=== PATIENT | female | born 1930 | race Caucasian/White ===

== ENCOUNTER → 2018-02-13 07:14 | Day surgery (SDC) | payer MEDICARE, BC ==
[~2018-02-13 07:14] MED LIST: Albuterol 2.5 MG/3 ML NEB.SOL* (0.083%) INH ONE; Clopidogrel TAB* 300 MG ONE; Clopidogrel TAB* 300 MG PO ONE; Heparin 2 UNITS/ML IVPREMIX* 1,000 ML IV ONE; Heparin 2 UNITS/ML IVPREMIX* 2,000 ML IV ONE; Heparin(*) 1000 UNIT/ML 10 ML VIAL CATH LAB IV ONE; Iodixanol* (CONTRAST) 320 MG/ML 100 ML SDV ONE; LORazepam TAB(*) 1 MG ONE; Lidocaine 1%* 5 ML VIAL ONE; Midazolam* 1 MG/ML 5 ML VIAL (5 MG) ONE; VERAPAMIL 2.5 MG/ML 2 ML VIAL ** 5 mg/2 ml ONE; fentaNYL* 50 MCG/ML 2 ML VIAL (100 MCG VIAL) ONE; nitroGLYCERIN DRIP* 25,000 MCG/250 ML BTL ONE
--- NOTE | 2018-02-13 15:49 | PN ---
Progress Note - Progress Note Date of Service: 02/13/18 SOAP: Subjective: No complaints of pain in the left groin, pelvis or either lower extremity. No chest pain or shortness of breath. Eating dinner. Objective: 161/94, 88, 19, 95% (RA) NAD, AAO x 3 Abdomen is soft, nontender Left groin is soft, nontender Dressing is CDI 1+ pulse at bilateral DYE BOX OPERATOR, 1+ right popliteal pulse, right INSPECTOR BALL POINTS Right foot is warm to touch Bilateral LE are grossly NM intact Assessment: 87 YOF status post pelvic & BLE arteriography, revascularization of occluded distal right SFA & popliteal arteries, atherectomy and balloon angioplasty of right popliteal, SFA, DYE BOX OPERATOR and distal right EIA. Irregular calcification at left DYE BOX OPERATOR prevented safe deployment of closure device. Pressure held at left CF arteriotomy x 30 minutes. Bleeding controlled. Plan: 1. Plavix 300 mg PO before d/c then 75 mg daily PO x 6 months. 2. Bedrest and groin/vitals/pulses checks per protocol.. 3. IR follow up will include RN call 02/16/18 and clinic visit and DEANNA in ~1 month.
--- NOTE | 2018-02-13 18:16 | RAD ---
CPT II Codes: G9500 Procedure(s) performed: 1. Diagnostic pelvic and bilateral lower extremity arteriogram. 2. Revascularization of occluded right distal superficial femoral artery and popliteal artery. 3. Atherectomy and balloon angioplasty of the right common femoral, superficial femoral and popliteal arteries. 4. Balloon angioplasty of the distal right external iliac artery. Date of service: February 13, 2018 Indication for procedure: Claudication and rest pain Comparison: CT chest abdomen pelvis dated November 25, 2014 and DEANNA dated January 26, 2014 Contrast: 80 mL of Visipaque 320 Fluoroscopy Time: 41.8 minutes Vessels Accessed: Percutaneous access was obtained with ultrasound guidance in the left common femoral artery in the retrograde direction towards the heart. Catheter arteriography, with the catheter tip located within the lumen of the following arteries, was performed at the left external iliac artery, aorta, right common femoral artery and right superficial femoral artery. Anesthesia: Conscious sedation with IV Fentanyl and Versed as well as local 1% lidocaine injected locally at the arteriotomy site. Conscious sedation time: Timeout: 848 hours Case end: 1225 hours Total conscious sedation time: 3 hours and 37 minutes Additional medications: * 400 mcg IA nitroglycerin injected intermittently throughout the course of the procedure to alleviate arterial spasm. * IV heparin 5000 Units to achieve a goal ACT of 250-300. * The patient received 1 mg of p.o. Ativan prior to the onset of the procedure. PROCEDURE NOTE AND INTRAPROCEDURAL IMAGING FINDINGS: Immediately prior to the procedure the patient signed consent after thoroughly discussing all risks, benefits and alternative therapies. The patient was positioned on the fluoroscopy table in the supine position and the bilateral groins were shaved, prepped and the patient was draped in standard sterile fashion. Using fluoroscopic imaging the location of the left common femoral head was marked externally with a skin marker on the patient's groin. Utilizing sonographic guidance and palpation, the left common femoral artery was cannulated overlying the femoral head with a 21-gauge needle. An ultrasound image was saved. A microwire was slowly and smoothly advanced into the left common femoral artery under fluoroscopic imaging. No buckling of the wire was visualized to indicate dissection. With the wire securing percutaneous arterial access, the needle was removed and a 5-Jamaican access sheath was advanced under fluoroscopic control into the left common femoral artery until the tip terminated at the left external iliac artery. The microwire and stiffener were removed and a 0.035 inch ProPerformason wire was advanced through the sheath and into the aorta under fluoroscopic control. The 5-Jamaican access sheath was removed and exchanged for a 5-Jamaican SideArm access sheath securing access into the arterial system. Diagnostic arteriography is necessary to locate the location and determined severity of the patient's vascular disease and to potentially revascularize disease arteries. An arteriogram was performed through the side arm of the access sheath with the tip at the left external iliac artery demonstrating a patent left external iliac artery leading into the common femoral artery. There is complete occlusion of the proximal left superficial femoral artery beginning at the ostium. The femoral profundus fills adequately. A 5-Jamaican multiside hole flush catheter was advanced into the aorta over the wire and power injection arteriography of the lower abdominal aorta and bilateral iliac arteries was performed. This demonstrated diffuse calcified atherosclerosis of the visualized arteries provide adequate patency is documented in the infrarenal abdominal aorta and bilateral iliac arteries. There is coarse calcification causing mild narrowing at the bilateral external iliac arteries more severely affecting the right than the left. There is atherosclerotic narrowing at the origin of the right superficial femoral artery as well. The flush catheter was removed and replaced with a 5-Jamaican C2 catheter which was used to access the contralateral right common iliac artery. Utilizing this catheter and a hydrophilic 0.035 inch wire the catheter was advanced to the right common femoral artery. Arteriography was performed here showing multifocal stenoses in the proximal right superficial femoral artery. More inferiorly there is abrupt occlusion of the right superficial femoral artery at the level of Bam's canal. The distal most popliteal artery fills by collateralized flow just above the branch point of the anterior tibial artery. The anterior tibial artery, peroneal artery and posterior tibial artery fill adequately in their proximal portions. A 260 cm length stiff hydrophilic wire was inserted into the catheter and advanced to the mid-level superficial femoral artery. The catheter was removed and over the stiff hydrophilic wire the SideArm access sheath was removed and replaced with a 65 cm length, 6-Jamaican access sheath which was then advanced under fluoroscopic control until the tip terminated in the proximal right superficial femoral artery. Utilizing a 4-Jamaican catheter and a hydrophilic wire the occluded distal SFA and popliteal artery was crossed and tail the tip of the catheter was located in the distal most popliteal artery. Arteriography demonstrated a small dissection at the reentry point across the occlusion in the popliteal artery that extends to the tibioperoneal trunk. Contrast injected does fill the proximal infrapopliteal arteries. Repositioning of the catheter and wire securing access in the true lumen of the posterior tibial artery. The wire was exchanged for a 0.014 inch Viper which was advanced to the ankle level right posterior tibial artery. With the wire securing access across the SFA and occluded posterior tibial artery orbital active anatomy was performed across the entire length of the right superficial femoral artery including the occluded distal right SFA and occluded popliteal artery up to the branch point of the right anterior tibial artery. The atherectomy device was removed and over the microwire a 4 mm x 120 mm Nanocross balloon was advanced and balloon angioplasty was performed across the entire length of the right SFA and popliteal artery. The balloon was inflated up to its burst pressure corresponding to a diameter measurement of approximately 4.3 mm anteriorly each inflation the balloon remained inflated for minimum of 2 minutes to address spasm. With the tip of the access sheath now at the junction of the right external iliac and common femoral artery balloon angioplasty was performed showing brisk patent flow through the superficial femoral artery, into the popliteal artery and as far as the infrapopliteal arteries. The microwire was exchanged for a 0.035 inch hydrophilic wire. Over this wire a 5 mm x 150 mm Passeo 35 balloon was advanced and balloon angioplasty was performed from the lower margin of the infrapopliteal artery then proximally across the entire length of the superficial femoral artery, right common femoral artery and the distal most right external iliac artery. At the popliteal artery the balloon was inflated to its nominal pressure corresponding to a 5 mm diameter. At all levels proximal the balloon was inflated to just under burst pressure corresponding to a diameter measurement of 5.3 mm. During each inflation the balloon remained inflated for 2 minutes or more to address spasm. With the tip of the access sheath in the right common femoral artery balloon angioplasty was performed showing brisk flow through the entire superficial femoral artery, into the popliteal artery and continuing into the infrapopliteal arteries. Unfortunately the dissection at the branch point of the right anterior tibial artery remains. Over the wire the long access sheath was exchanged for a 11 cm length 6-Jamaican access sheath which was advanced until the tip was at the left external iliac artery. Through the side arm of the access sheath arteriography was performed of the distal left thigh which shows complete occlusion of the superficial femoral artery. Distally the popliteal artery fills by collateralized flow provided by intramuscular branches of the femoral profundus. More inferiorly there is slow filling of the popliteal artery which fills the proximal portions of the infrapopliteal arteries. In-line flow is documented as far as the mid-level left lower leg through the NICOLE and SECTION BEAMER. Due to irregular calcification at the left common femoral artery a percutaneous closure device was deferred. The patient's elevated ACT prevents safe removal of the sheath and therefore the sheath was sutured in place with the intention to removed the sheath in the CHF holding room after the ACT is <160. The patient tolerated the procedure well and was transferred to angiography holding bay for standard post procedural observation. SUMMARY OF PROCEDURE, IMAGING FINDINGS AND INTERVENTIONS PERFORMED: 1. Diagnostic studies performed: * Arterial access was obtained at the left common femoral artery in the retrograde direction (i.e. towards the heart) with ultrasound guidance. A sonographic image was recorded. * Diagnostic catheter angiography (necessary to perform the appropriate interventions) was performed with the catheter tip in the left external iliac artery, aorta, right external iliac artery, right common femoral artery and right superficial femoral artery. * Catheter arteriography was performed of the lower abdominal aorta and bilateral iliac arterial system, the right lower extremity arteries as far as the mid foot and the left lower extremity arteries as far as the mid-level left lower leg. 2. Interpretation of diagnostic studies performed: * Mild stenoses in the bilateral external iliac arteries, slightly more severe on the right than the left. * There is complete occlusion of the proximal left superficial femoral artery beginning at the ostium with slow reconstituted filling of the left popliteal artery via intramuscular collaterals. * After the left popliteal artery fills by reconstituted flow there is essentially in-line flow in the proximal infrapopliteal arteries as far as the lower left leg (arteriography was not acquired at the left ankle and foot). * Coarse calcification causing multifocal stenoses in the right common femoral and superficial femoral artery culminating and complete occlusion of the distal superficial femoral artery. The occlusion extends into the popliteal artery and only the distal right popliteal artery fills by reconstituted flow. * From the distal popliteal artery on word there is adequate filling of the infrapopliteal arteries with 2 vessel runoff provided by the SECTION BEAMER and NICOLE. 3. Surgical interventions performed: * Catheter and wire revascularization of the distal right superficial femoral and popliteal arteries. * Atherectomy was performed with a Diamondback 1.5 SOLID across the entire length of the right common femoral artery, superficial femoral artery including the previously occluded distal right SFA and popliteal arteries. * Balloon angioplasty of the right popliteal and superficial femoral artery with a 4 mm x 150 mm Nanocross balloon. * Balloon angioplasty of the right popliteal artery, right superficial femoral artery, right common femoral artery and distal right external iliac artery utilizing a 5 mm x 150 mm ECO-SAFEronik 35 balloon the balloon was inflated to nominal pressure at the level of the popliteal artery. Above the popliteal artery the balloon was inflated just below burst pressure corresponding to a diameter measurement of 5.3 mm. 4. Interpretation of interventions performed: * Final arteriography demonstrated brisk flow through the right common femoral artery, superficial femoral artery, across the previously occluded popliteal artery and into the infrapopliteal arteries. * Unfortunately a dissection flap was created reentering the occluded distal right popliteal artery which persisted on the final arteriogram. Although the dissection flap persistent there was brisk flow through the infrapopliteal arteries as far as the right ankle. Plan: 1. Aspirin 81 mg p.o. daily for life. 2. Plavix 75 mg p.o. daily x 6 months. 3. Clinical and imaging follow-up according to standard Interventional Radiology protocol.
[2018-02-13 18:18] VITALS: BP 122/57
== END | disposition home or self-care (01) ==
LOC: CHICATH 07:14
PROVIDERS: ATTEND Radiology Diagnostic Radiology
DX: I70.223 Atherosclerosis of native arteries of extremities with rest pain, bilateral legs (principal); I73.9 Peripheral vascular disease, unspecified; I25.10 Atherosclerotic heart disease of native coronary artery without angina pectoris; I12.9 Hypertensive chronic kidney disease with stage 1 through stage 4 chronic kidney disease, or unspecified chronic kidney disease; N18.3 Chronic kidney disease, stage 3 (moderate); J44.9 Chronic obstructive pulmonary disease, unspecified; Z85.118 Personal history of other malignant neoplasm of bronchus and lung; Z95.5 Presence of coronary angioplasty implant and graft; Z87.891 Personal history of nicotine dependence; E78.00 Pure hypercholesterolemia, unspecified; Z79.899 Other long term (current) drug therapy; M81.0 Age-related osteoporosis without current pathological fracture
CPT/HCPCS: 75736; 76937; 85347; 94640; 99156; 99157; A9270-GY; C1724; C1725; C1769; C1887; J1644; J2250; J3010

== ENCOUNTER 2018-03-17 01:54 | Emergency (ER) | payer MEDICARE, BC ==
[2018-03-17] MEDS ORDERED: Lidocaine 2% JELLY* 6 ML JELLY TOPICAL ONE (02:05)
[2018-03-17] MEDS ORDERED: Nitroglycerin 2% OINT* 1 GM PAK TOPICAL ONE (02:16)
[2018-03-17] MEDS ORDERED: cloNIDine TAB* 0.1 MG PO ONE (02:16)
[2018-03-17] MEDS ORDERED: traMADol TAB* 50 MG PO ONE (02:17)
--- NOTE | 2018-03-17 02:25 | ED ---
Throat Pain/Nasal Congestion - HPI Summary HPI Summary: A 87 y/o female accompanied by family presents to ED c/o constant epistaxis. As per triage, "Pt stated that she has a nose bleed that won't stop". According to the patient, the epistaxis started around midnight on the left side where it has not stopped since. Patient noted that it has never happened to this severity before. Patient took her medications including her blood thinners. - History of Current Complaint Chief Complaint: EDEpistaxis Time Seen by Provider: 03/17/18 02:00 Hx Obtained From: Patient Onset/Duration: Sudden Onset, Still Present Associated Signs And Symptoms: Positive: Nasal Discharge - Epistaxis Cough: None - Allergies/Home Medications Allergies/Adverse Reactions: Allergies Allergy/AdvReac Type Severity Reaction Status Date / Time codeine AdvReac Mild Rash Verified 03/17/18 01:58 PMH/Surg Hx/FS Hx/Imm Hx Cardiovascular History: Reports: Hx Hypertension Respiratory History: Reports: Other Respiratory Problems/Disorders - hx of lung cancer History: Reports: Hx Renal Disease - stage III Musculoskeletal History: Denies: Hx Osteoporosis Sensory History: Reports: Hx Contacts or Glasses - does not have glasses with her Opthamlomology History: Reports: Hx Contacts or Glasses - does not have glasses with her Psychiatric History: Reports: Hx Depression - Cancer History Cancer Type, Location and Year: dx multiple myeloma -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 pt thinks last chemo was in [id number] Hx Chemotherapy: Yes - LUNG Hx Radiation Therapy: Yes - LUNG - Surgical History Surgery Procedure, Year, and Place: cardiac stent - Immunization History Date of Tetanus Vaccine: unk Date of Influenza Vaccine: fall 2016 Infectious Disease History: No Infectious Disease History: Denies: Traveled Outside the [place] in Last 30 Days - Family History Known Family History: Negative: Blood Disorder - Social History Alcohol Use: None Substance Use Type: Reports: None Smoking Status (MU): Former Smoker Review of Systems Negative: Fever Positive: Epistaxis All Other Systems Reviewed And Are Negative: Yes Physical Exam - Summary Physical Exam Summary: VITAL SIGNS: Reviewed. GENERAL: Patient is a well-developed and nourished female who is lying comfortable in the stretcher. Patient is not in any acute respiratory distress. HEAD AND FACE: No signs of trauma. No ecchymosis, hematomas or skull depressions. No sinus tenderness. EYES: PERRLA, EOMI x 2, No injected conjunctiva, no nystagmus. EARS: Hearing grossly intact. Ear canals and tympanic membranes are within normal limits. NOSE: Patient is bleeding from both nostrils (left more than right). Cannot localize the bleeding site. Blood is found in oropharynx. MOUTH: Oropharynx within normal limits. NECK: Supple, trachea is midline, no adenopathy, no JVD, no carotid bruit, no c- spine tenderness, neck with full ROM. CHEST: Symmetric, no tenderness at palpation LUNGS: Clear to auscultation bilaterally. No wheezing or crackles. CVS: Regular rate and rhythm, S1 and S2 present, no murmurs or gallops appreciated. ABDOMEN: Soft, non-tender. No signs of distention. No rebound no guarding, and no masses palpated. Bowel sounds are normal. EXTREMITIES: FROM in all major joints, no edema, no cyanosis or clubbing. NEURO: Alert and oriented x 3. No acute neurological deficits. Speech is normal and follows commands. SKIN: Dry and warm Triage Information Reviewed: Yes Vital Signs On Initial Exam: Initial Vitals Temp Pulse Resp BP Pulse Ox 97.9 F 103 20 181/125 100 03/17/18 01:55 03/17/18 01:55 03/17/18 01:55 03/17/18 01:55 03/17/18 01:55 Vital Signs Reviewed: Yes Procedures - Laceration/Wound Repair 1 Location: Other - NOSE NOSE Location: Other - NOSE Length, Depth and Shape: 4.5 cm rockets put in place in both nostrils. Good hemostasis. Diagnostics - Vital Signs Vital Signs Temp Pulse Resp BP Pulse Ox 03/17/18 01:55 97.9 F 103 20 181/125 100 - Laboratory Lab Statement: Any lab studies that have been ordered have been reviewed, and results considered in the medical decision making process. EENT Course/Dx - Course Course Of Treatment: A 87 y/o female accompanied by family presents to ED c/o constant epistaxis. No blood work was done. In the ED course, the patient recieved Augmentin, Catapres, Lidocaine, NTG and Tramadol. During reevaluation, the patient's bleeding and blood pressure improved. Patient will be discharged with a diagnosis of epistaxis. Patient will be sent home with Ultram and Augmentin. Patient is to follow up with ENT tomorrow. Patient is agreeable with this plan. - Diagnoses Provider Diagnoses: Epistaxis Discharge - Sign-Out/Discharge Documenting (check all that apply): Patient Departure - DISCHARGE - Discharge Plan Condition: Stable Disposition: HOME Prescriptions: Amoxicillin/Clavulanate TAB* [Augmentin TAB 875*] 875 mg PO BID #14 tab traMADol TAB* [Ultram*] 50 mg PO Q6HR PRN #20 tab MDD 4 PRN Reason: Pain Patient Education Materials: Nosebleed (ED) Referrals: Karyna Palomino MD [Primary Care Provider] - Prashant Robert MD [Medical Doctor] - 1 Day Additional Instructions: FOLLOW UP WITH ENT TOMORROW. TAKE MEDICATION PRESCRIBED. RETURN TO ED FOR ANY NEW OR WORSENING SYMPTOMS. - Attestation Statements Document Initiated by Scribe: Yes Documenting Scribe: Caden Jennings Provider For Whom Scribe is Documenting (Include Credential): Maggy Hutchinson MD Scribe Attestation: Caden Taylor, scribed for Maggy Hutchinson MD on 03/17/18 at 0323.
--- OUTSIDE RECORDS SUMMARY | 2018-03-17 02:32 | XMS REPORT ---
:1930 External Reference #:[id number] Author Organization [employer] Address [address] [place] [address] Phone [phone] Care Team Providers Name Role Phone Karyna Palomino MD Primary Care Physician Unavailable Payers Type Date Identification Numbers Payment Provider Subscriber Medicare Primary Policy Number: [id number] Medicare Moncho Myles Demian PayID: [id number] [address] [place] [address] [facility] Policy Number: [id number] [facility] Sujatatung Myles Demian PayID: [id number] [address] [place] [address] Problems Date Description Provider Status Onset: 05/09/2009 Benign essential hypertension Karyna Palomino M.D. Active Onset: 05/09/2009 Hyperlipidemia Karyna Palomino M.D. Active Onset: 05/09/2009 Malignant tumor of bronchus Karyna Palomino M.D. Active Onset: 05/10/2009 Chronic obstructive lung disease Karyna Palomino M.D. Active Onset: 05/10/2009 Chronic kidney disease stage 3 Karyna Palomino M.D. Active Onset: 04/17/2015 Essential hypertension Karyna Palomino M.D. Active Onset: 02/09/2016 Coronary arteriosclerosis Celso Nicholson M.D. 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 Active Onset: 11/05/2017 Atherosclerosis of arteries of the Raji Schmid M.D. Active extremities Family History Date Family Member(s) Problem(s) Comments General Cancer General Heart Disease Father due to Heart () - at age 34 Disease Mother due to () - at cryptococcal meningitis 82 Siblings 3 First Brother due to Heart () - Twin Disease brother. 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 Denae Arciniega and Bonita Arciniega - nieces Allergies, Adverse Reactions, Alerts Date Description Reaction Status Severity Comments 05/09/2009 Codeine Sulfate rash active Medications Medication Date Status Form Strength Qnty SIG Indications Ordering Provider Diclofenac 09/15 Active Gel 1% 100un apply 2-4 M25.512 Karyna Sodium its grams to [place]el[place], the M.D. shoulder 3-4 times a day Calcium 11/19 Active Tablets bid Karyna Magnesium Zinc /2016 Nanette Palomino Alendronate 01/17 Active Tablets 70mg 4tabs Take One M81.0 Karyna Sodium Tablet By Cotton, Mouth M.D. Weekly On An Empty Stomach With 8 Ounce Of Water. DO Not Eat Or Lie Down For 30 Minutes After Taking Metoprolol 11/08 Active Tablets ER 25mg 180ta 1 by mouth I21.4 Karyna Succinate ER /2014 24HR bs two times a Cotton, day M.D. Lipitor 11/04 Active Tablets 80mg 90tab Take One Karyna s Tablet By Cotton, Mouth AT M.D. Bedtime Ramipril 11/04 Active Capsules 2.5mg 90cap Take One s Capsule By Cotton, Mouth Every M.D. Day Aspirin 11/[address] 81mg 90tab Take One s Tablet By Cotton, Mouth Every M.D. Day Aldactone 11/04 Active Tablets 25mg 90tab Take One s Tablet By Cotton, Mouth Every M.D. Day Budesonide 07/16 Active Suspension 0.25mg/2M 180ml 1 vial in J44.9 Karyna /2012 L nebulizer Cotton, twice daily M.D. Albuterol 12/27 Active Nebulizer (2.5mg/3M 300un use 1 vial Karyna L) 0.083% its four times Cotton, a day M.D. Multi-Vitamin/M 05/09 Active Tablets 50tab 1 tablet Karyna iner s daily Cotton, M.D. Omeprazole 05/[address] 20mg 90cap take one Karyna s capsule by Cotton, mouth every M.D. day Spiriva Active Capsules 18mcg 30cap Inhale The Karyna Handihaler s Contents Of Cotton, One Capsule M.D. By Mouth Every Day Clopidogrel Active Tablets 75mg 1 by mouth Unknown Bisulfate / every day Doxycycline 10/03 Hx Tablets 100mg 20tab 1 tab by R05 Karyna Hyclate s mouth twice Cotton, - a day for M.D. 11/04 Spiriva 02/06 Hx Capsules 18mcg 30cap 1 496 Karyna Handihaler s inhalation Cotton, - once daily M.D. 02/06 Brovana 02/06 Hx Nebulizer 15mcg/2ML 180un inhale 496 Karyna /2015 its contents of Cotton, - 1 vial in M.D. 09/18 nebulizer /2015 twice a day Lopressor 11/04 Hx Tablets 25mg 180ta 1 by mouth 410.70 bs twice a day Ordering - Provider 11/08 Brilinta 11/04 Hx Tablets 90mg 60tab 1 tab by Karyna s mouth twice Cotton, - a day M.D. 11/16 Azithromycin 10/27 Hx Tablets 250mg 6tabs two tabs 466.0 Karyna day one, Cotton, - one daily M.D. 11/04 till Prednisone 10/27 Hx Tablets 5mg 28tab 4 tablets 466.0 Karyna s po for 4 Cotton, - days 3 M.D. 02/06 tablets po /2014 for 2 days 2 tablets po for 2 days 1 tablet po for 2 days Felodipine ER 01/25 Hx Tablets ER 2.5mg 30tab Take One 401.1 Karyna 24HR s Tablet By Cotton, - Mouth Every M.D. Alendronate 01/25 Hx Tablets 70mg 4tabs Take 1 733.90 Tablet Cotton, - Weekly On M.D. 09/18 An Stomach With 8Oz Of Water. DO Not Eat Or Lie Down For 30Mins. After Taking Klor-Con M10 01/10 Hx Tablets ER 10Meq 90tab Take Two s Tablets By Cotton, - Mouth Every M.D. 11/04 Morning And Take One Tablet By Evening Triamterene/Hyd 01/04 Hx Tablets 75-50mg 90tab Take 1/2 rochlorothiaz s Tablet By Cotton, e - Mouth Every M.D. Advair Diskus 11/18 Hx Aerosol 250-50mcg 60uni Inhale 1 /Dose ts puff Orally Cotton, - Twice A Day M.D. 07/20 Advair Diskus 11/18 Hx Aerosol 250-50mcg 60uni Inhale One 496 Karyna /Dose ts puff By Cotton, - Mouth Twice M.D. 02/06 A Azithromycin 09/15 Hx Tablets 250mg 6tabs two tabs 466.0 day one, Cotton, - one daily M.D. 09/25 till Prednisone 09/15 Hx Tablets 5mg 40tab as directed 466.0 Karyna s Cotton, - M.D. 09/27 Ventolin HFA 01/14 Hx Aerosol 108(90Bas 1Mont 2 puffs 4 496 e) mcg/ac h times a day Cotton, - as needed M.D. 07/20 Simvastatin 04/02 Hx Tablets 40mg 90tab Take One s Tablet By Cotton, - Mouth AT M.D. 11/04 Bedtime Triamcinolone 12/29 Hx Cream 0.1% 80gm apply thin 782.1 Karyna Acetonide film twice Cotton, - daily M.D. 10/02 Simvastatin 05/09 Hx Tablets 20mg 90tab 1 tablet s once daily Cotton, - at bedtime M.D. 04/02 Calcium-D 05/09 Hx Capsules 600-200mg 30cap 1 tablet -Un s daily Cotton, - M.D. 11/19 Benzonatate 05/09 Hx Capsules 100mg 30cap 1 tablet s three times Cotton, - daily as M.D. 10/02 Xopenex 05/09 Hx Nebulizer 1.25mg/3M 1Mont q6-8h prn L h Cotton, - M.D. 12/27 Advair Diskus 05/09 Hx Aerosol 250-50mcg 60uni Inhale 1 496 /Dose ts puff Orally Cotton, - Twice A Day M.D. 07/16 Spiriva 05/09 Hx Capsules 18mcg 90cap Inhale One Karyna Handihaler s Capsule By Cotton, - Mouth Via M.D. 07/20 Handihaler /2012 Every Morning Triamterene/Hyd 05/09 Hx Tablets 75-50mg 90tab Take One Karyna rochlorothiazid s Tablet By Cotton, e - Mouth Every M.D. 07/26 Day /2013 Klor-Con 05/09 Hx Packet 20Meq 30uni Mix 1 ts Packet With Cotton, - Fluid And M.D. 01/10 Drink Daily /2013 Cilostazol Hx Tablets 100mg 60tab 1 by mouth Unknown /0000 s twice a day - 11/04 Spiriva Hx Capsules 18mcg 1 unit Unknown Handihaler /0000 inhalation - daily 09/18 Spironolactone 00 Hx Tablets 25mg 1 by mouth Unknown /0000 every day - 09/18 Calcium 600 + D Hx Tablets 600-200mg Unknown /0000 -Unit - 07/07 Medications Administered in Office Medication Date Status Form Strength Qnty SIG Indications Ordering Provider Triamcinolone Injection Zaneb (Kenalog) 2015 MD Evangelina Immunizations CPT Code Status Date Vaccine Lot # [id number] Given 07/12/2015 Tdap - Tetanus/Diptheria/Acellular Pertussis 43917 Given 04/17/2015 Influenza Virus Vaccine, Quadrivalent, Split, [id number] Preservative Free 79146 Given 02/06/2015 Pneumococcal Conjugate Vaccine 13 Valent For [id number] Intramuscular Use 74377 Given 01/25/2014 Pneumonia Vaccine [id number] 76753 Given 04/02/2010 Influenza Virus 3Yrs & Over 58305 Given 05/09/2009 Influenza Virus Vaccine, Pandemic Formulation [id number] 20060 Given 05/09/2009 Administration Swine Flu Shot Vital Signs Date Vital Result Comment 03/12/2018 Height 61 inches 5'1" Weight 135.00 lb Heart Rate 88 /min BP Systolic Sitting 117 mmHg BP Diastolic Sitting 62 mmHg O2 % BldC Oximetry 97 % BMI (Body Mass Index) 25.5 kg/m2 03/04/2018 Height 61 inches 5'1" Weight 138.00 lb with shoes Heart Rate 98 /min BP Systolic Sitting 100 mmHg lue reg cuff BP Diastolic Sitting 62 mmHg lue reg cuff BP Systolic Standing 110 mmHg BP Diastolic Standing 64 mmHg Respiratory Rate 22 /min BMI (Body Mass Index) 26.1 kg/m2 Ejection Fraction 40-45% 12/06/14 11/05/2017 Height 61 inches 5'1" Weight 137.00 lb w/shoes Heart Rate 106 /min BP Systolic Sitting 130 mmHg LA reg cuff BP Diastolic Sitting 78 mmHg LA reg cuff BMI (Body Mass Index) 25.9 kg/m2 10/03/2017 Weight 136.00 lb Heart Rate 99 /min BP Systolic 105 mmHg BP Diastolic 65 mmHg Body Temperature 98.1 F O2 % BldC Oximetry 97 % 09/15/2017 Weight 137.00 lb Heart Rate 94 /min BP Systolic Sitting 115 mmHg BP Diastolic Sitting 78 mmHg Body Temperature 97.7 F O2 % BldC Oximetry 97 % 06/16/2017 Height 50 inches 4'2" Weight 137.50 lb Heart Rate 100 /min BP Systolic 120 mmHg BP Diastolic 76 mmHg Body Temperature 97.6 F O2 % BldC Oximetry 98 % BMI (Body Mass Index) 38.7 kg/m2 03/14/2017 Height 50 inches 4'2" Weight 139.00 lb Heart Rate 86 /min BP Systolic 116 mmHg BP Diastolic 64 mmHg Respiratory Rate 17 /min BMI (Body Mass Index) 39.1 kg/m2 01/20/2017 Weight 138.00 lb with shoes Heart Rate 94 /min BP Systolic 90 mmHg BP Diastolic 60 mmHg O2 % BldC Oximetry 96 % 11/19/2016 Weight 138.25 lb Heart Rate 90 /min BP Systolic Sitting 124 mmHg BP Diastolic Sitting 70 mmHg Respiratory Rate 18 /min Body Temperature 97.4 F 06/11/2016 Height 62 inches 5'2" Weight 142.00 lb Heart Rate 76 /min BP Systolic Sitting 108 mmHg BP Diastolic Sitting 62 mmHg Respiratory Rate 16 /min Body Temperature 98.3 F Pain Level 3 BMI (Body Mass Index) 26.0 kg/m2 05/21/2016 Height 60.25 inches 5'0.25" Weight 138.00 lb Heart Rate 82 /min BP Systolic 100 mmHg BP Diastolic 62 mmHg Body Temperature 98.1 F O2 % BldC Oximetry 97 % BMI (Body Mass Index) 26.7 kg/m2 02/09/2016 Height 60.25 inches 5'0.25" Weight 137.00 lb w/ shoes Heart Rate 80 /min irreg BP Systolic Sitting 114 mmHg Lue, reg cuff BP Diastolic Sitting 66 mmHg Lue, reg cuff BP Systolic Standing 110 mmHg Lue BP Diastolic Standing 60 mmHg Lue Respiratory Rate 16 /min BMI (Body Mass Index) 26.5 kg/m2 Ejection Fraction 40-45% as of 12/06/13 echo 01/18/2016 Height 60.25 inches 5'0.25" Weight 136.50 lb Heart Rate 84 /min BP Systolic Sitting 98 mmHg manual and machine BP Diastolic Sitting 50 mmHg manual and machine Body Temperature 95.7 F O2 % BldC Oximetry 98 % BMI (Body Mass Index) 26.4 kg/m2 09/19/2015 Height 60.25 inches 5'0.25" Weight 134.75 lb Heart Rate 86 /min BP Systolic Sitting 102 mmHg BP Diastolic Sitting 67 mmHg Body Temperature 97.3 F Pain Level 0 O2 % BldC Oximetry 97 % BMI (Body Mass Index) 26.1 kg/m2 07/20/2015 Height 60.25 inches 5'0.25" Weight 132.00 lb w/o shoes Heart Rate 86 /min reg BP Systolic Sitting 106 mmHg Rue, reg cuff BP Diastolic Sitting 60 mmHg Rue, reg cuff BP Systolic Standing 102 mmHg Rue BP Diastolic Standing 66 mmHg Rue Respiratory Rate 18 /min BMI (Body Mass Index) 25.6 kg/m2 Ejection Fraction 50-55% as of 05/06/14 echo 07/17/2015 Height 84 inches 7'0" Weight 134.00 lb BP Systolic 118 mmHg BP Diastolic 74 mmHg Body Temperature 97.7 F O2 % BldC Oximetry 96 % BMI (Body Mass Index) 13.4 kg/m2 06/22/2015 Height 61 inches 5'1" Weight 133.00 lb Heart Rate 64 /min BP Systolic Sitting 124 mmHg BP Diastolic Sitting 76 mmHg Respiratory Rate 14 /min Body Temperature 98.2 F O2 % BldC Oximetry 97 % BMI (Body Mass Index) 25.1 kg/m2 04/17/2015 Height 61 inches 5'1" Weight 130.00 lb Heart Rate 96 /min BP Systolic 116 mmHg BP Diastolic 72 mmHg Body Temperature 97.8 F O2 % BldC Oximetry 98 % BMI (Body Mass Index) 24.6 kg/m2 02/06/2015 Height 61 inches 5'1" Weight 129.00 lb Heart Rate 100 /min BP Systolic Sitting 100 mmHg BP Diastolic Sitting 63 mmHg Body Temperature 97.0 F O2 % BldC Oximetry 98 % BMI (Body Mass Index) 24.4 kg/m2 12/09/2014 Weight 130.00 lb Heart Rate 93 /min BP Systolic Sitting 109 mmHg BP Diastolic Sitting 72 mmHg Body Temperature 97.6 F 12/09/2014 Height 61 inches 5'1" Weight 130.00 lb with shoes Heart Rate 94 /min BP Systolic Sitting 104 mmHg LA, reg cuff BP Diastolic Sitting 64 mmHg LA, reg cuff BP Systolic Standing 92 mmHg LA BP Diastolic Standing 64 mmHg LA Respiratory Rate 18 /min BMI (Body Mass Index) 24.6 kg/m2 Ejection Fraction 40-45% 12/06/2014 11/08/2014 Height 61 inches 5'1" Weight 132.00 lb Heart Rate 76 /min BP Systolic Sitting 114 mmHg left arm, reg cuff BP Diastolic Sitting 64 mmHg left arm, reg cuff BP Systolic Standing 100 mmHg left arm, reg cuff BP Diastolic Standing 64 mmHg left arm, reg cuff Respiratory Rate 20 /min BMI (Body Mass Index) 24.9 kg/m2 Ejection Fraction 50-55% 05/06/15 11/07/2014 Height 61 inches 5'1" Weight 132.00 lb Heart Rate 76 /min BP Systolic 113 mmHg BP Diastolic 71 mmHg Body Temperature 98.6 F O2 % BldC Oximetry 97 % BMI (Body Mass Index) 24.9 kg/m2 10/27/2014 Height 61 inches 5'1" Weight 138.00 lb Heart Rate 100 /min BP Systolic 138 mmHg BP Diastolic 80 mmHg Body Temperature 97.9 F O2 % BldC Oximetry 94 % BMI (Body Mass Index) 26.1 kg/m2 07/04/2014 Weight 147.00 lb Heart Rate 110 /min BP Systolic Sitting 142 mmHg BP Diastolic Sitting 70 mmHg Body Temperature 97.7 F O2 % BldC Oximetry 97 % 03/01/2014 Weight 151.75 lb Heart Rate 90 /min BP Systolic Sitting 140 mmHg BP Diastolic Sitting 74 mmHg Body Temperature 97.2 F 01/25/2014 Height 61 inches 5'1" Weight 145.50 lb Heart Rate 100 /min BP Systolic Sitting 142 mmHg BP Diastolic Sitting 78 mmHg Body Temperature 97.4 F O2 % BldC Oximetry 98 % BMI (Body Mass Index) 27.5 kg/m2 07/22/2013 Weight 149.00 lb Heart Rate 88 /min BP Systolic Sitting 132 mmHg BP Diastolic Sitting 82 mmHg O2 % BldC Oximetry 95 % 01/18/2013 Height 61 inches 5'1" Weight 153.00 lb Heart Rate 104 /min BP Systolic Sitting 128 mmHg BP Diastolic Sitting 66 mmHg BMI (Body Mass Index) 28.9 kg/m2 07/20/2012 Height 61.25 inches 5'1.25" Weight 154.00 lb Heart Rate 106 /min BP Systolic Sitting 130 mmHg BP Diastolic Sitting 64 mmHg O2 % BldC Oximetry 96 % BMI (Body Mass Index) 28.9 kg/m2 01/16/2012 Height 61.25 inches 5'1.25" Weight 158.00 lb Heart Rate 96 /min BP Systolic Sitting 132 mmHg BP Diastolic Sitting 66 mmHg BMI (Body Mass Index) 29.6 kg/m2 09/20/2011 Height 61.25 inches 5'1.25" Weight 156.25 lb Heart Rate 104 /min BP Systolic 126 mmHg BP Diastolic 72 mmHg Body Temperature 98.0 F O2 % BldC Oximetry 96.0 % BMI (Body Mass Index) 29.3 kg/m2 09/16/2011 Height 61.25 inches 5'1.25" Weight 157.00 lb Heart Rate 100 /min BP Systolic Sitting 128 mmHg BP Diastolic Sitting 62 mmHg Body Temperature 98.6 F BMI (Body Mass Index) 29.4 kg/m2 07/16/2011 Height 61.25 inches 5'1.25" Weight 159.00 lb Heart Rate 88 /min BP Systolic Sitting 134 mmHg BP Diastolic Sitting 68 mmHg BMI (Body Mass Index) 29.8 kg/m2 01/14/2011 Height 61.25 inches 5'1.25" Weight 155.00 lb Heart Rate 64 /min BP Systolic Sitting 118 mmHg BP Diastolic Sitting 70 mmHg BMI (Body Mass Index) 29.0 kg/m2 10/02/2010 Weight 156.00 lb Heart Rate 104 /min BP Systolic 110 mmHg BP Diastolic 70 mmHg O2 % BldC Oximetry 99 % 04/02/2010 Weight 163.25 lb Heart Rate 104 /min BP Systolic 120 mmHg BP Diastolic 78 mmHg Body Temperature 98.4 F O2 % BldC Oximetry 96 % 12/29/2009 Weight 160.50 lb Heart Rate 88 /min BP Systolic 130 mmHg BP Diastolic 70 mmHg Body Temperature 97.7 F 05/09/2009 Weight 161.25 lb Heart Rate 108 /min BP Systolic Sitting 108 mmHg BP Diastolic Sitting 64 mmHg Respiratory Rate 16 /min Body Temperature 98.6 F O2 % BldC Oximetry 98 % Results Test Date Test Result H/L Range Note Laboratory test finding 02/13/2018 Poc Activated Clotting 156 seconds 1 Time Laboratory test finding 02/13/2018 Poc Activated Clotting 164 seconds 2 Time Laboratory test finding 02/13/2018 Poc Activated Clotting 172 seconds 3 Time Laboratory test finding 02/13/2018 Poc Activated Clotting 192 seconds 4 Time Laboratory test finding 02/13/2018 Poc Activated Clotting 204 seconds 5 Time Laboratory test finding 02/13/2018 Poc Activated Clotting 196 seconds 6 Time Laboratory test finding 02/13/2018 Poc Activated Clotting 217 seconds 7 Time Basic Metabolic Panel 12/22/2017 Sodium 138 mmol/L 135-145 Potassium 4.1 mmol/L 3.5-5.0 Chloride 103 mmol/L 101-111 Co2 Carbon Dioxide 25 mmol/L 22-32 Anion Gap 10 mmol/L 2-11 Glucose 99 mg/dL 70-100 Blood Urea Nitrogen 28 mg/dL High 6-24 Creatinine 1.26 mg/dL High 0.51-0.95 BUN/Creatinine Ratio 22.2 High 8-20 Calcium 10.2 mg/dL 8.6-10.3 Egfr Non- 40.4 >60 Egfr 51.9 >60 8 Creatinine Clearance 09/09/2017 Urine Collection Time 24 Urine Total Volume 1100 mL Urine Random Creatinine 73.00 mg/dL Creatinine TNP mg/dL 0.51-0.95 Creatinine Clearance TNP mL/min 88-128 9 Basic Metabolic Panel 06/11/2017 Sodium 139 mmol/L 133-145 Potassium 4.7 mmol/L 3.5-5.0 Chloride 106 mmol/L 101-111 Co2 Carbon Dioxide 25 mmol/L 22-32 Anion Gap 8 mmol/L 2-11 Glucose 68 mg/dL Low 70-100 Blood Urea Nitrogen 33 mg/dL High 6-24 Creatinine 1.36 mg/dL High 0.51-0.95 BUN/Creatinine Ratio 24.3 High 8-20 Calcium 10.2 mg/dL 8.6-10.3 Egfr Non- 37.0 >60 Egfr 47.5 >60 10 Order 01/08/2017 6 Minute Walk <pending> Lipid Profile (Trig/Chol/HDL) 11/11/2016 Triglycerides 136 mg/dL 11, 12 Cholesterol 143 mg/dL 11, 13 HDL Cholesterol 44.6 mg/dL 11, 14 LDL Cholesterol 71 mg/dL 11, 15 Comp Metabolic Panel 11/11/2016 Sodium 137 mmol/L 133-145 11 Potassium 4.3 mmol/L 3.5-5.0 11 Chloride 101 mmol/L 101-111 11 Co2 Carbon Dioxide 27 mmol/L 22-32 11 Anion Gap 9 mmol/L 2-11 11 Glucose 84 mg/dL 70-100 11 Blood Urea Nitrogen 30 mg/dL High 6-24 11 Creatinine 1.24 mg/dL High 0.51-0.95 11 BUN/Creatinine Ratio 24.2 High 8-20 11 Calcium 9.9 mg/dL 8.6-10.3 11 Total Protein 7.0 g/dL 6.4-8.9 11 Albumin 4.0 g/dL 3.2-5.2 11 Globulin 3.0 g/dL 2-4 11 Albumin/Globulin Ratio 1.3 1-3 11 Total Bilirubin 0.90 mg/dL 0.2-1.0 11 Alkaline Phosphatase 68 U/L 34-104 11 Alt 20 U/L 7-52 11 Ast 24 U/L 13-39 11 Egfr Non- 41.2 >60 11 Egfr 53.0 >60 11, 16 Laboratory test finding 11/11/2016 Magnesium 1.8 mg/dL Low 1.9-2.7 11, 17 Lipid Profile (Trig/Chol/HDL) 01/09/2016 Triglycerides 79 mg/dL 18 Cholesterol 121 mg/dL 19 HDL Cholesterol 46.3 mg/dL 20 LDL Cholesterol 59 mg/dL 21 Comp Metabolic Panel 01/09/2016 Sodium 138 mmol/L 133-145 Potassium 4.5 mmol/L 3.5-5.0 Chloride 104 mmol/L 101-111 Co2 Carbon Dioxide 26 mmol/L 22-32 Anion Gap 8 mmol/L 2-11 Glucose 84 mg/dL 70-100 Blood Urea Nitrogen 27 mg/dL High 6-24 Creatinine 1.16 mg/dL High 0.51-0.95 BUN/Creatinine Ratio 23.3 High 8-20 Calcium 10.0 mg/dL 8.6-10.3 Total Protein 6.7 g/dL 6.4-8.9 Albumin 4.0 g/dL 3.2-5.2 Globulin 2.7 g/dL 2-4 Albumin/Globulin Ratio 1.5 1-3 Total Bilirubin 0.70 mg/dL 0.2-1.0 Alkaline Phosphatase 80 U/L 34-104 Alt 20 U/L 7-52 Ast 23 U/L 13-39 Egfr Non- 44.6 >60 Egfr 57.4 >60 22 Laboratory test finding 01/09/2016 Magnesium 1.7 mg/dL Low 1.9-2.7 CBC Auto Diff 09/06/2015 White Blood Count 10.7 10^3/uL 3.5-10.8 Red Blood Count 4.97 10^6/uL 4.0-5.4 Hemoglobin 14.8 g/dL 12.0-16.0 Hematocrit 45 % 35-47 Mean Corpuscular Volume 90 fL 80-97 Mean Corpuscular Hemoglobin 30 pg 27-31 Mean Corpuscular HGB Conc 33 g/dL 31-36 Red Cell Distribution Width 14 % 10.5-15 Platelet Count 233 10^3/uL 150-450 Mean Platelet Volume 10 um3 7.4-10.4 Abs Neutrophils 8.4 10^3/uL High 1.5-7.7 Abs Lymphocytes 1.1 10^3/uL 1.0-4.8 Abs Monocytes 0.8 10^3/uL 0-0.8 Abs Eosinophils 0.3 10^3/uL 0-0.6 Abs Basophils 0.1 10^3/uL 0-0.2 Abs Nucleated RBC 0 10^3/uL Granulocyte % 78.9 % 38-83 Lymphocyte % 10.3 % Low 25-47 Monocyte % 7.1 % 1-9 Eosinophil % 3.1 % 0-6 Basophil % 0.6 % 0-2 Nucleated Red Blood Cells % 0 Comp Metabolic Panel 09/06/2015 Sodium 139 mmol/L 133-145 Potassium 3.9 mmol/L 3.5-5.0 Chloride 105 mmol/L 101-111 Co2 Carbon Dioxide 26 mmol/L 22-32 Anion Gap 8 mmol/L 2-11 Glucose 81 mg/dL 70-100 Blood Urea Nitrogen 35 mg/dL High 6-24 Creatinine 1.27 mg/dL High 0.51-0.95 BUN/Creatinine Ratio 27.6 High 8-20 Calcium 10.0 mg/dL 8.6-10.3 Total Protein 6.8 g/dL 6.4-8.9 Albumin 4.3 g/dL 3.2-5.2 Globulin 2.5 g/dL 2-4 Albumin/Globulin Ratio 1.7 1-3 Total Bilirubin 1.00 mg/dL 0.2-1.0 Alkaline Phosphatase 60 U/L 34-104 Alt 18 U/L 7-52 Ast 21 U/L 13-39 Egfr Non- 40.2 >60 Egfr 51.7 >60 23 Laboratory test finding 04/17/2015 Vitamin B12 776 pg/mL 180-914 24 Magnesium 1.7 mg/dL Low 1.9-2.7 Basic Metabolic Panel 04/17/2015 Sodium 136 mmol/L 133-145 Potassium 3.9 mmol/L 3.5-5.0 Chloride 103 mmol/L 101-111 Co2 Carbon Dioxide 23 mmol/L 22-32 Anion Gap 10 mmol/L 2-11 Glucose 103 mg/dL High 70-100 Blood Urea Nitrogen 27 mg/dL High 6-24 Creatinine 1.23 mg/dL High 0.51-0.95 BUN/Creatinine Ratio 22.0 High 8-20 Calcium 9.7 mg/dL 8.6-10.3 Egfr Non- 41.8 >60 Egfr 53.8 >60 25 Lipid Profile (Trig/Chol/HDL) 02/02/2015 Triglycerides 98 mg/dL 26 Cholesterol 126 mg/dL 27 HDL Cholesterol 48.7 mg/dL 28 LDL Cholesterol 58 mg/dL 29 Comp Metabolic Panel 02/02/2015 Sodium 135 mmol/L 133-145 Potassium 4.2 mmol/L 3.5-5.0 Chloride 101 mmol/L 101-111 Co2 Carbon Dioxide 26 mmol/L 22-32 Anion Gap 8 mmol/L 2-11 Glucose 74 mg/dL 70-100 Blood Urea Nitrogen 31 mg/dL High 6-24 Creatinine 1.29 mg/dL High 0.51-0.95 BUN/Creatinine Ratio 24.0 High 8-20 Calcium 9.9 mg/dL 8.6-10.3 Total Protein 6.6 g/dL 6.4-8.9 Albumin 4.2 g/dL 3.2-5.2 Globulin 2.4 g/dL 2-4 Albumin/Globulin Ratio 1.8 1-3 Total Bilirubin 1.00 mg/dL 0.2-1.0 Alkaline Phosphatase 57 U/L 34-104 Alt 21 U/L 7-52 Ast 24 U/L 13-39 Egfr Non- 39.6 >60 Egfr 50.9 >60 30 Basic Metabolic Panel 11/07/2014 Sodium 137 mmol/L 133-145 Potassium 3.8 mmol/L 3.5-5.0 Chloride 102 mmol/L 101-111 Co2 Carbon Dioxide 27 mmol/L 22-32 Anion Gap 8 mmol/L 2-11 Glucose 102 mg/dL High 70-100 Blood Urea Nitrogen 44 mg/dL High 6-24 Creatinine 1.27 mg/dL High 0.51-0.95 BUN/Creatinine Ratio 34.6 High 8-20 Calcium 10.1 mg/dL 8.6-10.3 Egfr Non- 40.3 >60 Egfr 51.8 >60 31 CBC Auto Diff 10/29/2014 White Blood Count 14.5 10^3/uL High 4.8-10.8 Red Blood Count 5.46 10^6/uL High 4.0-5.4 Hemoglobin 15.7 g/dL 12.0-16.0 Hematocrit 48 % High 35-47 Mean Corpuscular Volume 89 fL 80-97 Mean Corpuscular Hemoglobin 29 pg 27-31 Mean Corpuscular HGB Conc 32 g/dL 31-36 Red Cell Distribution Width 16 % High 10.5-15 Platelet Count 292 10^3/uL 150-450 Mean Platelet Volume 10 um3 7.4-10.4 Abs Neutrophils 9.7 10^3/uL High 1.5-7.7 Abs Lymphocytes 3.6 10^3/uL 1.0-4.8 Abs Monocytes 0.8 10^3/uL 0-0.8 Abs Eosinophils 0.3 10^3/uL 0-0.6 Abs Basophils 0.1 10^3/uL 0-0.2 Abs Nucleated RBC 0.01 10^3/uL Granulocyte % 67.0 % 38-83 Lymphocyte % 24.7 % Low 25-47 Monocyte % 5.4 % 1-9 Eosinophil % 2.0 % 0-6 Basophil % 0.9 % 0-2 Nucleated Red Blood Cells % 0.1 Inr/Protime 10/29/2014 Inr 0.91 0.78-1.07 Comp Metabolic Panel 10/29/2014 Sodium 138 mmol/L 133-145 Potassium 3.2 mmol/L Low 3.5-5.0 Chloride 107 mmol/L 101-111 Co2 Carbon Dioxide 22 mmol/L 22-32 Anion Gap 9 mmol/L 2-11 Glucose 208 mg/dL High 70-100 Blood Urea Nitrogen 26 mg/dL High 6-24 Creatinine 1.25 mg/dL High 0.51-0.95 BUN/Creatinine Ratio 20.8 High 8-20 Calcium 9.9 mg/dL 8.6-10.3 Total Protein 7.7 g/dL 6.4-8.9 Albumin 4.6 g/dL 3.2-5.2 Globulin 3.1 g/dL 2-4 Albumin/Globulin Ratio 1.5 1-3 Total Bilirubin 0.70 mg/dL 0.2-1.0 Alkaline Phosphatase 55 U/L 34-104 Alt 30 U/L 7-52 Ast 42 U/L High 13-39 Egfr Non- 41.0 >60 Egfr 52.8 >60 32 Laboratory test finding 10/29/2014 Troponin I 0.49 ng/mL High <0.03 33 B Type Natriuretic Peptide 757 pg/mL 34 Lactic Acid 2.9 mmol/L High 0.5-2.2 35 Lipid Profile (Trig/Chol/HDL) 02/23/2014 Triglycerides 155 mg/dL 11, 36 Cholesterol 163 mg/dL 11, 37 HDL Cholesterol 59.5 mg/dL 11, 38 LDL Cholesterol 73 mg/dL 11, 39 Comp Metabolic Panel 02/23/2014 Sodium 139 mmol/L 133-145 11 Potassium 3.5 mmol/L Low 3.7-5.6 11 Chloride 105 mmol/L 101-111 11 Co2 Carbon Dioxide 25 mmol/L 22-32 11 Anion Gap 9 mmol/L 2-11 11 Glucose 99 mg/dL 70-100 11 Blood Urea Nitrogen 24 mg/dL 6-24 11 Creatinine 1.07 mg/dL High 0.51-0.95 11 BUN/Creatinine Ratio 22.4 High 8-20 11 Calcium 9.8 mg/dL 8.6-10.3 11 Total Protein 7.3 g/dL 6.4-8.9 11 Albumin 4.3 g/dL 3.2-5.2 11 Globulin 3.0 g/dL 2-4 11 Albumin/Globulin Ratio 1.4 1-3 11 Total Bilirubin 0.80 mg/dL 0.2-1.0 11 Alkaline Phosphatase 64 U/L 34-104 11 Alt 22 U/L 7-52 11 Ast 26 U/L 13-39 11 Egfr Non- 49.2 >60 11 Egfr 63.3 >60 11, 40 Vitamin D, 25 Hydroxy 02/23/2014 25-Hydroxy Vitamin D2 <4.0 ng/mL 11 25-Hydroxy Vitamin D3 50 ng/mL 11 25-Hydroxy Vitamin D Total 50 ng/mL 11, 41 Laboratory test 02/23/2014 TSH (Thyroid 3.58 IU/mL 0.34-5.60 11, 42 finding Stimulating Horm) Vitamin B12 652 pg/mL 180-914 11, 43 CBC Auto Diff 02/23/2014 White Blood Count 9.3 10^3/uL 4.8-10.8 44 Red Blood Count 4.97 10^6/uL 4.0-5.4 44 Hemoglobin 14.8 g/dL 12.0-16.0 44 Hematocrit 43 % 35-47 44 Mean Corpuscular Volume 86 fL 80-97 44 Mean Corpuscular Hemoglobin 30 pg 27-31 44 Mean Corpuscular HGB Conc 35 g/dL 31-36 44 Red Cell Distribution Width 14 % 10.5-15 44 Platelet Count 205 10^3/uL 150-450 44 Mean Platelet Volume 9 um3 7.4-10.4 44 Abs Neutrophils 6.5 10^3/uL 1.5-7.7 44 Abs Lymphocytes 1.5 10^3/uL 1.0-4.8 44 Abs Monocytes 0.9 10^3/uL High 0-0.8 44 Abs Eosinophils 0.3 10^3/uL 0-0.6 44 Abs Basophils 0.1 10^3/uL 0-0.2 44 Abs Nucleated RBC 0 10^3/uL 44 Granulocyte % 69.9 % 38-83 44 Lymphocyte % 16.0 % Low 25-47 44 Monocyte % 10.1 % High 1-9 44 Eosinophil % 3.2 % 0-6 44 Basophil % 0.8 % 0-2 44 Nucleated Red Blood Cells % 0.1 44 Laboratory test 02/23/2014 Carcinoembryonic Antigen 0.7 ng/mL 0.1-5.0 44 , 45 finding Basic Metabolic Panel 01/06/2014 Sodium 136 mmol/L 133-145 Potassium 3.5 mmol/L Low 3.7-5.6 Chloride 103 mmol/L 101-111 Co2 Carbon Dioxide 22 mmol/L 22-32 Anion Gap 11 mmol/L 2-11 Glucose 99 mg/dL 70-100 Blood Urea Nitrogen 26 mg/dL High 6-24 Creatinine 1.32 mg/dL High 0.51-0.95 BUN/Creatinine Ratio 19.7 8-20 Calcium 9.5 mg/dL 8.6-10.3 Egfr Non- 38.6 >60 Egfr 49.7 >60 46 Comp Metabolic Panel 07/22/2013 Sodium 138 mmol/L 133-145 Potassium 4.0 mmol/L 3.5-5.0 Chloride 103 mmol/L 101-111 Co2 Carbon Dioxide 25.0 mmol/L 22-32 Anion Gap 10.0 mmol/L 2-11 Glucose 88 mg/dL 70-100 Blood Urea Nitrogen 23 mg/dL 6-24 Creatinine 1.10 mg/dL 0.50-1.40 BUN/Creatinine Ratio 20.9 High 8-20 Calcium 10.5 mg/dL High 8.1-9.9 Total Protein 6.5 g/dL 6.2-8.1 Albumin 4.3 g/dL 3.2-5.2 Globulin 2.2 g/dL 2-4 Albumin/Globulin Ratio 2.0 1-3 Total Bilirubin 1.0 mg/dL 0.4-1.5 Alkaline Phosphatase 61 U/L 30-110 Alt 24 U/L 14-54 Ast 29 U/L 12-42 Egfr Non- 47.7 >60 Egfr 61.3 >60 47 Pthi 03/10/2013 PTH Intact 3.9 pmol/L 1.3-9.0 Calcium (PTH Intact) 10.2 mg/dL High 8.1-9.9 Basic Metabolic Panel 03/10/2013 Sodium 142 mmol/L 133-145 Potassium 3.9 mmol/L 3.5-5.0 Chloride 106 mmol/L 101-111 Co2 Carbon Dioxide 26.0 mmol/L 22-32 Anion Gap 10.0 mmol/L 2-11 Glucose 99 mg/dL 70-100 Blood Urea Nitrogen 27 mg/dL High 6-24 Creatinine 1.10 mg/dL 0.50-1.40 BUN/Creatinine Ratio 24.5 High 8-20 Calcium 10.3 mg/dL High 8.1-9.9 Egfr Non- 47.8 >60 Egfr 61.5 >60 48 Lipid Profile (Trig/Chol/HDL) 03/02/2013 Triglycerides 116 mg/dL 40-200 Cholesterol 192 mg/dL Less than 200 HDL Cholesterol 64 mg/dL High 40-60 49 Cholesterol/HDL Ratio 3.0 Average 1-4.44 LDL Cholesterol 104.8 High Less Than 100 50 Comp Metabolic Panel 03/02/2013 Sodium 137 mmol/L 133-145 Potassium 3.4 mmol/L Low 3.5-5.0 Chloride 101 mmol/L 101-111 Co2 Carbon Dioxide 26.0 mmol/L 22-32 Anion Gap 10.0 mmol/L 2-11 Glucose 107 mg/dL High 70-100 Blood Urea Nitrogen 26 mg/dL High 6-24 Creatinine 1.20 mg/dL 0.50-1.40 BUN/Creatinine Ratio 21.7 High 8-20 Calcium 10.4 mg/dL High 8.1-9.9 Total Protein 6.1 g/dL Low 6.2-8.1 Albumin 3.8 g/dL 3.2-5.2 Globulin 2.3 g/dL 2-4 Albumin/Globulin Ratio 1.7 1-3 Total Bilirubin 0.9 mg/dL 0.4-1.5 Alkaline Phosphatase 49 U/L 30-110 Alt 24 U/L 14-54 Ast 31 U/L 12-42 Egfr Non- 43.2 >60 Egfr 55.6 >60 51 CBC Auto Diff 03/02/2013 White Blood Count 7.7 10^3/uL 4.8-10.8 Red Blood Count 4.85 10^6/uL 4.0-5.4 Hemoglobin 14.5 g/dL 12.0-16.0 Hematocrit 43 % 35-47 Mean Corpuscular Volume 88 fL 80-97 Mean Corpuscular Hemoglobin 30 pg 27-31 Mean Corpuscular HGB Conc 34 g/dL 31-36 Red Cell Distribution Width 13 % 10.5-15 Platelet Count 205 10^3/uL 150-450 Mean Platelet Volume 10 um3 7.4-10.4 Abs Neutrophils 5.2 10^3/uL 1.5-7.7 Abs Lymphocytes 1.2 10^3/uL 1.0-4.8 Abs Monocytes 0.9 10^3/uL High 0-0.8 Abs Eosinophils 0.3 10^3/uL 0-0.6 Abs Basophils 0 10^3/uL 0-0.2 Abs Nucleated RBC 0 10^3/uL Granulocyte % 68.1 % 38-83 Lymphocyte % 15.9 % Low 25-47 Monocyte % 11.6 % High 1-9 Eosinophil % 4.1 % 0-6 Basophil % 0.3 % 0-2 Nucleated Red Blood Cells % 0 Vitamin D, 25 Hydroxy 03/02/2013 25-Hydroxy Vitamin D2 <4.0 ng/mL 25-Hydroxy Vitamin D3 45 ng/mL 25-Hydroxy Vitamin D Total 45 ng/mL 52 Laboratory test finding 03/02/2013 Vitamin D 1,25-Dihydroxy 34 pg/mL 18- 78 53 Basic Metabolic Panel 07/21/2012 Sodium 140 mmol/L 133-145 Potassium 3.6 mmol/L 3.5-5.0 Chloride 102 mmol/L 101-111 Co2 Carbon Dioxide 28.0 mmol/L 22-32 Anion Gap 10.0 mmol/L 2-11 Glucose 98 mg/dL 70-100 Blood Urea Nitrogen 23 mg/dL 6-24 Creatinine 1.40 mg/dL 0.50-1.40 BUN/Creatinine Ratio 16.4 8-20 Calcium 9.7 mg/dL 8.1-9.9 Egfr Non- 36.2 >60 Egfr 46.5 >60 54 Lipid Profile (Trig/Chol/HDL) 03/05/2012 Triglyceride 133 mg/dL 40-200 Cholesterol 178 mg/dL Less Than 200 55 High Density Lipoprotein 58 mg/dL 40-60 56 Cholesterol/HDL Ratio 3.07 AVERAGE 1-4.44 Low Density Lipoprotein 93 mg/dL Less Than 100 57 CBC Auto Diff 03/05/2012 White Blood Count 7.5 CUMM 4.8-10.8 Red Cell Count 4.62 CUMM 4.2-5.4 Hemoglobin 14.3 g/dL 12.0-16.0 Hematocrit 41 % 35-47 Mean Corpuscular Volume 88 um3 79-97 Mean Corpuscular Hemoglob 31 pg 27-31 Mean Corpuscular HGB Cone 35 g/dL 32-36 Redcell Distribution WDTH 14 % 10.5-15 Platelet Count 200 CUMM 150-450 Mean Platelet Volume 9.7 um3 7.4-10.4 Gran % 69.5 % 38-83 Lymph % 15.0 % Low 20-45 Mononuclear % 11.1 % High 1-9 Eosinophil % 4.1 % 0-6 Basophil % 0.3 % 0-2 Abs Lymphs 1.1 1.0-4.8 Abs Mononuclear 0.8 0-0.8 Absolute Neutrophil Count 5.2 1.5-7.7 Abs Eosinophils 0.3 0-0.6 Abs Basophils 0 0-0.2 Comp Metabolic Panel 03/05/2012 Sodium 140 mmol/L 135-145 Potassium 3.8 mmol/L 3.5-5.0 Chloride 103 mmol/L 101-111 Co2 (Carbon Dioxide) 30.0 mmol/L 22-32 Anion Gap 7.0 mmol/L 2-11 58 Glucose 101 mg/dL High 70-100 BUN 25 mg/dL High 6-24 Creatinine 1.5 mg/dL High 0.50-1.40 One Over Creatinine 0.66 BUN/Creatinine Ratio 16.7 8-20 Calcium 9.7 mg/dL 8.1-9.9 Total Protein 5.9 GM/DL Low 6.2-8.1 Albumin 3.9 GM/DL 3.2-5.2 Globulin 2.0 GM/DL 2-4 Albumin/Globulin Ratio 2.0 1-3 Bilirubin Total 0.7 mg/dL 0.4-1.5 59 Alkaline Phosphatase 48 U/L 30-110 Alt (SGPT) 23 U/L 14-54 Ast (Sgot) 28 U/L 12-42 eGFR Non- 33.5 > 60 eGFR 43.1 > 60 60 Basic Metabolic Panel 07/22/2011 Sodium 139 mmol/L 135-145 Potassium 3.8 mmol/L 3.5-5.0 Chloride 101 mmol/L 101-111 Co2 (Carbon Dioxide) 27.0 mmol/L 22-32 Anion Gap 11.0 mmol/L 2-11 61 Glucose 82 mg/dL 70-100 BUN 20 mg/dL 6-24 Creatinine 1.4 mg/dL 0.50-1.40 One Over Creatinine 0.71 BUN/Creatinine Ratio 14.3 8-20 Calcium 10.1 mg/dL High 8.1-9.9 eGFR Non- 36.3 > 60 eGFR 46.6 > 60 62 Comp Metabolic Panel 01/01/2011 Sodium 139 mmol/L 135-145 Potassium 3.7 mmol/L 3.5-5.0 Chloride 103 mmol/L 101-111 Co2 (Carbon Dioxide) 27.0 mmol/L 22-32 Anion Gap 9.0 mmol/L 2-11 63 Glucose 102 mg/dL High 70-100 BUN 23 mg/dL 6-24 Creatinine 1.50 mg/dL High 0.50-1.40 One Over Creatinine 0.60 BUN/Creatinine Ratio 15.3 8-20 Calcium 9.8 mg/dL 8.1-9.9 Total Protein 6.7 GM/DL 6.2-8.1 Albumin 4.0 GM/DL 3.2-5.2 Globulin 2.7 GM/DL 2-4 Albumin/Globulin Ratio 1.5 1-3 Bilirubin Total 1.1 mg/dL 0.4-1.5 64 Alkaline Phosphatase 54 U/L 30-110 Alt (SGPT) 23 U/L 14-54 Ast (Sgot) 29 U/L 12-42 eGFR Non- 33.6 > 60 eGFR 43.2 > 60 65 Lipid Profile (Trig/Chol/HDL) 01/01/2011 Triglyceride 170 mg/dL 40-200 Cholesterol 191 mg/dL Less Than 200 66 High Density Lipoprotein 62 mg/dL High 40-60 67 Cholesterol/HDL Ratio 3.08 AVERAGE 1-4.44 Low Density Lipoprotein 95 mg/dL Less Than 100 68 Laboratory test finding 01/01/2011 Vitamin B12 599 pg/mL 180-914 TSH 4.09 MIU/ML 0.34-5.60 Protein Electrophoresis Serum 01/01/2011 Albumin 3.18 GM/DL 3.0-4.35 Alpha 1 0.24 GM/DL 0.09-0.33 Alpha 2 1.05 GM/DL 0.59-1.18 Beta 0.91 GM/DL 0.68-1.02 Gamma 0.92 GM/DL 0.76-1.60 Albumin % 50.5 % 46-63 Alpha 1 % 3.8 % 1.2-5.3 Alpha 2 % 16.7 % 9-17 Beta % 14.4 % 10-16 Gamma % 14.6 % 12-22 A/G Ratio 1.0 0.9-2 Total Protein 6.3 GM/DL 6.2-8.1 Spep Comments (SEE NOTE) 69 Basic Metabolic Panel 08/15/2010 Sodium 141 mmol/L 135-145 Potassium 4.2 mmol/L 3.5-5.0 Chloride 103 mmol/L 101-111 Co2 (Carbon Dioxide) 29.0 mmol/L 22-32 Anion Gap 9.0 mmol/L 2-11 70 Glucose 74 mg/dL 70-100 BUN 25 mg/dL High 6-24 Creatinine 1.40 mg/dL 0.50-1.40 One Over Creatinine 0.70 BUN/Creatinine Ratio 17.9 8-20 Calcium 9.9 mg/dL 8.1-9.9 eGFR Non- 36.4 > 60 eGFR 46.8 > 60 71 CBC With Manual Diff 02/27/2010 White Blood Count 6.8 CUMM 4.8-10.8 Red Cell Count 4.46 CUMM 4.2-5.4 Hemoglobin 14.0 g/dL 12.0-16.0 Hematocrit 39 % 35-47 Mean Corpuscular Volume 88 um3 79-97 Mean Corpuscular Hemoglob 31 pg 27-31 Mean Corpuscular HGB Cone 36 g/dL 32-36 Redcell Distribution WDTH 14 % 10.5-15 Platelet Count 190 CUMM 150-450 Mean Platelet Volume 8.4 um3 7.4-10.4 Polysegmented Neutrophil 69 % 38-83 Lymphocyte 20 % Low 25-47 Monocyte 9 % 0-13 Eosinophil 2 % 0-6 Absolute Neutrophil Count 4.6 Anisocytosis SLIGHT Laboratory test finding 02/27/2010 LDH 158 U/L 95-185 Comp Metabolic Panel 02/27/2010 Sodium 141 mmol/L 135-145 Potassium 4.3 mmol/L 3.5-5.0 Chloride 102 mmol/L 101-111 Co2 (Carbon Dioxide) 30.0 mmol/L 22-32 Anion Gap 9.0 mmol/L 2-11 72 Glucose 96 mg/dL 70-100 73 BUN 24 mg/dL 6-24 Creatinine 1.60 mg/dL High 0.50-1.40 One Over Creatinine 0.60 BUN/Creatinine Ratio 15.0 8-20 Calcium 9.8 mg/dL 8.1-9.9 74 Total Protein 6.4 GM/DL 6.2-8.1 Albumin 4.1 GM/DL 3.2-5.2 Globulin 2.3 GM/DL 2-4 Albumin/Globulin Ratio 1.8 1-3 Bilirubin Total 1.1 mg/dL 0.4-1.5 75 Alkaline Phosphatase 49 U/L 30-110 Alt (SGPT) 21 U/L 14-54 Ast (Sgot) 27 U/L 12-42 eGFR Non- 33.2 > 60 eGFR 40.2 > 60 76 Laboratory test finding 01/10/2010 Calcium Ionized 4.89 mg/dL 4.65-5.28 PTH Intact, Inc Total Calcium 01/10/2010 PTH Intact 5.3 PMOL/L 1.3-9.3 77 Calcium For Pthi 9.5 mg/dL 8.1-9.9 78 Comp Metabolic Panel 12/29/2009 Sodium 142 mmol/L 135-145 Potassium 3.6 mmol/L 3.5-5.0 Chloride 101 mmol/L 101-111 Co2 (Carbon Dioxide) 31.0 mmol/L 22-32 Anion Gap 10.0 mmol/L 2-11 79 Glucose 121 mg/dL High 70-100 80 BUN 29 mg/dL High 6-24 Creatinine 1.60 mg/dL High 0.50-1.40 One Over Creatinine 0.60 BUN/Creatinine Ratio 18.1 8-20 Calcium 11.1 mg/dL High 8.1-9.9 81 Total Protein 6.4 GM/DL 6.2-8.1 Albumin 4.1 GM/DL 3.2-5.2 Globulin 2.3 GM/DL 2-4 Albumin/Globulin Ratio 1.8 1-3 Bilirubin Total 1.2 mg/dL 0.4-1.5 82 Alkaline Phosphatase 50 U/L 30-110 Alt (SGPT) 28 U/L 14-54 Ast (Sgot) 35 U/L 12-42 eGFR Non- 33.2 > 60 eGFR 40.2 > 60 83 CBC With Manual Diff 11/06/2009 White Blood Count 7.3 CUMM 4.8-10.8 Red Cell Count 4.89 CUMM 4.2-5.4 Hemoglobin 14.1 g/dL 12.0-16.0 Hematocrit 43 % 35-47 Mean Corpuscular Volume 87 um3 79-97 Mean Corpuscular Hemoglob 29 pg 27-31 Mean Corpuscular HGB Cone 33 g/dL 32-36 Redcell Distribution WDTH 14 % 10.5-15 Platelet Count 215 CUMM 150-450 Mean Platelet Volume 8.9 um3 7.4-10.4 Polysegmented Neutrophil 73 % 38-83 Lymphocyte 19 % Low 25-47 Monocyte 5 % 0-13 Eosenophil 1 % 0-6 Basophil 1 % 0-2 Atypical Lymph 1 % 0-6 Absolute Neutrophil Count 5.3 RBC Morphology NORMAL Comp Metabolic Panel 11/06/2009 Sodium 143 mmol/L 135-145 Potassium 4.1 mmol/L 3.5-5.0 Chloride 105 mmol/L 101-111 Co2 (Carbon Dioxide) 29.0 mmol/L 22-32 Anion Gap 9.0 mmol/L 2-11 84 Glucose 114 mg/dL High 70-100 85 BUN 26 mg/dL High 6-24 Creatinine 1.50 mg/dL High 0.50-1.40 One Over Creatinine 0.60 BUN/Creatinine Ratio 17.3 8-20 Calcium 10.1 mg/dL High 8.1-9.9 86 Total Protein 6.0 GM/DL Low 6.2-8.1 Albumin 4.0 GM/DL 3.2-5.2 Globulin 2.0 GM/DL 2-4 Albumin/Globulin Ratio 2.0 1-3 Bilirubin Total 0.9 mg/dL 0.4-1.5 87 Alkaline Phosphatase 52 U/L 30-110 Alt (SGPT) 23 U/L 14-54 Ast (Sgot) 29 U/L 12-42 eGFR Non- 35.8 > 60 eGFR 43.3 > 60 88 CBC With Manual Diff 07/04/2009 White Blood Count 9.4 CUMM 4.8-10.8 Red Cell Count 4.92 CUMM 4.2-5.4 Hemoglobin 14.9 g/dL 12.0-16.0 Hematocrit 44 % 35-47 Mean Corpuscular Volume 89 um3 79-97 Mean Corpuscular Hemoglob 30 pg 27-31 Mean Corpuscular HGB Cone 34 g/dL 32-36 Redcell Distribution WDTH 14 % 10.5-15 Platelet Count 221 CUMM 150-450 Mean Platelet Volume 8.9 um3 7.4-10.4 Polysegmented Neutrophil 77 % 38-83 Lymphocyte 13 % Low 25-47 Monocyte 7 % 0-13 Eosenophil 3 % 0-6 Absolute Neutrophil Count 7.2 Anisocytosis SLIGHT Comp Metabolic Panel 07/04/2009 Sodium 138 mmol/L 135-145 Potassium 4.0 mmol/L 3.5-5.0 Chloride 101 mmol/L 101-111 Co2 (Carbon Dioxide) 28.0 mmol/L 22-32 Anion Gap 9.0 mmol/L 2-11 89 Glucose 94 mg/dL 70-100 90 BUN 24 mg/dL 6-24 Creatinine 1.30 mg/dL 0.50-1.40 One Over Creatinine 0.70 BUN/Creatinine Ratio 18.5 8-20 Calcium 9.9 mg/dL 8.1-9.9 91 Total Protein 6.5 GM/DL 6.2-8.1 Albumin 4.1 GM/DL 3.2-5.2 Globulin 2.4 GM/DL 2-4 Albumin/Globulin Ratio 1.7 1-3 Bilirubin Total 0.9 mg/dL 0.4-1.5 92 Alkaline Phosphatase 50 U/L 30-110 Alt (SGPT) 30 U/L 14-54 Ast (Sgot) 32 U/L 12-42 eGFR Non- 42.2 > 60 eGFR 51.1 > 60 93 Laboratory test finding 07/04/2009 LDH 180 U/L 95-185 Lipid Profile (Trig/Chol/HDL) 07/04/2009 Triglyceride 166 mg/dL 40-200 Cholesterol 193 mg/dL Less Than 200 94 High Density Lipoprotein 58 mg/dL 40-60 95 Cholesterol/HDL Ratio 3.33 AVERAGE 1-4.44 Low Density Lipoprotein 102 mg/dL High Less Than 100 96 1 [employer] Coin Collector: [id number] Reference Range: 74-125 seconds 2 [employer] Coin Collector: [id number] Reference Range: 74-125 seconds 3 [employer] Coin Collector: [id number] Reference Range: 74-125 seconds 4 [employer] Coin Collector: [id number] Reference Range: 74-125 seconds 5 [employer] Coin Collector: [id number] Reference Range: 74-125 seconds 6 [employer] Coin Collector: [id number] Reference Range: 74-125 seconds 7 [employer] Coin Collector: [id number] Reference Range: 74-125 seconds 8 Because ethnic data is not always readily available, this report includes an eGFR for both -Americans and non- Americans. The National Kidney Disease Education Program (NKDEP) does not endorse the use of the MDRD equation for patients that are not between the ages of 18 and 70, are , have extremes of body size, muscle mass, or nutritional status, or are non- or non-. According to the National Kidney Foundation, irrespective of diagnosis, the stage of the disease is based on the level of kidney function: Stage Description GFR(mL/min/1.73 m(2)) 1 Kidney damage with normal or decreased GFR 90 2 Kidney damage with mild decrease in GFR 60-89 3 Moderate decrease in GFR 30-59 4 Severe decrease in GFR 15-29 5 Kidney failure <15 (or dialysis) 9 Unable to calculate due to no serum collected. 10 Because ethnic data is not always readily available, this report includes an eGFR for both -Americans and non- Americans. The National Kidney Disease Education Program (NKDEP) does not endorse the use of the MDRD equation for patients that are not between the ages of 18 and 70, are , have extremes of body size, muscle mass, or nutritional status, or are non- or non-. According to the National Kidney Foundation, irrespective of diagnosis, the stage of the disease is based on the level of kidney function: Stage Description GFR(mL/min/1.73 m(2)) 1 Kidney damage with normal or decreased GFR 90 2 Kidney damage with mild decrease in GFR 60-89 3 Moderate decrease in GFR 30-59 4 Severe decrease in GFR 15-29 5 Kidney failure <15 (or dialysis) 11 FASTING 12 Desirable <150 Borderline high 150-199 High 200-499 Very High >500 13 Desirable <200 Borderline high 200-239 High >239 14 Low <40 Desirable: 40-60 High: >60 15 Desirable: <100 mg/dL Near Optimal: 100-129 mg/dL Borderline High: 130-159 mg/dL High: 160-189 mg/dL Very High: >189 mg/dL 16 Because ethnic data is not always readily available, this report includes an eGFR for both -Americans and non- Americans. The National Kidney Disease Education Program (NKDEP) does not endorse the use of the MDRD equation for patients that are not between the ages of 18 and 70, are , have extremes of body size, muscle mass, or nutritional status, or are non- or non-. According to the National Kidney Foundation, irrespective of diagnosis, the stage of the disease is based on the level of kidney function: Stage Description GFR(mL/min/1.73 m(2)) 1 Kidney damage with normal or decreased GFR 90 2 Kidney damage with mild decrease in GFR 60-89 3 Moderate decrease in GFR 30-59 4 Severe decrease in GFR 15-29 5 Kidney failure <15 (or dialysis) 17 FASTING 18 Desirable <150 Borderline high 150-199 High 200-499 Very High >500 19 Desirable <200 Borderline high 200-239 High >239 20 Low <40 Desirable: 40-60 High: >60 21 Desirable: <100 mg/dL Near Optimal: 100-129 mg/dL Borderline High: 130-159 mg/dL High: 160-189 mg/dL Very High: >189 mg/dL 22 Because ethnic data is not always readily available, this report includes an eGFR for both -Americans and non- Americans. The National Kidney Disease Education Program (NKDEP) does not endorse the use of the MDRD equation for patients that are not between the ages of 18 and 70, are , have extremes of body size, muscle mass, or nutritional status, or are non- or non-. According to the National Kidney Foundation, irrespective of diagnosis, the stage of the disease is based on the level of kidney function: Stage Description GFR(mL/min/1.73 m(2)) 1 Kidney damage with normal or decreased GFR 90 2 Kidney damage with mild decrease in GFR 60-89 3 Moderate decrease in GFR 30-59 4 Severe decrease in GFR 15-29 5 Kidney failure <15 (or dialysis) 23 Because ethnic data is not always readily available, this report includes an eGFR for both -Americans and non- Americans. The National Kidney Disease Education Program (NKDEP) does not endorse the use of the MDRD equation for patients that are not between the ages of 18 and 70, are , have extremes of body size, muscle mass, or nutritional status, or are non- or non-. According to the National Kidney Foundation, irrespective of diagnosis, the stage of the disease is based on the level of kidney function: Stage Description GFR(mL/min/1.73 m(2)) 1 Kidney damage with normal or decreased GFR 90 2 Kidney damage with mild decrease in GFR 60-89 3 Moderate decrease in GFR 30-59 4 Severe decrease in GFR 15-29 5 Kidney failure <15 (or dialysis) 24 Normal Range 180 to 914 Indeterminate Range 145 to 180 Deficient Range <145 25 Because ethnic data is not always readily available, this report includes an eGFR for both -Americans and non- Americans. The National Kidney Disease Education Program (NKDEP) does not endorse the use of the MDRD equation for patients that are not between the ages of 18 and 70, are , have extremes of body size, muscle mass, or nutritional status, or are non- or non-. According to the National Kidney Foundation, irrespective of diagnosis, the stage of the disease is based on the level of kidney function: Stage Description GFR(mL/min/1.73 m(2)) 1 Kidney damage with normal or decreased GFR 90 2 Kidney damage with mild decrease in GFR 60-89 3 Moderate decrease in GFR 30-59 4 Severe decrease in GFR 15-29 5 Kidney failure <15 (or dialysis) 26 Desirable <150 Borderline high 150-199 High 200-499 Very High >500 27 Desirable <200 Borderline high 200-239 High >239 28 Low <40 Desirable: 40-60 High: >60 29 Desirable: <100 mg/dL Near Optimal: 100-129 mg/dL Borderline High: 130-159 mg/dL High: 160-189 mg/dL Very High: >189 mg/dL 30 Because ethnic data is not always readily available, this report includes an eGFR for both -Americans and non- Americans. The National Kidney Disease Education Program (NKDEP) does not endorse the use of the MDRD equation for patients that are not between the ages of 18 and 70, are , have extremes of body size, muscle mass, or nutritional status, or are non- or non-. According to the National Kidney Foundation, irrespective of diagnosis, the stage of the disease is based on the level of kidney function: Stage Description GFR(mL/min/1.73 m(2)) 1 Kidney damage with normal or decreased GFR 90 2 Kidney damage with mild decrease in GFR 60-89 3 Moderate decrease in GFR 30-59 4 Severe decrease in GFR 15-29 5 Kidney failure <15 (or dialysis) 31 Because ethnic data is not always readily available, this report includes an eGFR for both -Americans and non- Americans. The National Kidney Disease Education Program (NKDEP) does not endorse the use of the MDRD equation for patients that are not between the ages of 18 and 70, are , have extremes of body size, muscle mass, or nutritional status, or are non- or non-. According to the National Kidney Foundation, irrespective of diagnosis, the stage of the disease is based on the level of kidney function: Stage Description GFR(mL/min/1.73 m(2)) 1 Kidney damage with normal or decreased GFR 90 2 Kidney damage with mild decrease in GFR 60-89 3 Moderate decrease in GFR 30-59 4 Severe decrease in GFR 15-29 5 Kidney failure <15 (or dialysis) 32 Because ethnic data is not always readily available, this report includes an eGFR for both -Americans and non- Americans. The National Kidney Disease Education Program (NKDEP) does not endorse the use of the MDRD equation for patients that are not between the ages of 18 and 70, are , have extremes of body size, muscle mass, or nutritional status, or are non- or non-. According to the National Kidney Foundation, irrespective of diagnosis, the stage of the disease is based on the level of kidney function: Stage Description GFR(mL/min/1.73 m(2)) 1 Kidney damage with normal or decreased GFR 90 2 Kidney damage with mild decrease in GFR 60-89 3 Moderate decrease in GFR 30-59 4 Severe decrease in GFR 15-29 5 Kidney failure <15 (or dialysis) 33 Reference Range and Interpretation: TnI (ng/mL) Interpretation Less Than 0.03 ng/mL Not supportive of diagnosis of [place] 0.03 - 0.50 ng/mL Indeterminate: suggest serial studies if clinically indicated. Greater than 0.5 ng/mL Consistent with diagnosis of [place] 34 >100 to <200 pg/mL: likely compensated congestive heart failure (CHF) 200 to 400 pg/mL: likely moderate CHF >400 pg/mL: likely moderate to severe CHF [place] [facility] 35 Critical Result LACT:2.[address] RESENDIZ at: 08:25:43 by:[id number] Read back by:DR RESENDIZ 36 Desirable <150 Borderline high 150-199 High 200-499 Very High >500 37 Desirable <200 Borderline high 200-239 High >239 38 Low <40 Desirable: 40-60 High: >60 39 Desirable <100 Near Optimal 100-129 Borderline high 130-159 High 160-189 Very High >189 40 Because ethnic data is not always readily available, this report includes an eGFR for both -Americans and non- Americans. The National Kidney Disease Education Program (NKDEP) does not endorse the use of the MDRD equation for patients that are not between the ages of 18 and 70, are , have extremes of body size, muscle mass, or nutritional status, or are non- or non-. According to the National Kidney Foundation, irrespective of diagnosis, the stage of the disease is based on the level of kidney function: Stage Description GFR(mL/min/1.73 m(2)) 1 Kidney damage with normal or decreased GFR 90 2 Kidney damage with mild decrease in GFR 60-89 3 Moderate decrease in GFR 30-59 4 Severe decrease in GFR 15-29 5 Kidney failure <15 (or dialysis) 41 -- REFERENCE VALUE -- 25-HYDROXY D TOTAL (D2+D3) Optimum levels in the healthy population are 20-50, patients with bone disease may benefit from higher levels within this range. Test Performed by: [address] [id number] Marketing Program Manager: Chidi Jolly III, M.D. 42 FASTING 43 Normal Range 180 to 914 Indeterminate Range 145 to 180 Deficient Range <145 44 CMP ORDERED 02/23/[address] To PALOMINO RESULTS TO BE SENT TO~DR. Rosalva ROBLERO 45 Nonsmokers: < 2.9 ng/mL Some smokers may have elevated CEA, usually <5.0 ng/mL. Serum markers are not specific for malignancy, and values may vary by method. The testing method is an immunoenzymatic assay tooth inspector by Own[employer] it performed on Richard ViSSee DXI 600. Do not interpret serum CEA levels as absolute evidence of the presence or the absence of malignant disease. Use serum CEA in conjunction with information from the clinical evaluation of the patient and other diagnostic procedures. 46 Because ethnic data is not always readily available, this report includes an eGFR for both -Americans and non- Americans. The National Kidney Disease Education Program (NKDEP) does not endorse the use of the MDRD equation for patients that are not between the ages of 18 and 70, are , have extremes of body size, muscle mass, or nutritional status, or are non- or non-. According to the National Kidney Foundation, irrespective of diagnosis, the stage of the disease is based on the level of kidney function: Stage Description GFR(mL/min/1.73 m(2)) 1 Kidney damage with normal or decreased GFR 90 2 Kidney damage with mild decrease in GFR 60-89 3 Moderate decrease in GFR 30-59 4 Severe decrease in GFR 15-29 5 Kidney failure <15 (or dialysis) 47 Because ethnic data is not always readily available, this report includes an eGFR for both -Americans and non- Americans. The National Kidney Disease Education Program (NKDEP) does not endorse the use of the MDRD equation for patients that are not between the ages of 18 and 70, are , have extremes of body size, muscle mass, or nutritional status, or are non- or non-. According to the National Kidney Foundation, irrespective of diagnosis, the stage of the disease is based on the level of kidney function: Stage Description GFR(mL/min/1.73 m(2)) 1 Kidney damage with normal or decreased GFR 90 2 Kidney damage with mild decrease in GFR 60-89 3 Moderate decrease in GFR 30-59 4 Severe decrease in GFR 15-29 5 Kidney failure <15 (or dialysis) 48 Because ethnic data is not always readily available, this report includes an eGFR for both -Americans and non- Americans. The National Kidney Disease Education Program (NKDEP) does not endorse the use of the MDRD equation for patients that are not between the ages of 18 and 70, are , have extremes of body size, muscle mass, or nutritional status, or are non- or non-. According to the National Kidney Foundation, irrespective of diagnosis, the stage of the disease is based on the level of kidney function: Stage Description GFR(mL/min/1.73 m(2)) 1 Kidney damage with normal or decreased GFR 90 2 Kidney damage with mild decrease in GFR 60-89 3 Moderate decrease in GFR 30-59 4 Severe decrease in GFR 15-29 5 Kidney failure <15 (or dialysis) 49 HDL Interpretation: Undesirable: High Risk: Less than 40 mg/dL Desirable: Low Risk: Greater than 60 mg/dL 50 LDL Interpretation: Low Risk Optimal Level: LDL Less than 100 mg/dL Near or Above Optimal: LDL 100-129 mg/dL Borderline High Risk: LDL 130-159 mg/dL High Risk: LDL 160-189 mg/dL Very High Risk: LDL Greater than 189 mg/dL 51 Because ethnic data is not always readily available, this report includes an eGFR for both -Americans and non- Americans. The National Kidney Disease Education Program (NKDEP) does not endorse the use of the MDRD equation for patients that are not between the ages of 18 and 70, are , have extremes of body size, muscle mass, or nutritional status, or are non- or non-. According to the National Kidney Foundation, irrespective of diagnosis, the stage of the disease is based on the level of kidney function: Stage Description GFR(mL/min/1.73 m(2)) 1 Kidney damage with normal or decreased GFR 90 2 Kidney damage with mild decrease in GFR 60-89 3 Moderate decrease in GFR 30-59 4 Severe decrease in GFR 15-29 5 Kidney failure <15 (or dialysis) 52 -- REFERENCE VALUE -- 25-HYDROXY D TOTAL (D2+D3) Optimum levels in the normal population are 25-80 Test Performed by: [place] [address] Marketing Program Manager: Chidi Jolly III, M.D. 53 Test Performed by: [place] [address] Marketing Program Manager: Chidi Jolly III, M.D. 54 Because ethnic data is not always readily available, this report includes an eGFR for both -Americans and non- Americans. The National Kidney Disease Education Program (NKDEP) does not endorse the use of the MDRD equation for patients that are not between the ages of 18 and 70, are , have extremes of body size, muscle mass, or nutritional status, or are non- or non-. According to the National Kidney Foundation, irrespective of diagnosis, the stage of the disease is based on the level of kidney function: Stage Description GFR(mL/min/1.73 m(2)) 1 Kidney damage with normal or decreased GFR 90 2 Kidney damage with mild decrease in GFR 60-89 3 Moderate decrease in GFR 30-59 4 Severe decrease in GFR 15-29 5 Kidney failure <15 (or dialysis) 55 CHOLESTEROL INTERPRETATION: Desirable: Less than 200 MG/DL Borderline-High Risk: 200-239 MG/DL High-Risk: 240 MG/DL and over 56 HDL INTERPRETATION: Undesirable: High Risk: Less than 40 MG/DL Desirable: Low Risk: Greater than 60 MG/DL 57 LDL INTERPRETATION: Low Risk Optimal Level: LDL Less than 100 MG/DL Near or Above Optimal: LDL 100-129 MG/DL Borderline High Risk: LDL 130-159 MG/DL High Risk: LDL 160-189 MG/DL Very High Risk: LDL Greater than 189 MG/DL 58 Anion gap measurement may be of limited value in the presence of any alkalosis, especially in a combined acid base disorder. . 59 A metabolite of Naproxen, O-desmethylnaproxen, has been shown to interfere with the Jendrassik-Myah method for measuring total bilirubin. Samples from patients who have taken Naproxen have shown spurious elevation in total bilirubin levels. 60 Because ethnic data is not always readily available, this report includes an eGFR for both -Americans and non- Americans. The National Kidney Disease Education Program (NKDEP) does not endorse the use of the MDRD equation for patients that are not between the ages of 18 and 70, are , have extremes of body size, muscle mass, or nutritional status, or are non- or non-. According to the National Kidney Foundation, irrespective of diagnosis, the stage of the disease is based on the level of kidney function: Stage Description GFR(mL/min/1.73 m(2)) 1 Kidney damage with normal or decreased GFR 90 2 Kidney damage with mild decrease in GFR 60-89 3 Moderate decrease in GFR 30-59 4 Severe decrease in GFR 15-29 5 Kidney failure <15 (or dialysis) 61 Anion gap measurement may be of limited value in the presence of any alkalosis, especially in a combined acid base disorder. . 62 Because ethnic data is not always readily available, this report includes an eGFR for both -Americans and non- Americans. The National Kidney Disease Education Program (NKDEP) does not endorse the use of the MDRD equation for patients that are not between the ages of 18 and 70, are , have extremes of body size, muscle mass, or nutritional status, or are non- or non-. According to the National Kidney Foundation, irrespective of diagnosis, the stage of the disease is based on the level of kidney function: Stage Description GFR(mL/min/1.73 m(2)) 1 Kidney damage with normal or decreased GFR 90 2 Kidney damage with mild decrease in GFR 60-89 3 Moderate decrease in GFR 30-59 4 Severe decrease in GFR 15-29 5 Kidney failure <15 (or dialysis) 63 Anion gap measurement may be of limited value in the presence of any alkalosis, especially in a combined acid base disorder. . 64 A metabolite of Naproxen, O-desmethylnaproxen, has been shown to interfere with the Jendrassik-[place]amo[place] method for measuring total bilirubin. Samples from patients who have taken Naproxen have shown spurious elevation in total bilirubin levels. 65 Because ethnic data is not always readily available, this report includes an eGFR for both -Americans and non- Americans. The National Kidney Disease Education Program (NKDEP) does not endorse the use of the MDRD equation for patients that are not between the ages of 18 and 70, are , have extremes of body size, muscle mass, or nutritional status, or are non- or non-. According to the National Kidney Foundation, irrespective of diagnosis, the stage of the disease is based on the level of kidney function: Stage Description GFR(mL/min/1.73 m(2)) 1 Kidney damage with normal or decreased GFR 90 2 Kidney damage with mild decrease in GFR 60-89 3 Moderate decrease in GFR 30-59 4 Severe decrease in GFR 15-29 5 Kidney failure <15 (or dialysis) 66 CHOLESTEROL INTERPRETATION: Desirable: Less than 200 MG/DL Borderline-High Risk: 200-239 MG/DL High-Risk: 240 MG/DL and over 67 HDL INTERPRETATION: Undesirable: High Risk: Less than 40 MG/DL Desirable: Low Risk: Greater than 60 MG/DL 68 LDL INTERPRETATION: Low Risk Optimal Level: LDL Less than 100 MG/DL Near or Above Optimal: LDL 100-129 MG/DL Borderline High Risk: LDL 130-159 MG/DL High Risk: LDL 160-189 MG/DL Very High Risk: LDL Greater than 189 MG/DL 69 NORMAL ELECTROPHORETIC PATTERN. 70 Anion gap measurement may be of limited value in the presence of any alkalosis, especially in a combined acid base disorder. . 71 Because ethnic data is not always readily available, this report includes an eGFR for both -Americans and non- Americans. The National Kidney Disease Education Program (NKDEP) does not endorse the use of the MDRD equation for patients that are not between the ages of 18 and 70, are , have extremes of body size, muscle mass, or nutritional status, or are non- or non-. According to the National Kidney Foundation, irrespective of diagnosis, the stage of the disease is based on the level of kidney function: Stage Description GFR(mL/min/1.73 m(2)) 1 Kidney damage with normal or decreased GFR 90 2 Kidney damage with mild decrease in GFR 60-89 3 Moderate decrease in GFR 30-59 4 Severe decrease in GFR 15-29 5 Kidney failure <15 (or dialysis) 72 Anion gap measurement may be of limited value in the presence of any alkalosis, especially in a combined acid base disorder. . 73 Note change in reference range as of 02/25/08. The change was based on recommendations from the [employer] [place] [employer]. 74 Please note change in reference range effective 07 . 75 A metabolite of Naproxen, O-desmethylnaproxen, has been shown to interfere with the Jendrassik-Myah method for measuring total bilirubin. Samples from patients who have taken Naproxen have shown spurious elevation in total bilirubin levels. 76 Because ethnic data is not always readily available, this report includes an eGFR for both -Americans and non- Americans. The National Kidney Disease Education Program (NKDEP) does not endorse the use of the MDRD equation for patients that are not between the ages of 18 and 70, are , have extremes of body size, muscle mass, or nutritional status, or are non- or non-. According to the National Kidney Foundation, irrespective of diagnosis, the stage of the disease is based on the level of kidney function: Stage Description GFR(mL/min/1.73 m(2)) 1 Kidney damage with normal or decreased GFR 90 2 Kidney damage with mild decrease in GFR 60-89 3 Moderate decrease in GFR 30-59 4 Severe decrease in GFR 15-29 5 Kidney failure <15 (or dialysis) 77 PLEASE NOTE CHANGE IN REFERENCE RANGE OF 07/14/06. 78 Please note change in reference range effective 08 . 79 Anion gap measurement may be of limited value in the presence of any alkalosis, especially in a combined acid base disorder. . 80 Note change in reference range as of 02/25/08. The change was based on recommendations from the [employer] [place] [employer]. 81 Please note change in reference range effective 07 . 82 A metabolite of Naproxen, O-desmethylnaproxen, has been shown to interfere with the Jendrassik-Myah method for measuring total bilirubin. Samples from patients who have taken Naproxen have shown spurious elevation in total bilirubin levels. 83 Because ethnic data is not always readily available, this report includes an eGFR for both -Americans and non- Americans. The National Kidney Disease Education Program (NKDEP) does not endorse the use of the MDRD equation for patients that are not between the ages of 18 and 70, are , have extremes of body size, muscle mass, or nutritional status, or are non- or non-. According to the National Kidney Foundation, irrespective of diagnosis, the stage of the disease is based on the level of kidney function: Stage Description GFR(mL/min/1.73 m(2)) 1 Kidney damage with normal or decreased GFR 90 2 Kidney damage with mild decrease in GFR 60-89 3 Moderate decrease in GFR 30-59 4 Severe decrease in GFR 15-29 5 Kidney failure <15 (or dialysis) 84 Anion gap measurement may be of limited value in the presence of any alkalosis, especially in a combined acid base disorder. . 85 Note change in reference range as of 02/25/08. The change was based on recommendations from the [employer] [place] [employer]. 86 Please note change in reference range effective 07 . 87 A metabolite of Naproxen, O-desmethylnaproxen, has been shown to interfere with the Jendrassik-Myah method for measuring total bilirubin. Samples from patients who have taken Naproxen have shown spurious elevation in total bilirubin levels. 88 Because ethnic data is not always readily available, this report includes an eGFR for both -Americans and non- Americans. The National Kidney Disease Education Program (NKDEP) does not endorse the use of the MDRD equation for patients that are not between the ages of 18 and 70, are , have extremes of body size, muscle mass, or nutritional status, or are non- or non-. According to the National Kidney Foundation, irrespective of diagnosis, the stage of the disease is based on the level of kidney function: Stage Description GFR(mL/min/1.73 m(2)) 1 Kidney damage with normal or decreased GFR 90 2 Kidney damage with mild decrease in GFR 60-89 3 Moderate decrease in GFR 30-59 4 Severe decrease in GFR 15-29 5 Kidney failure <15 (or dialysis) 89 Anion gap measurement may be of limited value in the presence of any alkalosis, especially in a combined acid base disorder. . 90 Note change in reference range as of 02/25/08. The change was based on recommendations from the [employer] [place] [employer]. 91 Please note change in reference range effective 07 . 92 A metabolite of Naproxen, O-desmethylnaproxen, has been shown to interfere with the Jendrassik-Lamoille method for measuring total bilirubin. Samples from patients who have taken Naproxen have shown spurious elevation in total bilirubin levels. 93 Because ethnic data is not always readily available, this report includes an eGFR for both -Americans and non- Americans. The National Kidney Disease Education Program (NKDEP) does not endorse the use of the MDRD equation for patients that are not between the ages of 18 and 70, are , have extremes of body size, muscle mass, or nutritional status, or are non- or non-. According to the National Kidney Foundation, irrespective of diagnosis, the stage of the disease is based on the level of kidney function: Stage Description GFR(mL/min/1.73 m(2)) 1 Kidney damage with normal or decreased GFR 90 2 Kidney damage with mild decrease in GFR 60-89 3 Moderate decrease in GFR 30-59 4 Severe decrease in GFR 15-29 5 Kidney failure <15 (or dialysis) 94 CHOLESTEROL INTERPRETATION: Desirable: Less than 200 MG/DL Borderline-High Risk: 200-239 MG/DL High-Risk: 240 MG/DL and over 95 HDL INTERPRETATION: Undesirable: High Risk: Less than 40 MG/DL Desirable: Low Risk: Greater than 60 MG/DL 96 LDL INTERPRETATION: Low Risk Optimal Level: LDL Less than 100 MG/DL Near or Above Optimal: LDL 100-129 MG/DL Borderline High Risk: LDL 130-159 MG/DL High Risk: LDL 160-189 MG/DL Very High Risk: LDL Greater than 189 MG/DL Procedures Date CPT Code Description Status 03/04/2018 74760 EKG Tracing & Interpretation Completed 03/14/2017 19615 EKG Tracing & Interpretation Completed 01/02/2017 01384 Diffusing Capacity Completed 01/02/2017 76480 Plethysmography Determination Lung Volumes & Per Airway Completed Resist 01/02/2017 40099 Pulmonary Stress Test Simple Completed 01/02/2017 20168 Pulmonary Function><Bronchodil Completed 06/11/2016 45325 Inject/Drain Joint/Bursa Major W/O US Completed 06/03/2016 Bone Mineral Density Test Completed 02/09/2016 61447 EKG Tracing & Interpretation Completed 02/20/2015 71706 Diffusing Capacity Completed 02/20/2015 34096 Plethysmography Determination Lung Volumes & Per Airway Completed Resist 02/20/2015 15570 Pulmonary Function><Bronchodil Completed 02/13/2015 Mammogram Completed 12/06/2014 60474 ECHO Transthoracic, Real-Time 2D With Doppler And Color Completed Flow 11/08/2014 38636 EKG Tracing & Interpretation Completed 10/29/2014 12865 EKG, Interpretation Only Completed 10/29/2014 16129 Left Heart Cath. Incl S/I Coronaries, Angio S/I V Gram Completed If Done 05/06/2014 03303 ECHO Transthoracic, Real-Time 2D With Doppler And Color Completed Flow 03/19/2013 Mammogram Completed 01/26/2013 Bone Mineral Density Test Completed 01/21/2012 Mammogram Completed 01/16/2012 83233 EKG Tracing & Interpretation Completed 09/20/2011 07005 Noninvasive Ear Or Pulse Oximetry For Oxygen Saturation Completed 10/09/2010 Bone Mineral Density Test Completed 05/09/2009 09772 Noninvasive Ear Or Pulse Oximetry For Oxygen Saturation Completed 08/14/2007 Colonoscopy Completed Encounters Type Date Location Provider CPT E/M Dx Office Visit [facility]04[facility]2018 [facility] [address] I70.223 1:30p Diana Fitzpatrick I73.9 I10 I25.10 Office Visit 11/05/2017 3:45p [facility] Raji Schmid 91746 I70.223 Of Diana Fitzpatrick I73.9 Office Visit 10/03/2017 9:40a [facility] Karyna Palomino M.D. 29792 R05 - Jessica I73.9 Office Visit 09/15/2017 10:00a [facility] Karyna Palomino M.D. 95273 I10 - [place] N18.3 M25.512 Z85.118 Office Visit 03/14/2017 9:45a [facility] Celso Nicholson 86221 I10 M.DAicha I25.10 Office Visit 01/20/2017 9:00a [facility] Karyna Palomino 54687 J44.9 - Jessica Fitzpatrick M81.0 I73.9 Z85.118 Office Visit 11/19/2016 9:00a [facility] Karyna Palomino M.D. 53779 I10 - [place] E78.5 M79.1 J44.9 Office Visit 06/11/2016 2:30p [facility] [place] [address] M19.012 C.M.A. M75.122 Office Visit 05/21/2016 1:20p [facility] Karyna Palomino 68292 Z00.00 - Jessica Fitzpatrick I10 I73.9 I25.10 M81.0 M25.512 Office Visit 02/09/2016 2:15p [facility] Celso Nicholson 16029 I10 MJian I25.10 I50.9 Office Visit 01/18/2016 9:00a [facility] Medicine Karyna Palomino M.D. 04812 I10 - [place] J44.9 M81.0 M25.512 Office Visit 09/19/2015 9:00a [facility] Medicine Karyna Palomino 46363 M81.0 - Jessica Fitzpatrick I10 J44.9 Office Visit 07/20/2015 12:45p [facility] Celso Nicholson 80718 I25.10 Diana Fitzpatrick I50.9 I25.5 Office Visit 07/17/2015 11:50a [facility] Medicine Susanna Kaba 58372 S51.012D - Jessica Fitzpatrick Z79.82 Office Visit 06/22/2015 9:40a [facility] Medicine Karyna Palomino M.D. 26432 R58 - [place] N18.3 Office Visit 04/17/2015 9:40a [facility] Karyna Palomino M.D. 54075 I10 - [place] K21.9 Z23 Office Visit 02/06/2015 10:00a [facility] Medicine Karyna Palomino, 79276 V70.0 - [place] M.DAicha 585.3 401.1 530.81 496 V76.19 v03.82 Office Visit 12/09/2014 9:00a [facility] Tena Nicholson, 26954 410.70 [employer] M.D. 414.01 Office Visit 12/09/2014 11:40a [facility] Medicine Karyna Candelario, 03184 401.1 - [place] M.D. 428.0 Office Visit 11/08/2014 1:00p [facility] Tena Nicholson, 81193 410.[address] [employer] [employer] [facility] M.DAicha 428.9 414.01 Office Visit 11/07/2014 11:20a [facility] Medicine Karyna Palomino, 67477 410.70 - [place] M.D. 428.9 Office Visit 10/29/2014 7:21a [facility], Efren Lara, 12148 428.9 Hospitalists M.DAicha 410.70 443.9 786.09 Office Visit 10/29/2014 9:29a [facility] Tena Nicholson, 95297 411.1 [employer] M.D. 428.0 790.99 793.2 Office Visit 10/27/2014 11:00a [facility] Internal Medicine Shireen Ledesma, N.P. 52922 466.0 - [place] 491.22 Office Visit 07/04/2014 10:00a [facility] Medicine Karyna Palomino 41070 401.1 - [place] M.DAicha 496 Office Visit 03/01/2014 9:40a [facility] Internal Medicine Karyna Palomino 77099 401.1 - [place] M.D. 276.8 272.2 Office Visit 01/25/2014 10:20a [facility] Medicine Karyna Palomino 52631 V70.0 - [place] M.D. 496 733.90 401.1 443.9 356.4 V03.82 Office Visit 07/22/2013 10:00a [facility] Medicine Karyna Palomino 82610 401.1 - [place] M.DAicha 275.42 496 Office Visit 01/18/2013 9:00a [facility] Internal Medicine Karyna Palomino 53047 V70.0 - [place] Leigh Ann.Tena 401.1 496 V10.11 733.90 Office Visit 07/20/2012 9:00a [facility] Internal Medicine Karyna Palomino M.D. 34872 496 - [place] 401.1 Office Visit 01/16/2012 9:20a [facility] Medicine Karyna Palomino 61508 V70.0 - [place] Leigh Ann.Tena V76.10 401.1 496 272.4 Office Visit 09/20/2011 1:00p [facility] Internal Medicine Shireen Ledesma, N.P. 20559 466.0 - [place] Office Visit 09/16/2011 1:40p [facility] Internal Medicine Shireen Ledesma, N.P. 78227 466.0 - [place] Office Visit 07/16/2011 9:20a [facility] Medicine Karyna Palomino, 35254 401.1 - [place] Leigh Ann.Tena 585.3 496 Office Visit 01/14/2011 1:00p DO Not Use Karyna Cotton, 14724 401.1 [employer]-[place] M.DAicha 585.3 272.4 496 Office Visit 10/02/2010 1:45p DO Not Use [employer] Karyna Cotton, 20435 496 M.D. 782.0 Office Visit 04/02/2010 1:15p DO Not Use [employer] Karyna Cotton, 67922 496 M.D. V04.81 Office Visit 12/29/2009 1:15p DO Not Use Karyna Cotton, 45934 782.1 [employer] M.D. 496 585.3 787.03 Office Visit 05/09/2009 9:00a DO Not Use [employer] AT Karyna Palomino, 31893 401.1 [place] M.D. 496 272.4 V04.81 Plan of Care Future Appointment(s):04/22/2018 2:30 pm - Raji Schmid M.D. at [facility]06/22/2018 11:00 am - Karyna Palomino M.D. at [facility] Internal [facility]28/06/2018 - Karyna Palomino M.D.M54.2 CervicalgiaComments:Try gentle range of motion exercises with your neckCall me if you want to do PT for the neckS51.811D Laceration w/o foreign body of right forearm, subs encntrComments:Keep the arm covered until wound is healed
--- OUTSIDE RECORDS SUMMARY | 2018-03-17 02:33 | XMS REPORT ---
:1930 External Reference #:[id number] Author Organization [employer] Address [address] [place] [address] [place] [address] Phone [phone] Care Team Providers Name Role Phone Karyna Palomino MD Primary Care Physician Unavailable Payers Type Date Identification Numbers Payment Provider Subscriber Medicare Primary Policy Number: [id number] Medicare Moncho Myles Demian PayID: [id number] [address] [place] [address] [facility] Policy Number: [id number] [facility] Moncho Shameka Demian PayID: [id number] [address] [place] [address] Problems Date Description Provider Status Onset: 05/09/2009 Benign essential hypertension Karyna Palomino M.D. Active Onset: 05/09/2009 Hyperlipidemia Karyna Palomino M.D. Active Onset: 05/09/2009 Malignant tumor of bronchus Karyan Palomino M.D. 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 - 09/18 Calcium 600 + D 00 Hx Tablets 600-200mg Unknown /0000 -Unit - 07/07 Medications Administered in Office Medication Date Status Form Strength Qnty SIG Indications Ordering Provider Triamcinolone Injection Zaneb (Kenalog) 2015 MD Evangelina Immunizations CPT Code Status Date Vaccine Lot # [id number] Given 07/12/2015 Tdap - Tetanus/Diptheria/Acellular Pertussis 84272 Given 04/17/2015 Influenza Virus Vaccine, Quadrivalent, Split, [id number] Preservative Free 26937 Given 02/06/2015 Pneumococcal Conjugate Vaccine 13 Valent For [id number] Intramuscular Use 06578 Given 01/25/2014 Pneumonia Vaccine [id number] 41675 Given 04/02/2010 Influenza Virus 3Yrs & Over 88784 Given 05/09/2009 Influenza Virus Vaccine, Pandemic Formulation [id number] 45657 Given 05/09/2009 Administration Swine Flu Shot Vital Signs Date Vital Result Comment 03/04/2018 Height 61 inches 5'1" Weight 138.00 [...] mg/dL High Less Than 100 96 1 Weigher And Charger: [id number] Reference Range: 74-125 seconds 2 Weigher [employer] Charger: [id number] Reference Range: 74-125 seconds 3 Weigher And Charger: [id number] Reference Range: 74-125 seconds 4 Weigher And Charger: [id number] Reference Range: 74-125 seconds 5 Weigher And Charger: [id number] Reference Range: 74-125 seconds 6 Weigher And Charger: [id number] Reference Range: 74-125 seconds 7 Weigher And Charger: [id number] Reference Range: 74-125 seconds 8 Because ethnic [...] 0.03 ng/mL Not supportive of diagnosis of GA 0.03 - 0.50 ng/mL Indeterminate: suggest serial studies if clinically indicated. Greater than 0.5 ng/mL Consistent with diagnosis of GA 34 >100 to <200 pg/mL: likely compensated congestive heart failure (CHF) 200 to 400 pg/mL: likely moderate CHF >400 pg/mL: likely moderate to severe CHF [place] [facility] 35 Critical Result LACT:2.[address] RESENDIZ at: 08:25:43 by:[id number] Read back by:DR RESENDIZ 36 Desirable <150 [...] levels within this range. Test Performed by: [facility] - [address] [address] Network Operations Manager: Chidi Jolly III, M.D. 42 FASTING [...] The testing method is an immunoenzymatic assay lead mason tender by Canines performed on Canines DXI 600. Do not interpret serum CEA [...] normal population are 25-80 Test Performed by: [address] [address] Network Operations Manager: Chidi Jolly III, M.D. 53 Test Performed by: [address] [address] Network Operations Manager: Chidi Jolly III, M.D. 54 Because [...] has been shown to interfere with the [place] method for measuring total bilirubin. Samples from [...] has been shown to interfere with the [place] method for measuring total bilirubin. Samples from [...] based on recommendations from the [place] [employer]. 74 Please note change in reference range effective 07 . 75 A metabolite of Naproxen, O-desmethylnaproxen, has been shown to interfere with the [place] method for measuring total bilirubin. Samples from [...] based on recommendations from the Citizen Of [place] Diabetes Association. 81 Please note change in reference range effective 07 . 82 A metabolite of Naproxen, O-desmethylnaproxen, has been shown to interfere with the [place] method for measuring total bilirubin. Samples from [...] based on recommendations from the Citizen [place] Diabetes Association. 86 Please note change in [...] based on recommendations from the Citizen [place] Diabetes Association. 91 Please note change in reference range effective 07 . 92 A metabolite of Naproxen, O-desmethylnaproxen, has been shown to interfere with the [place] method for measuring total bilirubin. Samples from [...] Procedures Date CPT Code Description Status 03/04/2018 71704 EKG Tracing & Interpretation Completed 03/14/2017 96004 EKG Tracing & Interpretation Completed 01/02/2017 38218 Diffusing Capacity Completed 01/02/2017 27963 Plethysmography Determination Lung Volumes & Per Airway Completed Resist 01/02/2017 97652 Pulmonary Stress Test Simple Completed 01/02/2017 10454 Pulmonary Function><Bronchodil Completed 06/11/2016 73873 Inject/Drain Joint/Bursa Major W/O US Completed 06/03/2016 Bone Mineral Density Test Completed 02/09/2016 13247 EKG Tracing & Interpretation Completed 02/20/2015 67676 Diffusing Capacity Completed 02/20/2015 70992 Plethysmography Determination Lung Volumes & Per Airway Completed Resist 02/20/2015 49019 Pulmonary Function><Bronchodil Completed 02/13/2015 Mammogram Completed 12/06/2014 52674 ECHO Transthoracic, Real-Time 2D With Doppler And Color Completed Flow 11/08/2014 89979 EKG Tracing & Interpretation Completed 10/29/2014 11301 EKG, Interpretation Only Completed 10/29/2014 24494 Left Heart Cath. Incl S/I Coronaries, Angio S/I V Gram Completed If Done 05/06/2014 99584 ECHO Transthoracic, Real-Time 2D With Doppler And Color Completed Flow 03/19/2013 Mammogram Completed 01/26/2013 Bone Mineral Density Test Completed 01/21/2012 Mammogram Completed 01/16/2012 28987 EKG Tracing & Interpretation Completed 09/20/2011 06587 Noninvasive Ear Or Pulse Oximetry For Oxygen Saturation Completed 10/09/2010 Bone Mineral Density Test Completed 05/09/2009 95045 Noninvasive Ear Or Pulse Oximetry For Oxygen Saturation Completed 08/14/2007 Colonoscopy Completed Encounters Type Date Location Provider CPT E/M Dx Office Visit 03/04/2018 [facility] Celso Nicholson, 36174 I70.223 1:30p Diana Fitzpatrick I73.9 I10 Office Visit 11/05/2017 3:45p [facility] Raji Schmid, 05440 I70.223 Of [facility] Nanette I73.9 Office Visit 10/03/2017 9:40a [facility] Internal Medicine Karyna Palomino M.D. 13993 R05 - Jessica I73.9 Office Visit 09/15/2017 10:00a [facility] Internal Medicine Karyna Palomino M.D. 80580 I10 - Jessica N18.3 M25.512 Z85.118 Office Visit 03/14/2017 9:45a [facility] Celso Nicholson 87599 I10 Nanette I25.10 Office Visit 01/20/2017 9:00a [facility] Internal Crista Palomino 48907 J44.9 - Jessica Fitzpatrick M81.0 I73.9 Z85.118 Office Visit 11/19/2016 9:00a [facility] Internal Medicine Karyna Palomino M.D. 43667 I10 - Jessica E78.5 M79.1 J44.9 Office Visit 06/11/2016 2:30p [facility] [place] [address] M19.012 C.M.AAicha M75.122 Office Visit 05/21/2016 1:20p [facility] Internal Medicine Karyna Palomino 52326 Z00.00 - Jessica Fitzpatrick I10 I73.9 I25.10 M81.0 M25.512 Office Visit 02/09/2016 2:15p [facility] Celso Nicholson 45929 I10 MJian I25.10 I50.9 Office Visit 01/18/2016 9:00a [facility] Internal Medicine Karyna Palomino M.D. 02202 I10 - Jessica J44.9 M81.0 M25.512 Office Visit 09/19/2015 9:00a [facility] Internal Medicine Karyna Palomino 11050 M81.0 - Jessica Fitzpatrick I10 J44.9 Office Visit 07/20/2015 12:45p [facility] Nicholson 64905 I25.10 Diana Fitzpatrick I50.9 I25.5 Office Visit 07/17/2015 11:50a [facility] Internal Medicine Susanna Kaba 42514 S51.012D - Jessica Fitzpatrick Z79.82 Office Visit 06/22/2015 9:40a [facility] Internal Medicine Karyna Palomino M.D. 10452 R58 - [place] N18.3 Office Visit 04/17/2015 9:40a [facility] Internal Medicine Karyna Palomino M.D. 90298 I10 - Jessica K21.9 Z23 Office Visit 02/06/2015 10:00a [facility] Internal Medicine Karyna Palomino 48067 V70.0 - Jessica Fitzpatrick 585.3 401.1 530.81 496 V76.19 v03.82 Office Visit 12/09/2014 9:00a [facility] Celso Nicholson, 25006 410.70 Information Technology Assistant M.DAciha 414.01 Office Visit 12/09/2014 11:40a [facility] Internal Medicine Karyna Palomino, 04234 401.1 - [place] M.DAicha 428.0 Office Visit 11/08/2014 1:00p [facility] Celso Nicholson, 87511 410.70 [address] Technology Assistant [facility] M.DAicha 428.9 414.01 Office Visit 11/07/2014 11:20a [facility] Internal Medicine Karyna Palomino, 18103 410.70 - [place] M.DAicha 428.9 Office Visit 10/29/2014 7:21a [facility], Efren Lara, 51389 428.9 Hospitalists M.DAicha 410.70 443.9 786.09 Office Visit 10/29/2014 9:29a [facility] Celso Nicholson, 45185 411.1 Information Technology Assistant M.DAicha 428.0 790.99 793.2 Office Visit 10/27/2014 11:00a [facility] Internal Medicine Shireen Ledesma, N.P. 86556 466.0 - [place] 491.22 Office Visit 07/04/2014 10:00a [facility] Internal Medicine Karyna Palomino 03220 401.1 - [place] MJian 496 Office Visit 03/01/2014 9:40a [facility] Internal Medicine Karyna Palomino 72184 401.1 - [place] Nanette 276.8 272.2 Office Visit 01/25/2014 10:20a [facility] Internal Medicine Karyna Palomino 68067 V70.0 - [place] M.Tena 496 733.90 401.1 443.9 356.4 V03.82 Office Visit 07/22/2013 10:00a [facility] Internal Medicine Karyna Palomino 78636 401.1 - [place] MJian 275.42 496 Office Visit 01/18/2013 9:00a [facility] Internal Medicine Karyna Palomino 27063 V70.0 - [place] Nanette 401.1 496 V10.11 733.90 Office Visit 07/20/2012 9:00a [facility] Internal Medicine Karyna Palomino M.D. 02366 496 - [place] 401.1 Office Visit 01/16/2012 9:20a [facility] Internal Medicine Karyna Palomino, 97720 V70.0 - [place] M.D. V76.10 401.1 496 272.4 Office Visit 09/20/2011 1:00p [facility] Internal Medicine Shireen Ledesma, N.P. 01537 466.0 - [place] Office Visit 09/16/2011 1:40p [facility] Internal Medicine Shireen Ledesma, N.P. 86526 466.0 - [place] Office Visit 07/16/2011 9:20a [facility] Internal Medicine Karyna Palomino, 94747 401.1 - [place] M.D. 585.3 496 Office Visit 01/14/2011 1:00p DO Not Use Karynaholly Palomino, 09124 401.1 Information Technology Assistant-[place] M.D. 585.3 272.4 496 Office Visit 10/02/2010 1:45p DO Not Use Information Technology Assistant-[place] Karyna Cotton, 00152 496 M.D. 782.0 Office Visit 04/02/2010 1:15p DO Not Use Information Technology Assistant-[place] Karyna Cotton, 31109 496 M.D. V04.81 Office Visit 12/29/2009 1:15p DO Not Use Karyna Cotton, 43709 782.1 Information Technology Assistant-[place] M.D. 496 585.3 787.03 Office Visit 05/09/2009 9:00a DO Not Use Information Technology Assistant AT Karyna Palomino, 15817 401.1 [place] M.D. 496 272.4 V04.81 Plan of Care Future Appointment(s):04/22/2018 2:30 pm - Raji Schmid M.D. at [facility] Vascular Medicine [facility]06/22/2018 11:00 am - Karyna Palomino M.D. at [facility] Internal Medicine [facility]03/04/2018 - Celso Nicholson M.D.I70.223 [place] arteries of extrm w rest pain, bilateral legsFollow up:1 yearI73.9 Peripheral vascular disease, balpradgavpI75 Essential (primary) hypertension
[2018-03-17] MEDS ORDERED: Amoxicillin/Clavulanate TAB* 875 MG PO ONE (03:11)
[2018-03-17 03:40] VITALS: BP 141/96
== END 2018-03-17 03:50 | disposition home or self-care (01) ==
LOC: ED 01:54
DX: R04.0 Epistaxis (principal); I10 Essential (primary) hypertension; Z87.891 Personal history of nicotine dependence
CPT/HCPCS: 99282; A9270-GY

== ENCOUNTER → 2018-05-01 07:09 | Day surgery (SDC) | payer MEDICARE, BC ==
[~2018-05-01 07:09] MED LIST changes: -Albuterol 2.5 MG/3 ML NEB.SOL* (0.083%) INH ONE; -Clopidogrel TAB* 300 MG ONE; -Clopidogrel TAB* 300 MG PO ONE; +Flumazenil* 0.1 MG/ML 5 ML MDV ONE; -Heparin 2 UNITS/ML IVPREMIX* 1,000 ML IV ONE; -LORazepam TAB(*) 1 MG ONE; +Lidocaine 1% INJ* 10 MG/ML 30 ML SDV ONE; -Lidocaine 1%* 5 ML VIAL ONE; +Naloxone* 0.4 MG/ML 1 ML VIAL ONE; +nitroGLYCERIN DRIP* 0 MCG/0 ML BTL ONE; -nitroGLYCERIN DRIP* 25,000 MCG/250 ML BTL ONE
--- NOTE | 2018-05-01 14:14 | PN ---
Progress Note - Progress Note Date of Service: 05/01/18 SOAP: Subjective: No pain. No nausea. Objective: Selected Entries 05/01/18 13:30 Pulse Rate 83 Heart Rate 82 Respiratory 17 Rate Blood Pressure 132/81 (mmHg) Blood Pressure 106 Mean O2 Sat by Pulse 99 Oximetry NAD, AAO x 3 Abdominopelvic tenderness Right groin is soft, nontender Dressing is CDI LLE is grossly neuromuscular intact Assessment: 88 YOF status post LLE arteriogram and attempted left SFA revascularization ( unsuccessful). Plan: 1. D/C to home. 2. Continue all meds including ASA and Plavix. 3. Referral will be submitted to Dr. Li at [facility] Surgery.
[2018-05-01 14:18] VITALS: BP 131/69
--- NOTE | 2018-05-01 22:21 | RAD ---
CPT II Codes: G9500 Procedure(s) performed: 1. Diagnostic left lower extremity arteriogram. 2. Attempted revascularization of the 100% occluded left superficial femoral artery. 3. Percutaneous Minx closure device to the right common femoral arteriotomy. Date of service: May 01, 2018 Indication for procedure: Left lower extremity claudication and rest pain in a patient with calcified atherosclerosis Comparison: Ankle-brachial index dated April 22, 2018 Contrast: 65 mL of Visipaque 320 Fluoroscopy Time: 13.5 minutes Vessels Accessed: Percutaneous access was obtained with ultrasound guidance in the right common femoral artery in the retrograde direction towards the heart. Catheter arteriography, with the catheter tip located within the lumen of the following arteries, was performed at the right external iliac artery left external iliac artery and left superficial femoral artery. Anesthesia: Conscious sedation with IV Fentanyl and Versed as well as local 1%lidocaine injected locally at the arteriotomy site. Conscious sedation time: Timeout: 923 hours Case end: 1122 hours Total conscious sedation time: 1 hour and 59 minutes Additional medications: * IV heparin 5000 Units to achieve a goal ACT of 250-300. * The patient received 1 mg of p.o. Ativan prior to the onset of the procedure. PROCEDURE NOTE AND INTRAPROCEDURAL IMAGING FINDINGS: Immediately prior to the procedure the patient signed consent after thoroughly discussing all risks, benefits and alternative therapies. The patient was positioned on the fluoroscopy table in the supine position and the bilateral groins were shaved, prepped and the patient was draped in standard sterile fashion. Using fluoroscopic imaging the location of the right common femoral head was marked externally with a skin marker on the patient's groin. Utilizing sonographic guidance and palpation, the right common femoral artery was cannulated overlying the femoral head with 21-gauge needle. An ultrasound image was saved. A microwire was slowly and smoothly advanced into the common femoral artery under fluoroscopic imaging. No buckling of the wire was visualized to indicate dissection. With the wire securing percutaneous arterial access, the needle was removed and a 5-Georgian access sheath was advanced under fluoroscopic control into the right common femoral and external iliac artery. The stiffener and microwire were removed and a 0.035 inch Bentson wire was advanced under fluoroscopic control into the infrarenal abdominal aorta. The 5-Georgian access sheath was removed and replaced with a 5-Georgian SideArm access sheath. Utilizing a 5-Georgian RIM catheter access was obtained across the iliac bifurcation into the left iliac arterial system and the wire was advanced into the left femoral profundus. The reverse curve catheter was removed and replaced with a 4-Georgian curved tip catheter and the tip was advanced into the left external iliac artery. The wire was removed and contrast arteriography was performed with the tip of the catheter in the left external iliac artery. Arteriography demonstrates multifocal mild stenoses in the left external iliac artery with in-line flow in the femoral profundus. As was seen on prior imaging, the left superficial femoral artery is occluded at the ostium. With the catheter tip still in the left external iliac artery imaging was acquired more inferiorly demonstrating essentially complete occlusion of the superficial femoral artery up to its junction with the popliteal artery. There is hypertrophy of the muscular branches of the femoral profundus to compensate for the occluded superficial femoral artery. More inferiorly the diminutive popliteal artery fills by collateralized flow and there is in-line flow through the tibioperoneal trunk and the proximal infrapopliteal arteries. Arteriography at the level of the foot and ankle demonstrates in-line flow provided by the NICOLE and DRAGLINE MECHANIC supplemented by the peroneal artery which terminates at the level of the ankle. Through the 4-Georgian catheter a hydrophilic stiff wire was advanced into the femoral profundus. The short 5-Georgian access sheath was removed and replaced with a 55 cm 5-Georgian access sheath. Under fluoroscopic control the access sheath was advanced until the tip terminated in the common femoral artery. The wire and stiffener were removed and additional arteriograms were performed in multiple obliquities to best image the ostium of the occluded left superficial femoral artery. Utilizing a combination of the 4-Georgian catheter and a soft hydrophilic 0.035 inch wire the proximal portion of the occluded superficial femoral artery was cannulated and the wire was advanced approximately one third to the length of the thigh. The catheter was able to be advanced over the wire into the proximal superficial femoral artery. Eventually progression of the catheter and wire became tortuous. Large looping of the wire indicated a dissection plane and the wire took on a spiral configuration indicating the tract was forming around the true lumen of the superficial femoral artery. Additional attempts with different wires and catheter combinations were made to cannulate the left superficial femoral artery from an antegrade approach unsuccessfully and the decision was made to access the pedal arteries. Utilizing fluoroscopic control the left posterior tibial artery was imaged. Attempt was made to access the artery with a 21-gauge needle. This proved unsuccessful as contrast injected subsequently was seen in the perivascular sheath as opposed to the lumen. After multiple attempts at several levels this access was abandoned. Direct manual pressure was held at the percutaneous sites at the medial left ankle for approximately 15 minutes and bleeding was controlled. Over the wire the access sheath was exchanged for a new 5-Georgian, 11 cm length access sheath intended specifically for percutaneous arterial closure. Through the side arm of the access sheath arteriography of the right common femoral artery demonstrated an appropriate puncture of the common femoral artery above the bifurcation and below the inferior epigastric artery. After an appropriate resterilization of the arteriotomy and exchange for new sterile gloves, a Minx closure device was deployed at the common femoral arteriotomy and pressure held for approximately 15 minutes. There were no signs of bleeding at the percutaneous arterial access site and the site was dressed with sterile gauze and Tegaderm. The patient tolerated the procedure well and was transferred to angiography holding bay for standard post procedural observation. SUMMARY OF PROCEDURE, IMAGING FINDINGS AND INTERVENTIONS PERFORMED: 1. Diagnostic studies performed: * Arterial access was obtained at the right common femoral artery in the retrograde direction (i.e. towards the heart) with ultrasound guidance. A sonographic image was recorded. * Diagnostic catheter angiography (necessary to perform the appropriate interventions) was performed with the catheter tip in the right external iliac artery, left external iliac artery, left superficial femoral artery and left common femoral artery. * Catheter arteriography was performed of the entire left lower extremity arterial system from the left external iliac artery through to the arteries of the left forefoot. * At the conclusion of the procedure arteriography was performed through the side arm of the access sheath to image the distal right external iliac artery, right common femoral artery and proximal superficial femoral artery and femoral profundus. 2. Interpretation of diagnostic studies performed: * Multifocal mild stenoses of the left external iliac artery and common femoral artery but in-line flow is maintained into the left femoral profundus. * Long segment flush ostial occlusion of the left superficial femoral artery extending to the junction with the popliteal artery where the popliteal artery fills by collateralized flow. * Patent in-line flow is documented from the popliteal artery through to the arteries of the forefoot with 2 vessel runoff provided by the NICOLE and DRAGLINE MECHANIC. * Arteriography performed for the purpose of deploying a percutaneous arterial closure device demonstrates adequately patent right external iliac artery, common femoral artery and proximal superficial femoral artery and femoral profundus. 3. Surgical interventions performed: * Attempted revascularization of the occluded left superficial femoral artery (unsuccessful) with catheter and wire technique. * Attempted retrograde cannulation of the left posterior tibial artery. * Closure of the right common femoral artery was achieved with a Minx closure device followed by 15 minutes of gentle manual pressure. Plan: 1. Aspirin 81 mg p.o. daily for life. 2. Plavix 75 mg p.o. daily x 6 months. 3. Clinical and imaging follow-up according to standard Interventional Radiology protocol.
== END | disposition home or self-care (01) ==
LOC: CHICATH 07:09
PROVIDERS: ATTEND Radiology Diagnostic Radiology
DX: I70.223 Atherosclerosis of native arteries of extremities with rest pain, bilateral legs (principal); Z79.899 Other long term (current) drug therapy; Z85.118 Personal history of other malignant neoplasm of bronchus and lung; I25.2 Old myocardial infarction; Z87.891 Personal history of nicotine dependence; K21.9 Gastro-esophageal reflux disease without esophagitis; M81.0 Age-related osteoporosis without current pathological fracture
CPT/HCPCS: 76937; 85347; 99156; 99157; C1769; C1887; C1894; J1644; J2250; J2310; J3010

== ENCOUNTER 2018-10-04 09:18 | Emergency (ER) | payer MEDICARE, BC ==
--- OUTSIDE RECORDS SUMMARY | 2018-10-04 09:48 | XMS REPORT | Continuity of Care Document ---
:1930 External Reference #:[id number] Author Name WesleyAmaya ayers Care Team Providers Name Role Phone Karyna Palomino MD Primary Care Physician Unavailable Payers Date Identification Numbers Payment Provider Subscriber Policy Number: [id number] Medicare Moncho Arciniega PayID: [id number] [address] [place] [address] Policy Number: [id number] [facility] Sujatatung Shameka Demian PayID: [id number] [address] [place] [address] Advance Directives Description No Information Available Problems Date Description Provider Status Onset: 05/09/2009 Benign essential hypertension Karyna Palomnio M.D. Active Onset: 05/09/2009 Hyperlipidemia Karyna Palomino [...] tear Bailey Hutchinson MD Active Onset: 11/05/2017 Atherosclerosis of arteries of the Raji Schmid M.D. Active extremities Onset: 11/05/2017 Peripheral vascular disease Raji Schmid M.D. 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 1) Denae Arcniiega, 2) Bonita Arciniega - copy on file Tobacco Use Start: Unknown End: Former Cigarette Smoker 50 pack years, quit Unknown in 2006 ETOH Use Denies alcohol use Tobacco Use Start: Unknown End: Patient is a former Unknown smoker Smoking Status Reviewed: 09/22/18 Patient is a former smoker Exercise Exercises sporadically Type/Frequency Allergies, Adverse Reactions, Alerts Date Description Reaction Status Severity Comments 05/09/2009 Codeine Sulfate rash Active Medications Medication Date Status Form Strength Qnty SIG Indications Ordering Provider Pantoprazole 08/[address] 20mg 90tab 1 by Karyna Sodium s mouth Cotton, every day M.D. Gentamicin 06/23 Active Solution 0.3% 5unit Instill 2 H10.9 Tabatha Sulfate s Drops In MD Jay Jay Both Eyes Three Times A Day Ferrous Sulfate 06/09 Active Tablets 325(65Fe) 30tab take one Karyna /2018 mg s tablet by Cotton, mouth M.D. once daily 3 times a week or as directed Calcium Magnesium 11/19 Active Tablets bid Karyna Zinc /2016 Nanette Palomino Metoprolol 11/08 Active Tablets ER 25mg 180ta Take One I21.4 Karyna Succinate ER /2014 24HR bs Tablet By Cotton, Mouth M.D. Twice A Day Aldactone 11/04 Active Tablets 25mg 90tab Take One Karyna s Tablet By Cotton, Mouth M.D. Every Day Lipitor 11/04 Active Tablets 80mg 90tab Take One Karyna /2015 s Tablet By Cotton, Mouth AT M.D. Bedtime Ramipril 11/04 Active Capsules 2.5mg 90cap Take One s Capsule Cotton, By Mouth M.D. Every Day Budesonide 07/16 Active Suspension 0.25mg/2M 180ml 1 vial in J44.9 L nebulizer Cotton, twice M.D. daily Albuterol Sulfate 12/27 Active Nebulizer (2.5mg/3M 300un use 1 L) 0.083% its vial four Cotton, times a M.D. day Multi-Vitamin/Min 05/09 Active Tablets 50tab 1 tablet Karyna erals s daily Cotton, M.D. Spiriva Active Capsules 18mcg 30cap Inhale Karyna Handihaler s The Cotton, Contents M.D. Of One Capsule By Mouth Every Day Clopidogrel Active Tablets 75mg 90tab 1 by Celso Madsen Bisulfate s mouth Brand, every day M.D. Xarelto Active Tablets 20mg 1 by Unknown /0000 mouth every day Acetaminophen ER Active Tablets ER 650mg every 6 Unknown /0000 hours for 10 days Pantoprazole 08/[address] 40mg 90tab 1 by Karyna Sodium s mouth Cotton, - every day M.D. 08/31 Methylprednisolon 06/26 Hx TBPK 4mg 21uni take as J44.1 Tabatha ts jose Goyal MD - d on the 07/29 Azithromycin 06/23 Hx Tablets 250mg 6tabs take 2 J44.1 tablets MD Jay Jay - today; 07/29 then tablet daily SM Aspirin Adult 06/[address] 81mg 90tab Take One Karyna Low Strength s Tablet By Cotton, - Mouth M.D. 07/29 Doxycycline 10/03 Hx Tablets 100mg 20tab 1 tab by R05 Karyna Hyclate s mouth Cotton, - twice a M.D. 11/04 day 10 days Diclofenac Sodium 09/15 Hx Gel 1% 100un apply 2-4 M25.512 its grams to Cotton, - the M.D. 07/29 3-4 times a day Alendronate 01/17 Hx Tablets 70mg 4tabs Take One M81.0 Tablet By Cotton, - Mouth M.D. 09/22 Weekly An Empty Stomach With 8 Ounce Of Water. DO Not Eat Or Lie Down For 30 Minutes After Taking Spiriva 02/06 Hx Capsules 18mcg 30cap 1 496 Karyna Handihale s inhalatio Cotton, - n once M.D. 02/06 Brovana 02/06 Hx Nebulizer 15mcg/2ML 180un inhale 496 Karyna its contents Cotton, - of 1 vial M.D. 09/18 in nebulizer twice a day Lopressor 11/04 Hx Tablets 25mg 180ta 1 by 410.70 bs mouth Ordering - twice a Provider Brilinta 11/04 Hx Tablets 90mg 60tab 1 tab by s mouth Cotton, - twice a M.D. Aspirin 11/[address] 81mg 90tab Take One s Tablet By Cotton, - Mouth M.D. 06/23 Azithromycin 10/27 Hx Tablets 250mg 6tabs two tabs 466.0 day one, Cotton, - one daily M.D. 11/04 till Prednisone 10/27 Hx Tablets 5mg 28tab 4 tablets 466.0 Karyna s po for 4 Cotton, - days 3 M.D. 02/06 tablets po for 2 days 2 tablets po for 2 days 1 tablet po for 2 days Felodipine ER 01/25 Hx Tablets ER 2.5mg 30tab Take One 401.1 Karyna 24HR s Tablet By Cotton, - Mouth M.D. 11/04 Alendronate 01/25 Hx Tablets 70mg 4tabs Take 1 733.90 Karyna Tablet Cotton, - Weekly On M.D. 09/18 An Empty Stomach With 8Oz Of Water. DO Not Eat Or Lie Down For 30Mins. After Taking Klor-Con M10 01/10 Hx Tablets ER 10Meq 90tab Take Two s Tablets Cotton, - By Mouth M.D. 11/04 Every Morning And Take One Tablet By Evening Triamterene/[place] 01/04 Hx Tablets 75-50mg 90tab Take 1/2 Karyna chlorothiazide s Tablet By Cotton, - Mouth M.D. 01/25 Every Advair Diskus 11/18 Hx Aerosol 250-50mcg 60uni Inhale 1 Karyna /Dose ts puff Cotton, - Orally M.D. 07/20 Twice A Day Advair Diskus 11/18 Hx Aerosol 250-50mcg 60uni Inhale 496 Karyna /2012 /Dose ts One puff Cotton, - By Mouth M.D. 02/06 Twice A Day Azithromycin 09/15 Hx Tablets 250mg 6tabs two tabs 466.0 Karyna day one, Cotton, - one daily M.D. 09/25 till Prednisone 09/15 Hx Tablets 5mg 40tab as 466.0 s directed Cotton, - M.D. 09/27 Ventolin HFA 01/14 Hx Aerosol 108(90Bas 1Mont 2 puffs 4 496 e) mcg/ac h times a Cotton, - day as M.D. 07/20 needed Simvastatin 04/02 Hx Tablets 40mg 90tab Take One s Tablet By Cotton, - Mouth AT M.D. 11/04 Bedtime Triamcinolone 12/29 Hx Cream 0.1% 80gm apply 782.1 Karyna Acetonide thin film Cotton, - twice M.D. 10/02 daily Simvastatin 05/09 Hx Tablets 20mg 90tab 1 tablet s once Cotton, - daily at M.D. 04/02 bedtime Calcium-D 05/09 Hx Capsules 600-200mg 30cap 1 tablet -Un s daily Cotton, - M.D. 11/19 Benzonatate 05/09 Hx Capsules 100mg 30cap 1 tablet Karyna s three Cotton, - times M.D. 10/02 daily needed Xopenex 05/09 Hx Nebulizer 1.25mg/3M 1Mont q6-8h prn L h Cotton, - M.D. 12/27 Advair Diskus 05/09 Hx Aerosol 250-50mcg 60uni Inhale 1 496 /Dose ts puff Cotton, - Orally M.D. 07/16 Twice A Day Spiriva 05/09 Hx Capsules 18mcg 90cap Inhale Karyna Handihaler s One Cotton, - Capsule M.D. 07/20 By Mouth /2012 Via Handihale r Every Morning Triamterene/[place] 05/09 Hx Tablets 75-50mg 90tab Take One Karyna chlorothiazide s Tablet By Cotton, - Mouth M.D. 07/26 Every Klor-Con 05/09 Hx Packet 20Meq 30uni Mix 1 ts Packet Cotton, - With M.D. 01/10 Fluid And Drink Daily Omeprazole 05/[address] 20mg 90cap take one s capsule Cotton, - by mouth M.D. 08/31 Cilostazol Hx Tablets 100mg 60tab 1 by Unknown /0000 s mouth - twice a /2014 Spiriva Hx Capsules 18mcg 1 unit Unknown Handihaler /0000 inhalatio - n daily 09/18 Spironolactone 00 Hx Tablets 25mg 1 by Unknown /0000 mouth - every day 09/18 Calcium 600 + D Hx Tablets 600-200mg Unknown /0000 -Unit - 07/07 Medications Administered in Office Medication Date Status Form Strength Qnty SIG Indications Ordering Provider Triamcinolone 06/11/ Administered Injection Zaneb (Kenalog) 2015 MD Evangelina Immunizations CPT Code Status Date Vaccine Lot # [id number] Given 05/06/2018 Fluzone High Dose [id number] Given 07/12/2015 Tdap - Tetanus/Diptheria/Acellular Pertussis 51711 Given 04/17/2015 Influenza Virus Vaccine, Quadrivalent, Split, [id number] Preservative Free 18942 Given 02/06/2015 Pneumococcal Conjugate Vaccine 13 Valent For [id number] Intramuscular Use 08007 Given 01/25/2014 Pneumonia Vaccine [id number] 27881 Given 04/02/2010 Influenza Virus 3Yrs & Over 11094 Given 05/09/2009 Influenza Virus Vaccine, Pandemic Formulation [id number] 67652 Given 05/09/2009 Administration Swine Flu Shot Vital Signs Date Vital Result Comment 09/22/2018 1:31pm Height 61 inches 5'1" Weight 120.00 lb Heart Rate 90 /min BP Systolic Sitting 110 mmHg BP Diastolic Sitting 65 mmHg O2 % BldC Oximetry 98 % BMI (Body Mass Index) 22.7 kg/m2 08/03/2018 12:00pm Height 61 inches 5'1" Weight 133.00 lb Heart Rate 106 /min BP Systolic Sitting 132 mmHg BP Diastolic Sitting 82 mmHg O2 % BldC Oximetry 98 % BMI (Body Mass Index) 25.1 kg/m2 06/26/2018 2:17pm Height 61 inches 5'1" Weight 131.75 lb Heart Rate 82 /min BP Systolic 136 mmHg BP Diastolic 63 mmHg Body Temperature 99.1 F O2 % BldC Oximetry 92 % BMI (Body Mass Index) 24.9 kg/m2 06/23/2018 8:55am Height 61 inches 5'1" Weight 122.00 lb Heart Rate 91 /min BP Systolic Sitting 123 mmHg BP Diastolic Sitting 66 mmHg Respiratory Rate 20 /min Body Temperature 98.5 F BMI (Body Mass Index) 23.0 kg/m2 04/22/2018 2:38pm Height 61 inches 5'1" Weight 133.00 lb Heart Rate 78 /min BP Systolic Sitting 116 mmHg BP Diastolic Sitting 76 mmHg Respiratory Rate 16 /min BMI (Body Mass Index) 25.1 kg/m2 03/12/2018 9:15am Height 61 inches 5'1" Weight 135.00 lb Heart Rate 88 /min BP Systolic Sitting 117 mmHg BP Diastolic Sitting 62 mmHg O2 % BldC Oximetry 97 % BMI (Body Mass Index) 25.5 kg/m2 03/04/2018 1:15pm Height 61 inches 5'1" Weight 138.00 lb with shoes Heart Rate 98 /min BP Systolic Sitting 100 mmHg lue reg cuff BP Diastolic Sitting 62 mmHg lue reg cuff BP Systolic Standing 110 mmHg BP Diastolic Standing 64 mmHg Respiratory Rate 22 /min BMI (Body Mass Index) 26.1 kg/m2 Ejection Fraction 40-45% 12/06/14 11/05/2017 2:49pm Height 61 inches 5'1" Weight 137.00 lb w/shoes Heart Rate 106 /min BP Systolic Sitting 130 mmHg LA reg cuff BP Diastolic Sitting 78 mmHg LA reg cuff BMI (Body Mass Index) 25.9 kg/m2 10/03/2017 9:36am Weight 136.00 lb Heart Rate 99 /min BP Systolic 105 mmHg BP Diastolic 65 mmHg Body Temperature 98.1 F O2 % BldC Oximetry 97 % 09/15/2017 9:54am Weight 137.00 lb Heart Rate 94 /min BP Systolic Sitting 115 mmHg BP Diastolic Sitting 78 mmHg Body Temperature 97.7 F O2 % BldC Oximetry 97 % 06/16/2017 2:48pm Height 50 inches 4'2" Weight 137.50 lb Heart Rate 100 /min BP Systolic 120 mmHg BP Diastolic 76 mmHg Body Temperature 97.6 F O2 % BldC Oximetry 98 % BMI (Body Mass Index) 38.7 kg/m2 03/14/2017 9:58am Height 50 inches 4'2" Weight 139.00 lb Heart Rate 86 /min BP Systolic 116 mmHg BP Diastolic 64 mmHg Respiratory Rate 17 /min BMI (Body Mass Index) 39.1 kg/m2 01/20/2017 8:48am Weight 138.00 lb with shoes Heart Rate 94 /min BP Systolic 90 mmHg BP Diastolic 60 mmHg O2 % BldC Oximetry 96 % 11/19/2016 8:47am Weight 138.25 lb Heart Rate 90 /min BP Systolic Sitting 124 mmHg BP Diastolic Sitting 70 mmHg Respiratory Rate 18 /min Body Temperature 97.4 F 06/11/2016 2:25pm Height 62 inches 5'2" Weight 142.00 lb Heart Rate 76 /min BP Systolic Sitting 108 mmHg BP Diastolic Sitting 62 mmHg Respiratory Rate 16 /min Body Temperature 98.3 F Pain Level 3 BMI (Body Mass Index) 26.0 kg/m2 05/21/2016 1:12pm Height 60.25 inches 5'0.25" Weight 138.00 lb Heart Rate 82 /min BP Systolic 100 mmHg BP Diastolic 62 mmHg Body Temperature 98.1 F O2 % BldC Oximetry 97 % BMI (Body Mass Index) 26.7 kg/m2 02/09/2016 2:33pm Height 60.25 inches 5'0.25" Weight 137.00 lb w/ shoes Heart Rate 80 /min irreg BP Systolic Sitting 114 mmHg Lue, reg cuff BP Diastolic Sitting 66 mmHg Lue, reg cuff BP Systolic Standing 110 mmHg Lue BP Diastolic Standing 60 mmHg Lue Respiratory Rate 16 /min BMI (Body Mass Index) 26.5 kg/m2 Ejection Fraction 40-45% as of 12/06/13 echo 01/18/2016 9:05am Height 60.25 inches 5'0.25" Weight 136.50 lb Heart Rate 84 /min BP Systolic Sitting 98 mmHg manual and machine BP Diastolic Sitting 50 mmHg manual and machine Body Temperature 95.7 F O2 % BldC Oximetry 98 % BMI (Body Mass Index) 26.4 kg/m2 09/19/2015 8:48am Height 60.25 inches 5'0.25" Weight 134.75 lb Heart Rate 86 /min BP Systolic Sitting 102 mmHg BP Diastolic Sitting 67 mmHg Body Temperature 97.3 F Pain Level 0 O2 % BldC Oximetry 97 % BMI (Body Mass Index) 26.1 kg/m2 07/20/2015 12:24pm Height 60.25 inches 5'0.25" Weight 132.00 lb w/o shoes Heart Rate 86 /min reg BP Systolic Sitting 106 mmHg Rue, reg cuff BP Diastolic Sitting 60 mmHg Rue, reg cuff BP Systolic Standing 102 mmHg Rue BP Diastolic Standing 66 mmHg Rue Respiratory Rate 18 /min BMI (Body Mass Index) 25.6 kg/m2 Ejection Fraction 50-55% as of 05/06/14 echo 07/17/2015 12:09pm Height 84 inches 7'0" Weight 134.00 lb BP Systolic 118 mmHg BP Diastolic 74 mmHg Body Temperature 97.7 F O2 % BldC Oximetry 96 % BMI (Body Mass Index) 13.4 kg/m2 06/22/2015 9:47am Height 61 inches 5'1" Weight 133.00 lb Heart Rate 64 /min BP Systolic Sitting 124 mmHg BP Diastolic Sitting 76 mmHg Respiratory Rate 14 /min Body Temperature 98.2 F O2 % BldC Oximetry 97 % BMI (Body Mass Index) 25.1 kg/m2 04/17/2015 9:18am Height 61 inches 5'1" Weight 130.00 lb Heart Rate 96 /min BP Systolic 116 mmHg BP Diastolic 72 mmHg Body Temperature 97.8 F O2 % BldC Oximetry 98 % BMI (Body Mass Index) 24.6 kg/m2 02/06/2015 10:02am Height 61 inches 5'1" Weight 129.00 lb Heart Rate 100 /min BP Systolic Sitting 100 mmHg BP Diastolic Sitting 63 mmHg Body Temperature 97.0 F O2 % BldC Oximetry 98 % BMI (Body Mass Index) 24.4 kg/m2 12/09/2014 11:36am Weight 130.00 lb Heart Rate 93 /min BP Systolic Sitting 109 mmHg BP Diastolic Sitting 72 mmHg Body Temperature 97.6 F 12/09/2014 8:44am Height 61 inches 5'1" Weight 130.00 lb with shoes Heart Rate 94 /min BP Systolic Sitting 104 mmHg LA, reg cuff BP Diastolic Sitting 64 mmHg LA, reg cuff BP Systolic Standing 92 mmHg LA BP Diastolic Standing 64 mmHg LA Respiratory Rate 18 /min BMI (Body Mass Index) 24.6 kg/m2 Ejection Fraction 40-45% 12/06/2014 11/08/2014 1:02pm Height 61 inches 5'1" Weight 132.00 lb Heart Rate 76 /min BP Systolic Sitting 114 mmHg left arm, reg cuff BP Diastolic Sitting 64 mmHg left arm, reg cuff BP Systolic Standing 100 mmHg left arm, reg cuff BP Diastolic Standing 64 mmHg left arm, reg cuff Respiratory Rate 20 /min BMI (Body Mass Index) 24.9 kg/m2 Ejection Fraction 50-55% 05/06/15 11/07/2014 11:48am Height 61 inches 5'1" Weight 132.00 lb Heart Rate 76 /min BP Systolic 113 mmHg BP Diastolic 71 mmHg Body Temperature 98.6 F O2 % BldC Oximetry 97 % BMI (Body Mass Index) 24.9 kg/m2 10/27/2014 10:56am Height 61 inches 5'1" Weight 138.00 lb Heart Rate 100 /min BP Systolic 138 mmHg BP Diastolic 80 mmHg Body Temperature 97.9 F O2 % BldC Oximetry 94 % BMI (Body Mass Index) 26.1 kg/m2 07/04/2014 10:14am Weight 147.00 lb Heart Rate 110 /min BP Systolic Sitting 142 mmHg BP Diastolic Sitting 70 mmHg Body Temperature 97.7 F O2 % BldC Oximetry 97 % 03/01/2014 9:24am Weight 151.75 lb Heart Rate 90 /min BP Systolic Sitting 140 mmHg BP Diastolic Sitting 74 mmHg Body Temperature 97.2 F 01/25/2014 10:30am Height 61 inches 5'1" Weight 145.50 lb Heart Rate 100 /min BP Systolic Sitting 142 mmHg BP Diastolic Sitting 78 mmHg Body Temperature 97.4 F O2 % BldC Oximetry 98 % BMI (Body Mass Index) 27.5 kg/m2 07/22/2013 10:07am Weight 149.00 lb Heart Rate 88 /min BP Systolic Sitting 132 mmHg BP Diastolic Sitting 82 mmHg O2 % BldC Oximetry 95 % 01/18/2013 9:09am Height 61 inches 5'1" Weight 153.00 lb Heart Rate 104 /min BP Systolic Sitting 128 mmHg BP Diastolic Sitting 66 mmHg BMI (Body Mass Index) 28.9 kg/m2 07/20/2012 8:54am Height 61.25 inches 5'1.25" Weight 154.00 lb Heart Rate 106 /min BP Systolic Sitting 130 mmHg BP Diastolic Sitting 64 mmHg O2 % BldC Oximetry 96 % BMI (Body Mass Index) 28.9 kg/m2 01/16/2012 9:18am Height 61.25 inches 5'1.25" Weight 158.00 lb Heart Rate 96 /min BP Systolic Sitting 132 mmHg BP Diastolic Sitting 66 mmHg BMI (Body Mass Index) 29.6 kg/m2 09/20/2011 12:51pm Height 61.25 inches 5'1.25" Weight 156.25 lb Heart Rate 104 /min BP Systolic 126 mmHg BP Diastolic 72 mmHg Body Temperature 98.0 F O2 % BldC Oximetry 96.0 % BMI (Body Mass Index) 29.3 kg/m2 09/16/2011 1:30pm Height 61.25 inches 5'1.25" Weight 157.00 lb Heart Rate 100 /min BP Systolic Sitting 128 mmHg BP Diastolic Sitting 62 mmHg Body Temperature 98.6 F BMI (Body Mass Index) 29.4 kg/m2 07/16/2011 9:30am Height 61.25 inches 5'1.25" Weight 159.00 lb Heart Rate 88 /min BP Systolic Sitting 134 mmHg BP Diastolic Sitting 68 mmHg BMI (Body Mass Index) 29.8 kg/m2 01/14/2011 12:53pm Height 61.25 inches 5'1.25" Weight 155.00 lb Heart Rate 64 /min BP Systolic Sitting 118 mmHg BP Diastolic Sitting 70 mmHg BMI (Body Mass Index) 29.0 kg/m2 10/02/2010 1:30pm Weight 156.00 lb Heart Rate 104 /min BP Systolic 110 mmHg BP Diastolic 70 mmHg O2 % BldC Oximetry 99 % 04/02/2010 1:28pm Weight 163.25 lb Heart Rate 104 /min BP Systolic 120 mmHg BP Diastolic 78 mmHg Body Temperature 98.4 F O2 % BldC Oximetry 96 % 12/29/2009 6:56pm Weight 160.50 lb Heart Rate 88 /min BP Systolic 130 mmHg BP Diastolic 70 mmHg Body Temperature 97.7 F 05/09/2009 8:39am Weight 161.25 lb Heart Rate 108 /min BP Systolic Sitting 108 mmHg BP Diastolic Sitting 64 mmHg Respiratory Rate 16 /min Body Temperature 98.6 F O2 % BldC Oximetry 98 % Results Test Date Facility Test Result H/L Range Note CBC Auto Diff 08/18/2018 [facility] White Blood 10.9 10^3/uL High 3.5-10.[address] [place] [address] [phone] Red Blood Count 4.18 10^6/uL N 4.00-5.40 Hemoglobin 11.6 g/dL Low 12.0-16.0 Hematocrit 36 % N 35-47 Mean Corpuscular Volume 87 fL N 80-97 Mean Corpuscular Hemoglobin 28 pg N 27-31 Mean Corpuscular HGB Conc 32 g/dL N 31-36 Red Cell Distribution Width 16 % High 10.5-15 Platelet Count 345 10^3/uL N 150-450 Mean Platelet Volume 9.3 fL N 7.4-10.4 Abs Neutrophils 7.4 10^3/uL N 1.5-7.7 Abs Lymphocytes 2.0 10^3/uL N 1.0-4.8 Abs Monocytes 1.0 10^3/uL High 0-0.8 Abs Eosinophils 0.4 10^3/uL N 0-0.6 Abs Basophils 0.1 10^3/uL N 0-0.2 Abs Nucleated RBC 0 10^3/uL Granulocyte % 67.7 % Lymphocyte % 18.4 % Monocyte % 9.3 % Eosinophil % 3.7 % Basophil % 0.9 % Nucleated Red Blood Cells % 0 Basic Metabolic Panel 08/18/2018 [facility] Sodium 140 mmol/L N 135-[address] [place] [address] [phone] Chloride 104 mmol/L N 101-111 Co2 Carbon Dioxide 27 mmol/L N 22-32 Glucose 94 mg/dL N 70-100 Blood Urea Nitrogen 24 mg/dL N 6-24 Creatinine 1.14 mg/dL High 0.51-0.95 BUN/Creatinine Ratio 21.1 High 8-20 Calcium 10.2 mg/dL N 8.6-10.3 Egfr Non- 45.2 >60 Egfr 54.7 >60 2 Potassium 5.1 mmol/L High 3.5-5.0 Anion Gap 9 mmol/L N 2-11 CBC Auto Diff 06/01/2018 [facility] White Blood 9.3 10^3/uL N 3.5-10.[address] [place] [address] [phone] Red Blood Count 4.39 10^6/uL N 4.00-5.40 Hemoglobin 11.1 g/dL Low 12.0-16.0 Hematocrit 35 % N 35-47 Mean Corpuscular Volume 79 fL Low 80-97 Mean Corpuscular Hemoglobin 25 pg Low 27-31 Mean Corpuscular HGB Conc 32 g/dL N 31-36 Red Cell Distribution Width 16 % High 10.5-15 Platelet Count 277 10^3/uL N 150-450 Mean Platelet Volume 9.0 fL N 7.4-10.4 Abs Neutrophils 6.5 10^3/uL N 1.5-7.7 Abs Lymphocytes 1.5 10^3/uL N 1.0-4.8 Abs Monocytes 1.1 10^3/uL High 0-0.8 Abs Eosinophils 0.2 10^3/uL N 0-0.6 Abs Basophils 0.1 10^3/uL N 0-0.2 Abs Nucleated RBC 0 10^3/uL Granulocyte % 69.6 % N 38-83 Lymphocyte % 15.9 % Low 25-47 Monocyte % 11.4 % High 0-7 Eosinophil % 2.6 % N 0-6 Basophil % 0.5 % N 0-2 Nucleated Red Blood Cells % 0 Basic Metabolic Panel 06/01/2018 [facility] Sodium 138 mmol/L N 135-[address] [place] [address] [phone] Potassium 4.3 mmol/L N 3.5-5.0 Chloride 103 mmol/L N 101-111 Co2 Carbon Dioxide 25 mmol/L N 22-32 Anion Gap 10 mmol/L N 2-11 Glucose 89 mg/dL N 70-100 Blood Urea Nitrogen 30 mg/dL High 6-24 Creatinine 1.40 mg/dL High 0.51-0.95 BUN/Creatinine Ratio 21.4 High 8-20 Calcium 9.8 mg/dL N 8.6-10.3 Egfr Non- 35.7 >60 Egfr 43.1 >60 3 Iron & Iron Binding 06/01/2018 [facility] Iron 34 g/dL Low 50-[address] [place] [address] [phone] Unsaturated Iron Binding < 486 g/dL Total Iron Binding Capacity 501 g/dL High 250-450 Transferrin 358 mg/dL N 203-362 % Iron Saturation 7 % Low 15-55 Laboratory test 05/01/2018 [facility] Poc Activated 225 seconds 4 finding [address] [place] [address] [phone] Xray 05/01/2018 [facility] Angio Extremity <pending> [place] [address] [phone] Angio Pelvic Selective Supraselect <pending> Basic Metabolic Panel 04/29/2018 [facility] Sodium 139 mmol/L N 135-[address] [place] [address] [phone] Potassium 4.5 mmol/L N 3.5-5.0 Chloride 107 mmol/L N 101-111 Co2 Carbon Dioxide 24 mmol/L N 22-32 Anion Gap 8 mmol/L N 2-11 Glucose 81 mg/dL N 70-100 Blood Urea Nitrogen 34 mg/dL High 6-24 Creatinine 1.40 mg/dL High 0.51-0.95 BUN/Creatinine Ratio 24.3 High 8-20 Calcium 9.8 mg/dL N 8.6-10.3 Egfr Non- 35.7 >60 Egfr 43.1 >60 5 CBC Auto Diff 04/29/2018 [facility] White Blood 8.6 10^3/uL N 3.5-10.[address] [place] [address] [phone] Red Blood Count 4.03 10^6/uL N 4.00-5.40 Hemoglobin 10.7 g/dL Low 12.0-16.0 Hematocrit 33 % Low 35-47 Mean Corpuscular Volume 82 fL N 80-97 Mean Corpuscular Hemoglobin 27 pg N 27-31 Mean Corpuscular HGB Conc 33 g/dL N 31-36 Red Cell Distribution Width 15 % N 10.5-15 Platelet Count 284 10^3/uL N 150-450 Mean Platelet Volume 9.5 um3 N 7.4-10.4 Abs Neutrophils 6.1 10^3/uL N 1.5-7.7 Abs Lymphocytes 1.4 10^3/uL N 1.0-4.8 Abs Monocytes 0.9 10^3/uL High 0-0.8 Abs Eosinophils 0.2 10^3/uL N 0-0.6 Abs Basophils 0 10^3/uL N 0-0.2 Abs Nucleated RBC 0 10^3/uL Granulocyte % 71.1 % N 38-83 Lymphocyte % 15.9 % Low 25-47 Monocyte % 10.5 % High 0-7 Eosinophil % 2.1 % N 0-6 Basophil % 0.4 % N 0-2 Nucleated Red Blood Cells % 0 Xray 04/23/2018 [facility] VL Ank/Brachial <pending> [address] [place] [address] [phone] Laboratory test 02/13/2018 [facility] Poc Activated 156 seconds [address] [place] [address] [phone] Laboratory test 02/13/2018 [facility] Poc Activated 164 seconds [address] [place] [address] [phone] Laboratory test 02/13/2018 [facility] Poc Activated 172 seconds [address] [place] [address] [phone] Laboratory test 02/13/2018 [facility] Poc Activated 192 seconds [address] [place] [address] [phone] Laboratory test 02/13/2018 [facility] Poc Activated 204 seconds [address] [place] [address] [phone] Laboratory test 02/13/2018 [facility] Poc Activated 196 seconds [address] [place] [address] [phone] Laboratory test 02/13/2018 [facility] Poc Activated 217 seconds [address] [place] [address] [phone] Basic Metabolic 12/22/2017 [facility] Sodium 138 mmol/L N 135- [address] [place] [address] [phone] Potassium 4.1 mmol/L N 3.5-5.0 Chloride 103 mmol/L N 101-111 Co2 Carbon Dioxide 25 mmol/L N 22-32 Anion Gap 10 mmol/L N 2-11 Glucose 99 mg/dL N 70-100 Blood Urea Nitrogen 28 mg/dL High 6-24 Creatinine 1.26 mg/dL High 0.51-0.95 BUN/Creatinine Ratio 22.2 High 8-20 Calcium 10.2 mg/dL N 8.6-10.3 Egfr Non- 40.4 >60 Egfr 51.9 >60 13 Creatinine Clearance 09/09/2017 [facility] Urine Collection Time [address] [place] [address] [phone] Urine Total Volume 1100 mL Urine Random Creatinine 73.00 mg/dL Creatinine TNP mg/dL 0.51-0.95 Creatinine Clearance TNP mL/min 88-128 14 Basic Metabolic Panel 06/11/2017 [facility] Sodium 139 mmol/L N 133-[address] [place] [address] [phone] Potassium 4.7 mmol/L N 3.5-5.0 Chloride 106 mmol/L N 101-111 Co2 Carbon Dioxide 25 mmol/L N 22-32 Anion Gap 8 mmol/L N 2-11 Glucose 68 mg/dL Low 70-100 Blood Urea Nitrogen 33 mg/dL High 6-24 Creatinine 1.36 mg/dL High 0.51-0.95 BUN/Creatinine Ratio 24.3 High 8-20 Calcium 10.2 mg/dL N 8.6-10.3 Egfr Non- 37.0 >60 Egfr 47.5 >60 15 Order 01/08/2017 [facility] 6 Minute Walk <pending> [address] [place] [address] [phone] Laboratory test 11/11/2016 [facility] Magnesium 1.8 mg/dL Low 1.9-2 16, [address] [place] [address] [phone] Comp Metabolic 11/11/2016 [facility] Sodium 137 mmol/L N 133- 1 Panel [address] [address] [phone] Potassium 4.3 mmol/L N 3.5-5.0 Chloride 101 mmol/L N 101-111 Co2 Carbon Dioxide 27 mmol/L N 22-32 Anion Gap 9 mmol/L N 2-11 Glucose 84 mg/dL N 70-100 Blood Urea Nitrogen 30 mg/dL High 6-24 Creatinine 1.24 mg/dL High 0.51-0.95 BUN/Creatinine Ratio 24.2 High 8-20 Calcium 9.9 mg/dL N 8.6-10.3 Total Protein 7.0 g/dL N 6.4-8.9 Albumin 4.0 g/dL N 3.2-5.2 Globulin 3.0 g/dL N 2-4 Albumin/Globulin Ratio 1.3 N 1-3 Total Bilirubin 0.90 mg/dL N 0.2-1.0 Alkaline Phosphatase 68 U/L N 34-104 Alt 20 U/L N 7-52 Ast 24 U/L N 13-39 Egfr Non- 41.2 N >60 Egfr 53.0 N >60 18 Lipid Profile 11/11/2016 [facility] Triglycerides 136 mg/dL N 19 (Trig/Chol/HDL) [address] [place] [address] [phone] Cholesterol 143 mg/dL N 20 HDL Cholesterol 44.6 mg/dL N 21 LDL Cholesterol 71 mg/dL N 22 Laboratory test 01/09/2016 [facility] Magnesium 1.7 mg/dL Low 1.9-2.7 finding [address] [place] [address] [phone] Comp Metabolic 01/09/2016 [facility] Sodium 138 mmol/L N 133- 145 Panel [address] [place] [address] [phone] Potassium 4.5 mmol/L N 3.5-5.0 Chloride 104 mmol/L N 101-111 Co2 Carbon Dioxide 26 mmol/L N 22-32 Anion Gap 8 mmol/L N 2-11 Glucose 84 mg/dL N 70-100 Blood Urea Nitrogen 27 mg/dL High 6-24 Creatinine 1.16 mg/dL High 0.51-0.95 BUN/Creatinine Ratio 23.3 High 8-20 Calcium 10.0 mg/dL N 8.6-10.3 Total Protein 6.7 g/dL N 6.4-8.9 Albumin 4.0 g/dL N 3.2-5.2 Globulin 2.7 g/dL N 2-4 Albumin/Globulin Ratio 1.5 N 1-3 Total Bilirubin 0.70 mg/dL N 0.2-1.0 Alkaline Phosphatase 80 U/L N 34-104 Alt 20 U/L N 7-52 Ast 23 U/L N 13-39 Egfr Non- 44.6 N >60 Egfr 57.4 N >60 23 Lipid Profile 01/09/2016 [facility] Triglycerides 79 mg/dL N 24 (Trig/Chol/HDL) [address] [place] [address] [phone] Cholesterol 121 mg/dL N 25 HDL Cholesterol 46.3 mg/dL N 26 LDL Cholesterol 59 mg/dL N 27 CBC Auto Diff 09/06/2015 [facility] White Blood 10.7 10^3/uL N 3.5-10.[address] [place] [address] [phone] Red Blood Count 4.97 10^6/uL N 4.0-5.4 Hemoglobin 14.8 g/dL N 12.0-16.0 Hematocrit 45 % N 35-47 Mean Corpuscular Volume 90 fL N 80-97 Mean Corpuscular Hemoglobin 30 pg N 27-31 Mean Corpuscular HGB Conc 33 g/dL N 31-36 Red Cell Distribution Width 14 % N 10.5-15 Platelet Count 233 10^3/uL N 150-450 Mean Platelet Volume 10 um3 N 7.4-10.4 Abs Neutrophils 8.4 10^3/uL High 1.5-7.7 Abs Lymphocytes 1.1 10^3/uL N 1.0-4.8 Abs Monocytes 0.8 10^3/uL N 0-0.8 Abs Eosinophils 0.3 10^3/uL N 0-0.6 Abs Basophils 0.1 10^3/uL N 0-0.2 Abs Nucleated RBC 0 10^3/uL N Granulocyte % 78.9 % N 38-83 Lymphocyte % 10.3 % Low 25-47 Monocyte % 7.1 % N 1-9 Eosinophil % 3.1 % N 0-6 Basophil % 0.6 % N 0-2 Nucleated Red Blood Cells % 0 N Comp Metabolic Panel 09/06/2015 [facility] Sodium 139 mmol/L N 133-145 [address] [place] [address] [phone] Potassium 3.9 mmol/L N 3.5-5.0 Chloride 105 mmol/L N 101-111 Co2 Carbon Dioxide 26 mmol/L N 22-32 Anion Gap 8 mmol/L N 2-11 Glucose 81 mg/dL N 70-100 Blood Urea Nitrogen 35 mg/dL High 6-24 Creatinine 1.27 mg/dL High 0.51-0.95 BUN/Creatinine Ratio 27.6 High 8-20 Calcium 10.0 mg/dL N 8.6-10.3 Total Protein 6.8 g/dL N 6.4-8.9 Albumin 4.3 g/dL N 3.2-5.2 Globulin 2.5 g/dL N 2-4 Albumin/Globulin Ratio 1.7 N 1-3 Total Bilirubin 1.00 mg/dL N 0.2-1.0 Alkaline Phosphatase 60 U/L N 34-104 Alt 18 U/L N 7-52 Ast 21 U/L N 13-39 Egfr Non- 40.2 N >60 Egfr 51.7 N >60 28 Laboratory test 04/17/2015 [facility] Vitamin B12 776 pg/mL N 180-914 29 finding [address] [place] [address] [phone] Magnesium 1.7 mg/dL Low 1.9-2.7 Basic Metabolic Panel 04/17/2015 [facility] Sodium 136 mmol/L N 133-145 [address] [place] [address] [phone] Potassium 3.9 mmol/L N 3.5-5.0 Chloride 103 mmol/L N 101-111 Co2 Carbon Dioxide 23 mmol/L N 22-32 Anion Gap 10 mmol/L N 2-11 Glucose 103 mg/dL High 70-100 Blood Urea Nitrogen 27 mg/dL High 6-24 Creatinine 1.23 mg/dL High 0.51-0.95 BUN/Creatinine Ratio 22.0 High 8-20 Calcium 9.7 mg/dL N 8.6-10.3 Egfr Non- 41.8 N >60 Egfr 53.8 N >60 30 Lipid Profile 02/02/2015 [facility] Triglycerides 98 mg/dL N 31 (Trig/Chol/HDL) [address] [place] [address] [phone] Cholesterol 126 mg/dL N 32 HDL Cholesterol 48.7 mg/dL N 33 LDL Cholesterol 58 mg/dL N 34 Comp Metabolic Panel 02/02/2015 [facility] Sodium 135 mmol/L N 133-145 [address] [place] [address] [phone] Potassium 4.2 mmol/L N 3.5-5.0 Chloride 101 mmol/L N 101-111 Co2 Carbon Dioxide 26 mmol/L N 22-32 Anion Gap 8 mmol/L N 2-11 Glucose 74 mg/dL N 70-100 Blood Urea Nitrogen 31 mg/dL High 6-24 Creatinine 1.29 mg/dL High 0.51-0.95 BUN/Creatinine Ratio 24.0 High 8-20 Calcium 9.9 mg/dL N 8.6-10.3 Total Protein 6.6 g/dL N 6.4-8.9 Albumin 4.2 g/dL N 3.2-5.2 Globulin 2.4 g/dL N 2-4 Albumin/Globulin Ratio 1.8 N 1-3 Total Bilirubin 1.00 mg/dL N 0.2-1.0 Alkaline Phosphatase 57 U/L N 34-104 Alt 21 U/L N 7-52 Ast 24 U/L N 13-39 Egfr Non- 39.6 N >60 Egfr 50.9 N >60 35 Basic Metabolic Panel 11/07/2014 [facility] Sodium 137 mmol/L N 133-145 [address] [place] [address] [phone] Potassium 3.8 mmol/L N 3.5-5.0 Chloride 102 mmol/L N 101-111 Co2 Carbon Dioxide 27 mmol/L N 22-32 Anion Gap 8 mmol/L N 2-11 Glucose 102 mg/dL High 70-100 Blood Urea Nitrogen 44 mg/dL High 6-24 Creatinine 1.27 mg/dL High 0.51-0.95 BUN/Creatinine Ratio 34.6 High 8-20 Calcium 10.1 mg/dL N 8.6-10.3 Egfr Non- 40.3 N >60 Egfr 51.8 N >60 36 CBC Auto 10/29/2014 [facility] White Blood 14.5 10^3/uL High 4.8-10.[address] [place] [address] [phone] Red Blood Count 5.46 10^6/uL High 4.0-5.4 Hemoglobin 15.7 g/dL N 12.0-16.0 Hematocrit 48 % High 35-47 Mean Corpuscular Volume 89 fL N 80-97 Mean Corpuscular Hemoglobin 29 pg N 27-31 Mean Corpuscular HGB Conc 32 g/dL N 31-36 Red Cell Distribution Width 16 % High 10.5-15 Platelet Count 292 10^3/uL N 150-450 Mean Platelet Volume 10 um3 N 7.4-10.4 Abs Neutrophils 9.7 10^3/uL High 1.5-7.7 Abs Lymphocytes 3.6 10^3/uL N 1.0-4.8 Abs Monocytes 0.8 10^3/uL N 0-0.8 Abs Eosinophils 0.3 10^3/uL N 0-0.6 Abs Basophils 0.1 10^3/uL N 0-0.2 Abs Nucleated RBC 0.01 10^3/uL N Granulocyte % 67.0 % N 38-83 Lymphocyte % 24.7 % Low 25-47 Monocyte % 5.4 % N 1-9 Eosinophil % 2.0 % N 0-6 Basophil % 0.9 % N 0-2 Nucleated Red Blood Cells % 0.1 N Inr/Protime 10/29/2014 [facility] Inr 0.91 N 0.78-1.[address] [place] [address] [phone] Comp Metabolic Panel 10/29/2014 [facility] Sodium 138 mmol/L N 133-145 [address] [place] [address] [phone] Potassium 3.2 mmol/L Low 3.5-5.0 Chloride 107 mmol/L N 101-111 Co2 Carbon Dioxide 22 mmol/L N 22-32 Anion Gap 9 mmol/L N 2-11 Glucose 208 mg/dL High 70-100 Blood Urea Nitrogen 26 mg/dL High 6-24 Creatinine 1.25 mg/dL High 0.51-0.95 BUN/Creatinine Ratio 20.8 High 8-20 Calcium 9.9 mg/dL N 8.6-10.3 Total Protein 7.7 g/dL N 6.4-8.9 Albumin 4.6 g/dL N 3.2-5.2 Globulin 3.1 g/dL N 2-4 Albumin/Globulin Ratio 1.5 N 1-3 Total Bilirubin 0.70 mg/dL N 0.2-1.0 Alkaline Phosphatase 55 U/L N 34-104 Alt 30 U/L N 7-52 Ast 42 U/L High 13-39 Egfr Non- 41.0 N >60 Egfr 52.8 N >60 37 Laboratory test 10/29/2014 [facility] Troponin I 0.49 ng/mL High <0.03 38 finding [address] [place] [address] [phone] B Type Natriuretic Peptide 757 pg/mL N 39 Lactic Acid 2.9 mmol/L High 0.5-2.2 40 Lipid Profile 02/23/2014 [facility] Triglycerides 155 mg/dL N 41 (Trig/Chol/HDL) [address] [place] [address] [phone] Cholesterol 163 mg/dL N 42 HDL Cholesterol 59.5 mg/dL N 43 LDL Cholesterol 73 mg/dL N 44 Comp Metabolic Panel 02/23/2014 [facility] Sodium 139 mmol/L N 133-145 [address] [place] [address] [phone] Potassium 3.5 mmol/L Low 3.7-5.6 Chloride 105 mmol/L N 101-111 Co2 Carbon Dioxide 25 mmol/L N 22-32 Anion Gap 9 mmol/L N 2-11 Glucose 99 mg/dL N 70-100 Blood Urea Nitrogen 24 mg/dL N 6-24 Creatinine 1.07 mg/dL High 0.51-0.95 BUN/Creatinine Ratio 22.4 High 8-20 Calcium 9.8 mg/dL N 8.6-10.3 Total Protein 7.3 g/dL N 6.4-8.9 Albumin 4.3 g/dL N 3.2-5.2 Globulin 3.0 g/dL N 2-4 Albumin/Globulin Ratio 1.4 N 1-3 Total Bilirubin 0.80 mg/dL N 0.2-1.0 Alkaline Phosphatase 64 U/L N 34-104 Alt 22 U/L N 7-52 Ast 26 U/L N 13-39 Egfr Non- 49.2 N >60 Egfr 63.3 N >60 45 Vitamin D, 25 02/23/2014 [facility] 25-Hydroxy Vitamin <4.0 ng/ mL N Hydroxy [address] D[address] [place], [place] [id number] [phone] 25-Hydroxy Vitamin D3 50 ng/mL N 25-Hydroxy Vitamin D Total 50 ng/mL N 46 Laboratory test 02/23/2014 [facility] TSH (Thyroid 3.58 N 0.34 -5.60 [address] Stimulating IU/[place] [address] Horm) [phone] Vitamin B12 652 pg/mL N 180-914 48 CBC Auto Diff 02/23/2014 [facility] White Blood 9.3 10^3/uL N 4.8-10.[address] [place] [address] [phone] Red Blood Count 4.97 10^6/uL N 4.0-5.4 Hemoglobin 14.8 g/dL N 12.0-16.0 Hematocrit 43 % N 35-47 Mean Corpuscular Volume 86 fL N 80-97 Mean Corpuscular Hemoglobin 30 pg N 27-31 Mean Corpuscular HGB Conc 35 g/dL N 31-36 Red Cell Distribution Width 14 % N 10.5-15 Platelet Count 205 10^3/uL N 150-450 Mean Platelet Volume 9 um3 N 7.4-10.4 Abs Neutrophils 6.5 10^3/uL N 1.5-7.7 Abs Lymphocytes 1.5 10^3/uL N 1.0-4.8 Abs Monocytes 0.9 10^3/uL High 0-0.8 Abs Eosinophils 0.3 10^3/uL N 0-0.6 Abs Basophils 0.1 10^3/uL N 0-0.2 Abs Nucleated RBC 0 10^3/uL N Granulocyte % 69.9 % N 38-83 Lymphocyte % 16.0 % Low 25-47 Monocyte % 10.1 % High 1-9 Eosinophil % 3.2 % N 0-6 Basophil % 0.8 % N 0-2 Nucleated Red Blood Cells % 0.1 N Laboratory 02/23/2014 [facility] Carcinoembryonic 0.7 ng/mL N 0.1-5.0 [address] [place] [address] [phone] Basic 01/06/2014 [facility] Sodium 136 N 133-145 Metabolic 101 mmol/[place] [address] [phone] Potassium 3.5 mmol/L Low 3.7-5.6 Chloride 103 mmol/L N 101-111 Co2 Carbon Dioxide 22 mmol/L N 22-32 Anion Gap 11 mmol/L N 2-11 Glucose 99 mg/dL N 70-100 Blood Urea Nitrogen 26 mg/dL High 6-24 Creatinine 1.32 mg/dL High 0.51-0.95 BUN/Creatinine Ratio 19.7 N 8-20 Calcium 9.5 mg/dL N 8.6-10.3 Egfr Non- 38.6 N >60 Egfr 49.7 N >60 51 Comp Metabolic Panel 07/22/2013 [facility] Sodium 138 mmol/L 133-[address] [place] [address] [phone] Potassium 4.0 mmol/L 3.5-5.0 Chloride 103 mmol/L [...] Egfr Non- 47.7 >60 Egfr 61.3 >60 52 Basic Metabolic Panel 03/10/2013 [facility] Sodium 142 mmol/L 133-[address] [place] [address] [phone] Potassium 3.9 mmol/L 3.5-5.0 Chloride 106 mmol/L 101-111 Co2 Carbon Dioxide 26.0 mmol/L 22-32 Anion Gap 10.0 mmol/L 2-11 Glucose 99 mg/dL 70-100 Blood Urea Nitrogen 27 mg/dL High 6-24 Creatinine 1.10 mg/dL 0.50-1.40 BUN/Creatinine Ratio 24.5 High 8-20 Calcium 10.3 mg/dL High 8.1-9.9 Egfr Non- 47.8 >60 Egfr 61.5 >60 53 Pthi 03/10/2013 [facility] PTH Intact 3.9 pmol/L 1.3-9.[address] [place] [address] [phone] Calcium (PTH Intact) 10.2 mg/dL High 8.1-9.9 Laboratory test 03/02/2013 [facility] Vitamin D 34 pg/mL 18- 78 [address] 1,[place] [address] [phone] Vitamin D, 25 03/02/2013 [facility] 25-Hydroxy Vitamin <4.0 ng/ mL Hydroxy [address] [place] [address] [phone] 25-Hydroxy Vitamin D3 45 ng/mL 25-Hydroxy Vitamin D Total 45 ng/mL 55 CBC Auto Diff 03/02/2013 [facility] White Blood 7.7 10^3/uL 4.8-10.[address] [place] [address] [phone] Red Blood Count 4.85 10^6/uL 4.0-5.4 Hemoglobin [...] Blood Cells % 0 Comp Metabolic Panel 03/02/2013 [facility] Sodium 137 mmol/L 133-145 [address] [place] [address] [phone] Potassium 3.4 mmol/L Low 3.5-5.0 Chloride 101 [...] Egfr Non- 43.2 >60 Egfr 55.6 >60 56 Lipid Profile 03/02/2013 [facility] Triglycerides 116 mg/dL 40-200 (Trig/Chol/HDL) [address] [place] [address] [phone] Cholesterol 192 mg/dL Less than 200 HDL Cholesterol 64 mg/dL High 40-60 57 Cholesterol/HDL Ratio 3.0 Average 1-4.44 LDL Cholesterol 104.8 High Less Than 100 58 Basic Metabolic Panel 07/21/2012 [facility] Sodium 140 mmol/L 133-145 [address] [place] [address] [phone] Potassium 3.6 mmol/L 3.5-5.0 Chloride 102 mmol/L 101-111 Co2 Carbon Dioxide 28.0 mmol/L 22-32 Anion Gap 10.0 mmol/L 2-11 Glucose 98 mg/dL 70-100 Blood Urea Nitrogen 23 mg/dL 6-24 Creatinine 1.40 mg/dL 0.50-1.40 BUN/Creatinine Ratio 16.4 8-20 Calcium 9.7 mg/dL 8.1-9.9 Egfr Non- 36.2 >60 Egfr 46.5 >60 59 Lipid Profile 03/05/2012 [facility] Triglyceride 133 mg/dL 40 -200 (Trig/Chol/HDL) [address] [place] [address] [phone] Cholesterol 178 mg/dL Less Than 200 60 High Density Lipoprotein 58 mg/dL 40-60 61 Cholesterol/HDL Ratio 3.07 AVERAGE 1-4.44 Low Density Lipoprotein 93 mg/dL Less Than 100 62 CBC Auto Diff 03/05/2012 [facility] White Blood 7.5 CUMM 4.8- 10.[address] [place] [address] [phone] Red Cell Count 4.62 CUMM 4.2-5.4 Hemoglobin [...] Basophils 0 0-0.2 Comp Metabolic Panel 03/05/2012 [facility] Sodium 140 mmol/L 135-[address] [place] [address] [phone] Potassium 3.8 mmol/L 3.5-5.0 Chloride 103 mmol/L 101-111 Co2 (Carbon Dioxide) 30.0 mmol/L 22-32 Anion Gap 7.0 mmol/L 2-11 63 Glucose 101 mg/dL High 70-100 BUN 25 mg/dL High 6-24 Creatinine 1.5 mg/dL High 0.50-1.40 One Over Creatinine 0.66 BUN/Creatinine Ratio 16.7 8-20 Calcium 9.7 mg/dL 8.1-9.9 Total Protein 5.9 GM/DL Low 6.2-8.1 Albumin 3.9 GM/DL 3.2-5.2 Globulin 2.0 GM/DL 2-4 Albumin/Globulin Ratio 2.0 1-3 Bilirubin Total 0.7 mg/dL 0.4-1.5 64 Alkaline Phosphatase 48 U/L 30-110 Alt (SGPT) 23 U/L 14-54 Ast (Sgot) 28 U/L 12-42 eGFR Non- 33.5 > 60 eGFR 43.1 > 60 65 Basic Metabolic Panel 07/22/2011 [facility] Sodium 139 mmol/L 135-145 [address] [place] [address] [phone] Potassium 3.8 mmol/L 3.5-5.0 Chloride 101 mmol/L 101-111 Co2 (Carbon Dioxide) 27.0 mmol/L 22-32 Anion Gap 11.0 mmol/L 2-11 66 Glucose 82 mg/dL 70-100 BUN 20 mg/dL 6-24 Creatinine 1.4 mg/dL 0.50-1.40 One Over Creatinine 0.71 BUN/Creatinine Ratio 14.3 8-20 Calcium 10.1 mg/dL High 8.1-9.9 eGFR Non- 36.3 > 60 eGFR 46.6 > 60 67 Comp Metabolic Panel 01/01/2011 [facility] Sodium 139 mmol/L 135-[address] [place] [address] [phone] Potassium 3.7 mmol/L 3.5-5.0 Chloride 103 mmol/L 101-111 Co2 (Carbon Dioxide) 27.0 mmol/L 22-32 Anion Gap 9.0 mmol/L 2-11 68 Glucose 102 mg/dL High 70-100 BUN 23 mg/dL 6-24 Creatinine 1.50 mg/dL High 0.50-1.40 One Over Creatinine 0.60 BUN/Creatinine Ratio 15.3 8-20 Calcium 9.8 mg/dL 8.1-9.9 Total Protein 6.7 GM/DL 6.2-8.1 Albumin 4.0 GM/DL 3.2-5.2 Globulin 2.7 GM/DL 2-4 Albumin/Globulin Ratio 1.5 1-3 Bilirubin Total 1.1 mg/dL 0.4-1.5 69 Alkaline Phosphatase 54 U/L 30-110 Alt (SGPT) 23 U/L 14-54 Ast (Sgot) 29 U/L 12-42 eGFR Non- 33.6 > 60 eGFR 43.2 > 60 70 Lipid Profile 01/01/2011 [facility] Triglyceride 170 mg/dL 40 -200 (Trig/Chol/HDL) [address] [place] [address] [phone] Cholesterol 191 mg/dL Less Than 200 71 High Density Lipoprotein 62 mg/dL High 40-60 72 Cholesterol/HDL Ratio 3.08 AVERAGE 1-4.44 Low Density Lipoprotein 95 mg/dL Less Than 100 73 Laboratory test 01/01/2011 [facility] Vitamin B12 599 pg/mL 180-914 finding [address] [place] [address] [phone] TSH 4.09 MIU/ML 0.34-5.60 Protein 01/01/2011 [facility] Albumin 3.18 GM/DL 3.0-4.35 Electrophoresis Serum [address] [place] [address] [phone] Alpha 1 0.24 GM/DL 0.09-0.33 Alpha 2 1.05 GM/DL 0.59-1.18 Beta 0.91 GM/DL 0.68-1.02 Gamma 0.92 GM/DL 0.76-1.60 Albumin % 50.5 % 46-63 Alpha 1 % 3.8 % 1.2-5.3 Alpha 2 % 16.7 % 9-17 Beta % 14.4 % 10-16 Gamma % 14.6 % 12-22 A/G Ratio 1.0 0.9-2 Total Protein 6.3 GM/DL 6.2-8.1 Spep Comments (SEE NOTE) 74 Basic Metabolic Panel 08/15/2010 [facility] Sodium 141 mmol/L 135-145 [address] [place] [address] [phone] Potassium 4.2 mmol/L 3.5-5.0 Chloride 103 mmol/L 101-111 Co2 (Carbon Dioxide) 29.0 mmol/L 22-32 Anion Gap 9.0 mmol/L 2-11 75 Glucose 74 mg/dL 70-100 BUN 25 mg/dL High 6-24 Creatinine 1.40 mg/dL 0.50-1.40 One Over Creatinine 0.70 BUN/Creatinine Ratio 17.9 8-20 Calcium 9.9 mg/dL 8.1-9.9 eGFR Non- 36.4 > 60 eGFR 46.8 > 60 76 Comp Metabolic Panel 02/27/2010 [facility] Sodium 141 mmol/L 135-[address] [place] [address] [phone] Potassium 4.3 mmol/L 3.5-5.0 Chloride 102 mmol/L 101-111 Co2 (Carbon Dioxide) 30.0 mmol/L 22-32 Anion Gap 9.0 mmol/L 2-11 77 Glucose 96 mg/dL 70-100 78 BUN 24 mg/dL 6-24 Creatinine 1.60 mg/dL High 0.50-1.40 One Over Creatinine 0.60 BUN/Creatinine Ratio 15.0 8-20 Calcium 9.8 mg/dL 8.1-9.9 79 Total Protein 6.4 GM/DL 6.2-8.1 Albumin 4.1 GM/DL 3.2-5.2 Globulin 2.3 GM/DL 2-4 Albumin/Globulin Ratio 1.8 1-3 Bilirubin Total 1.1 mg/dL 0.4-1.5 80 Alkaline Phosphatase 49 U/L 30-110 Alt (SGPT) 21 U/L 14-54 Ast (Sgot) 27 U/L 12-42 eGFR Non- 33.2 > 60 eGFR 40.2 > 60 81 Laboratory test 02/27/2010 [facility] LDH 158 U/L 95-[address] [place] [address] [phone] CBC With Manual 02/27/2010 [facility] White Blood 6.8 CUMM 4.8-10.[address] [place] [address] [phone] Red Cell Count 4.46 CUMM 4.2-5.4 Hemoglobin [...] 0-6 Absolute Neutrophil Count 4.6 Anisocytosis SLIGHT PTH Intact, Inc 01/10/2010 [facility] PTH Intact 5.3 PMOL/L 1.3-9.3 82 Total Calcium [address] [place] [address] [phone] Calcium For Pthi 9.5 mg/dL 8.1-9.9 83 Laboratory test 01/10/2010 [facility] Calcium 4.89 mg/dL 4.65 -5.[address] [place] [address] [phone] Comp Metabolic 12/29/2009 [facility] Sodium 142 mmol/L 135- [address] [place] [address] [phone] Potassium 3.6 mmol/L 3.5-5.0 Chloride 101 mmol/L 101-111 Co2 (Carbon Dioxide) 31.0 mmol/L 22-32 Anion Gap 10.0 mmol/L 2-11 84 Glucose 121 mg/dL High 70-100 85 BUN 29 mg/dL High 6-24 Creatinine 1.60 mg/dL High 0.50-1.40 One Over Creatinine 0.60 BUN/Creatinine Ratio 18.1 8-20 Calcium 11.1 mg/dL High 8.1-9.9 86 Total Protein 6.4 GM/DL 6.2-8.1 Albumin 4.1 GM/DL 3.2-5.2 Globulin 2.3 GM/DL 2-4 Albumin/Globulin Ratio 1.8 1-3 Bilirubin Total 1.2 mg/dL 0.4-1.5 87 Alkaline Phosphatase 50 U/L 30-110 Alt (SGPT) 28 U/L 14-54 Ast (Sgot) 35 U/L 12-42 eGFR Non- 33.2 > 60 eGFR 40.2 > 60 88 Comp Metabolic Panel 11/06/2009 [facility] Sodium 143 mmol/L 135-[address] [place] [address] [phone] Potassium 4.1 mmol/L 3.5-5.0 Chloride 105 mmol/L 101-111 Co2 (Carbon Dioxide) 29.0 mmol/L 22-32 Anion Gap 9.0 mmol/L 2-11 89 Glucose 114 mg/dL High 70-100 90 BUN 26 mg/dL High 6-24 Creatinine 1.50 mg/dL High 0.50-1.40 One Over Creatinine 0.60 BUN/Creatinine Ratio 17.3 8-20 Calcium 10.1 mg/dL High 8.1-9.9 91 Total Protein 6.0 GM/DL Low 6.2-8.1 Albumin 4.0 GM/DL 3.2-5.2 Globulin 2.0 GM/DL 2-4 Albumin/Globulin Ratio 2.0 1-3 Bilirubin Total 0.9 mg/dL 0.4-1.5 92 Alkaline Phosphatase 52 U/L 30-110 Alt (SGPT) 23 U/L 14-54 Ast (Sgot) 29 U/L 12-42 eGFR Non- 35.8 > 60 eGFR 43.3 > 60 93 CBC With Manual 11/06/2009 [facility] White Blood 7.3 CUMM 4.8-10.[address] [place] [address] [phone] Red Cell Count 4.89 CUMM 4.2-5.4 Hemoglobin [...] Absolute Neutrophil Count 5.3 RBC Morphology NORMAL CBC With Manual 07/04/2009 [facility] White Blood 9.4 CUMM 4.8-10.[address] [place] [address] [phone] Red Cell Count 4.92 CUMM 4.2-5.4 Hemoglobin [...] 0-6 Absolute Neutrophil Count 7.2 Anisocytosis SLIGHT Lipid Profile 07/04/2009 [facility] Triglyceride 166 mg/dL 40 -200 (Trig/Chol/HDL) [address] [place] [address] [phone] Cholesterol 193 mg/dL Less Than 200 94 High Density Lipoprotein 58 mg/dL 40-60 95 Cholesterol/HDL Ratio 3.33 AVERAGE 1-4.44 Low Density Lipoprotein 102 mg/dL High Less Than 100 96 Laboratory test 07/04/2009 [facility] LDH 180 U/L 95-185 finding [address] [place] [address] [phone] Comp Metabolic Panel 07/04/2009 [facility] Sodium 138 mmol/L 135-145 [address] [place] [address] [phone] Potassium 4.0 mmol/L 3.5-5.0 Chloride 101 mmol/L 101-111 Co2 (Carbon Dioxide) 28.0 mmol/L 22-32 Anion Gap 9.0 mmol/L 2-11 97 Glucose 94 mg/dL 70-100 98 BUN 24 mg/dL 6-24 Creatinine 1.30 mg/dL 0.50-1.40 One Over Creatinine 0.70 BUN/Creatinine Ratio 18.5 8-20 Calcium 9.9 mg/dL 8.1-9.9 99 Total Protein 6.5 GM/DL 6.2-8.1 Albumin 4.1 GM/DL 3.2-5.2 Globulin 2.4 GM/DL 2-4 Albumin/Globulin Ratio 1.7 1-3 Bilirubin Total 0.9 mg/dL 0.4-1.5 100 Alkaline Phosphatase 50 U/L 30-110 Alt (SGPT) 30 U/L 14-54 Ast (Sgot) 32 U/L 12-42 eGFR Non- 42.2 > 60 eGFR 51.1 > 60 101 1 [id number] 2 Because ethnic data is not always readily [...] 15-29 5 Kidney failure <15 (or dialysis) 3 Because ethnic data is not always readily [...] 15-29 5 Kidney failure <15 (or dialysis) 4 Mutton Puncher: [id number] Reference Range: 74-125 seconds 5 Because ethnic data is not always readily [...] 15-29 5 Kidney failure <15 (or dialysis) 6 Mutton Puncher: [id number] Reference Range: 74-125 seconds 7 Mutton Puncher: [id number] Reference Range: 74-125 seconds 8 Mutton Puncher: [id number] Reference Range: 74-125 seconds 9 Mutton Puncher: [id number] Reference Range: 74-125 seconds 10 Mutton Puncher: [id number] Reference Range: 74-125 seconds 11 Mutton Puncher: [id number] Reference Range: 74-125 seconds 12 Mutton Puncher: [id number] Reference Range: 74-125 seconds 13 Because ethnic data is not always readily [...] 15-29 5 Kidney failure <15 (or dialysis) 14 Unable to calculate due to no serum collected. 15 Because ethnic data is not always readily [...] 15-29 5 Kidney failure <15 (or dialysis) 16 FASTING 17 FASTING 18 Because ethnic data is not always readily [...] 15-29 5 Kidney failure <15 (or dialysis) 19 Desirable <150 Borderline high 150-199 High 200-499 Very High >500 20 Desirable <200 Borderline high 200-239 High >239 21 Low <40 Desirable: 40-60 High: >60 22 Desirable: <100 mg/dL Near Optimal: 100-129 mg/dL Borderline High: 130-159 mg/dL High: 160-189 mg/dL Very High: >189 mg/dL 23 Because ethnic data is not always [...] 5 Kidney failure <15 (or dialysis) 24 Desirable <150 Borderline high 150-199 High 200-499 Very High >500 25 Desirable <200 Borderline high 200-239 High >239 26 Low <40 Desirable: 40-60 High: >60 27 Desirable: <100 mg/dL Near Optimal: 100-129 mg/dL Borderline High: 130-159 mg/dL High: 160-189 mg/dL Very High: >189 mg/dL 28 Because ethnic data is not always readily [...] 15-29 5 Kidney failure <15 (or dialysis) 29 Normal Range 180 to 914 Indeterminate Range 145 to 180 Deficient Range <145 30 Because ethnic data is not always [...] 5 Kidney failure <15 (or dialysis) 31 Desirable <150 Borderline high 150-199 High 200-499 Very High >500 32 Desirable <200 Borderline high 200-239 High >239 33 Low <40 Desirable: 40-60 High: >60 34 Desirable: <100 mg/dL Near Optimal: 100-129 mg/dL Borderline High: 130-159 mg/dL High: 160-189 mg/dL Very High: >189 mg/dL 35 Because ethnic data is not always readily [...] 15-29 5 Kidney failure <15 (or dialysis) 36 Because ethnic data is not always readily [...] 15-29 5 Kidney failure <15 (or dialysis) 37 Because ethnic data is not always readily [...] 15-29 5 Kidney failure <15 (or dialysis) 38 Reference Range and Interpretation: TnI (ng/mL) Interpretation Less Than 0.03 ng/mL Not supportive of diagnosis of NC 0.03 - 0.50 ng/mL Indeterminate: suggest serial studies if clinically indicated. Greater than 0.5 ng/mL Consistent with diagnosis of NC 39 >100 to <200 pg/mL: likely compensated congestive heart failure (CHF) 200 to 400 pg/mL: likely moderate CHF >400 pg/mL: likely moderate to severe CHF [facility] 40 Critical Result LACT:2.[address] RESENDIZ at: 08:25:43 by:[id number] Read back by:DR RESENDIZ 41 Desirable <150 Borderline high 150-199 High 200-499 Very High >500 42 Desirable <200 Borderline high 200-239 High >239 43 Low <40 Desirable: 40-60 High: >60 44 Desirable <100 Near Optimal 100-129 Borderline high 130-159 High 160-189 Very High >189 45 Because ethnic data is not always readily [...] 15-29 5 Kidney failure <15 (or dialysis) 46 -- REFERENCE VALUE -- 25-HYDROXY D TOTAL (D2+D3) Optimum levels in the healthy population are 20-50, patients with bone disease may benefit from higher levels within this range. Test Performed by: [facility] [address] [address] [employer] [employer] Operator: Chidi Jolly III, M.D. 47 FASTING 48 Normal Range 180 to 914 Indeterminate Range 145 to 180 Deficient Range <145 49 CMP ORDERED 02/23/[address] To PALOMINO RESULTS TO BE SENT TO~DR. Rosalva DUTTON 50 Nonsmokers: < 2.9 ng/mL Some smokers may have elevated CEA, usually <5.0 ng/mL. Serum markers are not specific for malignancy, and values may vary by method. The testing method is an immunoenzymatic assay care navigator by [employer] performed on [employer] DXI 600. Do not interpret serum CEA levels as absolute evidence of the presence or the absence of malignant disease. Use serum CEA in conjunction with information from the clinical evaluation of the patient and other diagnostic procedures. 51 Because ethnic data is not always [...] 5 Kidney failure <15 (or dialysis) 52 Because ethnic data is not always readily [...] 15-29 5 Kidney failure <15 (or dialysis) 53 Because ethnic data is not always readily [...] 15-29 5 Kidney failure <15 (or dialysis) 54 Test Performed by: [place] [address] [employer] Operator: Chidi Jolly III, M.D. 55 -- REFERENCE VALUE -- 25-HYDROXY D TOTAL (D2+D3) Optimum levels in the normal population are 25-80 Test Performed by: [place] [address] [employer] Operator: Chidi Jolly III, M.D. 56 Because ethnic data is not always readily [...] 15-29 5 Kidney failure <15 (or dialysis) 57 HDL Interpretation: Undesirable: High Risk: Less than 40 mg/dL Desirable: Low Risk: Greater than 60 mg/dL 58 LDL Interpretation: Low Risk Optimal Level: LDL Less than 100 mg/dL Near or Above Optimal: LDL 100-129 mg/dL Borderline High Risk: LDL 130-159 mg/dL High Risk: LDL 160-189 mg/dL Very High Risk: LDL Greater than 189 mg/dL 59 Because ethnic data is not always readily [...] 15-29 5 Kidney failure <15 (or dialysis) 60 CHOLESTEROL INTERPRETATION: Desirable: Less than 200 MG/DL Borderline-High Risk: 200-239 MG/DL High-Risk: 240 MG/DL and over 61 HDL INTERPRETATION: Undesirable: High Risk: Less than 40 MG/DL Desirable: Low Risk: Greater than 60 MG/DL 62 LDL INTERPRETATION: Low Risk Optimal Level: LDL Less than 100 MG/DL Near or Above Optimal: LDL 100-129 MG/DL Borderline High Risk: LDL 130-159 MG/DL High Risk: LDL 160-189 MG/DL Very High Risk: LDL Greater than 189 MG/DL 63 Anion gap measurement may be of [...] 5 Kidney failure <15 (or dialysis) 66 Anion gap measurement may be of limited value in the presence of any alkalosis, especially in a combined acid base disorder. . 67 Because ethnic data is not always readily [...] 15-29 5 Kidney failure <15 (or dialysis) 68 Anion gap measurement may be of limited value in the presence of any alkalosis, especially in a combined acid base disorder. . 69 A metabolite of Naproxen, O-desmethylnaproxen, has been shown to interfere with the Jendrassik-[place] Dara method for measuring total bilirubin. Samples from patients who have taken Naproxen have shown spurious elevation in total bilirubin levels. 70 Because ethnic data is not always readily [...] 15-29 5 Kidney failure <15 (or dialysis) 71 CHOLESTEROL INTERPRETATION: Desirable: Less than 200 MG/DL Borderline-High Risk: 200-239 MG/DL High-Risk: 240 MG/DL and over 72 HDL INTERPRETATION: Undesirable: High Risk: Less than 40 MG/DL Desirable: Low Risk: Greater than 60 MG/DL 73 LDL INTERPRETATION: Low Risk Optimal Level: LDL Less than 100 MG/DL Near or Above Optimal: LDL 100-129 MG/DL Borderline High Risk: LDL 130-159 MG/DL High Risk: LDL 160-189 MG/DL Very High Risk: LDL Greater than 189 MG/DL 74 NORMAL ELECTROPHORETIC PATTERN. 75 Anion gap measurement may be of limited value in the presence of any alkalosis, especially in a combined acid base disorder. . 76 Because ethnic data is not always [...] 5 Kidney failure <15 (or dialysis) 77 Anion gap measurement may be of limited value in the presence of any alkalosis, especially in a combined acid base disorder. . 78 Note change in reference range as of 02/25/08. The change was based on recommendations from the [place] [employer]. 79 Please note change in reference range effective 07 . 80 A metabolite of Naproxen, O-desmethylnaproxen, has been shown to interfere with the Jendrassik-[place] Dara method for measuring total bilirubin. Samples from patients who have taken Naproxen have shown spurious elevation in total bilirubin levels. 81 Because ethnic data is not always readily [...] 15-29 5 Kidney failure <15 (or dialysis) 82 PLEASE NOTE CHANGE IN REFERENCE RANGE OF 07/14/06. 83 Please note change in reference range effective 08 . 84 Anion gap measurement may be of limited value in the presence of any alkalosis, especially in a combined acid base disorder. . 85 Note change in reference range as of 02/25/08. The change was based on recommendations from the [place] [employer]. 86 Please note change in reference range effective 07 . 87 A metabolite of Naproxen, O-desmethylnaproxen, has been shown to interfere with the Jendrassik-El Dara method for measuring total bilirubin. Samples from [...] change was based on recommendations from the [place] [employer]. 91 Please note change in [...] High Risk: LDL Greater than 189 MG/DL 97 Anion gap measurement may be of limited value in the presence of any alkalosis, especially in a combined acid base disorder. . 98 Note change in reference range as of 02/25/08. The change was based on recommendations from the [place] [employer]. 99 Please note change in reference range effective 07 . 100 A metabolite of Naproxen, O-desmethylnaproxen, has been shown to interfere with the Jendrassik-[place] Dara method for measuring total bilirubin. Samples from patients who have taken Naproxen have shown spurious elevation in total bilirubin levels. 101 Because ethnic data is not always readily [...] 15-29 5 Kidney failure <15 (or dialysis) Procedures Date Code Description Status 05/01/2018 48292 Moderate Sedation Services; Same Phys Intl 15 Mins; PT Completed >=5 Years 05/01/2018 34140 Ultrasound Guidance For Vascular Access Completed 05/01/2018 07462 [id number] Completed 05/01/2018 87957 Catheter Placement Arterial System Init 3RD Order Completed Abdom/Pelv/Low 05/01/2018 62132 Introduce Needle/Intracatheter Extremity Artery Completed 03/04/2018 34028 EKG Tracing & Interpretation Completed 02/13/2018 20578 Revascularization,Endovascular,Open/Percutaneous,Iliac Completed Artery 02/13/2018 27348 Revascularization,Endovascular W/Atherectomy, Inc Completed Angioplasty 02/13/2018 02236 Angio Extremity, Bilateral Completed 02/13/2018 08344 Ultrasound Guidance For Vascular Access Completed 02/13/2018 69298 Moderate Sedation Services; Same Phys Intl 15 Mins; PT Completed >=5 Years 03/14/2017 12032 EKG Tracing & Interpretation Completed 01/02/2017 93587 Diffusing Capacity Completed 01/02/2017 57230 Plethysmography Determination Lung Volumes & Per Completed Airway Resist 01/02/2017 42243 Pulmonary Stress Test Simple Completed 01/02/2017 83275 Pulmonary Function><Bronchodil Completed 06/11/2016 31043 Inject/Drain Joint/Bursa Major W/O US Completed 06/03/2016 [id number] Bone Mineral Density Test Completed 02/09/2016 41295 EKG Tracing & Interpretation Completed 02/20/2015 17205 Pulmonary Function><Bronchodil Completed 02/20/2015 94983 Plethysmography Determination Lung Volumes & Per Completed Airway Resist 02/20/2015 54790 Diffusing Capacity Completed 02/13/2015 [id number] Mammogram Completed 12/06/2014 65664 ECHO Transthoracic, Real-Time 2D With Doppler And Completed Color Flow 11/08/2014 70044 EKG Tracing & Interpretation Completed 10/29/2014 67160 Left Heart Cath. Incl S/I Coronaries, Angio S/I V Gram Completed If Done 10/29/2014 55136 EKG, Interpretation Only Completed 05/06/2014 57027 ECHO Transthoracic, Real-Time 2D With Doppler And Completed Color Flow 03/19/2013 [id number] Mammogram Completed 01/26/2013 919950122 Bone Mineral Density Test Completed 01/21/2012 [id number] Mammogram Completed 01/16/2012 41225 EKG Tracing & Interpretation Completed 09/20/2011 27080 Noninvasive Ear Or Pulse Oximetry For Oxygen Completed Saturation 10/09/2010 [id number] Bone Mineral Density Test Completed 05/09/2009 04716 Noninvasive Ear Or Pulse Oximetry For Oxygen Completed Saturation 08/14/2007 [id number] Colonoscopy Completed Encounters Type Date Location Provider Dx Diagnosis Office Visit 08/03/2018 [facility] Sonia Palomino I73.9 Peripheral vascular 11:40a Medicine - [place] disease, [place] unspecified D64.9 Anemia, unspecified Office Visit 06/26/2018 2:30p [facility] Internal Tabatha Goyal J44.1 Chronic obstructive Medicine - pulmonary disease w [place] (acute) exacerbation Office Visit 06/23/2018 9:00a [facility] Internal Tabatha Goyal H10.9 Unspecified Medicine - conjunctivitis [place] J44.1 Chronic obstructive pulmonary disease w (acute) exacerbation Office Visit 05/01/2018 11:37a Alexei Tabor I73.9 Peripheral Medicine Of Diana Schmid M.D. vascular disease, unspecified Office Visit 04/22/2018 2:30p Alexei Tabor I70.223 [facility] [place] [facility] Of Diana Schmid M.D. arteries of extrm w rest pain, bilateral legs Office Visit 03/12/2018 9:20a [facility] Sonia Troncoso M54.2 Cervicalgia [place] Ellis S51.811D Laceration w/o foreign body of right forearm, subs encntr Office Visit 03/04/2018 1:30p [facility] Celso Madsen I70.223 [place] Of Diana Nicholson M.D. 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 arteries of extrm w rest pain, bilateral legs I73.9 Peripheral vascular disease, unspecified Office Visit 10/03/2017 9:40a [facility] Internal Medicine Karyna Palomino M.D. R05 Cough - Jessica I73.9 Peripheral vascular disease, unspecified Office Visit 09/15/2017 10:00a [facility] Internal Karyna I10 Essential ( primary) Crista Palomino M.D. hypertension [place] N18.3 Chronic kidney disease, stage 3 (moderate) M25.512 Pain in left shoulder 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 Office Visit 03/14/2017 9:45a [facility] Celso Madsen I10 Essential (primary) Of Diana Nicholson M.D. 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 obstructive [place] pulmonary disease, unspecified M81.0 Age-related osteoporosis w/o current pathological fracture I73.9 Peripheral vascular disease, unspecified 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 Office Visit 11/19/2016 9:00a [facility] Internal Karyna I10 Essential ( primary) Crista Palomino M.D. hypertension [place] E78.5 Hyperlipidemia, unspecified M79.1 Myalgia J44.9 Chronic obstructive pulmonary disease, unspecified Office Visit 06/11/2016 [facility] Bailey Hutchinson, M19.012 Primary 2:30p Services Of osteoarthritis, left C.M.A. shoulder M75.122 Complete rotatr-cuff tear/ruptr of left shoulder, not trauma Office Visit 05/21/2016 1:20p [facility] Internal Karyna Z00.00 Encntr for Crista Palomino M.D. 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 hypertension I25.10 Athscl heart disease of [place] coronary artery w/o ang pctrs I50.9 Heart failure, unspecified Office Visit 01/18/2016 9:00a [facility] Internal Karyna I10 Essential ( primary) Crista Palomino M.D. hypertension [place] J44.9 Chronic obstructive pulmonary disease, unspecified M81.0 Age-related osteoporosis w/o current pathological fracture M25.512 Pain in left shoulder Office Visit 09/19/2015 9:00a [facility] Internal Karyna M81.0 Age-related Crista Palomino M.D. osteoporosis w/o [place] current pathological fracture I10 Essential (primary) hypertension J44.9 Chronic obstructive pulmonary disease, unspecified Office Visit 07/20/2015 12:45p [facility] Celso Madsen I25.10 [place] heart Of Diana Nicholson M.D. disease of [place] coronary artery w/o ang pctrs I50.9 Heart failure, unspecified I25.5 Ischemic cardiomyopathy Office Visit 07/17/2015 11:50a [facility] Internal Susanna S51.012D Laceration Crista Kaba M.D. 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 elsewhere [place] classified N18.3 Chronic kidney disease, stage 3 (moderate) Office Visit 04/17/2015 9:40a [facility] Internal Karyna I10 Essential ( primary) Crista Palomino M.D. hypertension [place] K21.9 Gastro-esophageal reflux disease without esophagitis Z23 Encounter for immunization Office Visit 02/06/2015 10:00a [facility] Internal Karyna V70.0 Examination Crista Palomino M.D. General Medical [place] Routine AT [facility] 585.3 Chronic Kidney Disease Stage III Moderate 401.1 Hypertension Benign 530.81 Esophageal Reflux 496 COPD Airway Obstruction Chronic Not Class Elsewhere V76.19 Screening Breast Exam Malignant Neoplasms Other v03.82 Streptococcus Pneumoniae Vaccination Spec Other Office Visit 12/09/2014 11:40a [facility] Internal Karyna 401.1 Hypertension Crista Palomino M.D. Benign [place] 428.0 Congestive Heart Failure Unspecified Office Visit 12/09/2014 Mustapha Madsen 410.70 Myocardial Infarc 9:00a Cardiology Beatriz Nicholson M.D. Acute Subendocardial [facility] Episode Care Unspec 414.01 Coronary Atherosclerosis [place] Office Visit 11/08/2014 Mustapha Madsen 410.70 Myocardial Infarc 1:00p Cardiology Of Nanette Nicholson Acute Subendocardial [facility] AT [facility] Episode Care Unspec 428.9 Heart Failure Unspec 414.01 Coronary Atherosclerosis [place] Office Visit 11/07/2014 [facility] Internal Karyna 410.70 Myocardial Infarc 11:20a Crista Palomino M.D. Acute Subendocardial [place] Episode Care Unspec 428.9 Heart Failure Unspec Office Visit 10/29/2014 9:29a [facility] Celso Madsen 411.1 Coronary Syndrome Of Diana Nicholson M.D. Intermediate 428.0 Congestive Heart Failure Unspecified 790.99 Blood Examination Other Nonspecific Findings 793.2 Nonspecific(Abnormal)Findings On Radiological,Intrathoracic Office Visit 10/29/2014 7:21a [facility] 428.9 Heart Failure Assoc,luigi Fitzpatrick Unspec Hospitalists 410.70 Myocardial Infarc Acute Subendocardial Episode Care Unspec 443.9 Peripheral Vascular Disease Unspec 786.09 Dyspnea & Respiratory Abnormalities Other Office Visit 10/27/2014 11:00a [facility] Internal Shireen Varana, 466.0 Bronchitis Acute Medicine - N.P. Jessica 491.22 Obstructive Chronic Bronchitis W/Acute Bronchitis Office Visit 07/04/2014 10:00a [facility] Internal Karyna 401.1 Hypertension Crista Palomino M.D. [facility] Jessica 496 COPD Airway Obstruction Chronic Not Class Elsewhere Office Visit 03/01/2014 9:40a [facility] Internal Karyna 401.1 Hypertension Crista Palomino M.D. Benign [place] 276.8 Hypopotassemia 272.2 Hyperlipidemia Mixed Office Visit 01/25/2014 10:20a [facility] Internal Karyna V70.0 Examination 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 Benign [place] 275.42 Hypercalcemia 496 COPD Airway Obstruction Chronic Not Class Elsewhere Office Visit 01/18/2013 9:00a [facility] Internal Karyna V70.0 Examination Crista Palomino M.D. [facility] Routine AT Health Care Facility 401.1 Hypertension Benign 496 COPD Airway Obstruction Chronic Not Class Elsewhere V10.11 History Personal Malignant Neoplasm Bronchus & Lung 733.90 Bone & Cartilage Disorder Unspec Office Visit 07/20/2012 9:00a [facility] Internal Karyna 496 COPD Airway Cirsta Palomino M.D. Obstruction [place] Chronic Not Class Elsewhere 401.1 Hypertension Benign Office Visit 01/16/2012 9:20a [facility] Internal Karyna V70.0 Examination Crista Palomino M.D. [facility] Routine AT Health Care Facility V76.10 Screening For Malignant Neoplasm Breast 401.1 Hypertension Benign 496 COPD Airway Obstruction Chronic Not Class Elsewhere 272.4 Hyperlipidemia Other Unspec Office Visit 09/20/2011 1:00p [facility] Internal Shireen Ledesma, 466.0 Bronchitis Acute Medicine - N.P. [place] Office Visit 09/16/2011 1:40p [facility] Internal Shireen Ledesma, 466.0 Bronchitis Acute Medicine - N.P. [place] Office Visit 07/16/2011 9:20a [facility] Internal Karyna 401.1 Hypertension Crista Palomino M.D. Benign [place] 585.3 Chronic Kidney Disease Stage III Moderate 496 COPD Airway Obstruction Chronic Not Class Elsewhere Office Visit 01/14/2011 DO Not Use Karyna 401.1 Hypertension 1:00p Denzel Palomino M.D. Benign 585.3 Chronic Kidney Disease Stage III Moderate 272.4 Hyperlipidemia Other Unspec 496 COPD Airway Obstruction Chronic Not Class Elsewhere Office Visit 10/02/2010 1:45p DO Not Use Karyna 496 COPD Airway Denzel Palomino M.D. Obstruction Chronic Not Class Elsewhere 782.0 Skin Sensation Disturbance Office Visit 04/02/2010 1:15p DO Not Use [place]ary[place] 496 COPD Airway Denzel Palomino M.D. Obstruction Chronic Not Class Elsewhere V04.81 Need For Prophylactic Vaccination & Inoculation/Influenza Office Visit 12/29/2009 1:15p DO Not Use [place]ary[place] 782.1 Rash & Other Denzel Palomino M.D. Nonspec Skin Eruption 496 COPD Airway Obstruction Chronic Not Class Elsewhere 585.3 Chronic Kidney Disease Stage III Moderate 787.03 Vomiting Alone Office Visit 05/09/2009 9:00a DO Not Use [facility] Karyna 401.1 Hypertension AT Duc Palomino M.D. Benign 496 COPD Airway Obstruction Chronic Not Class Elsewhere 272.4 Hyperlipidemia Other Unspec V04.81 Need For Prophylactic Vaccination & Inoculation/Influenza Plan of Treatment Future Appointment(s):01/22/2019 10:00 am - Karyna Palomino M.D. at [facility] Internal Medicine - Jambtnwpp51/19/2019 - Karyna Palomino M.D.Z00.00 Encounter for general adult medical examination without abnoComments:VACCINES: Flu shot every year in the fall. Done in us: last one done 2015Pneumonia vaccines: you had the Pneumovax in 2013 and the Prevnar in 2014Shingles vaccine: There is a new shingles vaccine - Shingrix. This is available at pharmacies. Series of 2 shots, given 2-6 months apart. Most people get a flu-like reaction. Cost is about $400 - call your insurance about coverage. SCREENING:Lungcancer monitoring: with Dr. Dutton for 10 years, consider annual CT. Last checked 11/25/17Colonoscopy: last one done in 2007. Screening usually stops after age 77Mammogram: last done 02/13/15, benefit unclear at age 88Pap smear: not needed after age 67Bone density (DEXA): last done in 2015Screening for glaucoma: every 2 years unless otherwise instructed by Dr. Barber up:4 OJZUGHW66.5 Hyperlipidemia, unspecifiedComments:Please do fasting blood qdjexW77.118 Personal history of other malignant neoplasm of bronchus andNew Xrays:CT Chest W/O, Ordered: 09/22/18M54.31 Sciatica, right sideComments:I think the problem is not sciatica, it's arthritis in the hip.I will send a prescription to the pharmacy for crysurvmN54.9 Anemia, unspecifiedComments:Go off the ironBlood tests in about a month - around Day
--- NOTE | 2018-10-04 10:07 | ED ---
Skin Complaint - HPI Summary HPI Summary: Patient is an 88-year-old female who presents emergency department for a bleeding wound to her left hand that started yesterday morning. Patient states she is on several to and Plavix. She states that she noticed her hand was bleeding yesterday and has been intermittently bleeding since. She states bleeding stops with a dressing that starts again wound dressing is removed. Patient denies any injuries to her hand. Symptoms are mild in severity. No current modifying factors. - History of Current Complaint Chief Complaint: EDLacSutureRecheck Time Seen by Provider: 10/04/18 09:51 Stated Complaint: LEFT HAND CUT PER PT Hx Obtained From: Patient Pain Intensity: 0 - Allergy/Home Medications Allergies/Adverse Reactions: Allergies Allergy/AdvReac Type Severity Reaction Status Date / Time codeine AdvReac Mild Rash Verified 10/04/18 09:24 PMH/Surg Hx/FS Hx/Imm Hx Previously Healthy: Yes Cardiovascular History: Reports: Hx Hypertension Respiratory History: Reports: Other Respiratory Problems/Disorders - hx of lung cancer History: Reports: Hx Renal Disease - stage III Musculoskeletal History: Denies: Hx Osteoporosis Sensory History: Reports: Hx Contacts or Glasses - does not have glasses with her Opthamlomology History: Reports: Hx Contacts or Glasses - does not have glasses with her Psychiatric History: Reports: Hx Depression - Cancer History Cancer Type, Location and Year: dx multiple myeloma -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 pt thinks last chemo was in 4025-1756 Hx Chemotherapy: Yes - LUNG Hx Radiation Therapy: Yes - LUNG - Surgical History Surgery Procedure, Year, and Place: cardiac stent - Immunization History Date of Tetanus Vaccine: unk Date of Influenza Vaccine: fall 2016 Infectious Disease History: No Infectious Disease History: Denies: Traveled Outside the [place] in Last 30 Days - Family History Known Family History: Negative: Blood Disorder - Social History Occupation: Retired Alcohol Use: None Substance Use Type: Reports: None Smoking Status (MU): Former Smoker Review of Systems Cardiovascular: Negative Respiratory: Negative Musculoskeletal: Negative Positive: Other - wound to left hand Neurological: Negative All Other Systems Reviewed And Are Negative: Yes Physical Exam Triage Information Reviewed: Yes Vital Signs On Initial Exam: Initial Vitals Temp Pulse Resp BP Pulse Ox 98.5 F 80 14 148/95 98 10/04/18 09:24 10/04/18 09:24 10/04/18 09:24 10/04/18 09:24 10/04/18 09:24 Vital Signs Reviewed: Yes Appearance: Positive: Well-Appearing - Pt. sitting on bed in NAD. Pleasant and answers questions appropriately. Friend present. Skin: Positive: Warm, Dry, Other - Very small break in the skin over the 5th MCP joint with a small ooze of blood. No bony tenderness. Full ROM of hand. Head/Face: Positive: Normal Head/Face Inspection Eyes: Positive: Normal, EOMI Neck: Positive: Supple - Is Neurological: Positive: Normal, CN Intact II-III Psychiatric: Positive: Affect/Mood Appropriate - Above Procedures - Procedure Summary Procedure Summary: Wound care: Small wound to left hand was cleansed with saline. Surgicel placed and pressure dressing applied. Bleeding controlled. Diagnostics - Vital Signs Vital Signs Temp Pulse Resp BP Pulse Ox 10/04/18 09:24 98.5 F 80 14 148/95 98 - Laboratory Lab Statement: Any lab studies that have been ordered have been reviewed, and results considered in the medical decision making process. Course/Dx - Course Course Of Treatment: Pt. presenting with small ongoing bleeding skin tear to left. Wound was cared for as above. Advised pt. to leave dressing in place until tomorrow. To elevate and apply ice. To apply pressure if bleeding returns. To return to ER if needed. Pt. understands and agrees with plan. - Diagnoses Provider Diagnoses: Skin tear Discharge - Sign-Out/Discharge Documenting (check all that apply): Patient Departure Patient Received Moderate/Deep Sedation with Procedure: No - Discharge Plan Condition: Improved Disposition: HOME Patient Education Materials: Acute Wound Care (ED) Referrals: Karyna Palomino MD [Primary Care Provider] - Additional Instructions: Keep dressing in place until tomorrow--if dressing feels too tight, loosen dressing Elevate and apply ice Hold pressure if bleeding returns Return to ER if symptoms change or worsen - Billing Disposition and Condition Condition: IMPROVED Disposition: Home
[2018-10-04 10:41] VITALS: BP 00/00
== END 2018-10-04 10:40 | disposition home or self-care (01) ==
LOC: ED 09:18
DX: S61.412A Laceration without foreign body of left hand, initial encounter (principal); X58.XXXA Exposure to other specified factors, initial encounter; I12.9 Hypertensive chronic kidney disease with stage 1 through stage 4 chronic kidney disease, or unspecified chronic kidney disease; N18.3 Chronic kidney disease, stage 3 (moderate); Z85.118 Personal history of other malignant neoplasm of bronchus and lung; F32.9 Major depressive disorder, single episode, unspecified; Z85.89 Personal history of malignant neoplasm of other organs and systems; Z95.5 Presence of coronary angioplasty implant and graft; Z87.891 Personal history of nicotine dependence
CPT/HCPCS: 99281

== ENCOUNTER → 2018-10-15 20:02 | Emergency (ER) | payer MEDICARE, OTHER, BC ==
[~2018-10-15 20:02] MED LIST changes: +Amoxicillin/Clavulanate TAB* 500 MG PO ONE; -Flumazenil* 0.1 MG/ML 5 ML MDV ONE; -Heparin 2 UNITS/ML IVPREMIX* 2,000 ML IV ONE; -Heparin(*) 1000 UNIT/ML 10 ML VIAL CATH LAB IV ONE; -Iodixanol* (CONTRAST) 320 MG/ML 100 ML SDV ONE; -Lidocaine 1% INJ* 10 MG/ML 30 ML SDV ONE; -Midazolam* 1 MG/ML 5 ML VIAL (5 MG) ONE; -Naloxone* 0.4 MG/ML 1 ML VIAL ONE; -VERAPAMIL 2.5 MG/ML 2 ML VIAL ** 5 mg/2 ml ONE; -fentaNYL* 50 MCG/ML 2 ML VIAL (100 MCG VIAL) ONE; -nitroGLYCERIN DRIP* 0 MCG/0 ML BTL ONE
[2018-10-15 21:31] LABS: Hematocrit 27 % (33-41); Hemoglobin 8.7 g/dL (12.0-16.0); Mean Corpuscular HGB Conc 32 g/dL (31-36); Mean Corpuscular Hemoglobin 26 pg (27-31); Mean Corpuscular Volume 82 fL (80-97); Mean Platelet Volume 8.6 fL (7.4-10.4); Platelet Count 360 10^3/uL (150-450); Red Blood Count 3.33 10^6 /uL (3.70-4.87); Red Cell Distribution Width 15 % (10.5-15); White Blood Count 10.3 10^3/uL (3.5-10.8)
[2018-10-15 21:34] LABS: ABS Basophils 0.1 10^3/ul (0-0.2); ABS Eosinophils 0.1 10^3/ul (0-0.6); ABS Lymphocytes 1.7 10^3/ul (1.0-4.8); ABS Monocytes 1.1 10^3/ul (0-0.8); ABS Neutrophils 7.4 10^3/ul (1.5-7.7); ABS Nucleated RBC 0 10^3/ul; Eosinophil % 0.9 %; Lymphocyte % 16.8 %; Nucleated Red Blood Cells % 0
[2018-10-15 21:43] LABS: Activated Partial Thrombo Time 42.3 seconds (26.0-36.3); INR 2.62 (0.77-1.02)
--- NOTE | 2018-10-15 22:52 | ED ---
Throat Pain/Nasal Congestion - HPI Summary HPI Summary: Patient complains of episode of epistaxis starting at 7 AM this morning. Patient was seen by ENT Dr. Teague in clinic with subsequent cauterization at 1400. Patient states bleed started again at 1630. Patient currently taking Plavix and Xarelto. Denies any other symptoms, pain or injury. - History of Current Complaint Chief Complaint: EDEpistaxis Time Seen by Provider: 10/15/18 20:58 Hx Obtained From: Patient Onset/Duration: Sudden Onset Severity: Moderate Associated Signs And Symptoms: Positive: Negative Cough: None - Allergies/Home Medications Allergies/Adverse Reactions: Allergies Allergy/AdvReac Type Severity Reaction Status Date / Time codeine AdvReac Mild Rash Verified 10/15/18 20:16 PMH/Surg Hx/FS Hx/Imm Hx Endocrine/Hematology History: Reports: Hx Anticoagulant Therapy Cardiovascular History: Reports: Hx Hypertension Respiratory History: Reports: Other Respiratory Problems/Disorders - hx of lung cancer History: Reports: Hx Renal Disease - stage III Musculoskeletal History: Denies: Hx Osteoporosis Sensory History: Reports: Hx Contacts or Glasses - does not have glasses with her Opthamlomology History: Reports: Hx Contacts or Glasses - does not have glasses with her EENT History: Denies: Hx Deafness Neurological History: Denies: Hx Developmental Delay Psychiatric History: Reports: Hx Depression - Cancer History Cancer Type, Location and Year: dx multiple myeloma -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 pt thinks last chemo was in 8856-5779 Hx Chemotherapy: Yes - LUNG Hx Radiation Therapy: Yes - LUNG - Surgical History Surgery Procedure, Year, and Place: cardiac stent - Immunization History Date of Tetanus Vaccine: unk Date of Influenza Vaccine: fall 2016 Infectious Disease History: No Infectious Disease History: Denies: Traveled Outside the [place] in Last 30 Days - Family History Known Family History: Negative: Blood Disorder - Social History Alcohol Use: None Substance Use Type: Reports: None Smoking Status (MU): Former Smoker Review of Systems Constitutional: Negative Eyes: Negative Positive: Epistaxis Cardiovascular: Negative Respiratory: Negative Gastrointestinal: Negative Genitourinary: Negative Musculoskeletal: Negative Skin: Negative Neurological: Negative Psychological: Normal All Other Systems Reviewed And Are Negative: Yes Physical Exam - Summary Physical Exam Summary: Patient has large blood clot in left nostril. Blood clot removed with subsequent bleeding. Rhino Rocket 4.5 was placed into left nostril. Left nostril continues to have very minimal bleeding. Triage Information Reviewed: Yes Vital Signs On Initial Exam: Initial Vitals Temp Pulse Resp BP Pulse Ox 98.2 F 98 16 116/64 99 10/15/18 20:05 10/15/18 20:05 10/15/18 20:05 10/15/18 20:05 10/15/18 20:05 Vital Signs Reviewed: Yes Appearance: Positive: Well-Appearing Skin: Positive: Warm Head/Face: Positive: Normal Head/Face Inspection Eyes: Positive: Normal ENT: Positive: Normal ENT inspection Neck: Positive: Supple Respiratory/Lung Sounds: Positive: Clear to Auscultation Cardiovascular: Positive: Normal Abdomen Description: Positive: Nontender Musculoskeletal: Positive: Normal Neurological: Positive: Normal Psychiatric: Positive: Normal AVPU Assessment: Alert - Truman Coma Scale Best Eye Response: 4 - Spontaneous Best Motor Response: 6 - Obeys Commands Best Verbal Response: 5 - Oriented Coma Scale Total: 15 Diagnostics - Vital Signs Vital Signs Temp Pulse Resp BP Pulse Ox 10/15/18 20:05 98.2 F 98 16 116/64 99 - Laboratory Lab Results: Lab Results 10/15/18 10/15/18 10/15/18 Range/Units 21:22 21:22 21:22 WBC 10.3 (3.5-10.8) 10^3/uL RBC 3.33 L (3.70-4.87) 10^6 /uL Hgb 8.7 L (12.0-16.0) g/dL Hct 27 L (33-41) % MCV 82 (80-97) fL MCH 26 L (27-31) pg MCHC 32 (31-36) g/dL RDW 15 (10.5-15) % Plt Count 360 (150-450) 10^3/uL MPV 8.6 (7.4-10.4) fL Neut % (Auto) 71.2 % Lymph % (Auto) 16.8 % Walsh % (Auto) 10.5 % Eos % (Auto) 0.9 % Baso % (Auto) 0.6 % Absolute Neuts (auto) 7.4 (1.5-7.7) 10^3/ul Absolute Lymphs (auto) 1.7 (1.0-4.8) 10^3/ul Absolute Monos (auto) 1.1 H (0-0.8) 10^3/ul Absolute Eos (auto) 0.1 (0-0.6) 10^3/ul Absolute Basos (auto) 0.1 (0-0.2) 10^3/ul Absolute Nucleated RBC 0 10^3/ul Nucleated RBC % 0 INR (Anticoag Therapy) 2.62 H (0.77-1.02) APTT 42.3 H (26.0-36.3) seconds Blood Type A Positive Antibody Screen Negative Result Diagrams: 10/15/18 21:22 Lab Statement: Any lab studies that have been ordered have been reviewed, and results considered in the medical decision making process. EENT Course/Dx - Course Course Of Treatment: Patient complains of episode of epistaxis starting at 7 AM this morning. Patient was seen by ENT Dr. Teague in clinic with subsequent cauterization at 1400. Patient states bleed started again at 1630. Patient currently taking Plavix and Xarelto. Denies any other symptoms, pain or injury. Physical exam: Patient has large blood clot in left nostril. Blood clot removed with subsequent bleeding. Rhino Rocket 4.5 was placed into left nostril. Left nostril continues to have very minimal bleeding. Vital signs within normal limits. Hemoglobin 8.7. Pulse 9.7 on 10/06/18. History of anemia. INR is 2.6 today. Discussed patient with ENT content editor Dr. Alvarado who recommended packing with Rhino Rocket of left nostril, Augmentin 500 mg twice a day, and follow-up in clinic tomorrow. Rhino Rocket was placed with minimal residual bleeding. Minimal residual bleeding would not stop. Patient denies swallowing any blood after Rhino Rocket placed. Insertion of second Rhino Rocket was attempted into right nostril to provide counterpressure, however 4.5 Mckay would not insert into right nostril. Patient states she just wants to go home. Patient was discharged with minimal bleeding from left nostril advised to follow-up in clinic tomorrow morning, and to return to the ED for any new or worsening symptoms. Patient started on Augmentin 500 here in the ED. Rx for same. Patient understands and approves the plan. - Diagnoses Provider Diagnoses: Epistaxis Discharge - Sign-Out/Discharge Documenting (check all that apply): Patient Departure Patient Received Moderate/Deep Sedation with Procedure: No - Discharge Plan Condition: Stable Disposition: HOME Prescriptions: Amoxicillin/Clavulanate TAB* [Augmentin TAB 500 mg*] 500 mg PO BID 10 Days #20 tab Patient Education Materials: Nosebleed (ED) Referrals: Karyna Palomino MD [Primary Care Provider] - Julien Teague MD [Medical Doctor] - Additional Instructions: Follow-up with your ENT Doctor Ho tomorrow morning for further evaluation. Return to the ED for any new or worsening symptoms. - Billing Disposition and Condition Condition: STABLE Disposition: Home
[2018-10-15 23:09] VITALS: BP 158/84
== END | disposition home or self-care (01) ==
LOC: ED 20:02
DX: R04.0 Epistaxis (principal); I12.9 Hypertensive chronic kidney disease with stage 1 through stage 4 chronic kidney disease, or unspecified chronic kidney disease; N18.3 Chronic kidney disease, stage 3 (moderate); Z79.01 Long term (current) use of anticoagulants; Z85.118 Personal history of other malignant neoplasm of bronchus and lung; F32.9 Major depressive disorder, single episode, unspecified; D64.9 Anemia, unspecified
CPT/HCPCS: 30901; 36415; 85025; 85610; 85730; 86850; 86900; 86901; 99283; A9270-GY

== ENCOUNTER → 2019-07-28 10:52 | Day surgery (SDC) | payer MEDICARE, BC ==
--- NOTE | 2019-07-28 12:44 | BRIEFOPN ---
Brief Operative/Procedure Note - Operation Details Pre-Op Diagnosis: Rt pl effusion, possible endobronchial lesion Post-Op Diagnosis: Large rt effusion Procedures: U/S guided thoracentesis on right side Surgeon(s)/Proceduralists: elmer Matias Anesthesia: Local with 1% lidocaine 5cc Estimated Blood Loss: None Findings: Serosanguinous fluid- 850cc Specimen(s)/Culture(s) Description: Cytology, biochem, hematology, microbiology Complications: None
[2019-07-28 13:21] LABS: Body Fluid Source Pleural Fluid
[2019-07-28 14:18] LABS: Body Fluid Mono 25 %; Body Fluid Other Cells 21
--- NOTE | 2019-07-29 01:04 | PRO ---
THORACENTESIS REPORT: DATE OF PROCEDURE: 07/28/19 PROCEDURE PERFORMED: Ultrasound-guided thoracentesis on the right side. PREPROCEDURAL DIAGNOSIS: Moderate right pleural effusion. POSTPROCEDURAL DIAGNOSIS: Moderate to large right pleural effusion. ANESTHESIA: Local anesthesia. DESCRIPTION OF PROCEDURE: Informed consent was obtained from the patient prior to the procedure after all the risks and benefits were thoroughly explained. Appropriate time-out was agreed on by attending staff. The patient was sitting up and leaning forward during the procedure. Strict aseptic precautions and barrier techniques utilized. Portable ultrasound was utilized at bedside to localize large amounts of right pleural effusion. Area was disinfected with chlorhexidine. Sterile drape was applied. CareFusion 8-Pakistani thoracentesis catheter was utilized for the procedure. 1% lidocaine was instilled intradermally subcutaneously down into the pleural space taking precautions. A #11 scalpel blade was used to make a stab incision. CareFusion 8-Pakistani thoracentesis catheter was subsequently inserted under manual suction taking precautions. Catheter was left in place and needle was removed. 850 mL of serosanguineous fluid was removed under manual suction. Catheter was then removed and sterile Band-Aid was applied. Fluid was sent to the lab for cytological and biochemical examination. [id number]/[facility] #: [id number] [facility] HOSPITALAbril
[2019-07-29 12:51] LABS: Fluid Type, Glucose PLEURAL
[2019-07-29 12:54] LABS: Fluid Type, Protein, Total PLEURAL
[2019-07-29 14:03] LABS: Lactate Dehydrogenase, BF 134 U/L
== END | disposition home or self-care (01) ==
LOC: OR 10:52
PROVIDERS: ATTEND Internal Medicine
DX: J90 Pleural effusion, not elsewhere classified (principal); C34.01 Malignant neoplasm of right main bronchus; Z87.891 Personal history of nicotine dependence; I25.10 Atherosclerotic heart disease of native coronary artery without angina pectoris; I12.9 Hypertensive chronic kidney disease with stage 1 through stage 4 chronic kidney disease, or unspecified chronic kidney disease; N18.3 Chronic kidney disease, stage 3 (moderate); J44.9 Chronic obstructive pulmonary disease, unspecified; E78.5 Hyperlipidemia, unspecified; I73.9 Peripheral vascular disease, unspecified; M81.0 Age-related osteoporosis without current pathological fracture
CPT/HCPCS: 32554; 36415; 76604; 82945; 83615; 83986; 84157; 87070; 87205; 88112; 88305; 88341; 88342; 89051

== ENCOUNTER 2019-09-01 11:16 | Day surgery (SDC) | payer MEDICARE, BC ==
[~2019-09-01 11:16] MED LIST changes: -Amoxicillin/Clavulanate TAB* 500 MG PO ONE; +Buffered Lidocaine 1% SYRIN* 1 ML/SYRINGE INTRADERM ONE; +Lactated Ringers 1000 ML Bag* 1,000 ML IV SCH
[2019-09-01] MEDS ORDERED: Benzocaine/Butamben/Tetracain (CETACAINE - SINGLE USE) 5 gm TOPICAL ONE (12:37)
[2019-09-01] MEDS ORDERED: Naloxone* 0.4 MG/ML 1 ML VIAL IV PRN (13:07)
[2019-09-01 13:18] LABS: Hematocrit 34 % (35-47); Hemoglobin 11.2 g/dL (12.0-16.0); Mean Corpuscular HGB Conc 33 g/dL (31-36); Mean Corpuscular Hemoglobin 28 pg (27-31); Mean Corpuscular Volume 85 fL (80-97); Mean Platelet Volume 8.9 fL (7.4-10.4); Platelet Count 239 10^3/uL (150-450); Red Blood Count 3.96 10^6 /uL (3.70-4.87); Red Cell Distribution Width 16 % (10-15); White Blood Count 6.7 10^3/uL (3.5-10.8)
[2019-09-01] MEDS ORDERED: fentaNYL* 50 MCG/ML 2 ML VIAL (100 MCG VIAL) ONE (13:26)
[2019-09-01] MEDS ORDERED: Rocuronium* 10 MG/ML VIAL ONE (13:26)
[2019-09-01] MEDS ORDERED: DiMENhydriNATE IV* 50 MG/ML VIAL ONE (13:35)
[2019-09-01] MEDS ORDERED: Lidocaine 2% PF * 5 ML VIAL ONE (13:35)
[2019-09-01] MEDS ORDERED: Dexamethasone IV* 4 MG/ML 1 ML (4 MG) ONE (13:35)
[2019-09-01] MEDS ORDERED: Propofol* 10 MG/ML 20 ML BTL ONE (13:35)
[2019-09-01] MEDS ORDERED: Etomidate* 2 MG/ML 10 ML VIAL ONE (13:35)
[2019-09-01] MEDS ORDERED: Sugammadex * 200 MG/2 ML VIAL IV PUSH ONE (14:22)
[2019-09-01] MEDS ORDERED: Levalbuterol 0.63MG/3ML NEB* UNIT OF USE INH ONE ×2 (14:52→14:55)
--- NOTE | 2019-09-01 14:55 | BRIEFOPN ---
Brief Operative/Procedure Note - Operation Details Pre-Op Diagnosis: Lung mass with atelectasis Post-Op Diagnosis: Endobronchial lesion Procedures: Bronchoscopy with EBUS, EBBX, BAL from rt side Surgeon(s)/Proceduralists: elmer Matias Anesthesia: GA Estimated Blood Loss: Negligable Findings: Endobronchial irregularity with narrowing of RML and RLL Specimen(s)/Culture(s) Description: FNA, EBBx, BAL Complications: None
[2019-09-01 16:28] VITALS: BP 179/93
--- NOTE | 2019-09-02 01:47 | PRO ---
BRONCHOSCOPY REPORT: DATE OF PROCEDURE: 09/01/19 - [facility] PROCEDURE PERFORMED: Endobronchial ultrasound bronchoscopy with endobronchial ultrasound guided fine needle aspiration of mediastinal and hilar nodes and endobronchial lesion, endobronchial biopsies and bronchial washings. ANESTHESIA: General anesthesia. DESCRIPTION OF PROCEDURE: Informed consent was obtained from the patient prior to the procedure after all the risks and benefits were thoroughly explained. Anesthesiologist also discussed possible complications of the general anesthesia and the fact that she might need prolonged intubation or might have a cardiac arrest on the table. The patient agreeable to undergoing the procedure after she thoroughly understood the risks. The patient was intubated with size 8.5 endotracheal tube for the procedure. A flexible Olympus bronchoscope was inserted through ET tube for airways inspection. The patient noted to have narrowing and mucus plugging into the right lower lobe area. There is evidence of extrinsic compression and there is some mucosal irregularity in that area. No endobronchial lesions were noted on the left side and all airways were patent. The patient noted to have minimal bleeding with minimal suctioning on that right side. Bronchoscope was withdrawn and EBUS bronchoscope was inserted. R4 was minimally enlarged and was sampled with 3 passes. Rapid onsite evaluation revealed blood without much lymphatic tissue. Station 7 was sampled with 2 passes. Rapid onsite evaluation revealed lymphatic tissue with no malignant cells. R10 was sampled with 1 pass. Rapid onsite evaluation revealed lymphatic tissue. No malignant cells were seen on rapid-onset evaluation. Endo-bronchial area was also sampled with 2 passes with no obvious malignant cells in the area. Endobronchial biopsies were then obtained from the mucosal irregularity noted in the right lower lobe. Bronchial washings were also obtained from that area. The patient tolerated the procedure well. The patient was extubated and seen in the Recovery in optimal condition. [id number]/[facility] #: [id number] [facility]
== END 2019-09-01 16:53 | disposition home or self-care (01) ==
LOC: OR 11:16
PROVIDERS: ATTEND Internal Medicine
DX: R91.8 Other nonspecific abnormal finding of lung field (principal); Z85.118 Personal history of other malignant neoplasm of bronchus and lung; R06.02 Shortness of breath; R05 Cough; Z87.891 Personal history of nicotine dependence; I25.10 Atherosclerotic heart disease of native coronary artery without angina pectoris; I25.2 Old myocardial infarction; Z95.5 Presence of coronary angioplasty implant and graft; E78.5 Hyperlipidemia, unspecified; J44.9 Chronic obstructive pulmonary disease, unspecified; K21.9 Gastro-esophageal reflux disease without esophagitis; I73.9 Peripheral vascular disease, unspecified; M81.0 Age-related osteoporosis without current pathological fracture; N18.3 Chronic kidney disease, stage 3 (moderate); I12.9 Hypertensive chronic kidney disease with stage 1 through stage 4 chronic kidney disease, or unspecified chronic kidney disease
CPT/HCPCS: 36415; 85027; 88112; 88172; 88173; 88177; 88305; J1100; J1240; J2704; J3010

== ENCOUNTER 2019-09-15 10:08 | Inpatient (IN) | payer MEDICARE, BC ==
--- NOTE | 2019-09-15 10:20 | ED ---
Shortness of Breath - HPI Summary HPI Summary: The patient is an 89-year-old female arriving via ambulance [place] [facility] with a chief complaint of shortness of breath onset approximately two hours prior to arrival. Since June, she has been suffering from a persistent productive cough. On 07/28/2019, she had an appointment with Dr. Matias from pulmonology for right pleural effusion with possible endobronchial lesion warranting ultrasound-guided thoracentesis on the right, no blood loss or complications. On 09/01/2019, the patient had another appointment with Dr. Matias for lung mass with atelectasis with bronchoscopy with endobronchial ultrasound, endobronchial biopsy, and bronchoalveolar lavage from right side, negligible blood loss, findings of endobronchial irregularity with narrowing of right middle and lower lobes. She was recently diagnosed with pneumonia with placement on a course of steroids and antibiotics finished yesterday. This morning she woke up with shortness of breath. She attempted to alleviate her symptoms with a breathing treatment to no relief. She denies any fevers, chest pain, diarrhea, dysuria, or burning with urination. Her symptoms are improved since initial onset. She notes a history of lung cancer of the right upper lobe in 2006. Currently on blood thinners for clots. Past medical history significant for anemia, coronary artery disease, hypertension, hyperlipidemia, femoral popliteal bypass with fasciotomy for compartment syndrome, cardiac stent , GERD, stage III renal disease. Former smoker, no alcohol use, no substance use. Medications reviewed. Allergies noted. - History of Current Complaint Time Seen by Provider: 09/15/19 10:09 Hx Obtained From: Patient Onset/Duration: Still Present Current Severity: Mild Dyspnea At: Rest - woke up with symptoms Aggravating Factors: Nothing Alleviating Factors: Nothing - breathing treatment to no relief Associated Signs & Symptoms: Cough (Productive) - Allergy/Home Medications Allergies/Adverse Reactions: Allergies Allergy/AdvReac Type Severity Reaction Status Date / Time codeine Allergy Mild Rash Verified 09/01/19 11:53 Home Medications: Home Medications Albuterol 2.5MG/3ML (0.083%)* [Ventolin 2.5 MG/3 ML NEB.ABBIE*] 2.5 mg INH QID [History Confirmed 09/15/19] Atorvastatin* [Lipitor 80 MG*] 80 mg PO BEDTIME 11/25/14 [History Confirmed 05/26] Budesonide NEB* [Pulmicort Neb*] 0.25 mg INH BID 11/25/14 [History Confirmed 05/26] Calcium Carb/Mag Oxide/Cu/Zinc [Ra Qdpnakt-Fps-Oeqn Tablet] 1 each PO BID [History Confirmed 09/15/19] Metoprolol Succinate XL TAB* [Toprol XL TAB*] 25 mg PO BID 11/25/14 [History Confirmed 09/15/19] Multivitamin [Multiple Vitamins] 1 each PO DAILY 11/25/14 [History Confirmed 05/26] Ramipril CAP* [Altace CAP*] 2.5 mg PO DAILY 11/25/14 [History Confirmed 09/15/19 ] Tiotropium CAPSULE (NF) [Spiriva CAPSULE (NF)] 1 cap.inh INH DAILY 11/25/14 [ History Confirmed 09/15/19] Omeprazole CAP (NF) [Prilosec CAP* 20 MG] 20 mg PO DAILY 09/15/19 [History Confirmed 09/15/19] Spironolactone [Aldactone 25 MG-] 25 mg PO DAILY 09/15/19 [History Confirmed 05/26] Azithromycin TAB* [Zithromax TAB (Z-GREGORIO) 250 mg #6 tabs] 250 mg PO DAILY 3 Days #3 tab 09/17/19 [Rx] Cefdinir cap* [Cefdinir 300 MG cap (NF)] 300 mg PO BID 3 Days #6 cap 09/17/19 [ Rx] PMH/Surg Hx/FS Hx/Imm Hx Endocrine/Hematology History: Reports: Hx Anticoagulant Therapy, Hx Anemia - Ferrous sulfate Denies: Hx Diabetes, Hx Thyroid Disease Cardiovascular History: Reports: Hx Coronary Artery Disease - Ischemic heart disease-Angioplasty 2017-PCI, Hx Hypercholesterolemia, Hx Hypertension, Hx Peripheral Vascular Disease - Fem pop bypass 07/25-with complications-fasciotomy left lower leg, Hx Valvular Heart Disease - Thickened aortic valve, Other Cardiovascular Problems/Disorders - Hyperlipidemia Respiratory History: Reports: Other Respiratory Problems/Disorders - hx of lung cancer 2007 right upper lung GI History: Reports: Hx Gastroesophageal Reflux Disease - Pantoprazole Denies: Other GI Disorders History: Reports: Hx Renal Disease - stage III Musculoskeletal History: Reports: Hx Arthritis - left shoulder, Other Musculoskeletal History - Osteoporosis Denies: Hx Osteoporosis Sensory History: Reports: Hx Cataracts - Bilateral extractions, Hx Contacts or Glasses - wears glasses to drive Denies: Hx Deafness, Hx Hearing Aid Opthamlomology History: Reports: Hx Cataracts - Bilateral extractions, Hx Contacts or Glasses - wears glasses to drive Neurological History: Denies: Hx Developmental Delay, Other Neuro Impairments/Disorders Psychiatric History: Reports: Hx Depression - Cancer History Cancer Type, Location and Year: dx ? multiple myeloma -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 pt thinks last chemo was in [id number] Hx Chemotherapy: No - Chemo and radiation Hx Radiation Therapy: Yes - LUNG - Surgical History Surgical History: Yes Surgery Procedure, Year, and Place: Cardiac stent 2014. D&C. Angioplasty femoral artery 2017. Femoral Politeal Revascularization 07/2018. Fasciotomy, left lower leg-for compartment syndrome Hx Anesthesia Reactions: No - Immunization History Date of Tetanus Vaccine: unk Date of Influenza Vaccine: fall 2016 - Family History Known Family History: Negative: Blood Disorder - Social History Alcohol Use: None Hx Substance Use: No Substance Use Type: Reports: None Hx Tobacco Use: Yes Smoking Status (MU): Former Smoker Amount Used/How Often: 50 pack years Review of Systems Negative: Fever Positive: Shortness Of Breath, Cough - productive Negative: Diarrhea Negative: burning, dysuria All Other Systems Reviewed And Are Negative: Yes Physical Exam - Summary Physical Exam Summary: VITAL SIGNS: Reviewed. GENERAL: Patient is a well-developed and nourished female who is lying comfortable in the stretcher. Patient is not in any acute respiratory distress. HEAD AND FACE: No signs of trauma. No ecchymosis, hematomas or skull depressions. No sinus tenderness. EYES: PERRLA, EOMI x 2, No injected conjunctiva, no nystagmus. EARS: Hearing grossly intact. Ear canals and tympanic membranes are within normal limits. MOUTH: Oropharynx within normal limits. NECK: Supple, trachea is midline, no adenopathy, no JVD, no carotid bruit, no c- spine tenderness, neck with full ROM. CHEST: Symmetric, no tenderness at palpation. LUNGS: Clear to auscultation bilaterally. No wheezing or crackles. CVS: Regular rate and rhythm, S1 and S2 present, no murmurs or gallops appreciated. ABDOMEN: Soft, non-tender. No signs of distention. No rebound, no guarding, and no masses palpated. Bowel sounds are normal. EXTREMITIES: FROM in all major joints, no edema, no cyanosis or clubbing. NEURO: Alert and oriented x 3. No acute neurological deficits. Speech is normal and follows commands. SKIN: Dry and warm. RECTAL: Gross melena. Triage Information Reviewed: Yes Vital Signs Reviewed: Yes Procedures - Sedation Patient Received Moderate/Deep Sedation with Procedure: No Diagnostics - Laboratory Result Diagrams: 09/18/19 05:35 09/18/19 05:35 Lab Statement: Any lab studies that have been ordered have been reviewed, and results considered in the medical decision making process. - Radiology Chest XR Radiology Interpretation Completed By: Radiologist Summary of Radiographic Findings: Impression: Stable postsurgical change to the lung. Dr. Rodgers physician has reviewed this report. - EKG 1020 Cardiac Rate: NL - 86 BPM EKG Rhythm: Sinus Rhythm Summary of EKG Findings: An EKG at 1020 reveals normal sinus rhythm at 86 BPM. Occasional PVCs. No ST elevations. Dr. Rodgers has reviewed and interpreted this EKG. Re-Evaluation - Re-Evaluation First Eval Re-Evaluation Time: 10:15 Comment: Patient's O2 initially unobtainable. Forehead O2 reads 96%. Second Eval Re-Evaluation Time: 10:26 Comment: Patient's hemoglobin is 4.7. RBCs ordered. Third Eval Re-Evaluation Time: 11:15 Comment: Rectal exam reveals gross melena. Her last colonscopy was more than 10 years ago; she refused the most recent one scheduled for her. Course/Dx - Course Assessment/Plan: The patient is an 89-year-old female arriving via ambulance to [facility] with a chief complaint of shortness of breath onset approximately two hours prior to arrival. Since June, she has been suffering from a persistent productive cough. On 07/28/2019, she had an appointment with Dr. Matias from pulmonology for right pleural effusion with possible endobronchial lesion warranting ultrasound-guided thoracentesis on the right, no blood loss or complications. On 09/01/2019, the patient had another appointment with Dr. Matias for lung mass with atelectasis with bronchoscopy with endobronchial ultrasound, endobronchial biopsy, and bronchoalveolar lavage from right side, negligible blood loss, findings of endobronchial irregularity with narrowing of right middle and lower lobes. She was recently diagnosed with pneumonia with placement on a course of steroids and antibiotics finished yesterday. This morning she woke up with shortness of breath. She attempted to alleviate her symptoms with a breathing treatment to no relief. She denies any fevers, chest pain, diarrhea, dysuria, or burning with urination. Her symptoms are improved since initial onset. She notes a history of lung cancer of the right upper lobe in 2006. Currently on blood thinners for clots. Past medical history significant for anemia, coronary artery disease, hypertension, hyperlipidemia, femoral popliteal bypass with fasciotomy for compartment syndrome, cardiac stent, GERD, stage III renal disease. Former smoker, no EtOH, no substance use. Medications reviewed. Allergies noted. In the ED course the patient was placed on a it network architect, IV access was obtained, IV fluids started. I did not score for SIRS. Past medical records reviewed. Blood test w/ o a significant abnormality except for the WBCs of 22.7, RBCs of 1.68, hemoglobin of 4.7, hematocrit of 14, absolute neutrophils of 19, absolute monos of 1.8, INR of 2.18, anion gap of 12, BUN of 84, creatinine of 1.72, glucose of 139, lactic acid of 4.1, troponin of 0.16, CRP of 128, BNP of 438, and total protein of 5.8. Influenza A and B are negative. Since the patient is severely anemic, I performed a rectal exam, and the patient has melena. I ordered 2 units of PRBC. I discussed the benefits and risks with the patient, and she agrees to take the blood. Chest x-ray impression: Stable postsurgical changes. EKG: Sinus rhythm at [address] elevation. She was given Rocephin since she has increased WBCs and increased lactic acid. Last colonoscopy for this patient was more than 10 years ago. The patient was taking Xarelto for DVTs. I discussed the case with Dr. Piña from GI, and she will consult for the patient. At 12:15 PM I discussed my physical exam and test results with Dr. Edmonds from the hospitalist services, and she agrees to admit the patient to his services. The patient is hemodynamically stable alert and oriented x 3. Repeat hemoglobin of 4.5 and hematocrit of 14 following first unit of PRBCs. - Diagnoses Provider Diagnoses: Symptomatic anemia, Elevated troponin, Acute renal insufficiency - Physician Notifications Discussed Care of Patient With: Marisa Piña - gastroenterology Time Discussed With Above Provider: 12:18 Instructed by Provider To: Other - I discussed the patients case with Dr. Bud Proctor, and she will consult for the patient. Dr. Edmonds accepts the patient for admission to the hospitalist services [[id number]]. Discharge ED - Sign-Out/Discharge Documenting (check all that apply): Patient Departure - Patient accepted for admission by Dr. Edmonds. - Discharge Plan Condition: Stable Disposition: ADMITTED TO [facility] - Billing Disposition and Condition Condition: STABLE Disposition: Admitted to [facility] - Attestation Statements Document Initiated by Chevy: Yes Documenting Scribe: Wanda Palafox Provider For Whom Chevy is Documenting (Include Credential): Dr. Waldemar Rodgers MD Scribe Attestation: Wanda Taylor, scribed for Dr. Waldemar Rodgers MD on 09/18/19 at 1730. Scribe Documentation Reviewed: Yes Provider Attestation: The documentation as recorded by the Wanda galan accurately reflects the service I personally performed and the decisions made by me, Dr. Waldemar Rodgers MD Status of Scribkaren Document: Viewed
[2019-09-15 10:46] LABS: Hematocrit 14 % (35-47); Hemoglobin 4.7 g/dL (12.0-16.0); Mean Corpuscular HGB Conc 33 g/dL (31-36); Mean Corpuscular Hemoglobin 28 pg (27-31); Mean Corpuscular Volume 86 fL (80-97); Mean Platelet Volume 8.6 fL (7.4-10.4); Platelet Count 302 10^3/uL (150-450); Red Blood Count 1.68 10^6 /uL (3.70-4.87); Red Cell Distribution Width 16 % (10-15); White Blood Count 22.7 10^3/uL (3.5-10.8)
--- OUTSIDE RECORDS SUMMARY | 2019-09-15 10:48 | XMS REPORT | Continuity of Care Document ---
:1930 External Reference #:[id number] Author Name Daisy Matias MD (transmitted by agent of provider Olesya Chapa) Address [address], [address] [place] [address] Care Team Providers Name Role Phone Angel Dutton MD - Hematology Care Team Information Garage Helper [phone] Diego Downing MD - Urology Care Team Information Garage Helper [phone] Daisy Matias MD - Pulmonary Care Team Information Garage Helper [phone] Disease Problems Active Problems Provider Date Benign essential hypertension Karyna Palomino M.D. Onset: 05/09/2009 Hyperlipidemia Karyna Palomino M.D. Onset: 05/09/2009 Malignant tumor of bronchus Karyna Palomino M.D. Onset: 05/09/2009 Chronic obstructive lung disease Karyna Palomino M.D. Onset: 05/10/2009 Chronic kidney disease stage 3 Karyna Palomino M.D. Onset: 05/10/2009 Essential hypertension Karyna Palomino M.D. Onset: 04/17/2015 Coronary arteriosclerosis Celso Nicholson M.D. Onset: 02/09/2016 Localized, primary osteoarthritis of the Bailey Hutchinson MD Onset: 06/11/2016 shoulder region Full thickness rotator cuff tear Bailey Hutchinson MD Onset: 06/11/2016 Atherosclerosis of arteries of the Raji Schmid M.D. Onset: 11/05/2017 extremities Peripheral vascular disease Raji Schmid M.D. Onset: 11/05/2017 Social History Type Date Description Comments Sex Unknown Tobacco Use Start: Unknown End: Former Cigarette Smoker 50 pack years, quit Unknown in 2006 ETOH Use Denies alcohol use Tobacco Use Start: Unknown End: Patient is a former Unknown smoker Recreational Drug Use Denies Drug Use Smoking Status Reviewed: 09/08/19 Patient is a former smoker Exercise Type/Frequency Exercises sporadically Allergies, Adverse Reactions, Alerts Active Allergies Reaction Severity Comments Date Codeine Sulfate rash 05/09/2009 Medications Active Medications SIG Qnty Indications Ordering Date Provider Prednisone 1 by mouth every 14tabs J44.9 Daisy Matias, 09/08/2019 10mg day Tablets Milk Of Magnesia 30 milliliters by 355ml Karyna 05/20/2019 mouth daily as Nanette Palomino 400mg/5ML needed Suspension Nebulizer for use four times 1units J44.1 [facility] 05/20/2019 Kit/Tubing/Mouthpie a day Nanette Palomino ce Kit Proair HFA inhale 2 puffs 8.5units J44.1 [facility] 05/20/2019 four times a day Nanette Palomino 108(90Base) mcg/Act if needed Aerosol KP Ferrous Sulfate 325 mg by mouth Celso Madsen 04/09/2019 every day Nanette Nicholson 325(65Fe) mg Tablets Tylenol PM prn at night Karyna 03/26/2019 Tablets Nanette Palomino Furosemide Take 1 Tablet By 14tabs Karyna 01/25/2019 20mg Mouth Mondays, Nanette Palomino Tablets Wednesdays, And Fridays Lipitor 1 by mouth every 90tabs Karyna 12/28/2018 80mg day at bed time Nanette Palomino Tablets Pantoprazole Sodium Take One Tablet By 90tabs Karyna 08/31/2018 Mouth Every Day Nanette Palomino 20mg Tablets DR Calcium Magnesium bid Karyna 11/19/2016 Zinc Nanette Palomino Tablets Metoprolol Take One Tablet By 180tabs I21.4 Karyna 11/08/2014 Succinate ER Mouth Twice A Day Nanette Palomino 25mg Tablets ER 24HR Ramipril take one capsule 90caps Karyna 11/04/2014 2.5mg by mouth every day Nanette Palomino Capsules Budesonide 1 vial in 180ml J44.9 Karyna 07/16/2011 nebulizer twice Nanette Palomino 0.25mg/2ML daily Suspension Albuterol Sulfate use 1 vial four 300units Karyna 12/27/2009 times a day Nanette Palomino (2.5mg/3ML) 0.083% Nebulizer Multi-Vitamin/Mcculloch 1 tablet daily 50tabs Karyna 05/09/2009 als Nanette Palomino Tablets Spiriva Handihaler inhale the 30caps Karyna contents of one Nanetet Palomino 18mcg Capsules capsule by mouth every day Clopidogrel 1 by mouth every 90tabs Celso DAicha Bisulfate other day Nanette Nicholson 75mg Tablets Xarelto 1 by mouth every [place], Yosvany 10mg day MD Jorge Tablets History Medications Azithromycin 2 tabs by mouth 6tabs J44.1 Roverto Andrade NP 07/12/2019 - 250mg every day x1 day, 07/17/2019 Tablets 1 tab by mouth every day x 4 days Benzonatate take one or two 20caps R05 Roverto Andrade NP 07/12/2019 - 100mg capsules every 8 07/20/2019 Capsules hours as needed for cough. Medications Administered in Office Medication SIG Qnty Indications Ordering Provider Date Triamcinolone (Kenalog) Bailey Hutchinson MD 06/11/2016 Injection Immunizations CPT Code Status Date Vaccine Lot # [id number] Given 05/06/2018 Fluzone High Dose 47554 Given 07/12/2015 Tdap - Tetanus/Diptheria/Acellular Pertussis 23807 Given 04/17/2015 Influenza Virus Vaccine, Quadrivalent, Split, [id number] Preservative Free 52792 Given 02/06/2015 Pneumococcal Conjugate Vaccine 13 Valent For [id number] Intramuscular Use 73947 Given 01/25/2014 Pneumonia Vaccine [id number] 34464 Given 04/02/2010 Influenza Virus 3Yrs & Over 99884 Given 05/09/2009 Influenza Virus Vaccine, Pandemic Formulation [id number] 78159 Given 05/09/2009 Administration Swine Flu Shot Vital Signs Date Vital Result Comment 09/08/2019 9:13am Height 61 inches 5'1" Weight 114.00 lb Heart Rate 86 /min BP Systolic Sitting 120 mmHg BP Diastolic Sitting 70 mmHg O2 % BldC Oximetry 97 % BMI (Body Mass Index) 21.5 kg/m2 09/07/2019 11:04am Height 61 inches 5'1" Weight 113.00 lb Heart Rate 86 /min BP Systolic 137 mmHg BP Diastolic 77 mmHg O2 % BldC Oximetry 98 % BMI (Body Mass Index) 21.3 kg/m2 Results Test Acquired Date Facility Test Result H/L Range Note Cytology 09/01/2019 [facility] Cytology SEE RESULT 1 Non-Fashion Patternmaker [address] [place], [place] [id number] [phone] PDFReport SEE IMAGE Surgical 09/01/2019 [facility] Surgical SEE RESULT [address] [place] [address] [phone] [facility]FReport SEE IMAGE Cytology Non-Fashion Patternmaker 09/01/2019 [facility] Cytology [place] SEE RESULT [address] [place] [address] [phone] PDFReport SEE IMAGE CBC No Diff 09/01/2019 [facility] White Blood 6.7 10^3/uL Normal 3.5-10.[address] Count [place], [place] [address] [phone] Red Blood Count 3.96 10^6/uL Normal 3.70-4.87 Hemoglobin 11.2 g/dL Low 12.0-16.0 Hematocrit 34 % Low 35-47 Mean Corpuscular Volume 85 fL Normal 80-97 Mean Corpuscular Hemoglobin 28 pg Normal 27-31 Mean Corpuscular HGB Conc 33 g/dL Normal 31-36 Red Cell Distribution Width 16 % High 10-15 Platelet Count 239 10^3/uL Normal 150-450 Mean Platelet Volume 8.9 fL Normal 7.4-10.4 Cytology Non-Fashion Patternmaker 07/28/2019 [facility] Cytology [place] SEE RESULT [address] [place] [address] [phone] PDFReport SEE IMAGE Body Fluid C&S 07/28/2019 [facility] Body Fluid Cult SEE RESULT BELOW [address] [place] [address] [phone] Body Fluid Cell 07/28/2019 [facility] Body Fluid Pleural Fluid Count [address] [place] [address] [phone] Body Fluid Appearance Cloudy Body Fluid Color Aleshia Body Fluid Volume 8 mL Body Fluid WBC 873 /mcL Normal 6 Body Fluid RBC 46236 /mcL Body Fluid Neutrophils 11 % Body Fluid Lymph 64 % Body Fluid [place] 25 % Body Fluid Other Cells 21 Body Fluid Total Cells Counted 100 Fluid Reviewed By MD (SEE NOTE) 7 Body Fluid Total 07/28/2019 [facility] Total Protein, BF 4.3 g/ dL [address] [place], [place] [address] [phone] Fluid Type, Protein, Total PLEURAL 9 Body Fluid Glucose 07/28/2019 [facility] Glucose, BF 98 mg/dL [address] [place] [address] [phone] Fluid Type, Glucose PLEURAL 11 Lactate 07/28/2019 [facility] Lactate 134 U/L 12 Dehydrogenase,BF [address] Dehydrogenase, [place] [address] [phone] Fluid Source PLEURAL 13 Laboratory test 07/28/2019 [facility] Miscellaneous 7.7 [address] [place] [address] [phone] Laboratory test 07/13/2019 [facility] B-Type 400 High <=10 15 , [address] Natriuretic pg/mL 0 [place] [address] Peptide BNP [phone] Basic Metabolic 07/13/2019 [facility] Sodium 139 Normal 135- Panel [address] mmol/L 145 [place] [address] [phone] Potassium 4.4 mmol/L Normal 3.5-5.0 Chloride 102 mmol/L Normal 101-111 Co2 Carbon Dioxide 27 mmol/L Normal 22-32 Anion Gap 10 mmol/L Normal 2-11 Glucose 92 mg/dL Normal 70-100 Blood Urea Nitrogen 53 mg/dL High 6-24 Creatinine 1.92 mg/dL High 0.51-0.95 BUN/Creatinine Ratio 27.6 High 8-20 Calcium 8.7 mg/dL Normal 8.6-10.3 Egfr Non- 24.7 >60 Egfr 29.9 >60 17 Protein 07/13/2019 [facility] Total 6.2 Abnormal 6.3 - Electrophoresis [address] Protein(Pep) g/dL 7.9 [place], [place] [id number] [phone] Albumin 2.5 g/dL Abnormal 3.4-4.7 Alpha-1 Globulin 0.6 g/dL Abnormal 0.1-0.3 Alpha-2 Globulin 1.2 g/dL Abnormal 0.6-1.0 Beta Globulin 0.9 g/dL 0.7-1.2 Gamma Globulin 1.1 g/dL 0.6-1.6 Albumin/Globulin Ratio 0.65 Impression See Comment 18 Iron & Iron 07/13/2019 [facility] Total Iron 259 g/dL 250- [address] [place] [address] Capacity [phone] Transferrin 185 mg/dL Low 203-362 Iron < 20 g/dL Low 50-212 Unsaturated Iron Binding < 244 g/dL % Iron Saturation 8 % Low 15-55 CBC Auto 07/13/2019 [facility] White Blood 15.1 10^3/uL High 3.5-10.[address] [place] [address] [phone] Red Blood Count 3.55 10^6/uL Low 3.70-4.87 Hemoglobin 9.8 g/dL Low 12.0-16.0 Hematocrit 30 % Low 35-47 Mean Corpuscular Volume 86 fL Normal 80-97 Mean Corpuscular Hemoglobin 28 pg Normal 27-31 Mean Corpuscular HGB Conc 32 g/dL Normal 31-36 Red Cell Distribution Width 16 % High 10-15 Platelet Count 371 10^3/uL Normal 150-450 Mean Platelet Volume 8.9 fL Normal 7.4-10.4 Abs Neutrophils 12.0 10^3/uL High 1.5-7.7 Abs Lymphocytes 1.0 10^3/uL Normal 1.0-4.8 Abs Monocytes 2.0 10^3/uL High 0-0.8 Abs Eosinophils 0.1 10^3/uL Normal 0-0.6 Abs Basophils 0.0 10^3/uL Normal 0-0.2 Abs Nucleated RBC 0.0 10^3/uL Granulocyte % 79.0 % Lymphocyte % 6.7 % Monocyte % 13.1 % Eosinophil % 0.9 % Basophil % 0.3 % Nucleated Red Blood Cells % 0.0 CBC Auto 06/15/2019 [facility] White Blood 7.5 10^3/uL Normal 3.5-10.8 [address] [place] [address] [phone] Red Blood Count 3.63 10^6/uL Low 3.70-4.87 Hemoglobin 10.2 g/dL Low 12.0-16.0 Hematocrit 32 % Low 35-47 Mean Corpuscular Volume 89 fL Normal 80-97 Mean Corpuscular Hemoglobin 28 pg Normal 27-31 Mean Corpuscular HGB Conc 32 g/dL Normal 31-36 Red Cell Distribution Width 17 % High 10-15 Platelet Count 246 10^3/uL Normal 150-450 Mean Platelet Volume 9.2 fL Normal 7.4-10.4 Abs Neutrophils 4.8 10^3/uL Normal 1.5-7.7 Abs Lymphocytes 1.5 10^3/uL Normal 1.0-4.8 Abs Monocytes 0.9 10^3/uL High 0-0.8 Abs Eosinophils 0.3 10^3/uL Normal 0-0.6 Abs Basophils 0.1 10^3/uL Normal 0-0.2 Abs Nucleated RBC 0.0 10^3/uL Granulocyte % 64.6 % Lymphocyte % 19.5 % Monocyte % 11.5 % Eosinophil % 3.5 % Basophil % 0.9 % Nucleated Red Blood Cells % 0.0 Iron & Iron Binding 06/15/2019 [facility] Iron 26 g/dL Low 50-[address] [place] [address] [phone] Unsaturated Iron Binding < 363 g/dL Total Iron Binding Capacity 378 g/dL Normal 250-450 Transferrin 270 mg/dL Normal 203-362 % Iron Saturation 7 % Low 15-55 Laboratory test 05/25/2019 [facility] House Occult Blood NEG x3 20 finding Stool Diagnostic cards CBC Auto Diff 05/11/2019 [facility] White Blood 8.9 10^3/uL Normal 3.5-[address] Count .8 [place] [address] [phone] Red Blood Count 3.12 10^6/uL Low 3.70-4.87 Hemoglobin 8.8 g/dL Low 12.0-16.0 Hematocrit 27 % Low 35-47 Mean Corpuscular Volume 87 fL Normal 80-97 Mean Corpuscular Hemoglobin 28 pg Normal 27-31 Mean Corpuscular HGB Conc 33 g/dL Normal 31-36 Red Cell Distribution Width 16 % High 10-15 Platelet Count 237 10^3/uL Normal 150-450 Mean Platelet Volume 9.1 fL Normal 7.4-10.4 Abs Neutrophils 6.5 10^3/uL Normal 1.5-7.7 Abs Lymphocytes 1.2 10^3/uL Normal 1.0-4.8 Abs Monocytes 1.0 10^3/uL High 0-0.8 Abs Eosinophils 0.2 10^3/uL Normal 0-0.6 Abs Basophils 0.0 10^3/uL Normal 0-0.2 Abs Nucleated RBC 0.0 10^3/uL Granulocyte % 72.9 % Lymphocyte % 13.4 % Monocyte % 10.8 % Eosinophil % 2.4 % Basophil % 0.5 % Nucleated Red Blood Cells % 0.0 Iron & Iron Binding 05/11/2019 [facility] Iron 39 g/dL Low 50-212 Capacity [address] [place] [address] [phone] Unsaturated Iron Binding < 359 g/dL Total Iron Binding Capacity 374 g/dL Normal 250-450 Transferrin 267 mg/dL Normal 203-362 % Iron Saturation 10 % Low 15-55 Basic Metabolic 05/11/2019 [facility] Sodium 140 mmol/L Normal 135-145 Panel [address] [place] [address] [phone] Chloride 107 mmol/L Normal 101-111 Co2 Carbon Dioxide 27 mmol/L Normal 22-32 Calcium 9.5 mg/dL Normal 8.6-10.3 Potassium TNP mmol/L 3.5-5.0 21 Anion Gap 6 mmol/L Normal 2-11 Glucose 71 mg/dL Normal 70-100 Blood Urea Nitrogen 31 mg/dL High 6-24 Creatinine 1.54 mg/dL High 0.51-0.95 BUN/Creatinine Ratio 20.1 High 8-20 Egfr Non- 31.9 >60 Egfr 38.6 >60 22 1 SEE RESULT BELOW Name: MONCHO ARCINIEGA : [address]: Daisy Matias MD Acct: [id number] Unit: [id number] AGE: 89 Location: OR Re09/01/19 SEX: F Status: [facility] SPEC: [id number] TAMMI: 09/01/19-[address] [facility] [facility] [address]: Daisy Matias MD REQ: [id number] RECD: 09/01/19150 STATUS: SOUT _ ORDERED: LEVEL 4, NG THIN LAYER FINAL DIAGNOSIS Bronchoalveolar lavage, right: --Negative for malignant cells. --Inflammation. A cell block was prepared in the evaluation of this specimen. Smears and cell block reveal similar findings. SPECIMEN(S) RECEIVED BRONCHIAL LAVAGE RIGHT - RIGHT UPPER LOBE BRONCHIAL LAVAGE CLINICAL HISTORY Lung mass, squamous cell cancer, right upper lobe bronchial lavage. CONTINUED ON NEXT PAGE DEPARTMENT OF PATHOLOGY, [address] [place] [address] Suman Vivar M.D. Director [facility] # [id number] GROSS DESCRIPTION 6 ml of cloudy red fluid. Signed by and Reported on: Kaci Bell MD 09/03/19 1321 END OF REPORT DEPARTMENT OF PATHOLOGY, [address] [place] [address] Suman Vivar M.D. Director [facility] # [id number] 2 SEE RESULT BELOW Name: MONCHO ARCINIEGA : [address]: Daisy Matias MD Acct: [id number] Unit: [id number] AGE: 89 Location: OR Re09/01/19 SEX: F Status: [facility] SPEC: [id number] TAMMI: 09/01/19-[address] [facility] [address]: Daisy Matias MD REQ: [id number] RECD: 09/01/19-150 STATUS: SOUT _ ORDERED: LEVEL 4 FINAL DIAGNOSIS Lung, right, endobronchial biopsy: -- Benign bronchial mucosa with chronic inflammation. -- No evidence of neoplasia. PRE-OPERATIVE DIAGNOSIS Other non-specific abnormal finding of lung field GROSS DESCRIPTION The specimen is received in formalin labeled, Endobronchial Biopsy, Right Side, and consists of a 0.5 x 0.4 x 0.1 cm aggregate of altamirano-red irregular soft tissue fragments which is submitted entirely in one cassette. Signed by and Reported on: Kaci Bell MD 09/02/19 1120 END OF REPORT DEPARTMENT OF PATHOLOGY, [address] [place] [address] Suman Vivar M.D. Director [facility] # [id number] 3 SEE RESULT BELOW Name: MONCHO ARCNIIEGA Shameka : [address]: Daisy Matias MD Acct: [id number] Unit: [id number] AGE: 89 Location: OR Re09/01/19 SEX: F Status: [facility] SPEC: [id number] TAMMI: 09/01/19-[address]: Daisy Matias MD REQ: [id number] RECD: 09/01/19-7602 STATUS: SOUT _ ORDERED: FNA-IMG GUID BX/4, CY ADEQ-ADDL P/4, LEVEL 4/4, CYTO ADEQ-1ST P/4 FINAL DIAGNOSIS 1) Lymph node, R-4, endobronchial Ultrasound guided, fine needle aspiration: -- Scant benign bronchial epithelium. No lymphoid tissue present. 2) Lymph node, station-7, endobronchial Ultrasound guided, fine needle aspiration: -- Benign lymph node. 3) Lymph node, R-10, endobronchial Ultrasound guided, fine needle aspiration: -- Benign lymph node. 4) Right lung lesion, endobronchial Ultrasound guided, fine needle aspiration: -- Benign bronchial epithelium and blood. A cell block was prepared in the evaluation of each specimen. CONTINUED ON NEXT PAGE DEPARTMENT OF PATHOLOGY, [facility] [employer] [place], [place] [address] Suman Vivra M.D. Director [facility] # [id number] SPECIMEN(S) RECEIVED 1. LYMPH NODE - R-4 LYMPH NODE ENDOBRONCHIAL FINE NEEDLE ASPIRATION, 2. LYMPH NODE - STATION-7 ENDOBRONCHIAL FINE NEEDLE ASPIRATION, 3. LYMPH NODE - R-10 LYMPH NODE ENDOBRONCHIAL FINE NEEDLE ASPIRATION, 4. LUNG RIGHT - ENDOBRONCHIAL RIGHT LUNG LESION FINE NEEDLE ASPIRATION CLINICAL HISTORY Lung cancer, squamous cell carcinoma. IMMEDIATE INTERPRETATION 1) Pass 1, and 2-inadequate. Pass 3-assessed 2) Pass 1-inadequate. Pass 2-adequate. 3) Pass 1-adequate. 4) Pass 1-inadequate. Pass 2-adequate. GROSS DESCRIPTION 1) 5- alcohol fixed slides(s) 3 - passes Needle rinse in formalin solution for cell block. 2) 5- alcohol fixed slides(s) 2 - passes Needle rinse in formalin solution for cell block. 3) 2- alcohol fixed slides(s) 1 - passes Needle rinse in formalin solution for cell block. 4) 4- alcohol fixed slides(s) 2 - passes Needle rinse in formalin solution for cell block. Signed by and Reported on: Kaci Bell MD 09/02/19 1427 END OF REPORT DEPARTMENT OF PATHOLOGY, [facility] [employer] [place], [place] [address] Suman Vivar M.D. Director [facility] # [id number] 4 SEE RESULT BELOW Name: MONCHO ARCINIEGA : [address]: Daisy Matias MD Acct: [id number] Unit: [id number] AGE: 89 Location: OR Re07/28/19 SEX: F Status: [facility] SPEC: [id number] TAMMI: 07/28/19-[address] [facility] [address]: Daisy Matias MD REQ: [id number] RECD: 07/28/19-1254 STATUS: JOSE MENDOZA DR: Aaron Palomino MD _ ORDERED: LEVEL 4, NG THIN LAYER, IMMUNO-FIRST, IMMUNO-ADDL/6 FINAL DIAGNOSIS Pleural effusion, right, thoracentesis: --Reactive mesothelium and inflammation. COMMENT: A cell block was prepared in the evaluation of this specimen. Smears and cell block reveal similar findings. Immunohistochemical stains, with appropriately reacting controls, were performed with the following results: Tag 72 negative TTF-1 negative CEA positive WT-1 negative Vimentin positive Baltazar EP-4 negative Calretinin focally positive The immunoprofile support the diagnosis. There is no evidence of malignancy. Dr. Vivar reviewed this case in intradepartmental consultation and agrees with the diagnosis. CONTINUED ON NEXT PAGE DEPARTMENT OF PATHOLOGY, [address] [place] [address] Suman Vivar M.D. Director [facility] # [id number] SPECIMEN(S) RECEIVED 1. PLEURAL - RIGHT PLEURAL EFFUSION CLINICAL HISTORY Right pleural effusion. GROSS DESCRIPTION 800 ml of cloudy red fluid. Signed by and Reported on: Kaci Bell MD 08/02/19 1636 END OF REPORT DEPARTMENT OF PATHOLOGY, [address] [place] [address] Suman Vivar M.D. Director [facility] # [id number] 5 SEE RESULT BELOW Name: MONCHO ARCINIEGA : [address]: Daisy Matias MD Acct: [id number] Unit: [id number] AGE: 89 Location: OR Re07/28/19 SEX: F Status: REG [facility] SPEC: [id number] TAMMI: 07/28/19-[address] [facility] [address]: Daisy Matias MD REQ: [id number] RECD: 07/28/19-1319 STATUS: COMP MIGUEL ANGEL DR: Karyna Palomino MD _ SOURCE: PLEURAL FL SPDESC: ORDERED: BF Peña/GS Procedure Result Reported Site Body Fluid Gram Stain Final 07/28/19- 1525 ML 4+ Nucleated Cells 2+ Neutrophils No Organisms Seen Preparation By Cytospin Smear Body Fluid Culture Final 08/01/19- 1007 ML No Growth Day 4 * ML - Main Lab . END OF REPORT DEPARTMENT OF PATHOLOGY, [address] [place] [address] Suman Vivar M.D. Director [facility] # [id number] 6 -- REFERENCE VALUE -- Synovial: <150/mcL Peritoneal: <500/mcL Pleural: <500/mcL Pericardial: <500/mcL 7 No evidence of an acute inflammatory response. No evidence of malignancy. Reviewed by Kaci Bell MD 8 REFERENCE VALUE See Comment ADDITIONAL INFORMATION A pleural fluid total protein to serum total protein ratio >0.5 is most consistent with exudative effusion. A peritoneal fluid total protein > 2.5 g/dL in patients with a high serum ascites albumin gradient can be caused by heart failure. A peritoneal fluid total protein > 1.0 g/dL helps to differentiate secondary from spontaneous bacterial peritonitis in conjunction with other laboratory, imaging, and clinical findings. All other fluids refer to www.[email or web address] for further interpretive information. This test has been modified from the ditching machine operating engineer's instructions. Its performance characteristics were determined by [facility] in a manner consistent with CLIA requirements. This test has not been cleared or approved by the U.S. Food and Drug Administration. 9 Test Performed by: [address] [address] Youth Manager: Red Hagan M.D. Ph.D.; CLIA# [id number] 10 REFERENCE VALUE See Comment ADDITIONAL INFORMATION Body fluid glucose concentrations may be decreased due to increased cellular metabolism and should be interpreted in the context of blood glucose concentrations and in conjunction with other laboratory and clinical findings. Pleural, Peritoneal, and Pericardial fluid and serum glucose concentrations are similar in the absence of infection. Synovial fluid glucose concentrations are similar to fasting blood glucose concentrations or approximately 50% of the non-fasting serum glucose concentration under normal conditions. Values below this can be seen with infection. Amniotic fluid glucose <16 mg/dL is suggestive of infection. All other fluids refer to www[email or web address] for further interpretive information. This test has been modified from the ditching machine operating engineer's instructions. Its performance characteristics were determined by [facility] in a manner consistent with CLIA requirements. This test has not been cleared or approved by the U.S. Food and Drug Administration. 11 Test Performed by: [address] [address] Youth Manager: Red Hagan M.D. Ph.D.; CLIA# [id number] 12 REFERENCE VALUE See Comment ADDITIONAL INFORMATION Pleural fluid lactate dehydrogenase (LDH) to serum LDH ratio >0.6 are most consistent with exudative effusions. Peritoneal fluid LDH > 220 U/L suggest secondary rather than spontaneous bacterial peritonitis in conjunction with other laboratory, imaging, and clinical findings. Synovial fluid lactate dehydrogenase (LDH) may be elevated greater than plasma or serum LDH due to inflammatory causes. Values should be interpreted in conjunction with other clinical findings. All other fluids refer to www[email or web address] for further interpretive information. This test has been modified from the ditching machine operating engineer's instructions. Its performance characteristics were determined by [facility] in a manner consistent with CLIA requirements. This test has not been cleared or approved by the U.S. Food and Drug Administration. 13 Test Performed by: [place] [id number] Youth Manager: Red Hagan M.D. Ph.D.; CLIA# [id number] 14 Test Name Result Test Reported Date/Time: 07/30/2019 1805 ET pH, Body Fluid 7.7 Ref Range Not Established This reference interval(s) and other method performance specifications have not been established for this body fluid. The test must be integrated into the clinical context for interpretation. Comments; This test was developed and its performance characteristics determined by [employer]. It has not been cleared or approved by the Food and Drug Administration. Test Performed: [address] [id number] Dir: Melia López MD 15 [id number] 16 [id number] 17 Because ethnic data is not always readily [...] 15-29 5 Kidney failure <15 (or dialysis) 18 RESULT: No apparent monoclonal protein on serum electrophoresis. Test Performed by: [place] [address] Youth Manager: Red Hagan M.D. Ph.D.; CLIA# [id number] 19 [id number] 20 Negative x 3 cards 21 Specimen Hemolyzed. Result may not be valid. Unable to report test result due to hemolysis. 22 Because ethnic data is not always [...] (or dialysis) Procedures Date Code Description Status 09/01/2019 66779 Endobronchial Ultrasound =>3 Completed 09/01/2019 37802 bronchoscopy w/bx(s) (hosp) Completed 09/01/2019 47217 Bronchoscopy With Bronchial Alveolar Lavage Completed 07/28/2019 67508 Thoracentesis W/ Img Guidance Completed 04/09/2019 36287 EKG Tracing & Interpretation Completed 06/03/2016 [id number] Bone Mineral Density Test Completed 02/13/2015 [id number] Mammogram Completed 03/19/2013 [id number] Mammogram Completed 01/26/2013 [id number] Bone Mineral Density Test Completed 01/21/2012 [id number] Mammogram Completed 10/09/2010 [id number] Bone Mineral Density Test Completed 08/14/2007 [id number] Colonoscopy Completed Medical Devices Description No Information Available Encounters Type Date Location Provider Dx Diagnosis Office Visit 09/08/2019 Pulmonology And Daisy Matias, R91.8 Other nonspecific 9:15a [facility] Of abnormal finding of [facility] lung field J44.9 Chronic obstructive pulmonary disease, unspecified Office Visit 09/07/2019 10:40a [facility] Internal Karyna D64.9 Anemia, Medicine - Francesca Palomino M.D. unspecified Office Visit 08/06/2019 10:30a Pul[facility]ology And Daisy Matias, R91.8 Other nonspecific [facility] Of abnormal finding Delivery Driver/Supervisor of lung field 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 Office Visit 07/27/2019 8:30a Pulmonology And Daisy J90 Pleural effusion, [facility] Of MD [place] not elsewhere Delivery Driver/Supervisor classified R91.8 Other nonspecific abnormal finding of lung field Office Visit 07/26/2019 11:40a [facility] Internal Angela Pollack Pleural effusion, Medicine - Francesca Fitzpatrick not elsewhere classified D64.9 Anemia, unspecified Office Visit 07/12/2019 2:00p [facility] Internal Roverto Raymond, J44.1 Chronic obstructive Medicine - [facility] [employer] ESCORT pulmonary disease w (acute) exacerbation R05 Cough Office Visit 05/20/2019 11:40a [facility] Internal Karyna D64.9 AnemiaCrista M.D. 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 09/01/2019 R91.8 Other nonspecific abnormal finding of lung Daisy Matias MD [facility] 08/17/2019 R91.8 Other nonspecific abnormal finding of lung Daisy Matias MD [facility] 08/09/2019 R91.8 Other nonspecific abnormal finding of lung Daisy Matias MD [facility] 08/06/2019 R91.8 Other nonspecific abnormal finding of lung Daisy Matias MD [facility] 08/06/2019 Z85.118 Personal history of other malignant Daisy Matias MD neoplasm of bronchus and lung 07/28/2019 J90 Pleural effusion, not elsewhere classified Daisy Matias MD 07/27/2019 J90 Pleural effusion, not elsewhere classified Daisy Matias MD 07/27/2019 R91.8 Other nonspecific abnormal finding of lung Daisy Matias MD [facility] 07/26/2019 J90 Pleural effusion, not elsewhere classified Karyna Palomino M.D. 07/26/2019 D64.9 Anemia, unspecified Karyna Palomino M.D. 07/12/2019 J44.1 Chronic obstructive pulmonary disease with Roverto RIDGE Andrade (acute) exacerbat 07/12/2019 R05 Cough Roverto Raymond, [employer] 05/25/2019 D64.9 Anemia, unspecified Nurse Visit A 05/20/2019 D64.9 Anemia, unspecified Karyna Palomino M.D. 05/20/2019 J44.1 Chronic obstructive pulmonary disease with Karyna Palomino M.D. 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 (acute) exacerbat 03/26/2019 M79.605 Pain in left leg Karyna Palomino M.D. 03/26/2019 D64.9 Anemia, unspecified Karyna Palomino M.D. 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 Plan of Treatment Future Appointment(s):11/10/2019 10:45 am - Daisy Matias MD at [facility]03/14/2020 11:00 am - Karyna Palomino M.D. at [facility] Daisy [facility]ias, MDR91.8 Other nonspecific abnormal finding of lung fieldFollow up:2 months , CT kjnybT88.9 Chronic obstructive pulmonary disease, unspecifiedNew Medication:Prednisone 10 mg - 1 by mouth every day Functional Status Description No Information Available Mental Status Description No Information Available Referrals Refer to Reason for Referral Status Appt Date Daisy Matias MD Sent 07/27/[address] [place] [id number] [phone]
--- OUTSIDE RECORDS SUMMARY | 2019-09-15 10:48 | XMS REPORT | Continuity of Care Document ---
:1930 External Reference #:[id number] Author Name Karyna Palomino M.D. (transmitted by agent of provider Viola Farley) Address [address] [facility], [place] [address] Care Team Providers Name Role Phone Angel Dutton MD - Hematology Care Team Information Pattern Layout Worker Diego Downing MD - Urology Care Team Information Pattern Layout Worker [phone] Daisy Matias MD - Pulmonary Care Team Information Pattern Layout Worker Disease Problems Active Problems Provider Date Benign [...] Use Denies Drug Use Smoking Status Reviewed: 09/07/19 Patient is a former smoker Exercise Type/Frequency Exercises sporadically Allergies, Adverse Reactions, Alerts Active Allergies Reaction Severity Comments Date Codeine Sulfate rash 05/09/2009 Medications Active Medications SIG Qnty Indications Ordering Date Provider Milk Of Magnesia 30 milliliters by 355ml [facility] 05/20/2019 mouth daily as Nanette Palomino 400mg/5ML needed Suspension Nebulizer for use four times 1units J44.1 [facility] 05/20/2019 Kit/Tubing/Mouthpie a day Nanette Palomino ce Kit Proair HFA inhale 2 puffs 8.5units J44.1 [facility] 05/20/2019 four times a day Nanette Palomino 108(90Base) mcg/Act if needed Aerosol KP Ferrous Sulfate 325 mg by mouth Celso Madsen 04/09/2019 every day Nanette Nicholson 325(65Fe) mg Tablets Tylenol PM prn at night Krayna 03/26/2019 Tablets Nanette Palomino Furosemide Take 1 [...] a day Nanette Palomino (2.5mg/3ML) 0.083% Nebulizer Multi-Vitamin/[place] 1 tablet daily 50tabs Karyna 05/09/2009 als Nanette Palomino Tablets Spiriva Handihaler inhale the 30caps Karyna contents of one Nanette Palomino 18mcg Capsules capsule by mouth every [...] CPT Code Status Date Vaccine Lot # [id number] Given 05/06/2018 Fluzone High Dose 88023 Given 07/12/2015 Tdap - Tetanus/Diptheria/Acellular Pertussis 47749 Given 04/17/2015 Influenza Virus Vaccine, Quadrivalent, Split, [id number] Preservative Free 50751 Given 02/06/2015 Pneumococcal Conjugate Vaccine 13 Valent For [id number] Intramuscular Use 51733 Given 01/25/2014 Pneumonia Vaccine [id number] 44060 Given 04/02/2010 Influenza Virus 3Yrs & Over 39883 Given 05/09/2009 Influenza Virus Vaccine, Pandemic Formulation [id number] 26580 Given 05/09/2009 Administration Swine Flu Shot Vital Signs Date Vital Result Comment 09/07/2019 11:04am Height 61 inches 5'1" Weight 113.00 lb Heart Rate 86 /min BP Systolic 137 mmHg BP Diastolic 77 mmHg O2 % BldC Oximetry 98 % BMI (Body Mass Index) 21.3 kg/m2 08/06/2019 10:22am Height 61 inches 5'1" Weight 114.00 lb Heart Rate 91 /min BP Systolic Sitting 130 mmHg BP Diastolic Sitting 78 mmHg O2 % BldC Oximetry 96 % BMI (Body Mass Index) 21.5 kg/m2 Results Test Acquired Date Facility Test Result H/L Range Note Cytology 09/01/2019 [facility] Cytology SEE RESULT 1 Non-Secretary Bookkeeper [address] [place] [address] [phone] PDFReport SEE IMAGE Surgical 09/01/2019 [facility] Surgical SEE RESULT [address] Pathology BELOW [place], [place] [address] [phone] PDFReport SEE IMAGE Cytology Non-Secretary Bookkeeper 09/01/2019 [facility] Cytology Nongyn SEE RESULT [address] [place] [address] [phone] PDFReport SEE IMAGE CBC No Diff 09/01/2019 [facility] White Blood 6.7 10^3/uL Normal 3.5-10.[address] [place] [address] [phone] Red Blood Count 3.96 10^6/uL Normal 3.70-4.87 Hemoglobin 11.2 g/dL Low 12.0-16.0 Hematocrit 34 % Low 35-47 Mean Corpuscular Volume 85 fL Normal 80-97 Mean Corpuscular Hemoglobin 28 pg Normal 27-31 Mean Corpuscular HGB Conc 33 g/dL Normal 31-36 Red Cell Distribution Width 16 % High 10-15 Platelet Count 239 10^3/uL Normal 150-450 Mean Platelet Volume 8.9 fL Normal 7.4-10.4 Cytology Non-Secretary Bookkeeper 07/28/2019 [facility] Cytology Nongyn SEE RESULT [address] [place] [address] [phone] PDFReport SEE IMAGE Body Fluid C&S 07/28/2019 [facility] Body Fluid Cult SEE RESULT BELOW [address] [place] [address] [phone] Body Fluid Cell 07/28/2019 [facility] Body Fluid Pleural Fluid Count [address] [place] [address] [phone] Body Fluid Appearance Cloudy Body Fluid Color Aleshia Body Fluid Volume 8 mL Body Fluid WBC 873 /mcL Normal 6 Body Fluid RBC 60646 /mcL Body Fluid Neutrophils 11 % Body Fluid Lymph 64 % Body Fluid [place] 25 % Body Fluid Other Cells 21 Body Fluid Total Cells Counted 100 Fluid Reviewed By MD (SEE NOTE) 7 Body Fluid Total 07/28/2019 [facility] Total Protein, BF 4.3 g/ dL [address] [place] [address] [phone] Fluid Type, Protein, Total PLEURAL 9 Body Fluid Glucose 07/28/2019 [facility] Glucose, BF 98 mg/dL [address] [place] [address] [phone] Fluid Type, Glucose PLEURAL 11 Lactate 07/28/2019 [facility] Lactate 134 U/L 12 Dehydrogenase,BF [address] Dehydrogenase, [place] [address] [phone] Fluid Source PLEURAL 13 Laboratory test 07/28/2019 [facility] Miscellaneous 7.7 [address] [place] [address] [phone] Laboratory test 07/13/2019 [facility] B-Type 400 High <=10 15 , [address] Natriuretic pg/mL 0 [place] [address] Peptide BNP [phone] Basic Metabolic 07/13/2019 [facility] Sodium 139 Normal 135- Panel [address] mmol/L 145 [place] [address] [phone] Potassium 4.4 mmol/L Normal 3.5-5.0 Chloride 102 mmol/L Normal 101-111 Co2 Carbon Dioxide 27 mmol/L Normal 22-32 Anion Gap 10 mmol/L Normal 2-11 Glucose 92 mg/dL Normal 70-100 Blood Urea Nitrogen 53 mg/dL High 6-24 Creatinine 1.92 mg/dL High 0.51-0.95 BUN/Creatinine Ratio 27.6 High 8-20 Calcium 8.7 mg/dL Normal 8.6-10.3 Egfr Non- 24.7 >60 Egfr 29.9 >60 17 Protein 07/13/2019 [facility] Total 6.2 Abnormal 6.3 - Electrophoresis [address] Protein(Pep) g/dL 7.9 [place] [address] [phone] Albumin 2.5 g/dL Abnormal 3.4-4.7 Alpha-1 Globulin 0.6 g/dL Abnormal 0.1-0.3 Alpha-2 Globulin 1.2 g/dL Abnormal 0.6-1.0 Beta Globulin 0.9 g/dL 0.7-1.2 Gamma Globulin 1.1 g/dL 0.6-1.6 Albumin/Globulin Ratio 0.65 Impression See Comment 18 Iron & Iron 07/13/2019 [facility] Total Iron 259 g/dL 250- [address] [place] [address] Capacity [phone] Transferrin 185 mg/dL Low 203-362 Iron < 20 g/dL Low 50-212 Unsaturated Iron Binding < 244 g/dL % Iron Saturation 8 % Low 15-55 CBC Auto 07/13/2019 [facility] White Blood 15.1 10^3/uL High 3.5-10.[address] [place] [address] [phone] Red Blood Count 3.55 10^6/uL Low 3.70-4.87 [...] Blood Cells % 0.0 CBC Auto 06/15/2019 [facility] White Blood 7.5 10^3/uL Normal 3.5-10.[address] [place] [address] [phone] Red Blood Count 3.63 10^6/uL Low 3.70-4.87 [...] % 0.0 Iron & Iron Binding 06/15/2019 [facility] Iron 26 g/dL Low 50-[address] [place] [address] [phone] Unsaturated Iron Binding < 363 g/dL Total Iron Binding Capacity 378 g/dL Normal 250-450 Transferrin 270 mg/dL Normal 203-362 % Iron Saturation 7 % Low 15-55 Laboratory test 05/25/2019 [facility] In House Occult Blood NEG x3 20 finding Stool Diagnostic cards CBC Auto Diff 05/11/2019 [facility] White Blood 8.9 10^3/uL Normal 3.5-[address] Count .8 [place] [address] [phone] Red Blood Count 3.12 10^6/uL Low 3.70-4.87 [...] % 0.0 Iron & Iron Binding 05/11/2019 [facility] Iron 39 g/dL Low 50-212 Capacity [address] [place] [address] [phone] Unsaturated Iron Binding < 359 g/dL Total Iron Binding Capacity 374 g/dL Normal 250-450 Transferrin 267 mg/dL Normal 203-362 % Iron Saturation 10 % Low 15-55 Basic Metabolic 05/11/2019 [facility] Sodium 140 mmol/L Normal 135-[address] [place] [address] [phone] Chloride 107 mmol/L Normal 101-111 Co2 Carbon [...] [address]: Daisy Matias MD Acct: [id number] Unit: [id number] AGE: 89 Location: OR Re09/01/19 SEX: F Status: DE[facility] SPEC: [id number] TAMMI: 09/01/19-[address] [facility] [address]: Daisy Matias MD REQ: [id number] RECD: 09/01/19150 STATUS: SOUT _ ORDERED: LEVEL [...] CONTINUED ON NEXT [place] DEPARTMENT OF PATHOLOGY, [address] [place] [address] Suman Vivar M.D. Director [facility] # [id number] GROSS DESCRIPTION 6 ml of cloudy red fluid. Signed by and Reported on: Kaci Bell MD 09/03/19 1321 END OF REPORT DEPARTMENT OF PATHOLOGY, [facility] [employer] [place], [place] [address] Suman Vivar M.D. Director [facility] # [id number] 2 SEE RESULT BELOW Name: MONCHO ARCINIEGA : [address]: Daisy Matias MD Acct: [id number] Unit: [id number] AGE: 89 Location: OR Re09/01/19 SEX: F Status: DEP [facility] SPEC: [id number] TAMMI: 09/01/19-[address]: Daisy Matias MD REQ: [id number] RECD: 09/01/19 STATUS: SOUT _ ORDERED: LEVEL 4 FINAL [...] 1120 END OF REPORT DEPARTMENT OF PATHOLOGY, [address] [place] [address] Suman Vivar M.D. Director [facility] # [id number] 3 SEE RESULT BELOW Name: MONCHO ARCINIEGA : [address]: Daisy Matias MD Acct: [id number] Unit: [id number] AGE: 89 Location: OR Re09/01/19 SEX: F Status: JANEEN [facility] SPEC: [id number] TAMMI: 09/01/19-[address]: Daisy Matias MD REQ: [id number] RECD: 09/01/19-6452 STATUS: SOUT _ ORDERED: FNA-IMG GUID BX/4, [...] CONTINUED ON NEXT [place] DEPARTMENT OF PATHOLOGY, [address] [place] [address] Suman Vivar M.D. Director [facility] # [id number] SPECIMEN(S) RECEIVED 1. LYMPH NODE - R-4 [...] 1427 END OF REPORT DEPARTMENT OF PATHOLOGY, [address] [place] [address] Suman Vivar M.D. Director [facility] # [id number] 4 SEE RESULT BELOW Name: MONCHO ARCINIEGA : [address]: Daisy Matias MD Acct: [id number] Unit: [id number] AGE: 89 Location: OR Re07/28/19 SEX: F Status: REG SDC SPEC: [id number] TAMMI: 07/28/19-[address]: Daisy Matias MD REQ: [id number] RECD: 07/28/19-125 STATUS: JOSE MENDOZA DR: Aaron Palomino MD [...] CONTINUED ON NEXT [place] DEPARTMENT OF PATHOLOGY, [address] [place] [address] Suman Vivar M.D. Director [facility] # [id number] SPECIMEN(S) RECEIVED 1. PLEURAL - RIGHT PLEURAL EFFUSION CLINICAL HISTORY Right pleural effusion. GROSS DESCRIPTION 800 ml of cloudy red fluid. Signed by and Reported on: Kaci Bell MD 08/02/19 1636 END OF REPORT DEPARTMENT OF PATHOLOGY, [address] [place] [address] Suman Vivar M.D. Director [facility] # [id number] 5 SEE RESULT BELOW Name: MONCHO ARCINIEGA : [address]: Daisy Matias MD Acct: [id number] Unit: [id number] AGE: 89 Location: OR Re07/28/19 SEX: F Status: REG SDC SPEC: [id number] TAMMI: 07/28/19-[address] [facility] [address]: Daisy Matias MD REQ: [id number] RECD: 07/28/19-131 STATUS: SIVAKUMAR MENDOZA DR: Karyna Palomino MD _ SOURCE: PLEURAL FL SPDESC: ORDERED: BF Peña/GS Procedure Result Reported Site Body Fluid Gram Stain Final 07/28/19- 1525 ML 4+ Nucleated Cells 2+ Neutrophils No Organisms Seen Preparation By Cytospin Smear Body Fluid Culture Final 08/01/19- 1007 ML No Growth Day 4 * ML - Main Lab . END OF REPORT DEPARTMENT OF PATHOLOGY, [address] [place] [address] Suman Vivar M.D. Director [facility] # [id number] 6 -- REFERENCE VALUE -- Synovial: <150/mcL [...] clinical findings. All other fluids refer to www.[employer] for further interpretive information. This test has been modified from the community mental health social worker's instructions. Its performance characteristics were determined by [facility] in a manner consistent with CLIA requirements. This test has not been cleared or approved by the U.S. Food and Drug Administration. 9 Test Performed by: [place] [address] Tuck Pointer: Red Hagan M.D. Ph.D.; CLIA# [id number] 10 REFERENCE VALUE See Comment ADDITIONAL INFORMATION [...] of infection. All other fluids refer to www.[employer] for further interpretive information. This test has been modified from the community mental health social worker's instructions. Its performance characteristics were determined by [facility] in a manner consistent with CLIA requirements. This test has not been cleared or approved by the U.S. Food and Drug Administration. 11 Test Performed by: [place] [address] Tuck Pointer: Red Hagan M.D. Ph.D.; CLIA# [id number] 12 REFERENCE VALUE See Comment ADDITIONAL INFORMATION [...] clinical findings. All other fluids refer to www.[employer] for further interpretive information. This test has been modified from the community mental health social worker's instructions. Its performance characteristics were determined by [facility] in a manner consistent with CLIA requirements. This test has not been cleared or approved by the U.S. Food and Drug Administration. 13 Test Performed by: [facility] [place] [address] Tuck Pointer: Red Hagan M.D. Ph.D.; CLIA# [id number] 14 Test Name Result Test Reported Date/Time: 07/30/2019 1805 ET pH, Body Fluid 7.7 Ref Range Not Established This reference interval(s) and other method performance specifications have not been established for this body fluid. The test must be integrated into the clinical context for interpretation. Comments; This test was developed and its performance characteristics determined by [facility]. It has not been cleared or approved by the Food and Drug Administration. Test Performed: [address] [id number] Dir: Melia López MD 15 [id number] 17 Because ethnic data is not always [...] protein on serum electrophoresis. Test Performed by: [facility] [address] [place] [address] Tuck Pointer: Red Hagan M.D. Ph.D.; CLIA# [id number] 19 [id number] 20 Negative x 3 cards 21 Specimen [...] (or dialysis) Procedures Date Code Description Status 07/28/2019 61603 Thoracentesis W/ Img Guidance Completed 04/09/2019 58202 EKG Tracing & Interpretation Completed 06/03/2016 827873913 Bone Mineral Density Test Completed 02/13/2015 [id number] Mammogram Completed 03/19/2013 12165549 Mammogram Completed 01/26/2013 936586917 Bone Mineral Density Test Completed 01/21/2012 32893791 Mammogram Completed 10/09/2010 134870322 Bone Mineral Density Test Completed 08/14/2007 51724042 Colonoscopy Completed Medical Devices Description No Information Available Encounters Type Date Location Provider Dx Diagnosis Office Visit 08/06/2019 Pulmonology And Daisy Matias R91.8 Other nonspecific 10:30a [facility] abnormal finding of [facility] lung field 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 Office Visit 07/27/2019 8:30a Pulmonology And Daisy J90 Pleural effusion, [facility] MD Florencio not elsewhere Hearing Aid Repair Technician classified R91.8 Other nonspecific abnormal finding of lung field Office Visit 07/26/2019 11:40a [facility] Internal Angela Pollack Pleural effusion, Medicine - Francesca Fitzpatrick not elsewhere classified D64.9 Anemia, unspecified Office Visit 07/12/2019 2:00p [facility] Internal Roverto Raymond, J44.1 Chronic obstructive Medicine - [facility] AUDIOVISUAL PRODUCTION SPECIALIST pulmonary disease w (acute) exacerbation R05 Cough Office Visit 05/20/2019 11:40a [facility] Internal Karyna D64.9 AnemiaCrista M.D. 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 obstructive [facility] pulmonary disease w (acute) exacerbation M79.605 Pain in left leg D64.9 Anemia, unspecified Z79.01 manager terminal (current) use of anticoagulants Assessments Date Code Description Provider 09/07/2019 D64.9 Anemia, unspecified Karyna Palomino M.D. 08/17/2019 R91.8 Other nonspecific abnormal finding of lung Daisy Matias MD field 08/09/2019 R91.8 Other nonspecific abnormal finding of lung Daisy Matias MD field 08/06/2019 R91.8 Other nonspecific abnormal finding of lung Daisy Matias MD [facility] 08/06/2019 Z85.118 Personal history of other malignant Daisy Matias MD neoplasm of bronchus and lung 07/28/2019 J90 Pleural effusion, not elsewhere classified Daisy Matias MD 07/27/2019 J90 Pleural effusion, not elsewhere classified Daisy Matias MD 07/27/2019 R91.8 Other nonspecific abnormal finding of lung Daisy Matias MD [facility] 07/26/2019 J90 Pleural effusion, not elsewhere classified Karyna Palomino M.D. 07/26/2019 D64.9 Anemia, unspecified Karyna Palomino M.D. 07/12/2019 J44.1 Chronic obstructive pulmonary disease with Roverto Raymond, AUDIOVISUAL PRODUCTION SPECIALIST (acute) exacerbat 07/12/2019 R05 Cough Roverto Raymond, AUDIOVISUAL PRODUCTION SPECIALIST 05/25/2019 D64.9 Anemia, unspecified Nurse Visit A 05/20/2019 D64.9 Anemia, unspecified Karyna Palomino M.D. 05/20/2019 J44.1 Chronic obstructive pulmonary disease with Karyna Palomino M.D. 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 (acute) exacerbat 03/26/2019 M79.605 Pain in left leg Karyna Palomino M.D. 03/26/2019 D64.9 Anemia, unspecified Karyna Palomino M.D. 03/26/2019 Z79.01 manager terminal (current) use of anticoagulants Karyna Palomino M.D. Plan of Treatment Future Appointment(s):03/14/2020 11:00 am - Karyna Palomino M.D. at [facility] Internal Medicine - [facility]09/07/2019 - Karyna Palomino M.D.D64.9 Anemia, unspecifiedComments:Stay on the iron at least once a day Recheck in 5-6 monthsFollow up:AWV in 5-6 months Functional Status Description No Information Available Mental Status Description No Information Available Referrals Refer to Reason for Referral Status Appt Date Daisy Matias MD Sent 07/27/[address] [place] [phone]
--- OUTSIDE RECORDS SUMMARY | 2019-09-15 10:48 | XMS REPORT | Continuity of Care Document ---
:1930 External Reference #:[id number] Author Name Karyna Palomino M.D. (transmitted by agent of provider Olesya Chapa) Address [address], [place] [address] Care Team Providers Name Role Phone Angel Dutton MD - Hematology Care Team Information Cash On Delivery Clerk Diego Downing MD - Urology Care Team Information Cash On Delivery Clerk [phone] Daisy Matias MD - Pulmonary Care Team Information Cash On Delivery Clerk Disease Problems Active Problems Provider Date Benign [...] Milk Of Magnesia 30 milliliters by 355ml [facility] 05/20/2019 mouth daily as Nanette Palomino 400mg/5ML needed Suspension Nebulizer for use four times 1units J44.1 [facility] 05/20/2019 Kit/Tubing/Mouthpie a day Nanette Palomino ce Kit Proair HFA inhale 2 puffs 8.5units J44.1 [facility] 05/20/2019 four times a day Nanette Palomino [...] a day Nanette Palomino (2.5mg/3ML) 0.083% Nebulizer Multi-Vitamin/Tank Car Loader 1 tablet daily 50tabs Karyna 05/09/2009 als Nanette Palomino Tablets Spiriva Handihaler inhale the 30caps Karyna contents of one Nanette Palomino 18mcg Capsules capsule by mouth every day Clopidogrel 1 by mouth every 90tabs Celso D. Bisulfate other day Nanette Nicholson 75mg Tablets [...] CPT Code Status Date Vaccine Lot # [id number] Given 05/06/2018 Fluzone High Dose 98015 Given 07/12/2015 Tdap - Tetanus/Diptheria/Acellular Pertussis 65788 Given 04/17/2015 Influenza Virus Vaccine, Quadrivalent, Split, [id number] Preservative Free 35104 Given 02/06/2015 Pneumococcal Conjugate Vaccine 13 Valent For [id number] Intramuscular Use 28146 Given 01/25/2014 Pneumonia Vaccine [id number] 19588 Given 04/02/2010 Influenza Virus 3Yrs & Over 74671 Given 05/09/2009 Influenza Virus Vaccine, Pandemic Formulation [id number] 34276 Given 05/09/2009 Administration Swine Flu Shot Vital [...] Test Result H/L Range Note Cytology 09/01/2019 [facility] Cytology SEE RESULT 1 Non-Tire Builder Heavy Service [address] [place], [place] [id number] [phone] PDFReport SEE IMAGE Surgical 09/01/2019 [facility] Surgical SEE RESULT [address] [place] [address] [phone] PDFReport SEE IMAGE Cytology Non-Tire Builder Heavy Service 09/01/2019 [facility] Cytology Nongyn SEE RESULT [address] [place] [address] [phone] PDFReport SEE IMAGE CBC No Diff 09/01/2019 [facility] White Blood 6.7 10^3/uL Normal 3.5-10.[address] [place] [address] [phone] Red Blood Count 3.96 10^6/uL Normal 3.70-4.87 Hemoglobin 11.2 g/dL Low 12.0-16.0 Hematocrit 34 % Low 35-47 Mean Corpuscular Volume 85 fL Normal 80-97 Mean Corpuscular Hemoglobin 28 pg Normal 27-31 Mean Corpuscular HGB Conc 33 g/dL Normal 31-36 Red Cell Distribution Width 16 % High 10-15 Platelet Count 239 10^3/uL Normal 150-450 Mean Platelet Volume 8.9 fL Normal 7.4-10.4 Cytology Non-Tire Builder Heavy Service 07/28/2019 [facility] Cytology Nongyn SEE RESULT [address] [place] [address] [phone] PDFReport SEE IMAGE Body Fluid C&S 07/28/2019 [facility] Body Fluid Cult SEE RESULT BELOW [address] [place] [place] [address] [phone] Body Fluid Cell 07/28/2019 [facility] Body Fluid Pleural Fluid Count [address] [place] [address] [phone] Body Fluid Appearance Cloudy Body Fluid Color Aleshia Body Fluid Volume 8 mL Body Fluid WBC 873 /mcL Normal 6 Body Fluid RBC 28031 /mcL Body Fluid Neutrophils 11 % Body Fluid Lymph 64 % Body Fluid Fallon 25 % Body Fluid Other Cells 21 Body Fluid Total Cells Counted 100 Fluid Reviewed By MD (SEE NOTE) 7 Body Fluid Total 07/28/2019 [facility] Total Protein, BF 4.3 g/ dL [address] [place] [address] [phone] Fluid Type, Protein, Total PLEURAL 9 Body Fluid Glucose 07/28/2019 [facility] Glucose, BF 98 mg/dL [address] [place] [address] [phone] Fluid Type, Glucose PLEURAL 11 Lactate 07/28/2019 [facility] Lactate 134 U/L 12 Dehydrogenase,BF [address] Dehydrogenase, [place] [address] [phone] Fluid Source PLEURAL 13 Laboratory test 07/28/2019 [facility] Miscellaneous 7.7 [address] [place] [address] [phone] Laboratory test 07/13/2019 [facility] B-Type 400 High <=10 15 , [address] Natriuretic pg/mL 0 [place] [address] Peptide BNP [phone] Basic Metabolic 07/13/2019 [facility] Sodium 139 Normal 135- Panel [address] mmol/L 145 [place] [address] [phone] Potassium 4.4 mmol/L Normal 3.5-5.0 Chloride 102 mmol/L Normal 101-111 Co2 Carbon Dioxide 27 mmol/L Normal 22-32 Anion Gap 10 mmol/L Normal 2-11 Glucose 92 mg/dL Normal 70-100 Blood Urea Nitrogen 53 mg/dL High 6-24 Creatinine 1.92 mg/dL High 0.51-0.95 BUN/Creatinine Ratio 27.6 High 8-20 Calcium 8.7 mg/dL Normal 8.6-10.3 Egfr Non- 24.7 >60 Egfr 29.9 >60 17 Protein 07/13/2019 [facility] Total 6.2 Abnormal 6.3 - Electrophoresis [address] Protein(Pep) g/dL 7.9 [place], [place] [id number] [phone] Albumin 2.5 g/dL Abnormal 3.4-4.7 Alpha-1 Globulin 0.6 g/dL Abnormal 0.1-0.3 Alpha-2 Globulin 1.2 g/dL Abnormal 0.6-1.0 Beta Globulin 0.9 g/dL 0.7-1.2 Gamma Globulin 1.1 g/dL 0.6-1.6 Albumin/Globulin Ratio 0.65 Impression See Comment 18 Iron & Iron 07/13/2019 [facility] Total Iron 259 g/dL 250- [address] [place] [address] Capacity [phone] Transferrin 185 mg/dL Low 203-362 Iron < 20 g/dL Low 50-212 Unsaturated Iron Binding < 244 g/dL % Iron Saturation 8 % Low 15-55 CBC Auto 07/13/2019 [facility] White Blood 15.1 10^3/uL High 3.5-10.[address] [place] [address] [phone] Red Blood Count 3.55 10^6/uL Low 3.70-4.87 [...] Blood Cells % 0.0 CBC Auto 06/15/2019 [facility] White Blood 7.5 10^3/uL Normal 3.5-10.8 [address] [place] [address] [phone] Red Blood Count 3.63 10^6/uL Low 3.70-4.87 [...] % 0.0 Iron & Iron Binding 06/15/2019 [facility] Iron 26 g/dL Low 50-[address] [place] [address] [phone] Unsaturated Iron Binding < 363 g/dL Total Iron Binding Capacity 378 g/dL Normal 250-450 Transferrin 270 mg/dL Normal 203-362 % Iron Saturation 7 % Low 15-55 Laboratory test 05/25/2019 Business Services Clerk In House Occult Blood NEG x3 20 finding Stool Diagnostic cards CBC Auto Diff 05/11/2019 [facility] White Blood 8.9 10^3/uL Normal 3.5-[address] Count .8 [place] [address] [phone] Red Blood Count 3.12 10^6/uL Low 3.70-4.87 [...] % 0.0 Iron & Iron Binding 05/11/2019 [facility] Iron 39 g/dL Low 50-212 Capacity [address] [place] [address] [phone] Unsaturated Iron Binding < 359 g/dL Total Iron Binding Capacity 374 g/dL Normal 250-450 Transferrin 267 mg/dL Normal 203-362 % Iron Saturation 10 % Low 15-55 Basic Metabolic 05/11/2019 [facility] Sodium 140 mmol/L Normal 135-145 Panel [address] [place] [address] [phone] Chloride 107 mmol/L Normal 101-111 Co2 Carbon [...] [address]: Daisy Matias MD Acct: [id number] Unit: [id number] AGE: 89 Location: OR Re09/01/19 SEX: F Status: [facility] SPEC: [id number] TAMMI: 09/01/19-[address] [facility] [address]: Daisy Matias MD REQ: [id number] RECD: 09/01/19150 STATUS: SOUT _ ORDERED: LEVEL [...] CONTINUED ON NEXT PAGE DEPARTMENT OF PATHOLOGY, [address] [place] [address] Suman Vivar M.D. Director [facility] # [id number] GROSS DESCRIPTION 6 ml of cloudy red fluid. Signed by and Reported on: Kaci Bell MD 09/03/19 1321 END OF REPORT DEPARTMENT OF PATHOLOGY, [address] [place] [address] Suman Vivar M.D. Director [facility] # [id number] 2 SEE RESULT BELOW Name: MONCHO ARCINIEGA : [address]: Daisy Matias MD Acct: [id number] Unit: [id number] AGE: 89 Location: OR Re09/01/19 SEX: F Status: JNAEEN OBANDO SPEC: [id number] TAMMI: 09/01/19-[address] [facility] [address]: Daisy Matias MD REQ: [id number] RECD: 09/01/19-150 STATUS: SOUT _ ORDERED: LEVEL [...] 1120 END OF REPORT DEPARTMENT OF PATHOLOGY, [address] [place] [address] Suman Vivar M.D. Director [facility] # [id number] 3 SEE RESULT BELOW Name: MONCHO ARCINIEGA Shameka : [address]: Daisy Matias MD Acct: [id number] Unit: [id number] AGE: 89 Location: OR Re09/01/19 SEX: F Status: DEP NVC SPEC: [id number] TAMMI: 09/01/19-[address]: Daisy Matias MD REQ: [id number] RECD: 09/01/19-5882 STATUS: SOUT _ ORDERED: FNA-IMG GUID BX/4, [...] CONTINUED ON NEXT PAGE DEPARTMENT OF PATHOLOGY, [facility] [employer] [place], [place] [address] Suman Vivar M.D. Director [facility] # [id number] SPECIMEN(S) RECEIVED 1. LYMPH NODE - R-4 [...] 1427 END OF REPORT DEPARTMENT OF PATHOLOGY, [facility] [employer] [place], [place] [address] Suman Vivar M.D. Director [facility] # [id number] 4 SEE RESULT BELOW Name: MONCHO ARCINIEGA : [address]: Daisy Matias MD Acct: [id number] Unit: [id number] AGE: 89 Location: OR Re07/28/19 SEX: F Status: REG [facility] SPEC: [id number] TAMMI: 07/28/19-[address] [facility] [address]: Daisy Matias MD REQ: [id number] RECD: 07/28/19-1254 STATUS: JOSE MENDOZA DR: Aaron [...] CONTINUED ON NEXT PAGE DEPARTMENT OF PATHOLOGY, [address] [place] [address] Suman Vivar M.D. Director [facility] # [id number] SPECIMEN(S) RECEIVED 1. PLEURAL - RIGHT PLEURAL EFFUSION CLINICAL HISTORY Right pleural effusion. GROSS DESCRIPTION 800 ml of cloudy red fluid. Signed by and Reported on: Kaci Bell MD 08/02/19 1636 END OF REPORT DEPARTMENT OF PATHOLOGY, [address] [place] [address] Suman Vivar M.D. Director [facility] # [id number] 5 SEE RESULT BELOW Name: MONCHO ARCINIEGA : [address]: Daisy Matias MD Acct: [id number] Unit: [id number] AGE: 89 Location: OR Re07/28/19 SEX: F Status: REG SDC SPEC: [id number] TAMMI: 07/28/19-[address] [facility] [address]: Daisy Matias MD REQ: [id number] RECD: 07/28/19-1319 STATUS: COMP OTHR DR: Karyna Palomino MD _ SOURCE: PLEURAL FL SPDESC: ORDERED: BF Peña/GS Procedure Result Reported Site Body Fluid Gram Stain Final 07/28/19- 1525 ML 4+ Nucleated Cells 2+ Neutrophils No Organisms Seen Preparation By Cytospin Smear Body Fluid Culture Final 08/01/19- 1007 ML No Growth Day 4 * ML - Main Lab . END OF REPORT DEPARTMENT OF PATHOLOGY, [address] [place] [address] Suman Vivar M.D. Director [facility] # [id number] 6 -- REFERENCE VALUE -- Synovial: <150/mcL [...] clinical findings. All other fluids refer to www.[employer] for further interpretive information. This test has been modified from the logging supervisor's instructions. Its performance characteristics were determined by [facility] in a manner consistent with CLIA requirements. This test has not been cleared or approved by the U.S. Food and Drug Administration. 9 Test Performed by: [place] [address] Rehab Nurse: Red Hagan M.D. Ph.D.; CLIA# [id number] 10 REFERENCE VALUE See Comment ADDITIONAL INFORMATION [...] of infection. All other fluids refer to www.[employer] for further interpretive information. This test has been modified from the logging supervisor's instructions. Its performance characteristics were determined by [facility] in a manner consistent with CLIA requirements. This test has not been cleared or approved by the U.S. Food and Drug Administration. 11 Test Performed by: [address] [address] Rehab Nurse: Red Hagan M.D. Ph.D.; CLIA# [id number] 12 REFERENCE VALUE See Comment ADDITIONAL INFORMATION [...] clinical findings. All other fluids refer to www.[employer] for further interpretive information. This test has been modified from the logging supervisor's instructions. Its performance characteristics were determined by [facility] in a manner consistent with CLIA requirements. This test has not been cleared or approved by the U.S. Food and Drug Administration. 13 Test Performed by: [address] [address] Rehab Nurse: Red Hagan M.D. Ph.D.; CLIA# [id number] 14 Test Name Result Test Reported Date/Time: 07/30/2019 1805 ET pH, Body Fluid 7.7 Ref Range Not Established This reference interval(s) and other method performance specifications have not been established for this body fluid. The test must be integrated into the clinical context for interpretation. Comments; This test was developed and its performance characteristics determined by [employer]. It has not been cleared or approved by the Food and Drug Administration. Test Performed: [facility] [id number] Dir: Melia López MD 15 [id number] 17 Because ethnic data is not always [...] protein on serum electrophoresis. Test Performed by: [place] [address] Rehab Nurse: Red Hagan M.D. Ph.D.; CLIA# [id number] 19 [id number] 20 Negative x 3 cards 21 Specimen [...] dialysis) Procedures Date Code Description Status 07/28/2019 95141 Thoracentesis W/ Img Guidance Completed 04/09/2019 87983 EKG Tracing & Interpretation Completed 06/03/2016 463113085 Bone Mineral Density Test Completed 02/13/2015 06595741 Mammogram Completed 03/19/2013 12194359 Mammogram Completed 01/26/2013 087565156 Bone Mineral Density Test Completed 01/21/2012 90089392 Mammogram Completed 10/09/2010 953871018 Bone Mineral Density Test Completed 08/14/2007 50791603 Colonoscopy Completed Medical Devices Description No Information Available Encounters Type Date Location Provider Dx Diagnosis Office Visit 09/07/2019 [facility] Internal Karyna Palomino, D64.9 Anemia, 10:40a Medicine - Francesca Beltárn.DAicha unspecified Office Visit 08/06/2019 Pul[facility]ology And Daisy Florencio, R91.8 Other nonspecific 10:30a Sleep Services Of abnormal finding Business Services Clerk of lung field 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 Office Visit 07/27/2019 8:30a Pulmonology And Daisy J90 Pleural effusion, Sleep Services Of MD Florencio not elsewhere Business Services Clerk classified R91.8 Other nonspecific abnormal finding of lung field Office Visit 07/26/2019 11:40a [facility] Internal Angela Pollack Pleural effusion, Medicine - [facility] Nanette not elsewhere classified D64.9 Anemia, unspecified Office Visit 07/12/2019 2:00p [facility] Internal Roverto Andrade J44.1 Chronic obstructive Medicine - [facility] PATIENT NAVIGATOR pulmonary disease w (acute) exacerbation R05 Cough Office Visit 05/20/2019 11:40a [facility] Karyna D64.9 Anemia, Crista Palomino M.D. 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 obstructive [facility] pulmonary disease w (acute) exacerbation M79.605 Pain in left leg D64.9 Anemia, unspecified Z79.01 prison (current) use of anticoagulants Assessments Date Code Description Provider 09/08/2019 R91.8 Other nonspecific abnormal finding of lung Daisy Matias MD [facility] 09/08/2019 J44.9 Chronic obstructive pulmonary disease, Daisy Matias MD unspecified 09/07/2019 D64.9 Anemia, unspecified Karyna Palomino M.D. 08/17/2019 R91.8 Other nonspecific abnormal finding of lung Daisy Matias MD [facility] 08/09/2019 R91.8 Other nonspecific abnormal finding of lung Daisy Matias MD [facility] 08/06/2019 R91.8 Other nonspecific abnormal finding of lung Daisy aMtias MD [facility] 08/06/2019 Z85.118 Personal history of other malignant Daisy Matias MD neoplasm of bronchus and lung 07/28/2019 J90 Pleural effusion, not elsewhere classified Daisy Matias MD 07/27/2019 J90 Pleural effusion, not elsewhere classified Daisy Matias MD 07/27/2019 R91.8 Other nonspecific abnormal finding of lung Daisy Matias MD [facility] 07/26/2019 J90 Pleural effusion, not elsewhere classified Karyna Palomino M.D. 07/26/2019 D64.9 Anemia, unspecified Karyna Palomino M.D. 07/12/2019 J44.1 Chronic obstructive pulmonary disease with Roverto Raymond, PATIENT NAVIGATOR (acute) exacerbat 07/12/2019 R05 Cough Roverto Raymond, PATIENT NAVIGATOR 05/25/2019 D64.9 Anemia, unspecified Nurse Visit A 05/20/2019 D64.9 Anemia, unspecified Karyna Palomino M.D. 05/20/2019 J44.1 Chronic obstructive pulmonary disease with Karyna Palomino M.D. 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 (acute) exacerbat 03/26/2019 M79.605 Pain in left leg Karyna Palomino M.D. 03/26/2019 D64.9 Anemia, unspecified Karyna Palomino M.D. 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 Plan of Treatment Future Appointment(s):11/10/2019 10:45 am - Daisy Matias MD at [facility]03/14/2020 11:00 am - Karyna Palomino M.D. at [facility] Daisy Matias, MDR91.8 Other nonspecific abnormal finding of lung fieldFollow up:2 months , CT zfrdtH49.9 Chronic obstructive pulmonary disease, unspecifiedNew Medication:Prednisone 10 mg - 1 by mouth every day Functional Status Description No Information Available Mental Status Description No Information Available Referrals Refer to Dr Reason for Referral Status Appt Date Daisy Matias MD Sent 07/27/[address] [place] [phone]
--- OUTSIDE RECORDS SUMMARY | 2019-09-15 10:48 | XMS REPORT | Continuity of Care Document ---
:1930 External Reference #:[id number] Author Name Daisy Matias MD (transmitted by agent of provider Yessenia Artis) Address [address], [address] [place] [address] Care Team Providers Name Role Phone Angel Dutton MD - Hematology Care Team Information Field Training Manager Diego Downing MD - Urology Care Team Information Field Training Manager [phone] Daisy Matias MD - Pulmonary Care Team Information Field Training Manager Disease Problems Active Problems Provider Date Benign [...] Milk Of Magnesia [address] [facility] 05/20/2019 mouth daily as Nanette Palomino 400mg/5ML needed Suspension Nebulizer for use four times 1units J44.1 [facility] 05/20/2019 Kit/Tubing/Mouthpie a day Nanette Palomino ce Kit Proair HFA inhale 2 puffs 8.5units J44.1 [facility] 05/20/2019 four times a [...] a day Nanette Palomino (2.5mg/3ML) 0.083% Nebulizer Multi-Vitamin/[place] 1 tablet daily 50tabs Karyna 05/09/2009 als [...] CPT Code Status Date Vaccine Lot # 52772 Given 05/06/2018 Fluzone High Dose 53991 Given 07/12/2015 Tdap - Tetanus/Diptheria/Acellular Pertussis 72916 Given 04/17/2015 Influenza Virus Vaccine, Quadrivalent, Split, [id number] Preservative Free 10499 Given 02/06/2015 Pneumococcal Conjugate Vaccine 13 Valent For [id number] Intramuscular Use 64888 Given 01/25/2014 Pneumonia Vaccine [id number] 82173 Given 04/02/2010 Influenza Virus 3Yrs & Over 45058 Given 05/09/2009 Influenza Virus Vaccine, Pandemic Formulation [id number] 74857 Given 05/09/2009 Administration Swine Flu Shot Vital [...] Test Result H/L Range Note Cytology 09/01/2019 [facility] Cytology SEE RESULT 1 Non-Greige Mender [address] [place], [place] [address] [phone] PDFReport SEE IMAGE Surgical 09/01/2019 [facility] Surgical SEE RESULT [address] [place] [address] [phone] PDFReport SEE IMAGE Cytology Non-Greige Mender 09/01/2019 [facility] Cytology Nongyn SEE RESULT [address] [place] [address] [phone] PDFReport SEE IMAGE CBC No Diff 09/01/2019 [facility] White Blood 6.7 10^3/uL Normal 3.5-10.[address] [place] [address] [phone] Red Blood Count 3.96 10^6/uL Normal 3.70-4.87 Hemoglobin 11.2 g/dL Low 12.0-16.0 Hematocrit 34 % Low 35-47 Mean Corpuscular Volume 85 fL Normal 80-97 Mean Corpuscular Hemoglobin 28 pg Normal 27-31 Mean Corpuscular HGB Conc 33 g/dL Normal 31-36 Red Cell Distribution Width 16 % High 10-15 Platelet Count 239 10^3/uL Normal 150-450 Mean Platelet Volume 8.9 fL Normal 7.4-10.4 Cytology Non-Greige Mender 07/28/2019 [facility] Cytology Nongyn SEE RESULT [address] [place] [address] [phone] PDFReport SEE IMAGE Body Fluid C&S 07/28/2019 [facility] Body Fluid Cult SEE RESULT BELOW [address] [place] [address] [phone] Body Fluid Cell 07/28/2019 [facility] Body Fluid Pleural Fluid Count [address] [place] [address] [phone] Body Fluid Appearance Cloudy Body Fluid Color Aleshia Body Fluid Volume 8 mL Body Fluid WBC 873 /mcL Normal 6 Body Fluid RBC 16321 /mcL Body Fluid Neutrophils 11 % Body Fluid Lymph 64 % Body Fluid [place] 25 % Body Fluid Other Cells 21 Body Fluid Total Cells Counted 100 Fluid Reviewed By MD (SEE NOTE) 7 Body Fluid Total 07/28/2019 [facility] Total Protein, BF 4.3 g/ dL [address] [place] [address] [phone] Fluid Type, Protein, Total PLEURAL 9 Body Fluid Glucose 07/28/2019 [facility] Glucose, BF 98 mg/dL [address] [place] [address] [phone] Fluid Type, Glucose PLEURAL 11 Lactate 07/28/2019 [facility] Lactate 134 U/L 12 Dehydrogenase,BF [address] Dehydrogenase, [place] [address] [phone] Fluid Source PLEURAL 13 Laboratory test 07/28/2019 [facility] Miscellaneous 7.7 [address] [place] [address] [phone] Laboratory test 07/13/2019 [facility] B-Type 400 High <=10 15 , [address] Natriuretic pg/mL 0 [place] [address] Peptide BNP [phone] Basic Metabolic 07/13/2019 [facility] Sodium 139 Normal 135- Panel [address] mmol/L 145 [place] [address] [phone] Potassium 4.4 mmol/L Normal 3.5-5.0 Chloride 102 mmol/L Normal 101-111 Co2 Carbon Dioxide 27 mmol/L Normal 22-32 Anion Gap 10 mmol/L Normal 2-11 Glucose 92 mg/dL Normal 70-100 Blood Urea Nitrogen 53 mg/dL High 6-24 Creatinine 1.92 mg/dL High 0.51-0.95 BUN/Creatinine Ratio 27.6 High 8-20 Calcium 8.7 mg/dL Normal 8.6-10.3 Egfr Non- 24.7 >60 Egfr 29.9 >60 17 Protein 07/13/2019 [facility] Total 6.2 Abnormal 6.3 - Electrophoresis [address] Protein(Pep) g/dL 7.9 [place], [place] [address] [phone] Albumin 2.5 g/dL Abnormal 3.4-4.7 Alpha-1 Globulin 0.6 g/dL Abnormal 0.1-0.3 Alpha-2 Globulin 1.2 g/dL Abnormal 0.6-1.0 Beta Globulin 0.9 g/dL 0.7-1.2 Gamma Globulin 1.1 g/dL 0.6-1.6 Albumin/Globulin Ratio 0.65 Impression See Comment 18 Iron & Iron 07/13/2019 [facility] Total Iron 259 g/dL 250- [address] [place] [address] Capacity [phone] Transferrin 185 mg/dL Low 203-362 Iron < 20 g/dL Low 50-212 Unsaturated Iron Binding < 244 g/dL % Iron Saturation 8 % Low 15-55 CBC Auto 07/13/2019 [facility] White Blood 15.1 10^3/uL High 3.5-10.[address] [place] [address] [phone] Red Blood Count 3.55 10^6/uL Low 3.70-4.87 [...] Blood Cells % 0.0 CBC Auto 06/15/2019 [facility] White Blood 7.5 10^3/uL Normal 3.5-10.8 [address] [place] [address] [phone] Red Blood Count 3.63 10^6/uL Low 3.70-4.87 [...] % 0.0 Iron & Iron Binding 06/15/2019 [facility] Iron 26 g/dL Low 50-[address] [place] [address] [phone] Unsaturated Iron Binding < 363 g/dL Total Iron Binding Capacity 378 g/dL Normal 250-450 Transferrin 270 mg/dL Normal 203-362 % Iron Saturation 7 % Low 15-55 Laboratory test 05/25/2019 [employer] [facility] In House Occult Blood NEG x3 20 finding Stool Diagnostic cards CBC Auto Diff 05/11/2019 [facility] White Blood 8.9 10^3/uL Normal 3.5-[address] Count .8 [place] [address] [phone] Red Blood Count 3.12 10^6/uL Low 3.70-4.87 [...] % 0.0 Iron & Iron Binding 05/11/2019 [facility] Iron 39 g/dL Low 50-212 Capacity [address] [place] [address] [phone] Unsaturated Iron Binding < 359 g/dL Total Iron Binding Capacity 374 g/dL Normal 250-450 Transferrin 267 mg/dL Normal 203-362 % Iron Saturation 10 % Low 15-55 Basic Metabolic 05/11/2019 [facility] Sodium 140 mmol/L Normal 135-145 Panel [address] [place] [address] [phone] Chloride 107 mmol/L Normal 101-111 Co2 Carbon [...] [address]: Daisy Matias MD Acct: [id number] Unit: [id number] AGE: 89 Location: OR Re09/01/19 SEX: F Status: [facility] SPEC: [id number] TAMMI: 09/01/19-1441 [facility] DR: Daisy Matias MD REQ: [id number] RECD: 09/01/19150 STATUS: SOUT _ ORDERED: LEVEL [...] ON NEXT PAGE DEPARTMENT OF PATHOLOGY, [address] [place] [address] Suman Vivar M.D. Director [facility] # [id number] GROSS DESCRIPTION 6 ml of cloudy red fluid. Signed by and Reported on: Kaci Bell MD 09/03/19 1321 END OF REPORT DEPARTMENT OF PATHOLOGY, [address] [place] [address] Suman Vivar M.D. Director [facility] # [id number] 2 SEE RESULT BELOW Name: MONCHO ARCINIEGA : [address]: Daisy Matias MD Acct: [id number] Unit: [id number] AGE: 89 Location: OR Re09/01/19 SEX: F Status: JANEEN OBANDO SPEC: [id number] TAMMI: 09/01/19-1430 [facility] DR: Daisy Matias MD REQ: [id number] RECD: 09/01/19-150 STATUS: SOUT _ ORDERED: LEVEL [...] 1120 END OF REPORT DEPARTMENT OF PATHOLOGY, [address] [place] [address] Suman Vivar M.D. Director [facility] # [id number] 3 SEE RESULT BELOW Name: MONCHO ARCINIEGA Shameka : [address]: Daisy Matias MD Acct: [id number] Unit: [id number] AGE: 89 Location: OR Re09/01/19 SEX: F Status: DEP PRC SPEC: [id number] TAMMI: 09/01/19-[address]: Daisy Matias MD REQ: [id number] RECD: 09/01/19-0692 STATUS: SOUT _ ORDERED: FNA-IMG GUID BX/4, [...] CONTINUED ON NEXT PAGE DEPARTMENT OF PATHOLOGY, [facility] [employer] [place], [place] [address] Suman Vivar M.D. Director [facility] # [id number] SPECIMEN(S) RECEIVED 1. LYMPH NODE - R-4 [...] 1427 END OF REPORT DEPARTMENT OF PATHOLOGY, [facility] [employer] [place], [place] [address] Suman Vivar M.D. Director [facility] # [id number] 4 SEE RESULT BELOW Name: MONCHO ARCINIEGA : [address]: Daisy Matias MD Acct: [id number] Unit: [id number] AGE: 89 Location: OR Re07/28/19 SEX: F Status: REG [facility] SPEC: [id number] TAMMI: 07/28/19-1237 [facility] DR: Daisy Matias MD REQ: [id number] RECD: 07/28/19-1254 STATUS: JOSE MENDOZA DR: Aaron [...] CONTINUED ON NEXT PAGE DEPARTMENT OF PATHOLOGY, [address] [place] [address] Suman Vivar M.D. Director [facility] # [id number] SPECIMEN(S) RECEIVED 1. PLEURAL - RIGHT PLEURAL EFFUSION CLINICAL HISTORY Right pleural effusion. GROSS DESCRIPTION 800 ml of cloudy red fluid. Signed by and Reported on: Kaci Bell MD 08/02/19 1636 END OF REPORT DEPARTMENT OF PATHOLOGY, [address] [place] [address] Suman Vivar M.D. Director [facility] # [id number] 5 SEE RESULT BELOW Name: MONCHO ARCINIEGA : [address]: Daisy Matias MD Acct: [id number] Unit: [id number] AGE: 89 Location: OR Re07/28/19 SEX: F Status: REG SDC SPEC: [id number] TAMMI: 07/28/19-1233 [facility] DR: Daisy Matias MD REQ: [id number] RECD: 07/28/19-1319 STATUS: COMP OTHR DR: Karyna [...] . END OF REPORT DEPARTMENT OF PATHOLOGY, [address] [place] [address] Suman Vivar M.D. Director [facility] # [id number] 6 -- REFERENCE VALUE -- Synovial: <150/mcL [...] clinical findings. All other fluids refer to www.P2Binvestor.360T for further interpretive information. This test has been modified from the nutritional yeast supervisor's instructions. Its performance characteristics were determined by [facility] in a manner consistent with CLIA requirements. This test has not been cleared or approved by the U.S. Food and Drug Administration. 9 Test Performed by: [place] [address] Payment Specialist: Red Hagan M.D. Ph.D.; CLIA# [id number] 10 REFERENCE VALUE See Comment ADDITIONAL INFORMATION [...] of infection. All other fluids refer to www.P2Binvestor.360T for further interpretive information. This test has been modified from the nutritional yeast supervisor's instructions. Its performance characteristics were determined by [facility] in a manner consistent with CLIA requirements. This test has not been cleared or approved by the U.S. Food and Drug Administration. 11 Test Performed by: [address] [address] Payment Specialist: Red Hagan M.D. Ph.D.; CLIA# [id number] 12 REFERENCE VALUE See Comment ADDITIONAL INFORMATION [...] clinical findings. All other fluids refer to www.P2Binvestor.360T for further interpretive information. This test has been modified from the nutritional yeast supervisor's instructions. Its performance characteristics were determined by [facility] in a manner consistent with CLIA requirements. This test has not been cleared or approved by the U.S. Food and Drug Administration. 13 Test Performed by: [address] [address] Payment Specialist: Red Hagan M.D. Ph.D.; CLIA# [id number] 14 Test Name Result Test Reported Date/Time: 07/30/2019 1805 ET pH, Body Fluid 7.7 Ref Range Not Established This reference interval(s) and other method performance specifications have not been established for this body fluid. The test must be integrated into the clinical context for interpretation. Comments; This test was developed and its performance characteristics determined by [employer]. It has not been cleared or approved by the Food and Drug Administration. Test Performed: [facility] [id number] Dir: Melia López MD 15 [id number] 16 [id number] 17 Because ethnic data is not always [...] protein on serum electrophoresis. Test Performed by: [place] [address] Payment Specialist: Red Hagan M.D. Ph.D.; CLIA# [id number] 19 [id number] 20 Negative x 3 cards 21 Specimen [...] dialysis) Procedures Date Code Description Status 09/01/2019 33963 Endobronchial Ultrasound =>3 Completed 09/01/2019 97485 bronchoscopy w/bx(s) (hosp) Completed 09/01/2019 70558 Bronchoscopy With Bronchial Alveolar Lavage Completed 07/28/2019 69299 Thoracentesis W/ Img Guidance Completed 04/09/2019 11703 EKG Tracing & Interpretation Completed 06/03/2016 564366752 Bone Mineral Density Test Completed 02/13/2015 74372626 Mammogram Completed 03/19/2013 09800276 Mammogram Completed 01/26/2013 666378372 Bone Mineral Density Test Completed 01/21/2012 88942268 Mammogram Completed 10/09/2010 555339279 Bone Mineral Density Test Completed 08/14/2007 02679781 Colonoscopy Completed Medical Devices Description No Information Available Encounters Type Date Location Provider Dx Diagnosis Office Visit 09/07/2019 [facility] Internal Karyna Palomino D64.9 Anemia, 10:40a Medicine Perry Ma M.D. 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 Office Visit 07/27/2019 8:30a Pulmonology And Daisy J90 Pleural effusion, Sleep Services Of MD Florencio not elsewhere It Communications Manager classified R91.8 Other nonspecific abnormal finding of lung field Office Visit 07/26/2019 11:40a [facility] Internal Angela Pollack Pleural effusion, Medicine - Francesca Fitzpatrick not elsewhere classified D64.9 Anemia, unspecified Office Visit 07/12/2019 2:00p [facility] Internal Roverto Raymond J44.1 Chronic obstructive Medicine - [facility] RESIN MAKER pulmonary disease w (acute) exacerbation R05 Cough Office Visit 05/20/2019 11:40a [facility] Internal Karyna D64.9 Anemia, Crista Palomino M.D. 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 I73.9 Peripheral vascular disease, unspecified I25.10 Athscl heart disease of [place] coronary artery w/o ang pctrs Office Visit 03/26/2019 10:40a [facility] Karyna J44.1 Chronic Medicine - Nanette Palomino obstructive [facility] pulmonary disease w (acute) exacerbation M79.605 Pain in left leg D64.9 Anemia, unspecified Z79.01 alf (current) use of anticoagulants Assessments Date Code Description Provider 09/08/2019 R91.8 Other nonspecific abnormal finding of lung Daisy Matias MD [facility] 09/08/2019 J44.9 Chronic obstructive pulmonary disease, Daisy Matias MD unspecified 09/07/2019 D64.9 Anemia, unspecified Karyna Palomino M.D. 09/01/2019 R91.8 Other nonspecific abnormal finding of lung Daisy Matias MD [facility] 08/17/2019 R91.8 Other nonspecific abnormal finding of lung Daisy Matias MD [facility] 08/09/2019 R91.8 Other nonspecific abnormal finding of lung Daisy Matias MD [facility] 08/06/2019 R91.8 Other nonspecific abnormal finding of lung Daisy Matias MD [facility] 08/06/2019 Z85.118 Personal history of other malignant Daisy Matias MD neoplasm of bronchus and lung 07/28/2019 J90 Pleural effusion, not elsewhere classified Daisy Matias MD 07/27/2019 J90 Pleural effusion, not elsewhere classified Daisy Matias MD 07/27/2019 R91.8 Other nonspecific abnormal finding of lung Daisy Matias MD [facility] 07/26/2019 J90 Pleural effusion, not elsewhere classified Karyna Palomino M.D. 07/26/2019 D64.9 Anemia, unspecified Karyna Palomino M.D. 07/12/2019 J44.1 Chronic obstructive pulmonary disease with Roverto Rayomnd, RESIN MAKER (acute) exacerbat 07/12/2019 R05 Cough Roverto Raymond, RESIN MAKER 05/25/2019 D64.9 Anemia, unspecified Nurse Visit A 05/20/2019 D64.9 Anemia, unspecified Karyna Palomino M.D. 05/20/2019 J44.1 Chronic obstructive pulmonary disease with Karyna Palomino M.D. 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 (acute) exacerbat 03/26/2019 M79.605 Pain in left leg Karyna Palomino M.D. 03/26/2019 D64.9 Anemia, unspecified Karyna Palomino M.D. 03/26/2019 Z79.01 alf (current) use of anticoagulants Karyna Palomino M.D. Plan of Treatment Future Appointment(s):11/10/2019 10:45 am - Daisy Matias MD at [facility]03/14/2020 11:00 am - Karyna Palomino M.D. at [facility] Internal Medicine - [facility]09/08/2019 - Daisy Matias, MDR91.8 Other nonspecific abnormal finding of lung fieldFollow up:2 months , CT ehdjfE83.9 Chronic obstructive pulmonary disease, unspecifiedNew Medication:Prednisone 10 mg - 1 by mouth every day Functional Status Description No Information Available Mental Status Description No Information Available Referrals Refer to Reason for Referral Status Appt Date Daisy Matias MD Sent 07/27/[address] [address] [phone]
--- OUTSIDE RECORDS SUMMARY | 2019-09-15 10:48 | XMS REPORT | Continuity of Care Document ---
:1930 External Reference #:[id number] Author Name Daisy Matias MD (transmitted by agent of provider Vaishali Barreto) Address [address], [address] [place] [address] Care Team Providers Name Role Phone Angel Dutton MD - Hematology Care Team Information [place] Floor Desk Clerk Diego Downing MD - Urology Care Team Information [place] Floor Desk Clerk [phone] Daisy Matias MD - Pulmonary Care Team Information [place] Floor Desk Clerk [phone] Disease Problems Active Problems Provider Date Benign [...] Use Denies Drug Use Smoking Status Reviewed: 08/06/19 Patient is a former smoker Exercise Type/Frequency Exercises sporadically Allergies, Adverse Reactions, Alerts Active Allergies Reaction Severity Comments Date Codeine Sulfate rash 05/09/2009 Medications Active Medications SIG Qnty Indications Ordering Date Provider Milk Of Magnesia [address] [facility] 05/20/2019 mouth daily as Nanette Palomino 400mg/5ML needed Suspension Nebulizer for use four times 1units J44.1 [facility] 05/20/2019 Kit/Tubing/Mouthpie a day Nanette Palomino ce Kit Proair HFA inhale 2 puffs 8.5units J44.1 [facility] 05/20/2019 four times a day Nanette Palomino 108(90Base) mcg/Act if needed Aerosol KP Ferrous Sulfate 325 mg by mouth Celso Madsen 04/09/2019 every day Nanette Nicholson 325(65Fe) mg Tablets Tylenol PM prn at night Karyna 03/26/2019 Tablets Nanette Palomino Furosemide 1 by mouth mondays 14tabs Karyna 01/25/2019 20mg wednesdays and Nanette Palomino Tablets fridays Lipitor 1 by mouth every 90tabs Karyna [...] a day Nanette Palomino (2.5mg/3ML) 0.083% Nebulizer Multi-Vitamin/[place] 1 tablet daily 50tabs Karyna 05/09/2009 als Nanette Palomino Tablets Spiriva Handihaler inhale the 30caps Karyna contents of one Nanette Palomino 18mcg Capsules capsule by mouth every day Clopidogrel 1 by mouth every 90tabs Celso DAicha Bisulfate other day pt takes Nanette Nicholson 75mg every other day Tablets Xarelto 1 by mouth every [place], [...] CPT Code Status Date Vaccine Lot # [id number] Given 05/06/2018 Fluzone High Dose 97017 Given 07/12/2015 Tdap - Tetanus/Diptheria/Acellular Pertussis 53656 Given 04/17/2015 Influenza Virus Vaccine, Quadrivalent, Split, [id number] Preservative Free 86581 Given 02/06/2015 Pneumococcal Conjugate Vaccine 13 Valent For [id number] Intramuscular Use 89634 Given 01/25/2014 Pneumonia Vaccine [id number] 90379 Given 04/02/2010 Influenza Virus 3Yrs & Over 24092 Given 05/09/2009 Influenza Virus Vaccine, Pandemic Formulation [id number] 47636 Given 05/09/2009 Administration Swine Flu Shot Vital Signs Date Vital Result Comment 08/06/2019 10:22am Height 61 inches 5'1" Weight 114.00 lb Heart Rate 91 /min BP Systolic Sitting 130 mmHg BP Diastolic Sitting 78 mmHg O2 % BldC Oximetry 96 % BMI (Body Mass Index) 21.5 kg/m2 07/27/2019 7:53am Height 61 inches 5'1" Weight 113.00 lb Heart Rate 90 /min BP Systolic Sitting 150 mmHg BP Diastolic Sitting 70 mmHg O2 % BldC Oximetry 94 % BMI (Body Mass Index) 21.3 kg/m2 Results Test Acquired Date Facility Test Result H/L Range Note Cytology 07/28/2019 [facility] Cytology SEE RESULT 1 Non-Detailer [address] [place] [address] [phone] PDFReport SEE IMAGE Body Fluid C&S 07/28/2019 [facility] Body Fluid Cult SEE RESULT BELOW [address] Gram Stain [place], [place] [id number] [phone] Body Fluid Cell 07/28/2019 [facility] Body Fluid Pleural Fluid Count [address] Source [place], [place] [address] [phone] Body Fluid Appearance Cloudy Body Fluid Color Aleshia Body Fluid Volume 8 mL Body Fluid WBC 873 /mcL Normal 3 Body Fluid RBC 58642 /mcL Body Fluid Neutrophils 11 % Body Fluid Lymph 64 % Body Fluid Dubois 25 % Body Fluid Other Cells 21 Body Fluid Total Cells Counted 100 Fluid Reviewed By MD (SEE NOTE) 4 Body Fluid Total 07/28/2019 [facility] Total Protein, BF 4.3 g/ dL [address] [place], [place] [address] [phone] Fluid Type, Protein, Total PLEURAL 6 Body Fluid Glucose 07/28/2019 [facility] Glucose, BF 98 mg/dL [address] [place], [place] [address] [phone] Fluid Type, Glucose PLEURAL 8 Lactate 07/28/2019 [facility] Lactate 134 U/L 9 Dehydrogenase,BF [address] Dehydrogenase, BF [place], [place] [id number] [phone] Fluid Source PLEURAL 10 Laboratory test 07/28/2019 [facility] Miscellaneous Test 7.[address] [place] [address] [phone] CBC Auto Diff 07/13/2019 [facility] White Blood Count 15.1 High 3.5-[address] 10^3/uL 0.8 [place] [address] [phone] Red Blood Count 3.55 10^6/uL Low 3.70-4.87 [...] Blood Cells % 0.0 Iron & Iron 07/13/2019 [facility] Total Iron 259 g/dL 250- [address] [place] [address] Capacity [phone] Transferrin 185 mg/dL Low 203-362 Iron < 20 g/dL Low 50-212 Unsaturated Iron Binding < 244 g/dL % Iron Saturation 8 % Low 15-55 Protein 07/13/2019 [facility] Total 6.2 Abnormal 6.3 - Electrophoresis [address] Protein(Pep) g/dL 7.9 [place], [place] [id number] [phone] Albumin 2.5 g/dL Abnormal 3.4-4.7 Alpha-1 Globulin 0.6 g/dL Abnormal 0.1-0.3 Alpha-2 Globulin 1.2 g/dL Abnormal 0.6-1.0 Beta Globulin 0.9 g/dL 0.7-1.2 Gamma Globulin 1.1 g/dL 0.6-1.6 Albumin/Globulin Ratio 0.65 Impression See Comment 13 Basic Metabolic 07/13/2019 [facility] Sodium 139 mmol/L Normal 135-[address] [place] [address] [phone] Potassium 4.4 mmol/L Normal 3.5-5.0 Chloride 102 mmol/L Normal 101-111 Co2 Carbon Dioxide 27 mmol/L Normal 22-32 Anion Gap 10 mmol/L Normal 2-11 Glucose 92 mg/dL Normal 70-100 Blood Urea Nitrogen 53 mg/dL High 6-24 Creatinine 1.92 mg/dL High 0.51-0.95 BUN/Creatinine Ratio 27.6 High 8-20 Calcium 8.7 mg/dL Normal 8.6-10.3 Egfr Non- 24.7 >60 Egfr 29.9 >60 14 Laboratory test 07/13/2019 [facility] B-Type 400 pg/mL High <= 100 [address] [place] [address] Peptide BNP [phone] Iron & Iron 06/15/2019 [facility] Iron 26 g/dL Low 50-212 [address] [place] [address] [phone] Unsaturated Iron Binding < 363 g/dL Total Iron Binding Capacity 378 g/dL Normal 250-450 Transferrin 270 mg/dL Normal 203-362 % Iron Saturation 7 % Low 15-55 CBC Auto 06/15/2019 [facility] White Blood 7.5 10^3/uL Normal 3.5-10.[address] [place] [address] [phone] Red Blood Count 3.63 10^6/uL Low 3.70-4.87 [...] % Nucleated Red Blood Cells % 0.0 Laboratory test 05/25/2019 [facility] Occult Blood NEG x3 17 finding Stool Diagnostic cards CBC Auto Diff 05/11/2019 [facility] White Blood 8.9 10^3/uL Normal 3.5-[address] Count .8 [place] [address] [phone] Red Blood Count 3.12 10^6/uL Low 3.70-4.87 [...] % 0.0 Iron & Iron Binding 05/11/2019 [facility] Iron 39 g/dL Low 50-[address] [place] [address] [phone] Unsaturated Iron Binding < 359 g/dL Total Iron Binding Capacity 374 g/dL Normal 250-450 Transferrin 267 mg/dL Normal 203-362 % Iron Saturation 10 % Low 15-55 Basic Metabolic 05/11/2019 [facility] Sodium 140 mmol/L Normal 135-[address] [place] [address] [phone] Chloride 107 mmol/L Normal 101-111 Co2 Carbon Dioxide 27 mmol/L Normal 22-32 Calcium 9.5 mg/dL Normal 8.6-10.3 Potassium TNP mmol/L 3.5-5.0 18 Anion Gap 6 mmol/L Normal 2-11 Glucose 71 mg/dL Normal 70-100 Blood Urea Nitrogen 31 mg/dL High 6-24 Creatinine 1.54 mg/dL High 0.51-0.95 BUN/Creatinine Ratio 20.1 High 8-20 Egfr Non- 31.9 >60 Egfr 38.6 >60 19 CBC Auto 02/09/2019 [facility] White Blood 9.0 10^3/uL Normal 3.5-10.8 [address] [place] [address] [phone] Red Blood Count 5.04 10^6/uL High 3.70-4.87 Hemoglobin 12.2 g/dL Normal 12.0-16.0 Hematocrit 39 % Normal 35-47 Mean Corpuscular Volume 78 fL Low 80-97 Mean Corpuscular Hemoglobin 24 pg Low 27-31 Mean Corpuscular HGB Conc 31 g/dL Normal 31-36 Red Cell Distribution Width 23 % High 10-15 21 Platelet Count 285 10^3/uL Normal 150-450 Mean Platelet Volume 9.3 fL Normal 7.4-10.4 Abs Neutrophils 6.4 10^3/uL Normal 1.5-7.7 Abs Lymphocytes 1.4 10^3/uL Normal 1.0-4.8 Abs Monocytes 0.8 10^3/uL Normal 0-0.8 Abs Eosinophils 0.3 10^3/uL Normal 0-0.6 Abs Basophils 0.1 10^3/uL Normal 0-0.2 Abs Nucleated RBC 0.0 10^3/uL Granulocyte % 71.4 % Lymphocyte % 15.5 % Monocyte % 8.8 % Eosinophil % 3.6 % Basophil % 0.7 % Nucleated Red Blood Cells % 0.1 Comp Metabolic 02/09/2019 [facility] Sodium 142 mmol/L Normal 135-[address] [place] [address] [phone] Potassium 4.1 mmol/L Normal 3.5-5.0 Chloride 104 mmol/L Normal 101-111 Co2 Carbon Dioxide 28 mmol/L Normal 22-32 Anion Gap 10 mmol/L Normal 2-11 Glucose 78 mg/dL Normal 70-100 Blood Urea Nitrogen 27 mg/dL High 6-24 Creatinine 1.35 mg/dL High 0.51-0.95 BUN/Creatinine Ratio 20.0 Normal 8-20 Calcium 10.4 mg/dL High 8.6-10.3 Total Protein 7.3 g/dL Normal 6.4-8.9 Albumin 4.4 g/dL Normal 3.2-5.2 Globulin 2.9 g/dL Normal 2-4 Albumin/Globulin Ratio 1.5 Normal 1-3 Total Bilirubin 0.50 mg/dL Normal 0.2-1.0 Alkaline Phosphatase 60 U/L Normal 34-104 Alt 14 U/L Normal 7-52 Ast 24 U/L Normal 13-39 Egfr Non- 37.2 >60 Egfr 45.0 >60 22 Iron & Iron Binding 02/09/2019 [facility] Iron 38 g/dL Low 50-[address] [place], [place] [address] [phone] Unsaturated Iron Binding < 413 g/dL Total Iron Binding Capacity 428 g/dL Normal 250-450 Transferrin 306 mg/dL Normal 203-362 % Iron Saturation 9 % Low 15-55 Laboratory test 02/09/2019 [facility] C Reactive 4.68 Normal < 8.01 [address] Protein mg/L [place], [place] [address] [phone] Protein 02/09/2019 [facility] Total 7.0 6.3 - Electrophoresis [address] Protein(Pep) g/dL 7.9 [place], [place] [address] [phone] Albumin 3.4 g/dL 3.4-4.7 Alpha-1 Globulin 0.3 g/dL 0.1-0.3 Alpha-2 Globulin 1.1 g/dL Abnormal 0.6-1.0 Beta Globulin 0.9 g/dL 0.7-1.2 Gamma Globulin 1.3 g/dL 0.6-1.6 Albumin/Globulin Ratio 0.94 Impression See Comment 24 1 SEE RESULT BELOW Name: MONCHO ARCINIEGA : [address]: Daisy Matias MD Acct: [id number] Unit: [id number] AGE: 89 Location: [place] Re07/28/19 SEX: F Status: REG SDC SPEC: [id number] TAMMI: 07/28/19-1237 [facility] DR: Daisy Matias MD REQ: [id number] RECD: 07/28/19-125 STATUS: JOSE MENDOZA DR: Aaron [...] CONTINUED ON NEXT PAGE DEPARTMENT OF PATHOLOGY, [address] [place] [address] Suman Vivar M.D. Director [facility] # [id number] SPECIMEN(S) RECEIVED 1. PLEURAL - RIGHT PLEURAL EFFUSION CLINICAL HISTORY Right pleural effusion. GROSS DESCRIPTION 800 ml of cloudy red fluid. Signed by and Reported on: Kaci Bell MD 08/02/19 1636 END OF REPORT DEPARTMENT OF PATHOLOGY, [address] [place] [address] Suman Vivar M.D. Director [facility] # [id number] 2 SEE RESULT BELOW Name: MONCHO ARCINIEGA : [address]: Daisy Matias MD Acct: [id number] Unit: [id number] AGE: 89 Location: OR Re07/28/19 SEX: F Status: REG TOPHERC SPEC: [id number] TAMMI: 07/28/19-1233 [facility] DR: Daisy Matias MD REQ: [id number] RECD: 07/28/19-1318 STATUS: SIVAKUMAR MENDOZA DR: Karyna Palomino MD _ SOURCE: PLEURAL FL SPDESC: ORDERED: BF Cult/GS Procedure Result Reported Site Body Fluid Gram Stain Final 07/28/19- 1525 ML 4+ Nucleated Cells 2+ Neutrophils No Organisms Seen Preparation By Cytospin Smear Body Fluid Culture Final 08/01/19- 1007 ML No Growth Day 4 * ML - Main Lab . END OF REPORT DEPARTMENT OF PATHOLOGY, [address] [place] [address] Suman Vivar M.D. Director [facility] # [id number] 3 -- REFERENCE VALUE -- Synovial: <150/mcL Peritoneal: <500/mcL Pleural: <500/mcL Pericardial: <500/mcL 4 No evidence of an acute inflammatory response. No evidence of malignancy. Reviewed by Kaci Bell MD 5 REFERENCE VALUE See Comment ADDITIONAL INFORMATION A [...] clinical findings. All other fluids refer to [email or web address] for further interpretive information. This test has been modified from the cellophane bath mixer's instructions. Its performance characteristics were determined by [facility] in a manner consistent with CLIA requirements. This test has not been cleared or approved by the U.S. Food and Drug Administration. 6 Test Performed by: [facility] - [place] [address] Cancer Spec: Red Hagan M.D. Ph.D.; CLIA# [id number] 7 REFERENCE VALUE See Comment ADDITIONAL INFORMATION Body [...] of infection. All other fluids refer to [email or web address].[email or web address] for further interpretive information. This test has been modified from the cellophane bath mixer's instructions. Its performance characteristics were determined by [facility] in a manner consistent with CLIA requirements. This test has not been cleared or approved by the U.S. Food and Drug Administration. 8 Test Performed by: [facility] - [address] [address] Cancer Spec: Red Hagan M.D. Ph.D.; CLIA# [id number] 9 REFERENCE VALUE See Comment ADDITIONAL INFORMATION Pleural [...] clinical findings. All other fluids refer to [email or web address] for further interpretive information. This test has been modified from the cellophane bath mixer's instructions. Its performance characteristics were determined by [facility] in a manner consistent with CLIA requirements. This test has not been cleared or approved by the U.S. Food and Drug Administration. 10 Test Performed by: [facility] - [place] [id number] Cancer Spec: Red Hagan M.D. Ph.D.; CLIA# [id number] 11 Test Name Result Test Reported Date/Time: 07/30/2019 1805 ET pH, Body Fluid 7.7 Ref Range Not Established This reference interval(s) and other method performance specifications have not been established for this body fluid. The test must be integrated into the clinical context for interpretation. Comments; This test was developed and its performance characteristics determined by [facility]. It has not been cleared or approved by the Food and Drug Administration. Test Performed: [facility] [id number] Dir: Melia López MD 12 [id number] RESULT: No apparent monoclonal protein on serum electrophoresis. Test Performed by: [facility] [address] [place] [id number] Cancer Spec: Red Hagan M.D. Ph.D.; CLIA# [id number] 14 Because ethnic data is not always readily [...] 15-29 5 Kidney failure <15 (or dialysis) 15 [id number] 17 Negative x 3 cards 18 Specimen Hemolyzed. Result may not be valid. Unable to report test result due to hemolysis. 19 Because ethnic data is not always readily [...] 15-29 5 Kidney failure <15 (or dialysis) 20 [id number] 21 Consistent with Previous Results Reported on 01/19/19 22 Because ethnic data is not always [...] 5 Kidney failure <15 (or dialysis) 23 [id number] 24 RESULT: No apparent monoclonal protein on serum electrophoresis. Test Performed by: [facility] [address] [place] [address] Procedures Date Code Description Status 07/28/2019 67955 Thoracentesis W/ Img Guidance Completed 04/09/2019 64359 EKG Tracing & Interpretation Completed 06/03/2016 630294102 Bone Mineral Density Test Completed 02/13/2015 92440195 Mammogram Completed 03/19/2013 21282760 Mammogram Completed 01/26/2013 187466844 Bone Mineral Density Test Completed 01/21/2012 11774051 Mammogram Completed 10/09/2010 888971466 Bone Mineral Density Test Completed 08/14/2007 08793492 Colonoscopy Completed Medical Devices Description No Information Available Encounters Type Date Location Provider Dx Diagnosis Office Visit 08/06/2019 [facility] Daisy Florencio, R91.8 Other nonspecific 10:30a [facility] abnormal finding of [facility] lung field 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 Office Visit 07/27/2019 8:30a Pulmonology And Daisy J90 Pleural effusion, [facility] MD Florencio not elsewhere Combine [employer] classified R91.8 Other nonspecific abnormal finding of lung field Office Visit 07/26/2019 11:40a [facility] Internal Angela Pollack Pleural effusion, Medicine - Francesca Fitzpatrick not elsewhere classified D64.9 Anemia, unspecified Office Visit 07/12/2019 2:00p [facility] Internal Roverto Raymond, J44.1 Chronic obstructive Medicine - [facility] [employer] SU[employer] LIAISON pulmonary disease w (acute) exacerbation R05 Cough Office Visit 05/20/2019 11:40a [facility] Internal Karyna D64.9 Anemia, Medicine Perry Palomino M.D. 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 I73.9 Peripheral vascular disease, unspecified I25.10 Athscl heart disease of [place] coronary artery w/o ang pctrs Office Visit 03/26/2019 10:40a [facility] Internal Karyna J44.1 Chronic Medicine - Nanette Palomino obstructive [facility] pulmonary disease w (acute) exacerbation M79.605 Pain in left leg D64.9 Anemia, unspecified Z79.01 snf (current) use of anticoagulants Assessments Date Code Description Provider 08/06/2019 R91.8 Other nonspecific abnormal finding of lung Daisy Matias MD [facility] 08/06/2019 Z85.118 Personal history of other malignant Daisy Matias MD neoplasm of bronchus and lung 07/28/2019 J90 Pleural effusion, not elsewhere classified Daisy Matias MD 07/27/2019 J90 Pleural effusion, not elsewhere classified Daisy Matias MD 07/27/2019 R91.8 Other nonspecific abnormal finding of lung Daisy Matias MD [facility] 07/26/2019 J90 Pleural effusion, not elsewhere classified Karyna Palomino M.D. 07/26/2019 D64.9 Anemia, unspecified Karyna Palomino M.D. 07/12/2019 J44.1 Chronic obstructive pulmonary disease with Roverto Raymond, BUSINESS SU[employer] LIAISON (acute) exacerbat 07/12/2019 R05 Cough Roverto Raymond, [employer] LIAISON 05/25/2019 D64.9 Anemia, unspecified Nurse Visit A 05/20/2019 D64.9 Anemia, unspecified Karyna Palomino M.D. 05/20/2019 J44.1 Chronic obstructive pulmonary disease with Karyna Palomino M.D. 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 (acute) exacerbat 03/26/2019 M79.605 Pain in left leg Karyna Palomino M.D. 03/26/2019 D64.9 Anemia, unspecified Karyna Palomino M.D. 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 Plan of Treatment Future Appointment(s):09/02/2019 10:30 am - Daisy Matias MD at [facility]09/07/2019 10:40 am - Karyna Palomino M.D. at [facility] Internal Medicine - [facility]08/06/2019 - Daisy Matias, MDR91.8 Other nonspecific abnormal finding of lung fieldNew Orders:Endobronchial Ultrasound ([place]), Ordered: 08/06/19Follow up:2 lrjpfP13.118 Personal history of other malignant neoplasm of bronchus and lung Functional Status Description No Information Available Mental Status Description No Information Available Referrals Refer to Reason for Referral Status Appt Date Daisy Matias MD Sent 07/27/[address] [place] [address] [address] [place] [phone]
--- OUTSIDE RECORDS SUMMARY | 2019-09-15 10:48 | XMS REPORT | Continuity of Care Document ---
:1930 External Reference #:[id number] Author Name Daisy Matias MD (transmitted by agent of provider Sonali Mccall) Address [address], [address] [place] [address] Care Team Providers Name Role Phone Angel Dutton MD - Hematology Care Team Information Human Resources Admin [phone] Diego Downing MD - Urology Care Team Information Human Resources Admin [phone] Daisy Matias MD - Pulmonary Care Team Information Human Resources Admin Disease Problems Active Problems Provider Date Benign [...] Use Denies Drug Use Smoking Status Reviewed: 07/27/19 Patient is a former smoker Exercise Type/Frequency Exercises sporadically Allergies, Adverse Reactions, Alerts Active Allergies Reaction Severity Comments Date Codeine Sulfate rash 05/09/2009 Medications Active Medications SIG Qnty Indications Ordering Date Provider Milk Of Magnesia 30 milliliters by 355ml [facility] 05/20/2019 mouth daily as Nanette Palomino 400mg/5ML needed Suspension Nebulizer for use four times 1units J44.1 [facility] 05/20/2019 Kit/Tubing/Mouthpie a day Nanette Palomino ce Kit Proair HFA inhale 2 puffs 8.5units J44.1 [facility] 05/20/2019 four times a day [...] Pantoprazole Sodium Take One Tablet By 90tabs [facility] 08/31/2018 Mouth Every Day Nanette Palomino 20mg Tablets DR Calcium Magnesium bid [facility] 11/19/2016 Zinc Nanette Palomino Tablets Metoprolol Take One Tablet By 180tabs I21.4 [facility] 11/08/2014 Succinate ER Mouth Twice A Day Nanette Palomino 25mg Tablets ER 24HR Ramipril take one capsule 90caps [facility] 11/04/2014 2.5mg by mouth every day Nanette Palomino Capsules Budesonide 1 vial in 180ml J44.9 [facility] 07/16/2011 nebulizer twice Nanette Palomino 0.25mg/2ML daily Suspension Albuterol Sulfate use 1 vial four 300units [facility] 12/27/2009 times a day Nanette Palomino (2.5mg/3ML) 0.083% Nebulizer Multi-Vitamin/Charge Entry 1 tablet daily 50tabs [facility] 05/09/2009 als [...] Qnty Indications Ordering Provider Date Triamcinolone (Kenalog) aBiley Hutchinson MD 06/11/2016 Injection Immunizations CPT Code Status Date Vaccine Lot # [id number] Given 05/06/2018 Fluzone High Dose 83257 Given 07/12/2015 Tdap - Tetanus/Diptheria/Acellular Pertussis 14335 Given 04/17/2015 Influenza Virus Vaccine, Quadrivalent, Split, [id number] Preservative Free 35283 Given 02/06/2015 Pneumococcal Conjugate Vaccine 13 Valent For [id number] Intramuscular Use 46036 Given 01/25/2014 Pneumonia Vaccine [id number] 88908 Given 04/02/2010 Influenza Virus 3Yrs & Over 57617 Given 05/09/2009 Influenza Virus Vaccine, Pandemic Formulation [id number] 84673 Given 05/09/2009 Administration Swine Flu Shot Vital Signs Date Vital Result Comment 07/27/2019 7:53am Height 61 inches 5'1" Weight 113.00 lb Heart Rate 90 /min BP Systolic Sitting 150 mmHg BP Diastolic Sitting 70 mmHg O2 % BldC Oximetry 94 % BMI (Body Mass Index) 21.3 kg/m2 07/26/2019 11:46am Height 61 inches 5'1" Weight 112.00 lb Heart Rate 86 /min BP Systolic 140 mmHg BP Diastolic 68 mmHg BP Systolic Sitting 154 mmHg recheck BP Diastolic Sitting 69 mmHg recheck O2 % BldC Oximetry 97 % BMI (Body Mass Index) 21.2 kg/m2 Results Test Acquired Date Facility Test Result H/L Range Note CBC Auto 07/13/2019 White Blood 15.1 10^3/uL High 3.5-10.[address] [place] [address] [phone] Red Blood Count 3.55 10^6/uL Low 3.70-4.87 [...] Cells % 0.0 Iron & Iron 07/13/2019 Total Iron 259 g/dL 250- [address] [place] [address] Capacity [phone] Transferrin 185 mg/dL Low 203-362 Iron < 20 g/dL Low 50-212 Unsaturated Iron Binding < 244 g/dL % Iron Saturation 8 % Low 15-55 Protein 07/13/2019 Total 6.2 Abnormal 6.3 - Electrophoresis [address] Protein(Pep) g/dL 7.9 [place], [place] [id number] [phone] Albumin 2.5 g/dL Abnormal 3.4-4.7 Alpha-1 Globulin 0.6 g/dL Abnormal 0.1-0.3 Alpha-2 Globulin 1.2 g/dL Abnormal 0.6-1.0 Beta Globulin 0.9 g/dL 0.7-1.2 Gamma Globulin 1.1 g/dL 0.6-1.6 Albumin/Globulin Ratio 0.65 Impression See Comment 2 Basic Metabolic 07/13/2019 Sodium 139 mmol/L Normal 135-[address] [place] [address] [phone] Potassium 4.4 mmol/L Normal 3.5-5.0 Chloride 102 mmol/L Normal 101-111 Co2 Carbon Dioxide 27 mmol/L Normal 22-32 Anion Gap 10 mmol/L Normal 2-11 Glucose 92 mg/dL Normal 70-100 Blood Urea Nitrogen 53 mg/dL High 6-24 Creatinine 1.92 mg/dL High 0.51-0.95 BUN/Creatinine Ratio 27.6 High 8-20 Calcium 8.7 mg/dL Normal 8.6-10.3 Egfr Non- 24.7 >60 Egfr 29.9 >60 3 Laboratory 07/13/2019 B-Type 400 pg/mL High <=100 4 test finding [address] [place] [address] Peptide BNP [phone] CBC Auto Diff 06/15/2019 White Blood 7.5 Normal 3.5 -10.[address] Count 10^3/[place] [address] [phone] Red Blood Count 3.63 10^6/uL Low 3.70-4.87 [...] % 0.0 Iron & Iron Binding 06/15/2019 Iron 26 g/dL Low 50-[address] [place] [address] [phone] Unsaturated Iron Binding < 363 g/dL Total Iron Binding Capacity 378 g/dL Normal 250-450 Transferrin 270 mg/dL Normal 203-362 % Iron Saturation 7 % Low 15-55 Laboratory test 05/25/2019 Property Developer In House Occult Blood NEG x3 6 finding Stool Diagnostic cards Basic Metabolic 05/11/2019 Sodium 140 mmol/L Normal 135-[address] [place] [address] [phone] Chloride 107 mmol/L Normal 101-111 Co2 Carbon Dioxide 27 mmol/L Normal 22-32 Calcium 9.5 mg/dL Normal 8.6-10.3 Potassium TNP mmol/L 3.5-5.0 7 Anion Gap 6 mmol/L Normal 2-11 Glucose 71 mg/dL Normal 70-100 Blood Urea Nitrogen 31 mg/dL High 6-24 Creatinine 1.54 mg/dL High 0.51-0.95 BUN/Creatinine Ratio 20.1 High 8-20 Egfr Non- 31.9 >60 Egfr 38.6 >60 8 Iron & Iron Binding 05/11/2019 Iron 39 g/dL Low 50-[address] [place] [address] [phone] Unsaturated Iron Binding < 359 g/dL Total Iron Binding Capacity 374 g/dL Normal 250-450 Transferrin 267 mg/dL Normal 203-362 % Iron Saturation 10 % Low 15-55 CBC Auto 05/11/2019 White Blood 8.9 10^3/uL Normal 3.5-10.[address] [place] [address] [phone] Red Blood Count 3.12 10^6/uL Low 3.70-4.87 [...] Red Blood Cells % 0.0 CBC Auto 02/09/2019 White Blood 9.0 10^3/uL Normal 3.5-10.8 [address] [place] [address] [phone] Red Blood Count 5.04 10^6/uL High 3.70-4.87 Hemoglobin 12.2 g/dL Normal 12.0-16.0 Hematocrit 39 % Normal 35-47 Mean Corpuscular Volume 78 fL Low 80-97 Mean Corpuscular Hemoglobin 24 pg Low 27-31 Mean Corpuscular HGB Conc 31 g/dL Normal 31-36 Red Cell Distribution Width 23 % High 10-15 10 Platelet Count 285 10^3/uL Normal 150-450 Mean [...] Blood Cells % 0.1 Comp Metabolic 02/09/2019 Sodium 142 mmol/L Normal 135-[address] [place] [address] [phone] Potassium 4.1 mmol/L Normal 3.5-5.0 Chloride 104 [...] Egfr Non- 37.2 >60 Egfr 45.0 >60 11 Iron & Iron Binding 02/09/2019 Iron 38 g/dL Low 50-[address] [place] [address] [phone] Unsaturated Iron Binding < 413 g/dL Total Iron Binding Capacity 428 g/dL Normal 250-450 Transferrin 306 mg/dL Normal 203-362 % Iron Saturation 9 % Low 15-55 Laboratory test 02/09/2019 C Reactive 4.68 Normal < 8.[address] Protein mg/[place] [address] [phone] Protein 02/09/2019 Total 7.0 6.3 - Electrophoresis [address] Protein(Pep) g/dL 7.9 [place] [address] [phone] Albumin 3.4 g/dL 3.4-4.7 Alpha-1 Globulin 0.3 g/dL 0.1-0.3 Alpha-2 Globulin 1.1 g/dL Abnormal 0.6-1.0 Beta Globulin 0.9 g/dL 0.7-1.2 Gamma Globulin 1.3 g/dL 0.6-1.6 Albumin/Globulin Ratio 0.94 Impression See Comment 13 1 [id number] 2 RESULT: No apparent monoclonal protein on serum electrophoresis. Test Performed by: [facility] [address] [place] [address] Locomotive Operator: Red Hagan M.D. Ph.D.; IA# [id number] 3 Because ethnic data is not always [...] 5 Kidney failure <15 (or dialysis) 4 [id number] 5 [id number] 6 Negative x 3 cards 7 Specimen Hemolyzed. Result may not be valid. Unable to report test result due to hemolysis. 8 Because ethnic data is not always [...] 5 Kidney failure <15 (or dialysis) 9 [id number] 10 Consistent with Previous Results Reported on 01/19/19 11 Because ethnic data is not always readily [...] 15-29 5 Kidney failure <15 (or dialysis) 12 [id number] 13 RESULT: No apparent monoclonal protein on serum electrophoresis. Test Performed by: [facility] [address] [place] [address] Procedures Date Code Description Status 04/09/2019 [id number] EKG Tracing & Interpretation Completed 06/03/2016 [id number] Bone Mineral Density Test Completed 02/13/2015 [id number] Mammogram Completed 03/19/2013 [id number] Mammogram Completed 01/26/2013 [id number] Bone Mineral Density Test Completed 01/21/2012 [id number] Mammogram Completed 10/09/2010 [id number] Bone Mineral Density Test Completed 08/14/2007 [id number] Colonoscopy Completed Medical Devices Description No Information Available Encounters Type Date Location Provider Dx Diagnosis Office Visit 07/12/2019 [facility] Roverto Andrade NP J44.1 Chronic obstructive 2:00p Medicine - [facility] pulmonary disease w (acute) exacerbation R05 Cough Office Visit 05/20/2019 11:40a [facility] Internal Karyna D64.9 Anemia, Medicine - Nanette Palomino unspecified [facility] J44.1 Chronic obstructive pulmonary disease w (acute) exacerbation Office Visit 04/09/2019 10:30a [facility] Celso Madsen 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 07/26/2019 D64.9 Anemia, unspecified Karyna Palomino M.D. 07/12/2019 J44.1 Chronic obstructive pulmonary disease with Rovertodeisi Andrade NP (acute) exacerbat 07/12/2019 R05 Cough Roverto Raymond, GREEN COFFEE BLENDER 05/25/2019 D64.9 Anemia, unspecified Nurse Visit A 05/20/2019 D64.9 Anemia, unspecified Karyna Palomino M.D. 05/20/2019 J44.1 Chronic obstructive pulmonary disease with Karyna Palomino M.D. 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 (acute) exacerbat 03/26/2019 M79.605 Pain in left leg Karyna Palomino M.D. 03/26/2019 D64.9 Anemia, unspecified Karyna Palomino M.D. 03/26/2019 Z79.01 half-way (current) use of anticoagulants Karyna Palomino M.D. Plan of Treatment Future Appointment(s):08/06/2019 10:30 am - Daisy [facility]07/28/2019 12:00 pm - Daisy Matias MD at [facility]/07/2019 10:40 am - Karyna Palomino M.D. at [facility] Internal Medicine - [facility]07/27/2019 - Daisy Matias MDJ90 Pleural effusion, not elsewhere classifiedNew Xrays:US Thoracentesis, Scheduled: Follow up:1 weekJ98.4 Other disorders of lung Functional Status Description No Information Available Mental Status Description No Information Available Referrals Refer to Dr Reason for Referral Status Appt Date Daisy Matias MD Sent 07/27/[address] [address] [phone]
--- OUTSIDE RECORDS SUMMARY | 2019-09-15 10:49 | XMS REPORT | Continuity of Care Document ---
:1930 External Reference #:[id number] Author Name Karyna Palomino M.D. (transmitted by agent of provider Angela Tidwell) Address [address], [place] [address] Care Team Providers Name Role Phone Angel Dutton MD - Hematology Care Team Information Tape Making Machine Operator Diego Downing MD - Urology Care Team Information Tape Making Machine Operator [phone] Daisy Matias MD - Pulmonary Care Team Information Tape Making Machine Operator Disease Problems Active Problems Provider Date Benign [...] Use Denies Drug Use Smoking Status Reviewed: 07/26/19 Patient is a former smoker Exercise Type/Frequency Exercises sporadically Allergies, Adverse Reactions, Alerts Active Allergies Reaction Severity Comments Date Codeine Sulfate rash 05/09/2009 Medications Active Medications SIG Qnty Indications Ordering Date Provider Milk Of Magnesia 30 milliliters by 355ml [facility] 05/20/2019 mouth daily as Nanette Palomino 400mg/5ML needed Suspension Nebulizer for use four times 1units J44.1 [facility] 05/20/2019 Kit/Tubing/Mouthpie a day Nanette Palomino ce Kit Proair HFA inhale 2 puffs 8.5units J44.1 [facility] 05/20/2019 four times a day Nanette [...] Pantoprazole Sodium Take One Tablet By 90tabs [facility] 08/31/2018 Mouth Every Day Nanette Palomino [...] in 180ml J44.9 [facility] 07/16/2011 nebulizer twice Nnaette Palomino 0.25mg/2ML daily Suspension Albuterol Sulfate use 1 vial four 300units [facility] 12/27/2009 times a day Nanette Palomino (2.5mg/3ML) 0.083% Nebulizer Multi-Vitamin/Scaffold Worker 1 tablet daily 50tabs [facility] 05/09/2009 als [...] CPT Code Status Date Vaccine Lot # [id number] Given 05/06/2018 Fluzone High Dose 35414 Given 07/12/2015 Tdap - Tetanus/Diptheria/Acellular Pertussis 50641 Given 04/17/2015 Influenza Virus Vaccine, Quadrivalent, Split, [id number] Preservative Free 84071 Given 02/06/2015 Pneumococcal Conjugate Vaccine 13 Valent For [id number] Intramuscular Use 41554 Given 01/25/2014 Pneumonia Vaccine [id number] 79689 Given 04/02/2010 Influenza Virus 3Yrs & Over 12120 Given 05/09/2009 Influenza Virus Vaccine, Pandemic Formulation [id number] 62888 Given 05/09/2009 Administration Swine Flu Shot Vital Signs Date Vital Result Comment 07/26/2019 11:46am Height 61 inches 5'1" Weight 112.00 lb Heart Rate 86 /min BP Systolic 140 mmHg BP Diastolic 68 mmHg BP Systolic Sitting 154 mmHg recheck BP Diastolic Sitting 69 mmHg recheck O2 % BldC Oximetry 97 % BMI (Body Mass Index) 21.2 kg/m2 07/12/2019 2:24pm Height 61 inches 5'1" Weight 129.00 lb Heart Rate 104 /min BP Systolic Sitting 158 mmHg BP Diastolic Sitting 70 mmHg Body Temperature 98.6 F O2 % BldC Oximetry 89 % 94 on recheck BMI (Body Mass Index) 24.4 kg/m2 Results Test Acquired Date Facility Test Result H/L Range Note CBC Auto 07/13/2019 [facility] White Blood 15.1 10^3/uL High 3.5-10.8 [address] [place] [address] [phone] Red Blood Count 3.55 10^6/uL Low 3.70-4.87 [...] Cells % 0.0 Iron & Iron 07/13/2019 [facility] Total Iron 259 g/dL 250- [address] [place] [address] Capacity [phone] Transferrin 185 mg/dL Low 203-362 Iron < 20 g/dL Low 50-212 Unsaturated Iron Binding < 244 g/dL % Iron Saturation 8 % Low 15-55 Protein 07/13/2019 [facility] Total 6.2 Abnormal 6.3 - Electrophoresis [address] Protein(Pep) g/dL 7.9 [place] [address] [phone] Albumin 2.5 g/dL Abnormal 3.4-4.7 Alpha-1 Globulin 0.6 g/dL Abnormal 0.1-0.3 Alpha-2 Globulin 1.2 g/dL Abnormal 0.6-1.0 Beta Globulin 0.9 g/dL 0.7-1.2 Gamma Globulin 1.1 g/dL 0.6-1.6 Albumin/Globulin Ratio 0.65 Impression See Comment 2 Basic Metabolic 07/13/2019 [facility] Sodium 139 mmol/L Normal 135-[address] [place] [address] [phone] Potassium 4.4 mmol/L Normal 3.5-5.0 Chloride 102 mmol/L Normal 101-111 Co2 Carbon Dioxide 27 mmol/L Normal 22-32 Anion Gap 10 mmol/L Normal 2-11 Glucose 92 mg/dL Normal 70-100 Blood Urea Nitrogen 53 mg/dL High 6-24 Creatinine 1.92 mg/dL High 0.51-0.95 BUN/Creatinine Ratio 27.6 High 8-20 Calcium 8.7 mg/dL Normal 8.6-10.3 Egfr Non- 24.7 >60 Egfr 29.9 >60 3 Laboratory 07/13/2019 [facility] B-Type 400 pg/mL High <=100 4 test finding [address] [place] [address] Peptide BNP [phone] CBC Auto Diff 06/15/2019 [facility] White Blood 7.5 Normal 3.5 -10.[address] Count 10^3/[place] [address] [phone] Red Blood Count 3.63 10^6/uL Low 3.70-4.87 [...] % 0.0 Iron & Iron Binding 06/15/2019 [facility] Iron 26 g/dL Low 50-[address] [place] [address] [phone] Unsaturated Iron Binding < 363 g/dL Total Iron Binding Capacity 378 g/dL Normal 250-450 Transferrin 270 mg/dL Normal 203-362 % Iron Saturation 7 % Low 15-55 Laboratory test 05/25/2019 Senior Project Coordinator In House Occult Blood NEG x3 6 finding Stool Diagnostic cards Basic Metabolic 05/11/2019 [facility] Sodium 140 mmol/L Normal 135-[address] [place] [address] [phone] Chloride 107 mmol/L Normal 101-111 Co2 Carbon Dioxide 27 mmol/L Normal 22-32 Calcium 9.5 mg/dL Normal 8.6-10.3 Potassium TNP mmol/L 3.5-5.0 7 Anion Gap 6 mmol/L Normal 2-11 Glucose 71 mg/dL Normal 70-100 Blood Urea Nitrogen 31 mg/dL High 6-24 Creatinine 1.54 mg/dL High 0.51-0.95 BUN/Creatinine Ratio 20.1 High 8-20 Egfr Non- 31.9 >60 Egfr 38.6 >60 8 Iron & Iron Binding 05/11/2019 [facility] Iron 39 g/dL Low 50-[address] [place] [address] [phone] Unsaturated Iron Binding < 359 g/dL Total Iron Binding Capacity 374 g/dL Normal 250-450 Transferrin 267 mg/dL Normal 203-362 % Iron Saturation 10 % Low 15-55 CBC Auto 05/11/2019 [facility] White Blood 8.9 10^3/uL Normal 3.5-10.[address] [place] [address] [phone] Red Blood Count 3.12 10^6/uL Low 3.70-4.87 [...] Blood Cells % 0.0 CBC Auto 02/09/2019 [facility] White Blood 9.0 10^3/uL Normal 3.5-10.8 [address] Count [place], [place] [address] [phone] Red Blood Count 5.04 10^6/uL High 3.70-4.87 [...] Blood Cells % 0.1 Comp Metabolic 02/09/2019 [facility] Sodium 142 mmol/L Normal 135-[address] [place] [address] [phone] Potassium 4.1 mmol/L Normal 3.5-5.0 Chloride 104 [...] >60 11 Iron & Iron Binding 02/09/2019 [facility] Iron 38 g/dL Low 50-[address] [place] [address] [phone] Unsaturated Iron Binding < 413 g/dL Total Iron Binding Capacity 428 g/dL Normal 250-450 Transferrin 306 mg/dL Normal 203-362 % Iron Saturation 9 % Low 15-55 Laboratory test 02/09/2019 [facility] C Reactive 4.68 Normal < 8.[address] Protein mg/[place] [address] [phone] Protein 02/09/2019 [facility] Total 7.0 6.3 - Electrophoresis [address] Protein(Pep) g/dL 7.9 [place] [address] [phone] Albumin 3.4 g/dL 3.4-4.7 Alpha-1 Globulin 0.3 g/dL 0.1-0.3 Alpha-2 Globulin 1.1 g/dL Abnormal 0.6-1.0 Beta Globulin 0.9 g/dL 0.7-1.2 Gamma Globulin 1.3 g/dL 0.6-1.6 Albumin/Globulin Ratio 0.94 Impression See Comment 13 1 [id number] 2 RESULT: No apparent monoclonal protein on serum electrophoresis. Test Performed by: [facility] [address] [place] [address] Superintendent Ammunition Storage: Red Hagan M.D. Ph.D.; CLIA# [id number] 3 Because ethnic data is not always [...] 5 Kidney failure <15 (or dialysis) 4 [id number] 5 [id number] 6 Negative x 3 cards 7 Specimen [...] 5 Kidney failure <15 (or dialysis) 9 [id number] 10 Consistent with Previous Results Reported on [...] 5 Kidney failure <15 (or dialysis) 12 [id number] 13 RESULT: No apparent monoclonal protein on serum electrophoresis. Test Performed by: [facility] [address] [place] [address] Procedures Date Code Description Status 04/09/2019 [id number] EKG Tracing & Interpretation Completed 06/03/2016 [id number] Bone Mineral Density Test Completed 02/13/2015 [id number] Mammogram Completed 03/19/2013 [id number] Mammogram Completed 01/26/2013 [id number] Bone Mineral Density Test Completed 01/21/2012 [id number] Mammogram Completed 10/09/2010 [id number] Bone Mineral Density Test Completed 08/14/2007 [id number] Colonoscopy Completed Medical Devices Description No Information Available Encounters Type Date Location Provider Dx Diagnosis Office Visit 07/12/2019 [facility] Internal Roverto Andrade NP J44.1 Chronic obstructive 2:00p Medicine - [facility] pulmonary disease w (acute) exacerbation R05 Cough Office Visit 05/20/2019 11:40a [facility] Internal Karyna D64.9 Anemia, Medicine - Nanette Palomino unspecified [facility] J44.1 Chronic obstructive pulmonary disease w (acute) exacerbation Office Visit 04/09/2019 10:30a [facility] Celso Madsen 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 07/26/2019 D64.9 Anemia, unspecified Karyna Palomino M.D. 07/12/2019 J44.1 Chronic obstructive pulmonary disease with Roverto Andrade NP (acute) exacerbat 07/12/2019 R05 Cough Roverto Andrade, AGRICULTURAL EDUCATION TEACHER 05/25/2019 D64.9 Anemia, unspecified Nurse Visit A [...] Karyna Palomino M.D. Plan of Treatment Future Appointment(s):09/07/2019 10:40 am - Karyna Palomino M.D. at [facility] Internal Medicine - [facility]07/26/2019 - Karyna Palomino M.D.J90 Pleural effusion , not elsewhere classifiedComments:I am referring you to Dr. MatiasReferral: Daisy Matias MD, Pulmonary DiseasesFollow up:pls cancel the 08/09, reschedule to .9 Anemia, unspecifiedComments:Stay on the iron Functional Status Description No Information Available Mental Status Description No Information Available Referrals Refer to Reason for Referral Status Appt Date Daisy Matias MD Created [address] [place] [id number] [phone]
[2019-09-15 11:01] LABS: ALT 15 U/L (7-52); AST 18 U/L (13-39); Albumin 3.3 g/dL (3.2-5.2); Albumin/Globulin Ratio 1.3 (1-3); Alkaline Phosphatase 45 U/L (34-104); Anion Gap 12 mmol/L (2-11); BUN/Creatinine Ratio 48.8 (8-20); Blood Urea Nitrogen 84 mg/dL (6-24); C Reactive Protein 128.91 mg/L (<8.01); CO2 Carbon Dioxide 23 mmol/L (22-32); Calcium 9.1 mg/dL (8.6-10.3); Chloride 106 mmol/L (101-111); Creatine Kinase 45 U/L (10-223); EGFR African American 33.9 (>60); Globulin 2.5 g/dL (2-4); Glucose 139 mg/dL (70-100); Potassium 3.9 mmol/L (3.5-5.0); Sodium 141 mmol/L (135-145); Total Protein 5.8 g/dL (6.4-8.9)
[2019-09-15 11:03] LABS: CKMB ng/mL 3.2 ng/mL (0.6-6.3)
[2019-09-15 11:04] LABS: Troponin I 0.16 ng/mL (<0.03)
[2019-09-15 11:11] LABS: ABS Lymphocytes 0.9 10^3/ul (1.0-4.8); ABS Monocytes 1.8 10^3/ul (0-0.8); ABS Neutrophils 19.9 10^3/ul (1.5-7.7); Eosinophil % 0.1 %; Nucleated Red Blood Cells % 0.1
[2019-09-15 11:59] LABS: INR 2.18 (0.82-1.09)
[2019-09-15] MEDS ORDERED: Pantoprazole IV* 40 MG IV ONE (12:24)
[2019-09-15] MEDS ORDERED: NS 0.9% 1000 ML** 1,000 ML IV ONE (12:30)
[2019-09-15] MEDS ORDERED: cefTRIAXone(*) 1 GM in NS 0.9% 50 ML* 50 ML IVPB ONE (12:31)
[2019-09-15 12:41] LABS: Influenza A Molecular Negative (Negative); Influenza B Molecular Negative (Negative)
[2019-09-15] MEDS ORDERED: cefTRIAXone(*) 1 GM ADVAN/BAG ONE (13:01)
[2019-09-15 13:28] LABS: Hematocrit 14 % (35-47); Hemoglobin 4.5 g/dL (12.0-16.0)
[2019-09-15 15:02] LABS: Urine Appearance Cloudy; Urine Bilirubin Negative (Negative); Urine Blood Negative (Negative); Urine Color Yellow; Urine Glucose Negative (Negative); Urine Ketones Negative (Negative); Urine Nitrite Negative (Negative); Urine Protein Negative (Negative); Urine Specific Gravity 1.017 (1.010-1.030); Urine Urobilinogen Negative (Negative)
[2019-09-15 15:04] LABS: Urine Bacteria Absent (Absent); Urine Red Blood Cell Absent (Absent); Urine Squamous Epithelial Cell Present (Absent); Urine White Blood Cell 1+(6-10/hpf) (Absent)
[2019-09-15 15:40] LABS: Troponin I 0.45 ng/mL (<0.03)
[2019-09-15] MEDS ORDERED: Albuterol 2.5 MG/3 ML NEB.SOL* (0.083%) INH SCH (17:00)
[2019-09-15 19:18] LABS: Troponin I 0.66 ng/mL (<0.03)
--- NOTE | 2019-09-15 19:46 | CONS ---
CC: Shruti Ernandez NP * GASTROENTEROLOGY CONSULT REPORT: DATE OF CONSULT: 09/15/19 LOCATION: The patient was seen in the ED. REQUESTING PROVIDER: Shruti Ernandez NP REASON FOR CONSULT: Anemia and melena. HISTORY OF PRESENT ILLNESS: Ms. Arciniega is an 89-year-old woman with multiple medical comorbidities including coronary artery disease with HI, status post stenting; peripheral vascular disease, status post fem-pop bypass; lung cancer, status post chemoradiation; history of DVT, on Xarelto; who is being admitted to the hospital with melena and acute hemoglobin drop. Ms. Arciniega has been following with Dr. Matias for persistent productive cough and pleural effusion. She underwent a bronchoscopy on 09/01/19 with endobronchial biopsy and bronchoalveolar lavage. She recently completed a 2- week course of prednisone and an antibiotic for pneumonia. Over the last few days, she has had increasing weakness and shortness of breath. She still has a mildly productive cough, although it is better than it was several months ago. Presented to the ED for evaluation. Labs notable for a hemoglobin of 4.7 and 4.5 on repeat, which correlates with a hematocrit of 14, white count elevated to 22.7. This is in comparison to a hemoglobin of 11.2 on 09/01/19. Vital signs stable in the ED without hypotension or fever, although temp is 99.3. Rectal exam by the ED provider was notable for a small amount of melena. Admitted for workup and management. On interview, Ms. Arciniega reports straining to have a bowel movement every other day or so. Stool has been black for several months, which she had attributed to iron. Iron was started in June through her primary care doctor's office. This morning, she noted 3 black stools. Stool was sticky, but formed. No bright red blood. She was nauseous this morning, but otherwise has not had any nausea. No significant reflux on Protonix once a day. No vomiting. No abdominal pain. No dysphagia. Weight has dropped 25 pounds in the past year. The patient denies any nonsteroidal use. She is on Plavix for heart disease as well as the previously mentioned Xarelto. Last colonoscopy was in 2007 and was notable for a single hyperplastic polyp and mild sigmoid diverticulosis. PAST MEDICAL HISTORY: 1. Coronary artery disease with a history of MIs and stent placement. 2. Peripheral vascular disease, status post fem-pop bypass, complicated by compartment syndrome requiring fasciotomy. 3. COPD. 4. Hypertension. 5. Hyperlipidemia. 6. CKD. 7. GERD. 8. DVT, on Xarelto. 9. Lung cancer in 2006, status post chemoradiation. PAST SURGICAL HISTORY: 1. Fem-pop revascularization in July 2018. 2. Fasciotomy, left lower leg, for compartment syndrome. 3. Cataract extractions. HOME MEDICATIONS: 1. Atorvastatin 80 mg at bedtime. 2. Budesonide twice daily. 3. Albuterol 4 times a day via nebulizer. 4. Plavix 75 mg daily. 5. Metoprolol XL 25 mg twice daily. 6. Multivitamin daily. 7. Omeprazole 20 mg daily. 8. Ramipril 2.5 mg daily. 9. Xarelto 20 mg daily. 10. Spironolactone 25 mg daily. 11. Spiriva once daily. ALLERGIES: CODEINE. FAMILY HISTORY: No known GI or liver disease. SOCIAL HISTORY: Former smoker. Smoked for 50 years. Quit in 2006 at the time of lung cancer diagnosis. 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 She lives in an independent apartment at [place]. No alcohol use. No drug use. PHYSICAL EXAM: Vital Signs: T-max 99.3, heart rate 80s, blood pressure 164/51 , she is 100% on room air. General: Very pleasant, frail, elderly woman. Talkative. No acute distress. HEENT: Mucous membranes moist. Cardiovascular : Regular rate and rhythm. Pulmonary: Breathing fairly comfortably. Some rhonchi on expiration bilaterally in the anterior lung gutierres. Abdomen: Soft, nontender, nondistended. Rectal: ED provider noted small amount of melenic stool. Repeat rectal not performed. Extremities: No significant edema. Skin : Pale. No jaundice. Neuro: A and O x3. No gross neuro deficits. Full neuro exam not performed. DIAGNOSTIC STUDIES/LAB DATA: Labs reviewed. White count 22.7, hemoglobin 4.5 with a hematocrit of 14, platelet count 302, MCV 86. INR 2.18. Comprehensive panel with a BUN of 84 and a creatinine of 1.72. This is slightly higher than the patient's baseline, although comparable to her labs from July 2019. Glucose 139. Lactic acid elevated at 4.1. Troponin mildly elevated at 0.16. CRP quite elevated at 128.9. BNP elevated at 438, which is up from 400 in July. Influenza negative A and B. Stool occult positive. Imaging: Chest x-ray demonstrated postsurgical change to the right lung. CT of the chest, abdomen, and pelvis from January 2019 reviewed. There was moderate pleural effusion in the right lung and a small pericardial effusion. CT chest without contrast from 07/26/19 demonstrated right pleural effusion with right lower lobe and right middle lobe atelectasis. IMPRESSION AND RECOMMENDATIONS: Ms. Arciniega is an 89-year-old woman with multiple medical comorbidities including coronary artery disease and peripheral vascular disease, on Plavix; deep venous thrombosis, on Xarelto; chronic obstructive pulmonary disease; and history of lung cancer, with recent evaluation for cough and pleural effusion, who is admitted with weakness and severe anemia felt to be gastrointestinal bleeding in origin. Ms. Arciniega is hemodynamically stable. Labs are concerning for a very significant anemia with a hemoglobin of 4.5, down from 11.2 about 2 weeks ago. She is having some melenic stools, although she is not having large volumes of melena. She is certainly at risk for gastrointestinal bleeding in the setting of Plavix and Xarelto. The presence of melena argues for a more upper gastrointestinal bleed origin. At this point, I agree with resuscitation with blood. She is not aware of having a diagnosis of heart failure, although she has an elevated BNP and has been on diuretics in the past. Agree with primary medicine team's plan to obtain an updated echo and watch for signs of pulmonary edema or fluid overload after blood transfusions are given. We would hold the Xarelto for now. We would also hold the Plavix assuming there is no strong indication for remaining on. I am not aware of any recent interventions in the last year from a cardiovascular standpoint. Please start IV PPI b.i.d. This should be similar in efficacy to the drip and will hopefully allow for less volume to be given. Depending on clinical course and results of cardiac workup , we will discuss potential EGD tomorrow. Possible that we will be able to do this with a very small amount of moderate sedation to minimize risks of full anesthesia. Clear diet okay for now assuming she remains clinically stable. Please keep n.p.o. after midnight while decision is made regarding plan for endoscopy. Thank you very much for this consult. Please contact GI with any acute clinical change. [id number]/[facility] #: [id number] [facility]ITALAbril
[2019-09-15 20:32] LABS: Hematocrit 18 % (35-47)
[2019-09-15] MEDS ORDERED: Budesonide NEB* 0.25 MG/2 ML NEB.SOLN INH SCH (21:00)
[2019-09-15] MEDS: Albuterol 2.5 MG/3 ML NEB.SOL* (0.083%) INH SCH (21:58)
[2019-09-15] MEDS: Budesonide NEB* 0.25 MG/2 ML NEB.SOLN INH SCH (21:59)
[2019-09-15 22:29] LABS: Troponin I 0.78 ng/mL (<0.03)
--- NOTE | 2019-09-15 23:39 | HP ---
CC: Dr. Palomino * HISTORY AND PHYSICAL: DATE OF ADMISSION: 09/15/19 PROVIDER: Shruti Ernandez NP. PRIMARY CARE PROVIDER: Dr. Palomino. ATTENDING PHYSICIAN WHILE IN THE HOSPITAL: Dr. Ladan Edmonds * (dictated by Shruti Ernandez NP). CHIEF COMPLAINT: Weakness, shortness of breath. HISTORY OF PRESENT ILLNESS: Ms. Arciniega is an 89-year-old female with a past medical history significant for lung carcinoma; history of coronary artery disease; IN, status post stenting in October 2014; fem-pop bypass to her left leg ; DVT, a thrombus of the graft after fem-pop bypass in July 2018; COPD; hyperlipidemia; ischemic heart disease, who presented to [facility] with complaints of shortness of breath and weakness. The patient reports that she had been recently worked up for a possible endotracheal lesion. She was followed by Dr. Matias. She reports she recently had a bronchoscopy that did not show any malignant mass. The patient reports that after bronchoscopy, she was started on prednisone. Her bronchoscopy was on 09/01/19. At that time, she was started on prednisone 10 mg. she reports she has been taking 10 mg of prednisone for the past 2 weeks. The patient reports over the past 3 days she has felt weak. Last night she reported she had to take her wheelchair back to her room as she reports that her upper leg felt weak and she did feel unsteady as though she would not make it back to her room. The patient reports that over the past couple of days she has had some shortness of breath that has progressively become worse. She also reports she had 3 black tarry stools this morning and normally she has a stool has every other day. She also reports she has had dark stools since June, but contributed that to being on iron. She does report that she was sweaty this morning, but denies any fever or chills. Denies any chest pain or edema. She does report cough that is chronic. Denies any hemoptysis. She does report some shortness of breath. No nausea, vomiting , diarrhea, abdominal pain, hematuria, dysuria, focal weakness, sensory loss, dysphagia, arthralgias, myalgias, rashes, lesions, open sores, psychosis, or anxiety. While in the emergency room, the patient had routine lab work drawn. She was found to have an H and H of 4.5 and 14, elevated lactic acid of 4.1, troponin of 0.16, C-reactive protein of 128.91. Due to these findings, Hospital Medicine was asked to see and evaluate her for admission. PAST MEDICAL HISTORY: Significant for a history of lung cancer; history of coronary artery disease; IN, status post stenting in October 2014; fem-pop bypass July 2018, post fem-pop bypass thrombus in the bypass graft July 2018 for which she developed compartment syndrome and had a fasciotomy; history of COPD; hyperlipidemia; history of ischemic heart disease. PAST SURGICAL HISTORY: 1. Fem-pop bypass. 2. Angioplasty in 2014. 3. Fasciotomy of the left lower leg. HOME MEDICATIONS: 1. Xarelto 20 mg p.o. daily. 2. Spiriva 1 cap inhaled p.o. daily. 3. Plavix 75 mg p.o. daily. 4. Omeprazole 20 mg p.o. daily. 5. Multivitamin 1 tablet p.o. daily. 6. Ramipril 2.5 mg p.o. daily. 7. Pulmicort 0.25 mg inhaled twice daily. 8. Albuterol nebulizer 2.5 mg inhaled 4 times a day. 9. Atorvastatin 80 mg p.o. at bedtime. 10. Aldactone 25 mg p.o. daily. 11. Metoprolol 25 mg p.o. b.i.d. 12. Calcium, magnesium, zinc 1 tab twice daily. 13. Prednisone 10 mg p.o. daily, finished yesterday 09/14/19. ALLERGIES: CODEINE. FAMILY HISTORY: Father at the age of 34 from an IN, brother from an IN at the age of 67. No reported history of diabetes or cancer in the family. SOCIAL HISTORY: The patient reports that she stopped smoking in 2006 after her diagnosis of lung cancer. Prior to that, she smoked for approximately 50 years , half a pack to a pack a day. Denies any alcohol or illicit drug use. She lives at [place] in the independent living. Surrogate decision maker in the event she is unable to make her own decision is her niece Antonella Arciniega. Her phone number is . She is a full code. REVIEW OF SYSTEMS: A 14-point review of systems was completed. All pertinent positives were mentioned in the HPI, otherwise were negative. PHYSICAL EXAMINATION GENERAL: At this time, Ms. Arciniega is an elderly female, resting on the stretcher in the emergency room. She is in no acute distress. She is alert and oriented x3. VITAL SIGNS: Blood pressure 135/62, heart rate 86, respirations 26, temperature was 99.3 HEENT: Head is atraumatic, normocephalic. Eyes: EOMs are intact. Sclerae anicteric and not pale. Oral mucosa is moist. NECK: Supple. LUNGS: Clear to auscultation bilaterally. No wheezes, rales, or rhonchi. CARDIAC: S1, S2. Regular rate and rhythm. No murmurs, rubs, or gallops. ABDOMEN: Soft and nontender. Bowel sounds are present x4. EXTREMITIES: She is able to move all 4 extremities. There is no clubbing or cyanosis. NEUROLOGIC: She is awake, alert, oriented x3. Speech is clear. Thought process is intact. She follows commands and answers questions appropriately. SKIN: Intact. DIAGNOSTIC STUDIES/LAB DATA: WBCs are 22.7, RBCs 1.68, hemoglobin is 4.5, hematocrit 14, platelet count 302, absolute neutrophils are 19.9, absolute lymphs 0.9, absolute monos 1.8. INR is 2.18. Sodium 141, potassium 3.9, chloride 106, carbon dioxide is 23, anion gap of 12. BUN was 84, creatinine 1.72, glucose was 139. Lactic acid initially was 4.1, repeat was 0.9. Calcium 9.1, total bilirubin 0.40, AST was 18, ALT was 15, alkaline phosphatase was 45, total CK was 45. Troponin was 0.16, repeat was 0.45. C-reactive protein 128.91 , BNP 438. Urine showed trace leukocyte esterase, wbc's were 1+, squamous epithelial cells were present, bacteria was absent. Flu A and B were negative. She had a chest x-ray, radiologist's impression: Stable postsurgical changes of the lung. She had an electrocardiogram which showed sinus rhythm at a rate of 86. She does have mild ST depressions in lead 3, V4, 5 and 6. IMPRESSION AND PLAN: \ Ms. Arciniega is an 89-year-old female with past medical history significant for lung cancer, myocardial infarction and status post stent placement in October 2014 , history of femoral-popliteal bypass with thrombus in the graft for which she takes Xarelto, ischemic heart disease, chronic obstructive pulmonary disease, hyperlipidemia, who presented to the emergency room with complaints of shortness of breath and weakness, found to have profound anemia. She will be admitted inpatient for 1, Profound anemia. I suspect this is related to underlying gastrointestinal bleeding. The patient does take Xarelto and Plavix. She was recently on prednisone. She did have a stool occult in the emergency room that was melena and positive for blood. We have consulted GI who has recommended Protonix 80 bolus dosing and then 40 q.12 hours IV. She can have clear liquids overnight. We will continue to trend her H and H. She is receiving 2 units of packed red blood cells. We will continue blood transfusions based on her H and H, and monitor for any signs of acute blood loss. She currently is hemodynamically stable. 2. Systemic inflammatory response syndrome. This is evidenced by leukocytosis with white count of 22.7, elevated respiratory rate of 22, elevated CRP and elevated lactic acid. At this time, she does not have a clear source of infection. Her urine shows no evidence of infection. Her chest x- ray was negative for pneumonia. Influenza A and B were both negative. She does have a CT of the chest, that is currently pending. Should this show any evidence of pneumonia or infiltrate, we will start her on antibiotics. She did have a repeat lactic acid and repeat was within normal limits. At this time, we are going to continue to monitor her, hold off on IV fluid bolusing as she has a history of ischemic heart disease with a reduced EF 40-45% and will be receiving multiple units of blood. 3. Elevated lactic acid. I suspect her elevated lactic acid is related to her profound anemia and hypoxia. Her repeat was within normal limits. I do not think that her lactic acid is related to underlying infection at this time as there is clear source and the patient is afebrile. We will continue to monitor her for any acute signs of infection. Will hold off on fluid bolusing as her lactic acid has returned to normal and she will be receiving blood. 4. Chronic kidney disease. The patient does have a history of chronic kidney disease. Her BUN and creatinine are at her baseline. I will continue to monitor with BMP. We will avoid nephrotoxic meds and dose any medications based on her renal function. 5. Elevated troponin. The patient does have an elevated troponin. Her initial troponin was 0.16, repeat was 0.45. I suspect that this is related to demand ischemia. The patient does have a history of known coronary artery disease, ischemic heart disease, and was found to be profoundly anemic with H and H of 4.5 and 14. We will continue to trend her troponins. The patient has no chest pain at this time. At this time, the patient is not a candidate for any anticoagulation or aspirin, due to her underlying suspected gastrointestinal bleed and profound anemia. We will continue to monitor her for chest pain. I will also check a transthoracic echocardiogram. Repeat an EKG in the AM. Could consider a consultation to cardiology if her troponin continues to trend upward. 6. Coronary artery disease. The patient does have a history of coronary artery disease with a reduced EF 40-45%. She does have an elevated troponin. Unfortunately, the patient is not a candidate at this time for aspirin as she does have an underlying profound anemia and suspected gastrointestinal bleeding. We will continue her on her home medications of metoprolol 25 mg p.o. b.i.d. and get a transthoracic echocardiogram. 7. Hypertension. I am going to hold her ramipril. I will continue metoprolol 25 b.i.d. 8. Chronic obstructive pulmonary disease. The patient will continue on Spiriva , Pulmicort, and albuterol as needed for shortness of breath or wheezing. 9. Hyperlipidemia. She will continue on atorvastatin 80 mg p.o. daily. 10. History of deep venous thrombosis. The patient does have a history of deep venous thrombosis after femoral-popliteal bypass where she had an occlusive thrombus in her bypass graft. At that time, she was started on Xarelto. The deep venous thrombosis was in July 2018. It appears that her deep venous thrombosis was provoked after surgery. It is unclear if the patient needs to continue on Xarelto at this time. This should be evaluated as the patient does have profound anemia from suspected underlying gastrointestinal bleeding. I am holding her Xarelto and Plavix at this time due to the underlying bleeding. 11. FEN: She can have clear liquid diet. 12. Code status: She is a full code. 13. DVT prophylaxis: She can have SCDs as the patient does have an underlying GI bleed. TIME SPENT: Time spent on this admission was 60 minutes, greater than half that time was spent at the bedside reviewing events leading thus far to her hospitalization, performing physical exam, and reviewing my plan of care. I have discussed this with my attending Dr. Ladan Edmonds; she is in agreement with my plan. ADDENDUM: The patient did have a CT of the chest, radiologist's impression: With secretions in the esophagus, new right greater than left patchy bibasilar consolidation concerning for aspiration pneumonitis/pneumonia, similar post- treatment changes in the right hemithorax, evaluation of treatment bed is limited without contrast. Mild cardiomegaly, coronary artery disease. Imaging features suggestive of anemia, right pleural effusion. Due to the new findings of bibasilar patchy infiltrates, I am going to start the patient on ceftriaxone and azithromycin. She will have urine for legionella and Strep pneumoniae. Blood cultures are currently pending as well as a urine culture. We will continue to monitor her for further respiratory symptoms. SHRUTI ERNANDEZ NP [id number]/[facility] #: [id number] [facility]ITAL[facility]
--- NOTE | 2019-09-16 00:31 | ECHO ---
*[facility]* [place] [address] Fax #: [phone] Transthoracic Echocardiogram Patient: Moncho Arciniega : 1930 Study Date: 09/15/2019 Age: 89 Gender: F HR: 88 bpm Height: 61 in /154.9 cm BSA: 1.47 m^2 Weight: 109.8 lb /49.9 kg BMI: 20.8 kg/m^2 *Shared Services Representative: * Xiao Andersen RDCS RN *Referring Physician: * Shruti Ernandez *Reading Physician: * Ashley Turcios MD Indications: SOB. History: Coronary artery disease with stents. Lung cancer. Risk factors: Former tobacco use. Hypertension. Dyslipidemia. Conclusions Summary: - Left ventricle: The cavity size is mildly reduced. Wall thickness is mildly increased. Systolic function is normal. The estimated ejection fraction is 55-60%. - Right ventricle: Systolic function is normal. - Mitral valve: There is mild regurgitation. - Aortic valve: The findings are consistent with moderate stenosis. The peak systolic velocity is 2.17 m/sec. The mean systolic gradient is 11.0 mm Hg. The LVOT to aortic valve VTI ratio is 0.47. The valve area by the velocity-time integral method is 1.20 cm^2. The valve area by the peak velocity method is 1.20 cm^2. - Tricuspid valve: There is moderate regurgitation. - Pericardium, extracardiac: A small pericardial effusion is seen adjacent to the right ventricle. It measures 0.6 cm anteriorly in the PLAX view and 0.7 cm adjacent to the right ventricular apex in the A4C view. The mitral E peak respiratory variation is 8% and the LVOT velocity variation is 1%. There is no significant hemodymanic compromise. - Pulmonary arteries: Systolic pressure is severely increased, estimated to be 69 mm Hg. Study data: Transthoracic echocardiogram. Procedure: Transthoracic echocardiography was performed. Image quality was fair. The study was technically limited due to Smoking history. Complete 2D, spectral Doppler, and color flow Doppler. Location: Emergency department. Patient status: Inpatient. Patient room number: ED 10. Rhythm: Normal sinus rhythm. Findings Left ventricle: The cavity size is mildly reduced. Wall thickness is mildly increased. Systolic function is normal. The estimated ejection fraction is 55-60%. Wall motion is normal; there are no regional wall motion abnormalities. There is no consistent Doppler evidence of clinically significant diastolic dysfunction. Right ventricle: The cavity size is normal. Systolic function is normal. Left atrium: The atrium is normal in size. Right atrium: The atrium is normal in size. Mitral valve: The leaflets are mildly thickened. There is no evidence of stenosis. There is mild regurgitation. Aortic valve: The valve is trileaflet. The leaflets are moderately thickened. The findings are consistent with moderate stenosis. There is mild regurgitation. Tricuspid valve: The leaflets are normal thickness. There is moderate regurgitation. Pulmonic valve: Not well visualized. There is no significant regurgitation. Aorta: Aortic root: The aortic root is not dilated. Ascending aorta: The ascending aorta is not visualized. Aortic arch: The aortic arch is not visualized. Pericardium: A small pericardial effusion is seen adjacent to the right ventricle. It measures 0.6 cm anteriorly in the PLAX view and 0.7 cm adjacent to the right ventricular apex in the A4C view. The mitral E peak respiratory variation is 8% and the LVOT velocity variation is 1%. There is no significant hemodymanic compromise. Pulmonary arteries: The main pulmonary artery is normal-sized. Systolic pressure is severely increased, estimated to be 69 mm Hg. Systemic veins: Inferior vena cava: The vessel is normal in size. There is less than 50 percent respiratory change in the IVC dimension. Measurements Left ventricle Value Ref Right atrium continued Value Ref CHRISTIANO, LAX (L) 3.3 cm 3.8 - SI dim, ES, A4C 4.8 cm 3.4 - 5.3 5.2 Estimated RAP 8 mm Hg --------- ESD, LAX 2.9 cm 2.2 - 3.5 Aortic valve Value Ref FS, LAX (L) 10 % 27 - 45 Nusrat diam, ED 1.6 cm --------- PW, ED (H) 1.1 cm 0.6 - Peak v, S 2.17 m/sec --------- 0.9 VTI, S 49.7 cm --------- IVS/PW, ED 1 -------- Mean grad, S 11.0 mm Hg --------- E', lat nusrat, TDI (L) 8.6 cm/sec >=10.0 Peak grad, S 19.0 mm Hg -- ------- E/e', lat nusrat, TDI 12 -------- LVOT/AV, VTI ratio 0.47 ----- ---- E', med nusrat, TDI 7.7 cm/sec >=7.0 SAMUEL, VTI 1.20 cm^2 -- ------- E/e', med nusrat, TDI 14 -------- SAMUEL, Vmax 1.20 cm^2 ----- ---- E', avg, TDI 8.2 cm/sec -------- E/e', avg, TDI 13 <=14 Mitral valve Value Re f Peak E 1.07 m/sec --------- LVOT Value Ref Peak A 1.24 m/sec --------- Diam, S 1.80 cm -------- Decel time 176 ms --------- Area 2.5 cm^2 -------- Peak grad, D 4.6 mm Hg --------- Peak stephane, S 0.99 m/sec -------- Peak E/A ratio 0.9 --------- VTI, S 23.6 cm -------- Mean grad, S 2 mm Hg -------- Pulmonic valve Value Ref SV 60 ml -------- Peak v, S 0.85 m/sec --------- SV/bsa 41 ml/m^2 -------- Peak grad, S 3.0 mm Hg --------- Ventricular septum Value Ref Tricuspid valve Value Ref IVS, ED (H) 1.1 cm 0.6 - Peak RV-RA grad, S 61 mm Hg --------- 0.9 Max TR stephane 3.9 m/sec --------- Right ventricle Value Ref Aortic root Value Ref CHRISTIANO, LAX 2.8 cm -------- Root diam 2.7 cm <3.7 CHRISTIANO minor ax, A4C (H) 3.6 cm 1.9 - mid 3.5 Pulmonary artery Value Ref Pressure, S 69 mm Hg -------- Pressure, S 69.0 mm Hg --------- Left atrium Value Ref Inferior vena cava Value Ref ML dim, A4C 4.1 cm -------- Diam 1.3 cm --------- SI dim, A4C 4.7 cm -------- Vol/bsa, ES, 1-p 32 ml/m^2 11 - 40 A4C Vol/bsa, ES, A/L 32 ml/m^2 16 - 34 Right atrium Value Ref ML dim, ES, A4C 3.9 cm 2.6 - 4.4 Legend: (L) and (H) shanel values outside specified reference range. Prepared and electronically signed by Ashley Turcios MD 09/16/2019 00:30
[2019-09-16] MEDS: Atorvastatin* 80 MG TAB PO SCH ×2 (00:43→21:22)
[2019-09-16] MEDS: Metoprolol Succinate XL TAB* 25 MG PO SCH ×3 (00:43→21:22)
[2019-09-16] MEDS: Pantoprazole IV* 40 MG IV SCH ×3 (00:43→21:17)
[2019-09-16] MEDS: Azithromycin 500 mg/250 ml NS 500 MG/250 ML BAG IVPB SCH ×2 (01:40→20:03)
[2019-09-16 02:11] LABS: Hematocrit 22 % (35-47); Hemoglobin 7.2 g/dL (12.0-16.0)
[2019-09-16 02:34] LABS: Troponin I 0.56 ng/mL (<0.03)
[2019-09-16] MEDS: Albuterol 2.5 MG/3 ML NEB.SOL* (0.083%) INH SCH ×4 (07:39→19:44)
[2019-09-16] MEDS: Budesonide NEB* 0.25 MG/2 ML NEB.SOLN INH SCH ×2 (07:40→19:44)
[2019-09-16] MEDS: SPIRIVA Respimat* (tiotropium) 2.5 mcg/inh Inhaler INH SCH (07:43)
--- NOTE | 2019-09-16 07:44 | PN ---
Subjective Date of Service: 09/16/19 Interval History: HD2 on 09/15 89 F PMH lung carcinoma s/p resection RUL and chemoradiation, CKD3, CAD sp PCI, PAD with hx fem pop bypass, DVT on AC still, COPD, HLD, ICM with EF 55% and ? HFpEF, recently undergoing evaluation for endotracheal mass (negative workup to date) who presented with SOB found to have symptomatic anemia from subacute melena, demand ischemia, and possible PNA seen by CT scan. Overnight. recd 3UPRBC VSS throughout on 2L NC, now off NC Repeat H/H at midnight 01/05., then 9.4 this AM This morning, very pleasant and well with friend at bedside. No cough, no GI pain, no MSK or complaints. Fatigue improving. Spoke with GI who plans to scope. Objective Active Medications: Albuterol (Ventolin 2.5 Mg/3 Ml Neb.Sherry*) 2.5 mg INH RT.QID [facility] Last Admin: 09/15/19 21:58 Dose: 2.5 mg Atorvastatin Calcium (Lipitor*) 80 mg PO BEDTIME [facility] Last Admin: 09/16/19 00:43 Dose: 80 mg Budesonide (Pulmicort Neb*) 0.25 mg INH BID [facility] Last Admin: 09/15/19 21:59 Dose: 0.25 mg Azithromycin (Zithromax 500 Mg/250 Ml) 500 mg in 250 mls @ 250 mls/hr IVPB Q24H [facility] Last Admin: 09/16/19 01:40 Dose: 250 mls/hr Ceftriaxone Sodium 1 gm/ (Sodium Chloride) 50 mls @ 100 mls/hr IVPB Q24H [facility] Metoprolol Succinate (Toprol Xl Tab*) 25 mg PO BID [facility] Last Admin: 09/16/19 00:43 Dose: 25 mg Pantoprazole Sodium (Protonix Iv*) 40 mg IV Q12H [facility] Last Admin: 09/16/19 00:43 Dose: 40 mg Tiotropium [place] (Spiriva Respimat 2.5 Mcg) 2 puff INH DAILY [facility] Vital Signs - 8 hr 09/15/19 23:54 Temperature 98 F Pulse Rate 81 Respiratory 16 Rate Blood Pressure 126/47 (mmHg) O2 Sat by Pulse 100 Oximetry Oxygen Devices in Use Now: Nasal Cannula Appearance: Well appearing woman in NAD Eyes: No Scleral Icterus, PERRLA Ears/Nose/Mouth/Throat: NL Teeth, Lips, Gums Neck: NL Appearance and Movements; NL JVP Respiratory: Symmetrical Chest Expansion and Respiratory Effort, - - Mild crackles to blt bases Cardiovascular: RRR, - - 2/6 systolic murmur RUSB Lymphatic: No Cervical Adenopathy Extremities: No Edema Skin: No Rash or Ulcers Neurological: Alert and Oriented x 3 Result Diagrams: 09/16/19 09:15 09/16/19 09:15 Microbiology and Other Data: Microbiology 09/15/19 18:00 Transfusion Reaction Gram Stain - Final Blood Bag 09/15/19 14:45 Transfusion Reaction Gram Stain - Final Blood Bag 09/15/19 11:12 Stool Occult Blood (MARLON) - Final Stool Diagnostic Imaging: CT Chest IMPRESSION: 1. With secretions in the esophagus, new right greater than left patchy bibasilar consolidation is concerning for aspiration pneumonitis/pneumonia. Recommend imaging to radiologic resolution. 2. Similar posttreatment changes in the right hemithorax. Evaluation of the treatment bed is limited without contrast. 3. Mild cardiomegaly. Coronary artery disease. Imaging features suggestive of anemia. 4.Small R plerual effusion Echo Summary: - Left ventricle: The cavity size is mildly reduced. Wall thickness is mildly increased. Systolic function is normal. The estimated ejection fraction is 55-60%. - Right ventricle: Systolic function is normal. - Mitral valve: There is mild regurgitation. - Aortic valve: The findings are consistent with moderate stenosis. The peak systolic velocity is 2.17 m/sec. The mean systolic gradient is 11.0 mm Hg. The LVOT to aortic valve VTI ratio is 0.47. The valve area by the velocity-time integral method is 1.20 cm^2. The valve area by the peak velocity method is 1.20 cm^2. - Tricuspid valve: There is moderate regurgitation. - Pericardium, extracardiac: A small pericardial effusion is seen adjacent to the right ventricle. It measures 0.6 cm anteriorly in the PLAX view and 0.7 cm adjacent to the right ventricular apex in the A4C view. The mitral E peak respiratory variation is 8% and the LVOT velocity variation is 1%. There is no significant Assess/Plan/Problems-Billing Assessment: 89 F PMH lung carcinoma s/p resection RUL and chemoradiation, CKD3, CAD sp PCI, PAD with hx fem pop bypass, DVT on AC still, COPD, HLD, ICM with EF 55% and ? HFpEF, recently undergoing evaluation for endotracheal mass (negative workup to date) who presented with SOB found to have symptomatic anemia from subacute melena, demand ischemia, and possible PNA seen by CT scan. - Patient Problems (1) Anemia Current Visit: Yes Status: Acute Code(s): D64.9 - ANEMIA, UNSPECIFIED SNOMED Code(s): 167740464 Comment: - Suspect with melena upper GI source and acute blood loss anemia superimposed on baseline anemia of chronic disease with Hgb of 11 in early Aug 2019 - Watch for appropriate response in transfusion, s/p 3U PRBC for presenting Hgb 4.2 - Was on triple AC therapy with no clear indication, hold asa, plavix and AC for now - Appreciate GI input for source evaluation (2) Melena Current Visit: Yes Status: Acute Code(s): K92.1 - MELENA SNOMED Code(s): 4804573 Comment: - On IV BID PPI - Holding AC, DAPT - Appreciate GI input (3) Pneumonia Current Visit: Yes Status: Acute Code(s): J18.9 - PNEUMONIA, UNSPECIFIED ORGANISM SNOMED Code(s): 419019249 Comment: - Dx by CT scan and cough, afebrile - Continue CTX, Azithro Day 2, appropriate coverage for CAP on 09/15 (4) History of lung cancer Current Visit: Yes Status: Acute Code(s): Z85.118 - PERSONAL HISTORY OF MALIGNANT NEOPLASM OF [place] AND LUNG SNOMED Code(s): 190995477 Comment: - Was undergoing workup for endobronchial mass (neg to date) - s/p distant lung cancer s/p resection and chemoradiation in presumed remission - Stopped using tob in 2006 (5) CKD (chronic kidney disease) Current Visit: Yes Status: Acute Code(s): N18.9 - CHRONIC KIDNEY DISEASE, UNSPECIFIED SNOMED Code(s): 852997238 Comment: - Baseline 1.5-1.7 (6) PAD (peripheral artery disease) Current Visit: Yes Status: Acute Code(s): I73.9 - PERIPHERAL VASCULAR DISEASE, UNSPECIFIED SNOMED Code(s): 102883300 Comment: - Holding DAPT - Continue statin - Fem pop bypass hx with complications in the past (7) CAD (coronary artery disease) Current Visit: Yes Status: Acute Code(s): I25.10 - ATHSCL HEART DISEASE OF [place] CORONARY ARTERY W/O ANG PCTRS SNOMED Code(s): 22692540 Comment: - On statin, BB, holding asa - Elevated troponin 2/2 to demand (8) Heart failure with preserved ejection fraction Current Visit: Yes Status: Acute Code(s): I50.30 - UNSPECIFIED DIASTOLIC ( CONGESTIVE) HEART FAILURE SNOMED Code(s): 222666492 Comment: -No e/o gross volume overload - Resume home diuretics spironolactone 09/16 (9) COPD (chronic obstructive pulmonary disease) Current Visit: Yes Status: Acute Code(s): J44.9 - CHRONIC OBSTRUCTIVE PULMONARY DISEASE, UNSPECIFIED SNOMED Code(s): 92788637 Comment: - Continue home inhalers - Off prednisone - No e/o exaverbation (10) Hx of deep venous thrombosis Current Visit: Yes Status: Acute Code(s): Z86.718 - PERSONAL HISTORY OF OTHER VENOUS THROMBOSIS AND EMBOLISM SNOMED Code(s): 981914850 Comment: - Holding AC, seemed provoked in Jul 2018, may be able to not resume (11) DVT prophylaxis Current Visit: Yes Status: Acute Code(s): Z29.9 - ENCOUNTER FOR PROPHYLACTIC MEASURES, UNSPECIFIED SNOMED Code(s): 205816426 Comment: - Holding given melena and anemia (12) Full code status Current Visit: Yes Status: Acute Code(s): Z78.9 - OTHER SPECIFIED HEALTH STATUS SNOMED Code(s): 518590514 Status and Disposition: Inpatient PT OT ordered Diet NPO for scope Consultants: GI Dispo: Back [facility] when safe
[2019-09-16] MEDS ORDERED: Spironolactone TAB* 25 MG PO SCH (09:00)
[2019-09-16 09:34] LABS: ABS Eosinophils 0.1 10^3/ul (0-0.6); ABS Lymphocytes 0.8 10^3/ul (1.0-4.8); ABS Monocytes 1.2 10^3/ul (0-0.8); ABS Neutrophils 13.2 10^3/ul (1.5-7.7); Eosinophil % 0.6 %; Hematocrit 28 % (35-47); Hemoglobin 9.4 g/dL (12.0-16.0); Lymphocyte % 5.4 %; Mean Corpuscular HGB Conc 34 g/dL (31-36); Mean Corpuscular Hemoglobin 29 pg (27-31); Mean Corpuscular Volume 86 fL (80-97); Mean Platelet Volume 8.4 fL (7.4-10.4); Platelet Count 232 10^3/uL (150-450); Red Blood Count 3.21 10^6 /uL (3.70-4.87); Red Cell Distribution Width 16 % (10-15); White Blood Count 15.4 10^3/uL (3.5-10.8)
[2019-09-16 09:40] LABS: INR 1.27 (0.82-1.09)
[2019-09-16 10:00] LABS: Calcium 7.9 mg/dL (8.6-10.3); Potassium 3.1 mmol/L (3.5-5.0)
[2019-09-16 10:06] LABS: BUN/Creatinine Ratio 37.2 (8-20); EGFR African American 44.1 (>60); EGFR Non-African American 36.5 (>60)
[2019-09-16] MEDS: cefTRIAXone(*) 1 GM in NS 0.9% 50 ML* 50 ML IVPB SCH (12:03)
[2019-09-16] MEDS ORDERED: Midazolam* 1 MG/ML 10 ML VIAL (10 MG) ONE (14:36)
[2019-09-16] MEDS ORDERED: fentaNYL* 50 MCG/ML 2 ML VIAL (100 MCG VIAL) ONE (14:36)
--- NOTE | 2019-09-16 15:22 | PN ---
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 Rec: Clear liquids No evidence of active bleeding at this time, in past had no desired any more colonoscopies. Monitor h/h if continuing to down trend consider colon depending on patient wishes/clinical picture Given no source, consider de-escalation of anticoagulation if possible Franklin Lopez DO 09/16/19 152
--- NOTE | 2019-09-16 23:21 | PRO ---
CC: Karyna Palomino MD * EGD REPORT: DATE OF PROCEDURE: 09/16/19 - ROOM #[id number] INDICATION FOR PROCEDURE: Melena. PROCEDURE PERFORMED: Complete esophagogastroduodenoscopy with biopsies. MEDICATIONS GIVEN: Include 7 mg IV midazolam, 2 to 3 mg of this may have been infiltrated. DESCRIPTION OF PROCEDURE: After the EGD procedure including the risks, benefits , and alternatives with the risks not limited to perforation, surgery, missed lesions, and/or were explained to the patient, written informed consent was obtained, IV medication was given and a bite-block was placed between the teeth. The adult Olympus gastroscope was then inserted into the patient's oropharynx into the tubular esophagus. Tubular esophagus was normal in appearance with no fresh or old blood. The scope was advanced to the lower esophageal sphincter into the stomach. Direct views showed mild gastropathy, no evidence of bleeding, no fresh or old blood. On retroflexion, a small hiatal hernia was appreciated. The scope was advanced through the widely patent pylorus into the duodenal bulb, C-loop, distal duodenum. There is some mild nodularity within the bulb that looked like Aaron's gland hyperplasia. Given the prominence of this, I did take biopsies. The remainder of the duodenum was normal in the part examined. No fresh or old blood was seen on the entire exam. The scope was then removed from the patient. She tolerated the procedure well. She returned to the recovery room in stable condition. IMPRESSION: 1. Complete esophagogastroduodenoscopy with biopsies. 2. No fresh or old blood on entire exam. 3. Mild gastropathy. 4. 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 RECOMMENDATIONS: Previously, the patient had stated that she did not want any further colonoscopies. We will plan on advancing to clear monitoring hemoglobin. If she has active signs of blood loss, would revisit prior wishes. I think the most reasonable approach may be to see if it is possible to potentially trend anticoagulation, especially the Xarelto to decrease the risk of re-bleeding given that a source was not found. [id number]/CPS #: [id number] MTDD
[2019-09-17 06:19] LABS: ABS Eosinophils 0.2 10^3/ul (0-0.6); ABS Monocytes 1.3 10^3/ul (0-0.8); ABS Neutrophils 9.6 10^3/ul (1.5-7.7); Eosinophil % 1.4 %; Hematocrit 26 % (35-47); Hemoglobin 8.9 g/dL (12.0-16.0); Lymphocyte % 8.1 %; Mean Corpuscular HGB Conc 34 g/dL (31-36); Mean Corpuscular Hemoglobin 28 pg (27-31); Mean Corpuscular Volume 84 fL (80-97); Mean Platelet Volume 8.3 fL (7.4-10.4); Platelet Count 249 10^3/uL (150-450); Red Blood Count 3.14 10^6 /uL (3.70-4.87); Red Cell Distribution Width 16 % (10-15); White Blood Count 12.1 10^3/uL (3.5-10.8)
[2019-09-17 06:34] LABS: BUN/Creatinine Ratio 26.3 (8-20); Calcium 7.9 mg/dL (8.6-10.3); EGFR African American 52.4 (>60); EGFR Non-African American 43.3 (>60)
--- NOTE | 2019-09-17 07:45 | PN ---
Subjective Date of Service: 09/17/19 Interval History: HD4 on 09/16 89 F PMH lung carcinoma s/p resection RUL and chemoradiation, CKD3, CAD sp PCI, PAD with hx fem pop bypass, DVT on AC still, COPD, HLD, ICM with EF 55% and ? HFpEF, recently undergoing evaluation for endotracheal mass (negative workup to date) who presented with SOB found to have symptomatic anemia from subacute melena, demand ischemia, and resolving PNA seen by CT scan. Interim Hx EGD: No source of bleed Overnight, no acute events, VSS, 98% on RA Still on clears Labs Hgb 9, K low This morning, seen with family friend, she was confused after scope but now is clearing. She has no abdominal pain, is hungry. We discuss no obvious source of bleed, she has had no further BMs, we discuss colo is preferred but she elects to pursue as outpt and wants to discuss with Dr. Palomino. She has no CP SOB GI or MSK complaints. Objective Active Medications: Albuterol (Ventolin 2.5 Mg/3 Ml Neb.Sherry*) 2.5 mg INH RT.QID [facility] Last Admin: 09/16/19 19:44 Dose: 2.5 mg Atorvastatin Calcium (Lipitor*) 80 mg PO BEDTIME [facility] Last Admin: 09/16/19 21:22 Dose: 80 mg Budesonide (Pulmicort Neb*) 0.25 mg INH BID [facility] Last Admin: 09/16/19 19:44 Dose: 0.25 mg Azithromycin (Zithromax 500 Mg/250 Ml) 500 mg in 250 mls @ 250 mls/hr IVPB Q24H [facility] Last Admin: 09/16/19 20:03 Dose: 250 mls/hr Ceftriaxone Sodium 1 gm/ (Sodium Chloride) 50 mls @ 100 mls/hr IVPB Q24H [facility] Last Admin: 09/16/19 12:03 Dose: 100 mls/hr Metoprolol Succinate (Toprol Xl Tab*) 25 mg PO BID [facility] Last Admin: 09/16/19 21:22 Dose: 25 mg Pantoprazole Sodium (Protonix Iv*) 40 mg IV Q12H [facility] Last Admin: 09/16/19 21:17 Dose: 40 mg Spironolactone (Aldactone Tab*) 25 mg PO DAILY [facility] Tiotropium [place] (Spiriva Respimat 2.5 Mcg) 2 puff INH DAILY [facility] Last Admin: 09/16/19 07:43 Dose: 2 puff Vital Signs - 8 hr 09/16/19 09/17/19 09/17/19 23:56 00:00 00:56 Temperature Pulse Rate 76 76 76 Respiratory Rate Blood Pressure 121/57 137/57 (mmHg) O2 Sat by Pulse 99 99 99 Oximetry 09/17/19 09/17/19 09/17/19 01:00 01:56 02:00 Temperature Pulse Rate 76 77 76 Respiratory Rate Blood Pressure 135/64 (mmHg) O2 Sat by Pulse 99 99 99 Oximetry 09/17/19 09/17/19 09/17/19 02:56 03:15 03:56 Temperature 97.4 F Pulse Rate 77 Respiratory 20 Rate Blood Pressure 151/71 131/59 (mmHg) O2 Sat by Pulse 98 97 Oximetry 09/17/19 09/17/19 09/17/19 04:00 04:56 05:00 Temperature Pulse Rate 76 72 75 Respiratory Rate Blood Pressure 136/53 (mmHg) O2 Sat by Pulse 97 99 98 Oximetry 09/17/19 05:56 Temperature Pulse Rate Respiratory Rate Blood Pressure 120/66 (mmHg) O2 Sat by Pulse Oximetry Oxygen Devices in Use Now: Nasal Cannula Appearance: Pleasant woman in NAD Eyes: No Scleral Icterus, PERRLA Ears/Nose/Mouth/Throat: NL Teeth, Lips, Gums, Mucous Membranes Moist Respiratory: Symmetrical Chest Expansion and Respiratory Effort, - - Crackles to blt bases Cardiovascular: NL Sounds; No Murmurs; No JVD, RRR Abdominal: NL Sounds; No Tenderness; No Distention, No Hepatosplenomegaly Lymphatic: No Cervical Adenopathy Extremities: No Edema Skin: No Rash or Ulcers Neurological: Alert and Oriented x 3 Result Diagrams: 09/17/19 05:41 09/17/19 05:41 Microbiology and Other Data: Microbiology 09/15/19 18:00 Transfusion Reaction Gram Stain - Final Blood Bag 09/15/19 14:45 Transfusion Reaction Gram Stain - Final Blood Bag 09/15/19 11:12 Stool Occult Blood (AMRLON) - Final Stool Diagnostic Imaging: CT Chest IMPRESSION: 1. With secretions in the esophagus, new right greater than left patchy bibasilar consolidation is concerning for aspiration pneumonitis/pneumonia. Recommend imaging to radiologic resolution. 2. Similar posttreatment changes in the right hemithorax. Evaluation of the treatment bed is limited without contrast. 3. Mild cardiomegaly. Coronary artery disease. Imaging features suggestive of anemia. 4.Small R plerual effusion Echo Summary: - Left ventricle: The cavity size is mildly reduced. Wall thickness is mildly increased. Systolic function is normal. The estimated ejection fraction is 55-60%. - Right ventricle: Systolic function is normal. - Mitral valve: There is mild regurgitation. - Aortic valve: The findings are consistent with moderate stenosis. The peak systolic velocity is 2.17 m/sec. The mean systolic gradient is 11.0 mm Hg. The LVOT to aortic valve VTI ratio is 0.47. The valve area by the velocity-time integral method is 1.20 cm^2. The valve area by the peak velocity method is 1.20 cm^2. - Tricuspid valve: There is moderate regurgitation. - Pericardium, extracardiac: A small pericardial effusion is seen adjacent to the right ventricle. It measures 0.6 cm anteriorly in the PLAX view and 0.7 cm adjacent to the right ventricular apex in the A4C view. The mitral E peak respiratory variation is 8% and the LVOT velocity variation is 1%. There is no significant Assess/Plan/Problems-Billing Assessment: 89 F PMH lung carcinoma s/p resection RUL and chemoradiation, CKD3, CAD sp PCI, PAD with hx fem pop bypass, DVT on AC still, COPD, HLD, ICM with EF 55% and ? HFpEF, recently undergoing evaluation for endotracheal mass (negative workup to date) who presented with SOB found to have symptomatic anemia from subacute melena, demand ischemia, and resolving PNA seen by CT scan. EGD with no source of bleed. - Patient Problems (1) Anemia Current Visit: Yes Status: Acute Code(s): D64.9 - ANEMIA, UNSPECIFIED SNOMED Code(s): 272031962 Comment: - Suspect with melena upper GI source, though EGD unrevealing, and acute blood loss anemia superimposed on baseline anemia of chronic disease with Hgb of 11 in early Aug 2019 - Stable overnight on 09/16 - Was on triple AC therapy with no clear indication, hold asa, plavix and AC for now for at least one month and restart asa alone as outpt - Appreciate GI input for source evaluation, recommending outpt colo (2) Melena Current Visit: Yes Status: Acute Code(s): K92.1 - MELENA SNOMED Code(s): 1734264 Comment: - On IV BID PPI, transition to oral once daily - Holding AC, DAPT - Appreciate GI input, not pursuing colo inpatient awaiting duodenal bx. - If stable CBC, d/c 09/17 (3) Pneumonia Current Visit: Yes Status: Acute Code(s): J18.9 - PNEUMONIA, UNSPECIFIED ORGANISM SNOMED Code(s): 257719667 Comment: - Dx by CT scan and cough, afebrile, resolving PNA that was followed - Continue CTX, Azithro Day 3/5 on 09/17, appropriate coverage for CAP on 09/15, transition to cefuroximine and oral azithro (4) History of lung cancer Current Visit: Yes Status: Acute Code(s): Z85.118 - PERSONAL HISTORY OF MALIGNANT NEOPLASM OF [place] AND LUNG SNOMED Code(s): 535146765 Comment: - Was undergoing workup for endobronchial mass (neg to date) - s/p distant lung cancer s/p resection and chemoradiation in presumed remission - Stopped using tob in 2006 (5) CKD (chronic kidney disease) Current Visit: Yes Status: Acute Code(s): N18.9 - CHRONIC KIDNEY DISEASE, UNSPECIFIED SNOMED Code(s): 303214718 Comment: - Baseline 1.5-1.7 (6) PAD (peripheral artery disease) Current Visit: Yes Status: Acute Code(s): I73.9 - PERIPHERAL VASCULAR DISEASE, UNSPECIFIED SNOMED Code(s): 037397088 Comment: - Holding DAPT - Continue statin - Fem pop bypass hx with complications in the past (7) CAD (coronary artery disease) Current Visit: Yes Status: Acute Code(s): I25.10 - ATHSCL HEART DISEASE OF [place] CORONARY ARTERY W/O ANG PCTRS SNOMED Code(s): 83518235 Comment: - On statin, BB, holding asa - Elevated troponin 2/2 to demand (8) Heart failure with preserved ejection fraction Current Visit: Yes Status: Acute Code(s): I50.30 - UNSPECIFIED DIASTOLIC ( CONGESTIVE) HEART FAILURE SNOMED Code(s): 641867375 Comment: - No e/o gross volume overload - Resume home diuretics spironolactone 3/13 (9) COPD (chronic obstructive pulmonary disease) Current Visit: Yes Status: Acute Code(s): J44.9 - CHRONIC OBSTRUCTIVE PULMONARY DISEASE, UNSPECIFIED SNOMED Code(s): 62506295 Comment: - Continue home inhalers - Off prednisone - No e/o exaverbation (10) Hx of deep venous thrombosis Current Visit: Yes Status: Acute Code(s): Z86.718 - PERSONAL HISTORY OF OTHER VENOUS THROMBOSIS AND EMBOLISM SNOMED Code(s): 872881492 Comment: - Holding AC, seemed provoked in Jul 2018, may be able to not resume (11) DVT prophylaxis Current Visit: Yes Status: Acute Code(s): Z29.9 - ENCOUNTER FOR PROPHYLACTIC MEASURES, UNSPECIFIED SNOMED Code(s): 267457270 Comment: - Holding given melena and anemia (12) Full code status Current Visit: Yes Status: Acute Code(s): Z78.9 - OTHER SPECIFIED HEALTH STATUS SNOMED Code(s): 842734368 Status and Disposition: Inpatient PT OT ordered Diet Advance to Full Consultants: GI Dispo: Back to home 09/17
[2019-09-17] MEDS: Albuterol 2.5 MG/3 ML NEB.SOL* (0.083%) INH SCH ×4 (08:01→19:46)
[2019-09-17] MEDS: SPIRIVA Respimat* (tiotropium) 2.5 mcg/inh Inhaler INH SCH (08:01)
[2019-09-17] MEDS: Budesonide NEB* 0.25 MG/2 ML NEB.SOLN INH SCH ×2 (08:01→19:46)
[2019-09-17] MEDS: Potassium Chlor TAB* 20 MEQ TAB.ER PO SCH ×3 (09:05→20:42)
[2019-09-17] MEDS: Metoprolol Succinate XL TAB* 25 MG PO SCH ×2 (09:05→20:46)
[2019-09-17] MEDS: Spironolactone TAB* 25 MG PO SCH (09:05)
[2019-09-17] MEDS: Pantoprazole IV* 40 MG IV SCH ×2 (09:06→20:41)
[2019-09-17] MEDS: cefTRIAXone(*) 1 GM in NS 0.9% 50 ML* 50 ML IVPB SCH (13:03)
[2019-09-17] MEDS ORDERED: Magnesium Sulfate 2 GM IV* 2 GM/50 ML BAG IVPB ONE (14:29)
--- NOTE | 2019-09-17 14:48 | PN ---
Progress Note - Progress Note Date of Service: 09/17/19 Note: pt seen and examined; feels well, no bm, no bleeding VS; 97.7, 162/60, 88, 94, 98% nad, alert +bs, soft Hgb 8.9, bun 51--->31, EGD--->no source Anemia, stable hgb, pt refusing colonoscopy will follow Aguilar Staton MD
[2019-09-17] MEDS: Azithromycin TAB* 250 MG PO SCH (18:09)
[2019-09-17] MEDS: Atorvastatin* 80 MG TAB PO SCH (20:41)
[2019-09-17] MEDS: Cefdinir cap* 300 MG CAP PO SCH (20:46)
--- NOTE | 2019-09-18 02:27 | DS ---
DISCHARGE SUMMARY: DATE OF ADMISSION: 09/15/19 ANTICIPATED DATE OF DISCHARGE: 09/18/19 DISPOSITION AT THE TIME OF DISCHARGE: Stable to be discharged back to [place] where the patient is a permanent resident. PRIMARY DIAGNOSES: 1. Symptomatic anemia. 2. Upper gastrointestinal bleed with evidence of melena, but no evidence of abnormal findings on EGD. The patient refused colonoscopy. 3. Resolving community-acquired pneumonia. SECONDARY DIAGNOSES: 1. Past medical history of lung carcinoma, status post resection right upper lobe and chemoradiation. 2. Chronic kidney disease, stage 3. 3. Coronary artery disease, status post PCI. 4. Peripheral artery disease with a history of fem-pop bypass with complications. 5. Provoked deep venous thrombosis in July 2018, still on anticoagulation that was discontinued during this hospitalization. 6. Chronic obstructive pulmonary disease. 7. Hyperlipidemia. 8. Ischemic cardiomyopathy with an ejection fraction of 55% and ? Heart failure with preserved ejection fraction. 9. ? Endobronchial mass that was recently cleared by Dr. Matias with bronchoscopy. MEDICATIONS AT THE TIME OF DISCHARGE: 1. Albuterol nebulizers 2.5 inhaled q.i.d. p.r.n. 2. Atorvastatin 80 mg p.o. q.h.s. 3. Azithromycin 250 mg p.o. daily for an additional 3 days status post discharge. 4. Budesonide 0.25 mg inhaled b.i.d. 5. Cefdinir 300 mg p.o. b.i.d. x3 days status post discharge. 6. Metoprolol tartrate 25 mg p.o. b.i.d. 7. Spironolactone 25 mg p.o. daily. 8. Tiotropium 1 cap inhaled daily. 10. Calcium carbonate, magnesium oxide, zinc 1 tab p.o. b.i.d. 11. Multivitamin 1 tab p.o. daily. 12. Omeprazole 20 mg p.o. daily. 13. Ramipril 2.5 mg p.o. daily. Medication changes on this hospitalization include the addition of cefdinir and azithromycin and discontinuation of Plavix and Xarelto. HISTORY OF PRESENT ILLNESS AND HOSPITAL COURSE: An 89-year-old female with the above past medical history, who presented to the emergency room with shortness of breath and episodes of dark tarry stools. The patient reports that she had a recent bronchoscopy and she was started on Prednisone. he had been taking prednisone 10 mg over the last 2 weeks. She reports that over the past 3 days she felt weak and that she had episodes of 3 black tarry stools on the morning of admission. In the emergency room, she had stable vital signs but her hemoglobin was found to be 4.5, her lactic acid was elevated at 4.1, her troponin was elevated to 0.16. Because of these findings, Hospital Medicine was asked to evaluate her for admission. Hospital course by problem list is as follows: 1. Symptomatic anemia secondary to acute blood loss superimposed on chronic anemia with a baseline hemoglobin of 11 in August 2019. The patient was on Plavix, Xarelto, and prednisone, which possibly provoked her acute blood loss anemia. She received 3 units of packed red blood cells and had appropriate response with hemoglobin to 9.4. The patient had no episodes of further blood loss during this hospitalization or black tarry stools after holding anticoagulation. 2. Melena. The patient was placed on IV b.i.d. PPI. We held her Plavix and Xarelto, and GI elected for endoscopy which showed no active source of bleed in stomach, duodenum, although she did have irregular duodenal appearance and it was biopsied. They did not feel that it was oncologic. The patient was offered colonoscopy, but she deferred for outpatient. 3. ? Pneumonia. The patient had been undergoing workup for endobronchial lesion although on bronchoscopy on 09/01/19, she was found to have no evidence for recurrence of cancer. She did have resolving pneumonia seen on CT chest on admission. She was placed on ceftriaxone and azithromycin and sent home on cefdinir and azithromycin. This possibly represented a postobstructive pneumonia that will eventually clear status post her bronchoscopy. She needed no oxygen and generally had very few symptoms. 4. History of lung cancer. She stopped using tobacco in 2006. She is status post lung cancer status post resection and so far has had a negative to-date workup for her endobronchial lesion. 5. Chronic kidney disease. The patient reported at her baseline. 6. Peripheral arterial disease. The patient was on Plavix and statin appropriately. She was not on aspirin, but secondary to her bleed she will need to hold Plavix and Xarelto and may be a candidate for resuming aspirin alone in the future. She has not had recent manipulations and there is no indication for Plavix over aspirin now that she is greater than 1 year out of her fem-pop bypass, although monotherapy aspirin or Plavix could be decided by her primary care physician in the future. 7. Coronary artery disease. The patient is on statin and beta-ashley, holding Plavix at this time and could resume low dose aspirin in 3 to 4 weeks. She did have elevated troponin on admission and this trended down, is secondary to demand ischemia. 8. ? Heart failure with preserved ejection fraction. The patient did get an echocardiogram done as part of risk stratification for EGD. It showed an ejection fraction of 55% to 60% and an aortic valve with moderate stenosis. They noted mild increased wall thickness, but no regional wall motion abnormalities. She is not on any Lasix, but we did resume her home diuretics of spironolactone. She did not appear volume overloaded. 9. Chronic obstructive pulmonary disease. The patient is on home inhalers. She is now off prednisone, and she has no evidence of exacerbation off prednisone. 10. History of deep venous thrombosis. She appeared to have a provoked DVT in July 2018 with associated pulmonary embolism. Xarelto was continued and currently held at this time. Because it was possibly provoked in 2019, she may have completed her appropriate therapy for anticoagulation, and primary care provider as well as glass washer may consider discontinuation of Xarelto altogether and a trial off given risks and benefits and she seems amenable to this. 11. Code status: Full. 12. On the day of discharge, the patient is tolerating a full diet with no further episodes of blood loss. She is counseled on medication changes and is able to ambulate and care for self at her baseline. LABS AND STUDIES DONE DURING THIS HOSPITALIZATION: Labs: CBC on 09/17/19, white blood cell count 12.1, hemoglobin 8.9, hematocrit 26, and platelets 249. Imaging included transthoracic echocardiogram done on 09/15/19, showing an ejection fraction of 55% to 60% and moderate aortic stenosis. EKG showed sinus rhythm with no evidence of ischemia on 09/16/19. Chest CT on 09/15/19 showed secretions in esophagus, left patchy bibasilar consolidation, post treatment changes to right hemithorax, mild cardiomegaly, small right pleural effusion. 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 Physical exam was done on the day of discharge and can be found in progress note. ITEMS TO FOLLOW UP ON: 1. Resuming antiplatelet or anticoagulation therapy. The patient had evidence of significant GI bleed with no evidence of source on EGD, but nonetheless she should be held of all of her antiplatelets and anticoagulation and could possibly resume baby aspirin in place of her Plavix and hold the Xarelto moving forward as a plan given her significant vascular risk, although I will defer this to her outpatient primary care provider. 2. Melena, which is presumed this is an upper GI bleed source with prednisone being a possible trigger for her gastritis with bleed, although there was no evidence of this on EGD. The patient was offered colonoscopy in the hospital and she refused and prefers to pursue colonoscopy as an outpatient. She will discuss this with Dr. Palomino at her followup appointment. 3. Resolving pneumonia. She had a left-sided patchy infiltrate that she responded to with community treatment. She may need continuation of antibiotics if she continues to have symptoms such as cough. She has no evidence of COPD exacerbation, thus I held prednisone. She is already optimized on triple therapy for her COPD. She is following with Dr. Matias given her recent question of endobronchial mass, which ultimately ended up being negative on bronchoscopy done in late August 2019. TIME SPENT: Forty five minutes was spent on the planning of this discharge with over half of that spent directly at the bedside of the patient providing direct patient care. Plan of care was discussed with the patient and her caregiver and they have no further questions and are comfortable returning to home. Referral placed to Dr. Franklin Lopez who was the proceduralist who completed her EGD to follow up with in GI clinic in 1 to 2 months to discuss possible colonoscopy, and the patient knows to follow up with her primary care provider Dr. Karyna Palomino. If there are any questions about the care of this patient during this hospitalization, please do not hesitate to reach out and contact me directly, my cellphone is [phone]. [id number]/[facility] #: [id number] [place]
[2019-09-18 06:03] LABS: Hematocrit 29 % (35-47); Hemoglobin 9.8 g/dL (12.0-16.0); Mean Corpuscular HGB Conc 33 g/dL (31-36); Mean Corpuscular Hemoglobin 28 pg (27-31); Mean Corpuscular Volume 84 fL (80-97); Mean Platelet Volume 7.9 fL (7.4-10.4); Platelet Count 339 10^3/uL (150-450); Red Cell Distribution Width 16 % (10-15); White Blood Count 14.6 10^3/uL (3.5-10.8)
[2019-09-18 06:36] LABS: ABS Eosinophils 0.3 10^3/ul (0-0.6); ABS Lymphocytes 1.3 10^3/ul (1.0-4.8); ABS Monocytes 1.7 10^3/ul (0-0.8); ABS Neutrophils 11.3 10^3/ul (1.5-7.7); Eosinophil % 1.9 %
[2019-09-18] MEDS: Metoprolol Succinate XL TAB* 25 MG PO SCH ×2 (08:57→20:34)
[2019-09-18] MEDS: Pantoprazole IV* 40 MG IV SCH ×2 (08:57→20:34)
[2019-09-18] MEDS: Cefdinir cap* 300 MG CAP PO SCH ×2 (08:57→20:34)
[2019-09-18] MEDS: Azithromycin TAB* 250 MG PO SCH (08:57)
[2019-09-18] MEDS: Spironolactone TAB* 25 MG PO SCH (08:57)
[2019-09-18] MEDS: SPIRIVA Respimat* (tiotropium) 2.5 mcg/inh Inhaler INH SCH (09:57)
[2019-09-18] MEDS: Budesonide NEB* 0.25 MG/2 ML NEB.SOLN INH SCH ×2 (09:57→21:06)
[2019-09-18] MEDS: Albuterol 2.5 MG/3 ML NEB.SOL* (0.083%) INH SCH ×4 (09:57→21:06)
[2019-09-18 10:33] LABS: BUN/Creatinine Ratio 17.4 (8-20); Calcium 7.9 mg/dL (8.6-10.3); EGFR Non-African American 44.6 (>60); Magnesium 2.1 mg/dL (1.9-2.7); Potassium 3.5 mmol/L (3.5-5.0)
[2019-09-18] MEDS ORDERED: Potassium Chloride* LIQUID 20 MEQ/15 ML UDC PO ONE (11:34)
--- NOTE | 2019-09-18 11:57 | PN ---
Subjective Date of Service: 09/18/19 Interval History: Ms. Arciniega's discharge had been activated this morning, but then I was called by her nurse to report 90 beats of VT within five minutes (the longest stretch was 6 beats consecutively). Ms. Arciniega has no complaints and denies chest pain , shortness of breath, palpitations, lightheadedness. She has not been out of bed yet today. Objective Active Medications: Albuterol (Ventolin 2.5 Mg/3 Ml Neb.Sherry*) 2.5 mg INH RT.QID [facility] Last Admin: 09/18/19 10:45 Dose: Not Given Atorvastatin Calcium (Lipitor*) 80 mg PO BEDTIME [facility] Last Admin: 09/17/19 20:41 Dose: 80 mg Azithromycin (Zithromax Tab*) 250 mg PO DAILY [facility] Last Admin: 09/18/19 08:57 Dose: 250 mg Budesonide (Pulmicort Neb*) 0.25 mg INH BID [facility] Last Admin: 09/18/19 09:57 Dose: 0.25 mg Cefdinir (Cefdinir Cap*) 300 mg PO BID [facility] Last Admin: 09/18/19 08:57 Dose: 300 mg Metoprolol Succinate (Toprol Xl Tab*) 25 mg PO BID [facility] Last Admin: 09/18/19 08:57 Dose: 25 mg Pantoprazole Sodium (Protonix Iv*) 40 mg IV Q12H [facility] Last Admin: 09/18/19 08:57 Dose: 40 mg Spironolactone (Aldactone Tab*) 25 mg PO DAILY [facility] Last Admin: 09/18/19 08:57 Dose: 25 mg Tiotropium [place] (Spiriva Respimat 2.5 Mcg) 2 puff INH DAILY [facility] Last Admin: 09/18/19 09:57 Dose: 2 puff Vital Signs - 8 hr 09/18/19 09/18/19 09/18/19 07:15 08:00 10:01 Temperature 97.7 F Pulse Rate 83 91 Respiratory 16 20 18 Rate Blood Pressure 151/72 (mmHg) O2 Sat by Pulse 94 95 Oximetry 09/18/19 11:15 Temperature 97.8 F Pulse Rate 90 Respiratory 20 Rate Blood Pressure 161/71 (mmHg) O2 Sat by Pulse 97 Oximetry Oxygen Devices in Use Now: None Appearance: alert, well appearing elderly woman Eyes: No Scleral Icterus Ears/Nose/Mouth/Throat: NL Teeth, Lips, Gums Neck: NL Appearance and Movements; NL JVP Respiratory: Symmetrical Chest Expansion and Respiratory Effort Cardiovascular: NL Sounds; No Murmurs; No JVD, RRR Abdominal: NL Sounds; No Tenderness; No Distention Lymphatic: No Cervical Adenopathy Extremities: No Edema Skin: No Rash or Ulcers, - - thin skin with echymoses over arms and legs Neurological: Alert and Oriented x 3 Result Diagrams: 09/18/19 05:35 09/18/19 05:35 Microbiology and Other Data: Microbiology 09/15/19 18:00 Transfusion Reaction Gram Stain - Final Blood Bag 09/15/19 14:45 Transfusion Reaction Gram Stain - Final Blood Bag 09/15/19 11:12 Stool Occult Blood (MARLON) - Final Stool Diagnostic Imaging: CT Chest IMPRESSION: 1. With secretions in the esophagus, new right greater than left patchy bibasilar consolidation is concerning for aspiration pneumonitis/pneumonia. Recommend imaging to radiologic resolution. 2. Similar posttreatment changes in the right hemithorax. Evaluation of the treatment bed is limited without contrast. 3. Mild cardiomegaly. Coronary artery disease. Imaging features suggestive of anemia. 4.Small R plerual effusion Echo Summary: - Left ventricle: The cavity size is mildly reduced. Wall thickness is mildly increased. Systolic function is normal. The estimated ejection fraction is 55-60%. - Right ventricle: Systolic function is normal. - Mitral valve: There is mild regurgitation. - Aortic valve: The findings are consistent with moderate stenosis. The peak systolic velocity is 2.17 m/sec. The mean systolic gradient is 11.0 mm Hg. The LVOT to aortic valve VTI ratio is 0.47. The valve area by the velocity-time integral method is 1.20 cm^2. The valve area by the peak velocity method is 1.20 cm^2. - Tricuspid valve: There is moderate regurgitation. - Pericardium, extracardiac: A small pericardial effusion is seen adjacent to the right ventricle. It measures 0.6 cm anteriorly in the PLAX view and 0.7 cm adjacent to the right ventricular apex in the A4C view. The mitral E peak respiratory variation is 8% and the LVOT velocity variation is 1%. There is no significant Assess/Plan/Problems-Billing Assessment: 89 F PMH lung carcinoma s/p resection RUL and chemoradiation, CKD3, CAD sp PCI, PAD with hx fem pop bypass, DVT on AC still, COPD, HLD, ICM with EF 55% and ? HFpEF, recently undergoing evaluation for endotracheal mass (negative workup to date) who presented with SOB found to have symptomatic anemia from subacute melena, demand ischemia, and resolving PNA seen by CT scan. EGD with no source of bleed. - Patient Problems (1) NSVT (nonsustained ventricular tachycardia) Current Visit: Yes Status: Acute Code(s): I47.2 - VENTRICULAR TACHYCARDIA SNOMED Code(s): 160706894 Comment: stat labs showed Mag 2.1 and K 3.5--K+ repleted TTE from this admission reviewed (normal LV, pulm HTN, mod , mod TR) EKG this am unchanged this raises the question of ischemia (trop peaked at 0.6 this admission thought to be related to demand from anemia discussed with Dr. Aviles who agrees to come see her; possible ischemic evaluation warranted pending his evaluation (2) Anemia Current Visit: Yes Status: Acute Code(s): D64.9 - ANEMIA, UNSPECIFIED SNOMED Code(s): 174804728 Comment: Suspect with melena upper GI source, though EGD unrevealing, and acute blood loss anemia superimposed on baseline anemia of chronic disease with Hgb of 11 in early Aug 2019 Hgb remains stable Was on triple AC therapy with no clear indication, hold asa, plavix and AC for now for at least one month and restart asa alone as outpt Will need outpatient colonoscopy (has refused inpatient) (3) COPD (chronic obstructive pulmonary disease) Current Visit: Yes Status: Acute Code(s): J44.9 - CHRONIC OBSTRUCTIVE PULMONARY DISEASE, UNSPECIFIED SNOMED Code(s): 45851272 Comment: Continue home inhalers Off prednisone No e/o exacerbation (4) Heart failure with preserved ejection fraction Current Visit: Yes Status: Acute Code(s): I50.30 - UNSPECIFIED DIASTOLIC ( CONGESTIVE) HEART FAILURE SNOMED Code(s): 027655176 Comment: No e/o gross volume overload (5) History of lung cancer Current Visit: Yes Status: Acute Code(s): Z85.118 - PERSONAL HISTORY OF MALIGNANT NEOPLASM OF BRONCHUS AND LUNG SNOMED Code(s): 290809527 Comment: - Was undergoing workup for endobronchial mass (neg to date) - s/p distant lung cancer s/p resection and chemoradiation in presumed remission - Stopped using tobacco in 2006 (6) Hx of deep venous thrombosis Current Visit: Yes Status: Acute Code(s): Z86.718 - PERSONAL HISTORY OF OTHER VENOUS THROMBOSIS AND EMBOLISM SNOMED Code(s): 903197353 Comment: Holding AC, seemed provoked in Jul 2018, planning to hold indefinitely (7) PAD (peripheral artery disease) Current Visit: Yes Status: Acute Code(s): I73.9 - PERIPHERAL VASCULAR DISEASE, UNSPECIFIED SNOMED Code(s): 787098162 Comment: - Holding DAPT - Continue statin - Fem pop bypass hx with complications in the past Status and Disposition: Inpatient Cardiology consult today PT OT ordered before return to [place] Diet Advance to Full Consultants: GI
--- NOTE | 2019-09-18 14:49 | CONS ---
CC: Dr. Nicholson; Dr. 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 Nicholson. HISTORY OF PRESENT ILLNESS: I was asked by hospitalist service to see this 89-year- old female patie nt, who was admitted with GI bleed and significant anemia and after further GI evaluation, the hospit alist was about to be discharged today when she was noted to have frequent PVCs, couplets and nonsust ained V-tach on the cardiac campus monitor this morning. The patient does have history of coronar y artery disease, history of myocardial infarction, history of stenting in October 2014, history of per ipheral vascular disease with fem-pop bypass in 2018 and thrombus in the bypass graft in July 2018 , history of lung cancer, history of radiation and chemotherapy, COPD, hyperlipidemia, and ischemic h eart disease. Apparently, the patient was hospitalized with fatigue, shortness of breath. She was f ound to be significantly anemic. She had seen by GI, upper and lower endoscopy, colonoscopy, and als o received blood transfusion. She had minimal troponin on the hospitalization without chest pain. O f note is her initial presentation showed her hemoglobin to be 4.7 on 09/15/19 with hematocrit of 14. Her hemoglobin today is 8.9 with hematocrit of 26. Also, her chemistry showed significantly low po tassium at 3.1 and 3.0 yesterday and 3.5 today, which is really low. Her magnesium was 2.1. Her tro ponin did go down actually with a peak at 0.78 on 09/15/19 and then did go to 0.56 on 09/16/19. She gives no chest pain. She has chronic history of shortness of breath. She gives no fever, no chills, no nausea, no vomiting, no hematochezia, no skin rash, no abdominal pain, no syncope is appreciated. She had a longest stretch of 6 beats without symptoms actually of the V-tach. She had history of r esection of the right upper lobe and chemoradiation. She does have chronic kidney disease stage 3 an d also DVT and she was on anticoagulation and still she is off "blood thinners" because of bleeding. She had an echo during this hospitalization that was reported to have normal left ventricular systol ic function with EF 55% and possibility of heart failure with preserved ejection fraction. She also was found to have history of aortic stenosis, but it was not severe. PAST MEDICAL HISTORY: Extensive as outlined above and as I initiated it including lung cancer, resec tion of the right upper lobe, bronchoscopy, chemoradiation treatment; chronic kidney disease; anemia, status post blood transfusion; coronary artery disease, stenting in the past; peripheral arterial di sease; history of deep venous thrombosis; COPD; ischemic heart disease; and history of hyperlipidemia . PAST SURGICAL HISTORY: Also extensive and as outlined above including history of femoral-popliteal b ypass, angioplasty in 2014, and fasciotomy of the left lower leg. MEDICATIONS: As an outpatient include: 1. Xarelto 20 mg daily. 2. Spiriva inhaler daily. 3. Plavix 75 mg daily. 4. Multivitamins daily. 5. Ramipril 2.5 mg daily. 6. Albuterol 2.5 mg inhaled 4 times daily. 7. Lipitor 80 mg daily. 8. Aldactone 25 mg daily. 9. Metoprolol 25 mg twice a day. 10. Prednisone 10 mg daily. Her medications as an inpatient include: 1. Ventolin inhaler 2.5 mg 4 times daily. 2. Lipitor 80 mg daily. 3. Azithromycin 250 mg daily. 4. Toprol 25 mg twice a day. 5. Protonix 40 mg twice a day. 6. Aldactone 25 mg daily. 7. Spiriva 2 puffs daily. ALLERGIES: She is allergic to CODEINE. FAMILY HISTORY: There is a father who at age 34 [address] and brother from CT at age 6 7. SOCIAL HISTORY: She used to smoke. She quit smoking in 2006 after she was diagnosed with lung cance r. She was a long time smoker before that. No history of alcoholism or drug abuse. REVIEW OF SYSTEMS: Review of all other systems essentially is negative. PHYSICAL EXAM: On exam, she is awake, alert, and oriented. She is not in acute distress. Her vital s: Blood pressure 161/71, temperature 97.8, pulse 90, respiratory rate 20. She is in sinus rhythm. Head and Neck Exam: Normocephalic, atraumatic head. Ears, Nose, and Throat: Essentially benign. Neck is supple. JVP is not elevated. No carotid bruits. No masses in the neck are appreciated. Ches t: Diminished air entry at the bases. No rales, no wheeze. No added sounds appreciated. Heart: N ormal S1, S3. No added sounds. No gallops, no rubs. There is a grade 3/6 systolic murmur, left santosh rnal border. Abdomen: Benign, soft. Positive bowel sounds. Extremities: No edema, no cyanosis, no clubbing. Skin exam is normal. Psych: Normal affect and mood. BREAST PULLER: No focal deficits appreciate d. DIAGNOSTIC STUDIES/LAB DATA: Her labs showed sodium 140, potassium 3.5, total CO2 , BUN 6, crea tinine 2.0, magnesium 2.1, calcium low at 7.9. Troponin peaked at 0.56. Her white blood cell 12.1, hemoglobin 8.9, hematocrit 26, platelets 249. Her transthoracic echo done on 09/15/19: Left ventricular systolic function normal, EF 55% to 60%, m ild mitral insufficiency. There is moderate aortic stenosis, moderate tricuspid insufficiency, small pericardial effusion. Her EKG that was done from today showed her to be in normal sinus rhythm, heart rate 83 beats per min norbert. Her QTc is normal and nonspecific T abnormality is appreciated. There is possibility of ST dep ressions borderline in leads II, III, aVF as well as lateral and also V3, V4, V5, and V6. IMPRESSION: The patient is an 89-year-old with: 1. Hospitalization from 09/15/19 for gastrointestinal bleed and critically low hemoglobin and hemato crit. 2. Known history of coronary artery disease, ischemic heart disease, angioplasty and stenting in 201 5. 3. Mildly elevated troponin, with possible EKG changes from today. 4. Nonsustained ventricular tachycardia today peaked up on the cardiac monitoring without symptoms o f chest pain or hemodynamic instability. 5. History of lung cancer, right upper lobectomy, chemoradiation treatment. 6. Chronic kidney disease. 7. Extensive history of peripheral arterial disease and deep venous thrombosis. 8. Hypokalemia. 9. Abnormal EKG as described. 10. Chronic obstructive pulmonary disease. 11. Pulmonary hypertension. 12. Moderate aortic stenosis. 13. Moderate tricuspid insufficiency with moderate pulmonary hypertension. 14. Preserved left ventricular systolic function. PLAN: The concern about the patient's ventricular tachycardia, which I personally reviewed the rhyth m strips from the cardiac telemetry monitoring probably appears to be consistent with V-tach, althoug h it was brief, but it was frequent over a 5- minute period. The patient remains chest pain-free and hemodynamically stable all through the brief period of time. It is not immediately clear the etiolo gy. Definitely in the differential includes her anemia, significantly low potassium, her COPD, and de finitely our concern will be ischemic heart disease in light of elevated troponin, some EKG abnormali ty, although she remains without chest pain and without any hemodynamic instability. As I discussed with Dr. Pineda from the hospitalist service, I think it is reasonable to evaluate for ischemia with noninvasive modality with a Lexiscan Myoview nuclear stress test. At the present time, we will watch her very closely especially for hemoglobin, hematocrit, and her electrolytes. I would like to see h er potassium more than 4, magnesium more than 2. Avoid significant dehydration. Consideration might be given to increase beta- ashley if this be comes recurrent, but we will have to definitely weigh the risks given she is a significant COPD patie nt, lung cancer patient as well. I explained all of this to the patient today. I answered all her c oncerns and questions up to her satisfaction. We will follow her very closely. We will make further recommendations accordingly. It is very assuring to see her left ventricular systolic function is n ormal by her most recent echocardiogram, which was done during this hospitalization. Thank you very much for asking us to participate in the care of this patient. TIME SPENT: More than half of at least 65 plus minutes was in the education and counseling mode, fac e-to-face, making further discussion and recommendations. [id number]/[facility] #: [id number]
[2019-09-18] MEDS: Atorvastatin* 80 MG TAB PO SCH (20:34)
[2019-09-18] MEDS ORDERED: Melatonin 3 MG TAB PO PRN (21:09)
[2019-09-18] MEDS ORDERED: Acetaminophen TAB* 325 MG PO PRN (21:10)
[2019-09-19 06:43] LABS: ABS Eosinophils 0.4 10^3/ul (0-0.6); ABS Lymphocytes 1.3 10^3/ul (1.0-4.8); ABS Monocytes 1.2 10^3/ul (0-0.8); ABS Neutrophils 7.8 10^3/ul (1.5-7.7); Hematocrit 27 % (35-47); Hemoglobin 9.4 g/dL (12.0-16.0); Lymphocyte % 11.7 %; Mean Corpuscular HGB Conc 34 g/dL (31-36); Mean Corpuscular Hemoglobin 29 pg (27-31); Mean Corpuscular Volume 83 fL (80-97); Mean Platelet Volume 7.9 fL (7.4-10.4); Nucleated Red Blood Cells % 0.1; Platelet Count 318 10^3/uL (150-450); Red Blood Count 3.28 10^6 /uL (3.70-4.87); Red Cell Distribution Width 16 % (10-15); White Blood Count 10.8 10^3/uL (3.5-10.8)
[2019-09-19 06:54] LABS: BUN/Creatinine Ratio 15.3 (8-20); Calcium 8.3 mg/dL (8.6-10.3); EGFR African American 52.4 (>60); EGFR Non-African American 43.3 (>60); Magnesium 1.8 mg/dL (1.9-2.7); Potassium 3.7 mmol/L (3.5-5.0)
[2019-09-19] MEDS ORDERED: Magnesium Oxide TAB* 400 MG PO ONE (07:56)
[2019-09-19] MEDS ORDERED: Potassium Chloride* LIQUID 20 MEQ/15 ML UDC PO ONE (07:56)
--- NOTE | 2019-09-19 08:11 | PN ---
Subjective Date of Service: 09/19/19 Interval History: Chart reviewed for tele strips; 9 beat run of VT reported early this morning. No other overnight events noted. Evaluated by Dr. Aviles yesterday; recs appreciated. She feels good, she has no complaints. Does not recall Dr. vAiles's recommendations but when I offer them she remembers. She is happy with this plan Objective Active Medications: Acetaminophen (Tylenol Tab*) 650 mg PO Q6H PRN PRN Reason: PAIN - MILD Last Admin: 09/18/19 21:56 Dose: 650 mg Albuterol (Ventolin 2.5 Mg/3 Ml Neb.Sherry*) 2.5 mg INH RT.QID [facility] Last Admin: 09/18/19 21:06 Dose: 2.5 mg Atorvastatin Calcium (Lipitor*) 80 mg PO BEDTIME [facility] Last Admin: 09/18/19 20:34 Dose: 80 mg Azithromycin (Zithromax Tab*) 250 mg PO DAILY [facility] Last Admin: 09/18/19 08:57 Dose: 250 mg Budesonide (Pulmicort Neb*) 0.25 mg INH BID [facility] Last Admin: 09/18/19 21:06 Dose: 0.25 mg Cefdinir (Cefdinir Cap*) 300 mg PO BID [facility] Last Admin: 09/18/19 20:34 Dose: 300 mg Magnesium Oxide (Magox 400 Tab*) 400 mg PO ONCE ONE Stop: 09/19/19 07:57 Melatonin (Melatonin) 3 mg PO BEDTIME PRN PRN Reason: SLEEP Last Admin: 09/18/19 21:57 Dose: 3 mg Metoprolol Succinate (Toprol Xl Tab*) 25 mg PO BID [facility] Last Admin: 09/18/19 20:34 Dose: 25 mg Pantoprazole Sodium (Protonix Iv*) 40 mg IV Q12H [facility] Last Admin: 09/18/19 20:34 Dose: 40 mg Potassium Chloride (Potassium Chloride Liquid) 40 meq PO ONCE ONE Stop: 09/19/19 07:57 Spironolactone (Aldactone Tab*) 25 mg PO DAILY [facility] Last Admin: 09/18/19 08:57 Dose: 25 mg Tiotropium [place] (Spiriva Respimat 2.5 Mcg) 2 puff INH DAILY [facility] Last Admin: 09/18/19 09:57 Dose: 2 puff Vital Signs - 8 hr 09/19/19 03:15 Temperature 97.8 F Pulse Rate 78 Respiratory 18 Rate Blood Pressure 162/77 (mmHg) O2 Sat by Pulse 100 Oximetry Oxygen Devices in Use Now: Nasal Cannula Appearance: alert, well appearing, in good spirits Eyes: No Scleral Icterus Ears/Nose/Mouth/Throat: NL Teeth, Lips, Gums Neck: NL Appearance and Movements; NL JVP Respiratory: Symmetrical Chest Expansion and Respiratory Effort, Clear to Auscultation Cardiovascular: NL Sounds; No Murmurs; No JVD, RRR Abdominal: NL Sounds; No Tenderness; No Distention Lymphatic: No Cervical Adenopathy Extremities: No Edema Skin: No Rash or Ulcers Result Diagrams: 09/19/19 06:01 09/19/19 06:01 Microbiology and Other Data: Microbiology 09/15/19 18:00 Transfusion Reaction Gram Stain - Final Blood Bag 09/15/19 14:45 Transfusion Reaction Gram Stain - Final Blood Bag 09/15/19 11:12 Stool Occult Blood (MARLON) - Final Stool Diagnostic Imaging: CT Chest IMPRESSION: 1. With secretions in the esophagus, new right greater than left patchy bibasilar consolidation is concerning for aspiration pneumonitis/pneumonia. Recommend imaging to radiologic resolution. 2. Similar posttreatment changes in the right hemithorax. Evaluation of the treatment bed is limited without contrast. 3. Mild cardiomegaly. Coronary artery disease. Imaging features suggestive of anemia. 4.Small R plerual effusion Echo Summary: - Left ventricle: The cavity size is mildly reduced. Wall thickness is mildly increased. Systolic function is normal. The estimated ejection fraction is 55-60%. - Right ventricle: Systolic function is normal. - Mitral valve: There is mild regurgitation. - Aortic valve: The findings are consistent with moderate stenosis. The peak systolic velocity is 2.17 m/sec. The mean systolic gradient is 11.0 mm Hg. The LVOT to aortic valve VTI ratio is 0.47. The valve area by the velocity-time integral method is 1.20 cm^2. The valve area by the peak velocity method is 1.20 cm^2. - Tricuspid valve: There is moderate regurgitation. - Pericardium, extracardiac: A small pericardial effusion is seen adjacent to the right ventricle. It measures 0.6 cm anteriorly in the PLAX view and 0.7 cm adjacent to the right ventricular apex in the A4C view. The mitral E peak respiratory variation is 8% and the LVOT velocity variation is 1%. There is no significant Assess/Plan/Problems-Billing Assessment: 89 F PMH lung carcinoma s/p resection RUL and chemoradiation, CKD3, CAD sp PCI, PAD with hx fem pop bypass, DVT on AC still, COPD, HLD, ICM with EF 55% and ? HFpEF, recently undergoing evaluation for endotracheal mass (negative workup to date) who presented with SOB found to have symptomatic anemia from subacute melena, demand ischemia, and resolving PNA seen by CT scan. EGD with no source of bleed. - Patient Problems (1) NSVT (nonsustained ventricular tachycardia) Current Visit: Yes Status: Acute Code(s): I47.2 - VENTRICULAR TACHYCARDIA SNOMED Code(s): 496424511 Comment: hemodynamically stable and asymptomatic replete lytes TTE from this admission reviewed (normal LV, pulm HTN, mod , mod TR) this raises the question of ischemia (trop peaked at 0.78 this admission thought to be related to demand from anemia) Dr. Aviles recommended nuclear stress test tomorrow (2) Anemia Current Visit: Yes Status: Acute Code(s): D64.9 - ANEMIA, UNSPECIFIED SNOMED Code(s): 957094288 Comment: Suspect with melena upper GI source, though EGD unrevealing, and acute blood loss anemia superimposed on baseline anemia of chronic disease with Hgb of 11 in early Aug 2019 Hgb remains stable Was on triple AC/antiplatelet therapy--hold asa, plavix and AC for now for at least one month and restart asa alone as outpt Will need outpatient colonoscopy (has refused inpatient) (3) COPD (chronic obstructive pulmonary disease) Current Visit: Yes Status: Acute Code(s): J44.9 - CHRONIC OBSTRUCTIVE PULMONARY DISEASE, UNSPECIFIED SNOMED Code(s): 09670558 Comment: Continue home inhalers Off prednisone No e/o exacerbation (4) Heart failure with preserved ejection fraction Current Visit: Yes Status: Acute Code(s): I50.30 - UNSPECIFIED DIASTOLIC ( CONGESTIVE) HEART FAILURE SNOMED Code(s): 481738057 Comment: No e/o gross volume overload (5) History of lung cancer Current Visit: Yes Status: Acute Code(s): Z85.118 - PERSONAL HISTORY OF MALIGNANT NEOPLASM OF BRONCHUS AND LUNG SNOMED Code(s): 877639838 Comment: - Was undergoing workup for endobronchial mass (neg to date) - s/p distant lung cancer s/p resection and chemoradiation in presumed remission - Stopped using tobacco in 2006 (6) Hx of deep venous thrombosis Current Visit: Yes Status: Acute Code(s): Z86.718 - PERSONAL HISTORY OF OTHER VENOUS THROMBOSIS AND EMBOLISM SNOMED Code(s): 201830740 Comment: Holding AC, seemed provoked in Jul 2018, planning to hold indefinitely (7) PAD (peripheral artery disease) Current Visit: Yes Status: Acute Code(s): I73.9 - PERIPHERAL VASCULAR DISEASE, UNSPECIFIED SNOMED Code(s): 734924423 Comment: - Holding DAPT - Continue statin - Fem pop bypass hx with complications in the past Status and Disposition: Inpatient stress test tomorrow PT OT ordered before return to [place] Diet: Full; NPO after midnight Consultants: GI and Cardiology
[2019-09-19] MEDS: SPIRIVA Respimat* (tiotropium) 2.5 mcg/inh Inhaler INH SCH (08:59)
[2019-09-19] MEDS: Albuterol 2.5 MG/3 ML NEB.SOL* (0.083%) INH SCH ×3 (08:59→20:31)
[2019-09-19] MEDS: Budesonide NEB* 0.25 MG/2 ML NEB.SOLN INH SCH ×2 (08:59→21:23)
[2019-09-19] MEDS: Azithromycin TAB* 250 MG PO SCH (09:28)
[2019-09-19] MEDS: Metoprolol Succinate XL TAB* 25 MG PO SCH ×2 (09:28→20:27)
[2019-09-19] MEDS: Cefdinir cap* 300 MG CAP PO SCH ×2 (09:28→20:27)
[2019-09-19] MEDS: Spironolactone TAB* 25 MG PO SCH (09:29)
[2019-09-19] MEDS: Pantoprazole IV* 40 MG IV SCH ×2 (09:29→20:27)
[2019-09-19] MEDS: Atorvastatin* 80 MG TAB PO SCH (20:27)
[2019-09-20 06:05] LABS: ABS Basophils 0.1 10^3/ul (0-0.2); ABS Eosinophils 0.4 10^3/ul (0-0.6); ABS Lymphocytes 1.4 10^3/ul (1.0-4.8); ABS Monocytes 1.1 10^3/ul (0-0.8); ABS Neutrophils 9.2 10^3/ul (1.5-7.7); Eosinophil % 3.5 %; Hematocrit 30 % (35-47); Hemoglobin 9.9 g/dL (12.0-16.0); Lymphocyte % 11.3 %; Mean Corpuscular HGB Conc 33 g/dL (31-36); Mean Corpuscular Hemoglobin 28 pg (27-31); Mean Corpuscular Volume 84 fL (80-97); Mean Platelet Volume 7.6 fL (7.4-10.4); Nucleated Red Blood Cells % 0.1; Platelet Count 389 10^3/uL (150-450); Red Blood Count 3.59 10^6 /uL (3.70-4.87); Red Cell Distribution Width 16 % (10-15); White Blood Count 12.1 10^3/uL (3.5-10.8)
[2019-09-20 06:20] LABS: BUN/Creatinine Ratio 15.9 (8-20); EGFR African American 48.6 (>60); EGFR Non-African American 40.2 (>60); Magnesium 1.6 mg/dL (1.9-2.7)
[2019-09-20] MEDS: Albuterol 2.5 MG/3 ML NEB.SOL* (0.083%) INH SCH (07:23)
[2019-09-20] MEDS: Budesonide NEB* 0.25 MG/2 ML NEB.SOLN INH SCH (07:24)
[2019-09-20] MEDS: SPIRIVA Respimat* (tiotropium) 2.5 mcg/inh Inhaler INH SCH (07:24)
[2019-09-20] MEDS ORDERED: Magnesium Oxide TAB* 400 MG PO ONE (08:03)
[2019-09-20] MEDS: Metoprolol Succinate XL TAB* 25 MG PO SCH (09:56)
[2019-09-20] MEDS ORDERED: Regadenoson* 0.4 MG/5 ML SYRINGE ONE (11:21)
[2019-09-20] MEDS: Azithromycin TAB* 250 MG PO SCH (11:47)
[2019-09-20] MEDS: Cefdinir cap* 300 MG CAP PO SCH (11:47)
[2019-09-20] MEDS: Spironolactone TAB* 25 MG PO SCH (11:48)
[2019-09-20] MEDS: Pantoprazole IV* 40 MG IV SCH (11:49)
[2019-09-20 12:18] VITALS: BP 148/72
--- NOTE | 2019-09-20 22:19 | DS ---
DISCHARGE SUMMARY: DATE OF ADMISSION: 09/15/19 DATE OF DISCHARGE: 09/20/19 ADDENDUM: This is an addendum to the discharge summary that was dictated by Dr. Bren Mullen on 09/17/19. On the morning of 09/18/19, Ms. Arciniega was discharged; however, as she was getting ready to be discharged, she was noted to have 90 beats of ventricular tachycardia within 5 minutes on telemetry. She was asymptomatic and hemodynamically stable at that time. Given her history of an NSTEMI on this hospitalization, Cardiology was consulted with some concern for ischemia contributing to her nonsustained ventricular tachycardia. Dr. Aviles saw her and recommended a nuclear stress test on 09/20/19, which she underwent. The results of the nuclear medicine scan showed no definite fixed or reversible perfusion defects. There is elevation of the TID ratio, which may indicate 3- vessel disease though this may be artifactual. I discussed the results with Dr. Nicholson, who recommended no further cardiac workup and agreed with discharge to home. Her VT has improved since that morning. I have added supplemental magnesium, and she is anxious to be discharged. I have discussed the discharge plans with her and her daughter and they are supportive. Her nurses have ambulated her on the day of discharge and report that she is steady and comfortable to go back to independent living at [facility]. Please see Dr. Mullen's complete discharge summary for a full description of this hospitalization. [id number] #: [id number] MTDD
== END 2019-09-20 14:10 | disposition home or self-care (01) | DRG 377 ==
LOC: ED 10:08 → MEDTELE 13:48 → ED 16:27
PROVIDERS: ADMIT Nurse Practitioner; ATTEND Internal Medicine
PROC: 30233N1 Transfusion of Nonautologous Red Blood Cells into Peripheral Vein, Percutaneous Approach (ICD-10-PCS; 2019-09-15)
PROC: 0DB98ZX Excision of Duodenum, Via Natural or Artificial Opening Endoscopic, Diagnostic (ICD-10-PCS; principal; 2019-09-16)
DX: K92.1 Melena (principal); J18.9 Pneumonia, unspecified organism; D62 Acute posthemorrhagic anemia; I47.2 Ventricular tachycardia; I24.8 Other forms of acute ischemic heart disease; I50.30 Unspecified diastolic (congestive) heart failure; J44.0 Chronic obstructive pulmonary disease with (acute) lower respiratory infection; I13.0 Hypertensive heart and chronic kidney disease with heart failure and stage 1 through stage 4 chronic kidney disease, or unspecified chronic kidney disease; I25.10 Atherosclerotic heart disease of native coronary artery without angina pectoris; E78.5 Hyperlipidemia, unspecified; I12.9 Hypertensive chronic kidney disease with stage 1 through stage 4 chronic kidney disease, or unspecified chronic kidney disease; N18.3 Chronic kidney disease, stage 3 (moderate); K21.9 Gastro-esophageal reflux disease without esophagitis; E78.00 Pure hypercholesterolemia, unspecified; I73.9 Peripheral vascular disease, unspecified; M19.012 Primary osteoarthritis, left shoulder; F32.9 Major depressive disorder, single episode, unspecified; I25.5 Ischemic cardiomyopathy; E87.6 Hypokalemia; I27.20 Pulmonary hypertension, unspecified; I08.1 Rheumatic disorders of both mitral and tricuspid valves; K31.9 Disease of stomach and duodenum, unspecified; K44.9 Diaphragmatic hernia without obstruction or gangrene; Z28.21 Immunization not carried out because of patient refusal; Z79.899 Other long term (current) drug therapy; I25.2 Old myocardial infarction; Z95.5 Presence of coronary angioplasty implant and graft; Z85.118 Personal history of other malignant neoplasm of bronchus and lung; Z92.21 Personal history of antineoplastic chemotherapy; Z92.3 Personal history of irradiation; Z88.5 Allergy status to narcotic agent; Z87.891 Personal history of nicotine dependence; Z86.718 Personal history of other venous thrombosis and embolism
CPT/HCPCS: 36415; 71045; 71250; 78452; 80048; 80053; 81003; 81015; 82270; 82550; 82553; 83605; 83735; 83880; 84484; 85014; 85018; 85025; 85610; 85730; 86078; 86140; 86850; 86900; 86901; 86922; 87040; 87086; 87899; 88305; 93005; 93017; 93306; 94640; 96365; 96375; 99156; 99157; 99284; A9270-GY; A9502; J0456; J0696; J2250; J2785; J3010; J3475; J3535; P9040

== ENCOUNTER 2020-01-19 19:43 | Observation (INO) ==
[2020-01-19 21:47] LABS: ABS Basophils 0.1 10^3/ul (0-0.2); ABS Eosinophils 0.2 10^3/ul (0-0.6); ABS Lymphocytes 0.8 10^3/ul (1.0-4.8); ABS Monocytes 0.7 10^3/ul (0-0.8); Hematocrit 35 % (35-47); Hemoglobin 12.7 g/dL (12.0-16.0); Lymphocyte % 5.1 %; Mean Corpuscular HGB Conc 37 g/dL (31-36); Mean Corpuscular Hemoglobin 31 pg (27-31); Mean Corpuscular Volume 84 fL (80-97); Mean Platelet Volume 7.9 fL (7.4-10.4); Platelet Count 319 10^3/uL (150-450); Red Cell Distribution Width 17 % (10-15); White Blood Count 15.7 10^3/uL (3.5-10.8)
[2020-01-19 21:51] LABS: INR 1.26 (0.82-1.09)
[2020-01-19 22:03] LABS: Albumin 3.4 g/dL (3.2-5.2); BUN/Creatinine Ratio 21.1 (8-20); C Reactive Protein 111.81 mg/L (<8.01); Calcium 9.3 mg/dL (8.6-10.3); EGFR African American 42.3 (>60); Globulin 3.4 g/dL (2-4); Potassium 3.7 mmol/L (3.5-5.0); Total Bilirubin 0.7 mg/dL (0.2-1.0); Total Protein 6.8 g/dL (6.4-8.9)
[2020-01-19 22:04] LABS: Troponin I 0.01 ng/mL (<0.03)
[2020-01-19] MEDS ORDERED: Furosemide 40 mg/4 ml IV VIAL IV SLOW PU ONE (22:32)
[2020-01-19] MEDS ORDERED: cefTRIAXone 2 GM ADDV.VIAL 2 GM in NS 0.9% 100 ml BAG 100 ML IVPB ONE (22:36)
[2020-01-19] MEDS ORDERED: cefTRIAXone 2 GM ADDV.VIAL ONE (22:39)
[2020-01-20] MEDS ORDERED: Azithromycin 500 mg/250 ml NS 500 MG/250 ML BAG IVPB ONE (00:30)
[2020-01-20] MEDS ORDERED: Heparin 5000 UNITS/ML 1 mL VIAL SUBCUT SCH (06:00)
[2020-01-20 07:02] LABS: Urine Appearance Clear; Urine Bilirubin Negative (Negative); Urine Blood Negative (Negative); Urine Color Colorless; Urine Glucose Negative (Negative); Urine Ketones Negative (Negative); Urine Nitrite Negative (Negative); Urine Protein Negative (Negative); Urine Specific Gravity 1.005 (1.010-1.030); Urine Urobilinogen Negative (Negative)
[2020-01-20 07:12] LABS: ABS Basophils 0.1 10^3/ul (0-0.2); ABS Eosinophils 0.1 10^3/ul (0-0.6); Eosinophil % 0.5 %; Hematocrit 37 % (35-47); Hemoglobin 12.5 g/dL (12.0-16.0); Lymphocyte % 4.6 %; Mean Corpuscular HGB Conc 34 g/dL (31-36); Mean Corpuscular Hemoglobin 29 pg (27-31); Mean Corpuscular Volume 84 fL (80-97); Mean Platelet Volume 8.5 fL (7.4-10.4); Nucleated Red Blood Cells % 0.1; Platelet Count 442 10^3/uL (150-450); Red Blood Count 4.39 10^6 /uL (3.70-4.87); Red Cell Distribution Width 16 % (10-15); White Blood Count 22.2 10^3/uL (3.5-10.8)
[2020-01-20] MEDS: Mometasone/Formoter 200/5 MDI INH SCH ×2 (08:03→08:10)
[2020-01-20] MEDS ORDERED: Multivitamins/Minerals TAB PO SCH (09:00)
[2020-01-20] MEDS ORDERED: SPIRIVA Respimat (tiotropium) 2.5 mcg/inh Inhaler INH SCH (09:00)
[2020-01-20] MEDS ORDERED: Pantoprazole 20 mg TAB (NF) PO SCH (09:00)
[2020-01-20 11:15] VITALS: BP 163/51
[2020-01-20] MEDS ORDERED: cefTRIAXone 1 gm/50 mL NS BAG 1 GM/50 ML BAG IVPB SCH (20:30)
== END 2020-01-20 12:18 | disposition home or self-care (01) ==
LOC: ED 19:43 → MEDTELE 19:43
PROVIDERS: ADMIT Internal Medicine; ATTEND Hospitalist